=== PATIENT | male | born 1955 | race Caucasian/White ===

== ENCOUNTER 2019-12-27 11:32 | Emergency (ER) | payer OTHER, SELFPAY ==
--- NOTE | ~2019-12-27 | CT_ITS ---
EXAMINATION: CT lumbar spine wo con DATE: 12/27/2019 12:40 INDICATION: Low back pain. TECHNIQUE: Computed tomography (CT) of the lumbar spine was performed without intravenous contrast. A utomated exposure control and iterative reconstruction technique were employed. The dose-length produ ct was 848.95 mGy-cm. COMPARISON: None FINDINGS: There is 5 degrees dextrocurvature of lumbar spine.. There are changes of anterior fusion p rocedures at L4-L5 and L5-S1 with interbody devices. There is bridging bone at L4-L5, but not at L5-S 1. There is mild chronic anterior wedging of T11 vertebral body. There is moderately decreased disc h eight at T11-T12 and mildly decreased disc height at L2-L3 and L3-L4. The osseous central spinal ariella l is developmentally small from L2 to L5. The visualized portions of the right kidney demonstrate 4 s tones measuring up to 2 mm. The following disc levels are specifically discussed: L1-L2: The disc does not extend beyond the endplate margin. There is moderate bilateral facet joint o steoarthritis. There is no neural foraminal stenosis. There is no central canal stenosis. L2-L3: The disc is bulging. There is severe bilateral facet joint osteoarthritis. There is mild bilat eral neural foraminal stenosis. There is mild central canal stenosis. L3-L4: The disc is bulging. There is severe bilateral facet joint osteoarthritis. There is moderate b ilateral neural foraminal stenosis. There is moderate central canal stenosis. L4-L5: There is severe bilateral facet joint osteoarthritis. There is moderate bilateral neural karen inal stenosis. There is mild central canal stenosis. L5-S1: There is severe bilateral facet joint osteoarthritis. There is moderate bilateral neural karen inal stenosis. There is mild central canal stenosis. IMPRESSION: 1. Moderate lumbar spondylosis. 2. Anterior fusion procedures at L4-L5 and L5-S1. Reviewed, dictated and finalized at location A. 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
--- NOTE | ~2019-12-27 | CT_ITS ---
EXAMINATION: CT brain wo con DATE: 12/27/2019 12:39 INDICATION: Head injury. TECHNIQUE: Computed tomography (CT) of the head was performed without intravenous contrast. The mA wa s adjusted according to patient size. Iterative reconstruction technique was employed. The dose-lengt h product was 605.33 mGy-cm. COMPARISON: None FINDINGS: There is no intracranial hemorrhage, acute infarction, or abnormal intracranial mass lesion . The ventricles are normal in size. There is mild mucosal thickening in the paranasal sinuses. The o rbits are normal. The mastoid air cells are normal. IMPRESSION: 1. Normal brain. Reviewed, dictated and finalized at location A. 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 Normal brain.
[2019-12-27 11:52] VITALS: BP 100/61; PULSE 62; RESP 18; TEMP 36.9; O2SAT 99
[2019-12-27 12:18] VITALS: BP 100/61; PULSE 62; RESP 18; TEMP 36.9; O2SAT 99
--- NOTE | 2019-12-27 12:29 | ED.HEATRA ---
HPI - Head Injury General Chief complaint: Head Injury Stated complaint: Fall/Dizzy Time Seen by Provider: 12/27/19 12:18 Source: patient Mode of arrival: ambulatory Limitations: no limitations History of Present Illness HPI Narrative: The pt is a 64 y/o male who presents to the ED c/o head injury secondary to a fall which occurred today. Pt states that he slipped on ice while at work and struck his occipital head and back. Pt notes that he is now experiencing occipital MONTGOMERY and back pain, but denies neck pain and LOC. Pt notes that he does not take any anticoagulants. Complaint: head injury Mechanism of Injury: fall Place: work Loss of Consciousness: no Location of injury: occipital Other Injuries: other (Back) Associated symptoms: other (Back pain, occipital MONTGOMERY) Related Data Home Medications Medication Instructions Recorded Confirmed metformin mg PO 12/27/19 omeprazole 12/27/19 Allergies Allergy/AdvReac Type Severity Reaction Status Date / Time Penicillins Allergy Intermediate MUSCLE Verified 12/27/19 12:21 SPASMS Review of Systems Review of Systems: All systems reviewed & are unremarkable except as noted in HPI and below Musculoskeletal: Musculoskeletal: Reports back pain and Denies neck pain Neurologic: Reports headache(s) (Occipital) and Reports other (Reports: Occipital head injury; Denies: LOC) [facility] Past Medical History Medical History (Updated 12/27/19 @ 14:12 by Blaise Amezcua MD) Cataract COPD (chronic obstructive pulmonary disease) 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 Gonzalez Exam Const: General: cooperative, healthy appearing, comfortable, no acute distress, well developed, alert and awake; No confusion Orientation/consciousness: oriented to person, oriented to place, oriented to time, patient oriented x3 and No confusion Limitations: no limitations HENMT: Head: other (Occipital contusion) Neck: Neck: normal visual inspection, full ROM, no lymphadenopathy and no meningeal signs Resp: Effort & Inspection: normal respiratory effort, able to speak in complete sentences, no respiratory distress and not tachypneic Auscultation: clear to auscultation bilaterally, no crackles, no rales, no rhonchi and no wheezes Cardio: Rate: regular rate Rhythm: regular rhythm Back/Spine/Pelvis: Cervical Spine: No Cervical spine tenderness Thoracic/Lumbar Spine: paraspinal muscle tenderness (Lumbar) Skin: General skin exam: normal color, no rashes or lesions noted, elasticity normal and turgor normal Neuro: General: oriented to person, oriented to place, oriented to time, patient oriented x3, tone normal, moves all extremities, Normal light touch and pain sensation and No confusion Extrem: General: normal to inspection, full ROM and capillary refill normal Psych: Appearance: grossly normal and well kempt Mental Status: mental status grossly normal Speech and movement: Normal speech and movement present Affect: normal affect Attitude: cooperative Course Vital Signs Vital signs: Vital Signs Temperature 36.9 C 12/27/19 11:52 Pulse Rate 62 12/27/19 11:52 Respiratory Rate 18 12/27/19 11:52 Blood Pressure 100/61 12/27/19 11:52 Pulse Oximetry 99 12/27/19 11:52 Temperature 36.9 C 12/27/19 12:18 Pulse Rate 62 12/27/19 12:18 Respiratory Rate 18 12/27/19 12:18 Blood Pressure 100/61 12/27/19 12:18 Pulse Oximetry 99 12/27/19 12:18 [facility] - Head Inju
[2019-12-27 15:01] VITALS: BP 112/65; PULSE 66; RESP 19; O2SAT 100
== END 2019-12-27 15:05 | disposition home or self-care (01) ==
PROVIDERS: Emergency Provider Emergency Medicine; PCP Family Medicine
DX: S00.03XA Contusion of scalp, initial encounter (principal); S39.012A Strain of muscle, fascia and tendon of lower back, initial encounter; J44.9 Chronic obstructive pulmonary disease, unspecified; E11.9 Type 2 diabetes mellitus without complications; H40.9 Unspecified glaucoma; G47.30 Sleep apnea, unspecified; Z98.1 Arthrodesis status; F17.210 Nicotine dependence, cigarettes, uncomplicated; M47.816 Spondylosis without myelopathy or radiculopathy, lumbar region; W00.0XXA Fall on same level due to ice and snow, initial encounter; Z79.84 Long term (current) use of oral hypoglycemic drugs
CPT/HCPCS: 70450; 72131; 99284; A9270

== ENCOUNTER 2020-02-20 10:01 | Emergency (ER) | payer OTHER, SELFPAY ==
--- NOTE | ~2020-02-20 | CT_ITS ---
EXAMINATION: CT brain wo con INDICATION: Confusion and dizziness COMPARISON: 12/27/2019 TECHNIQUE: Standard unenhanced head CT. The dose-length product (DLP) was 605.33 mGy-cm. The mA was a djusted according to patient size. Iterative reconstruction technique was employed. FINDINGS: There is no acute intraparenchymal hemorrhage. No evidence of mass lesion. No evidence of a cute infarction. There is mild periventricular and subcortical hypodensity probably related to small vessel ischemic disease. There is mild prominence of the sulci and ventricles related to cerebral atr ophy. Intracranial calcified cerebral atherosclerosis is noted. There are no extra-axial collections. There is no mass effect or midline shift. The orbits and soft tissues are unremarkable. The visuali zed sinuses and mastoid air cells are well aerated. IMPRESSION: 1. No acute intracranial abnormality. 2. Age related findings. Reviewed, dictated and finalized at location A.
[2020-02-20 10:05] VITALS: BP 108/75; PULSE 69; RESP 20; TEMP 36.9; O2SAT 100
[2020-02-20 10:10] VITALS: PULSE 65
--- NOTE | 2020-02-20 10:10 | ECG_ITS ---
Measurements Intervals [place] Rate: 63 P: 67 AR: 153 QRS: 54 QRSD: 109 T: 14 QT: 395 QTc: 407 Interpretive Statements SINUS RHYTHM INCOMPLETE RIGHT BUNDLE BRANCH BLOCK BASELINE ARTIFACT- I, II, III BORDERLINE ECG Electronically Signed On 02-20-2020 10:17:54 CDT by Brown Trujillo D.O.
[2020-02-20 10:23] LABS: Basophils Absolute Auto 0.1 K/mm3 (0.0-0.1); Basophils Percent Auto 1.2 % (0.2-1.2); Eosinophils Absolute Auto 0.3 K/mm3 (0-0.3); Eosinophils Percent Auto 4.9 % (0-4.4); Lymphocytes Absolute Auto 2.14 K/mm3 (0.9-3.2); Lymphocytes Percent Auto 36.1 % (18.3-44.2); Mean Corpuscular HGB Conc 32.5 g/dl (32-36); Mean Corpuscular Hemoglobin 30.9 pg (26-34); Mean Platelet Volume 10.5 fl (7.4-10.4); Monocytes Absolute Auto 0.5 K/mm3 (0.1-0.6); Monocytes Percent Auto 8.4 % (2.6-8.5); Neutrophils Absolute Auto 2.9 K/mm3 (1.3-6.7); Neutrophils Percent Auto 49.4 % (45.5-73.1); Platelet Count Result 164 k/mm3 (150-375); Red Blood Count 4.21 M/mm3 (4.6-6.20); Red Cell Distribution Width 13.2 % (11.5-14.5); White Blood Count 5.9 K/mm3 (4.5-10.0)
[2020-02-20 10:35] LABS: Alanine Aminotransferase 16 U/L (4-50); Albumin Level 4.3 g/dL (3.5-5.1); Alkaline Phosphatase 47 U/L (38-126); Aspartate Amino Transferase 24 U/L (17-59); Bilirubin,Total 0.4 mg/dL (0.2-1.3); Blood Urea Nitrogen 20 mg/dL (9-20); Carbon Dioxide 27 mmol/L (22-30); Chloride 106 mmol/L (98-107); Estimated CRCL calculation 68 ml/min; Estimated Glomerular Filt Rate > 60; Glucose 94 mg/dL (75-110); Potassium 4.5 mmol/L (3.4-5.0); Sodium 138 mmol/L (137-145)
[2020-02-20 11:20] LABS: Add Urine Microscopic? NO; Appearance Urine Clear (Clear); Bacteria Urine Trace /hpf; Bilirubin Urine Negative (Negative); Blood Urine Negative (Negative); Color Urine Yellow (Yellow); Glucose Urine UA Negative (Negative); Ketones Urine Negative (Negative); Leukocyte Esterase Ur Negative LEU/UL (Negative); Mucus Urine Rare /lpf; Nitrate Urine Negative (Negative); Protein Urine Negative (Negative); RBC Urine 0-2 /hpf (0-2); Specific Grav Ur 1.013 (1.001-1.035); Urobilinogen Urine Negative mg/dL (<2.0)
[2020-02-20 11:21] VITALS: BP 96/70; PULSE 65; RESP 19; O2SAT 100
--- NOTE | 2020-02-20 12:41 | ED.GENADULT ---
HPI - General Adult General Chief complaint: Weakness Stated complaint: Weakness Time Seen by Provider: 02/20/20 10:09 Source: patient History of Present Illness HPI narrative: 64-year-old with a history of hypertension anxiety diabetes GERD here with the complaints of hallucinations for past 4 days. Patient denies any fever or chills. Patient states that he was recently started on pantoprazole for GERD. Denies any urinary symptoms. Onset (ago): day(s) (4) Relieving factors: none Exacerbating factors: none Associated symptoms: confusion Related Data Home Medications Medication Instructions Recorded Confirmed bimatoprost [Lumigan] 1 drp 02/20/20 escitalopram oxalate 20 mg PO 02/20/20 fluticasone propion-salmeterol INHALATION 02/20/20 [Wixela Inhub] ibuprofen 800 mg PO PRN 02/20/20 lorazepam 1 mg PO 02/20/20 metformin 1,000 mg PO 02/20/20 pantoprazole 40 mg PO 02/20/20 Allergies Allergy/AdvReac Type Severity Reaction Status Date / Time Penicillins Allergy Intermediate MUSCLE Verified 02/20/20 10:10 SPASMS Review of Systems Review of Systems: All systems reviewed & are unremarkable except as noted in HPI and below Constitutional: Constitutional: Reports no additional constitutional complaints Eyes: Eyes: Reports no additional eye complaints Cardiovascular: Cardiovascular: Reports no additional cardiovascular complaints Respiratory: Respiratory: Reports no additional respiratory complaints Gastrointestinal: Gastrointestinal: Reports no additional gastrointestinal complaints Genitourinary: Genitourinary: Reports no additional male genitourinary complaints Musculoskeletal: Musculoskeletal: Reports no additional musculoskeletal complaints Integumentary/Breasts: Skin/Breast: Reports system reviewed and no additional complaints, except as docu PMFSH Past Medical History Medical History Cataract COPD (chronic obstructive pulmonary disease) 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 Diabetes Glaucoma Migraine Phimosis Sleep apnea Surgical History Surgical History (Updated 12/27/19 @ 12:57 by Lincoln Hung) H/O hand surgery Left History of lumbar fusion L3-L6 Social History Social History (Updated 12/27/19 @ 12:57 by Lincoln Hung) Smoking packs per day: 0.5 Smoking cigarettes per day: 10.0 Years smoked: 10 Smoking pack-years: 5.00 Smoking status: Current every day smoker Gender identity (if verbalized by the patient): Male Exam Narrative: Exam Narrative: GENERAL: Well-appearing, well-nourished, and in no acute distress. HEAD: Normocephalic, atraumatic. EYES: PERRLA and EOMI. ENT: Nares clear, no rhinorrhea or epistaxis. Mucous membranes moist. NECK: Supple. CHEST: Clear to auscultation. No respiratory distress. HEART: Regular rate and rhythm. No murmur heard. Normal peripheral pulses. ABDOMEN: Soft, non tender, non distended, normal active bowel sounds. EXTREMITIES: Normal range of motion. No edema. SKIN: Warm, dry, no rash. NEURO: No focal deficits. Alert and oriented x3. PSYCH: Normal mood and affect. Course Course Emergency Course: Patient comfortably resting on the stretcher, I discussed labs, CT findings with the patient. I also discussed this case with Dr. Gonzalez. Advised to stop pantoprazole for now. He will follow-up in the office. Vital Signs Vital signs: Vital Signs Temperature 36.9 C 02/20/20 10:05 Pulse Rate 69 02/20/20 10:05 Respiratory Rate 20 02/20/20 10:05 Blood Pressure 108/75 02/20/20 10:05 Pulse Oximetry 100 02/20/20 10:05 Temperature 36.9 C 02/20/20 10:05 Pulse Rate 61 02/20/20 13:14 Respiratory Rate 16 02/20/20 13:14 Blood Pressure 94/72 L 02/20/20 13:14 Pulse Oximetry 99 02/20/20 13:14 Medical Decision Making [facility] Narrative Medical decision making narrative: With a recent history of hallucination will do CBC chemistry and
[2020-02-20 13:14] VITALS: BP 94/72; PULSE 61; RESP 16; O2SAT 99
[2020-02-20 14:09] VITALS: BP 95/76; PULSE 70; RESP 18; O2SAT 100
== END 2020-02-20 14:12 | disposition home or self-care (01) ==
PROVIDERS: Emergency Provider Family Medicine; PCP Family Medicine
DX: R44.3 Hallucinations, unspecified (principal); I10 Essential (primary) hypertension; E11.9 Type 2 diabetes mellitus without complications; K21.9 Gastro-esophageal reflux disease without esophagitis; F41.9 Anxiety disorder, unspecified; J44.9 Chronic obstructive pulmonary disease, unspecified; H40.9 Unspecified glaucoma; G47.30 Sleep apnea, unspecified; Z98.1 Arthrodesis status; F17.210 Nicotine dependence, cigarettes, uncomplicated; I45.10 Unspecified right bundle-branch block; Z79.84 Long term (current) use of oral hypoglycemic drugs
CPT/HCPCS: 36415; 70450; 80053; 81003; 85025; 93005; 99284

== ENCOUNTER 2020-02-29 07:31 | Outpatient (CLI) | payer OTHER, SELFPAY ==
--- NOTE | ~2020-02-29 | MR_ITS ---
EXAMINATION: MR brain/brain stem wo/w con DATE: 02/29/2020 09:17 INDICATION: Visual hallucinations, dizziness, and headache. Head injury. TECHNIQUE: Magnetic resonance imaging (MRI) of the brain and brainstem was performed without and with 17 mL MultiHance intravenous contrast. Sequences included sagittal and axial T1-weighted FSE, axial diffusion-weighted FS EPI, axial T2*-weighted GRE, axial T2-weighted FLAIR Propeller, and axial T2-we ighted Propeller. Postcontrast sequences included axial and coronal T1-weighted FSE. Apparent diffusi on coefficient (ADC) maps were created. COMPARISON: Head CT 02/20/2020 FINDINGS: There are scattered areas of nonspecific increased T2-weighted signal intensity in the cere bral white matter, which is within normal limits for the patient's age. There is no intracranial hemo rrhage, acute infarction, or abnormal intracranial mass lesion. The ventricles are normal in size. Th ere is mild mucosal thickening in the ethmoid sinuses. The mastoid air cells are normal. The orbits a re obscured by artifact. IMPRESSION: 1. Normal aging brain. Reviewed, dictated and finalized at location A. IMPRESSION: 1. Normal aging brain.
[2020-02-29 08:25] LABS: Estimated Glomerular Filt Rate > 60
== END 2020-02-29 07:32 | disposition home or self-care (01) ==
PROVIDERS: PCP Family Medicine; Visit Provider Family Medicine
DX: R44.1 Visual hallucinations (principal)
CPT/HCPCS: 36415; 70553; A9577

== ENCOUNTER 2020-07-02 07:29 | Outpatient (CLI) | payer OTHER, SELFPAY ==
--- NOTE | ~2020-07-02 | MR_ITS ---
EXAMINATION: MR cervical spine wo con DATE: 07/02/2020 08:51 INDICATION: Bilateral upper and lower extremity numbness and tingling. Tremors. TECHNIQUE: Magnetic resonance imaging (MRI) of the cervical spine was performed without intravenous c ontrast. Sequences included sagittal T2-weighted FSE, sagittal STIR FSE, sagittal T2-weighted FS FSE, sagittal T1-weighted FSE, axial MERGE, and axial T2-weighted FSE. COMPARISON: None FINDINGS: Bone alignment is normal. Vertebral body heights are normal. There is moderately decreased disc height at C5-C6. The spinal cord signal intensity is normal. The following disc levels are speci fically discussed: C2-C3: The disc does not extend beyond the endplate margin. There is mild left uncovertebral joint os teoarthritis. There is mild bilateral facet joint osteoarthritis. There is no neural foraminal stenos is. There is no central canal stenosis. C3-C4: The disc is bulging. There is mild right and moderate left uncovertebral joint osteoarthritis. There is mild bilateral facet joint osteoarthritis. There is mild bilateral neural foraminal stenosi s. There is mild central canal stenosis with ventral indentation of the spinal cord. C4-C5: The disc is bulging. There is moderate right and severe left uncovertebral joint osteoarthriti s. There is mild bilateral facet joint osteoarthritis. There is mild right and moderate left neural f oraminal stenosis. There is mild central canal stenosis. C5-C6: The disc is bulging. There is severe bilateral uncovertebral joint osteoarthritis. There is no facet joint osteoarthritis. There is mild right and moderate left neural foraminal stenosis. There i s mild central canal stenosis with ventral indentation of spinal cord. C6-C7: The disc does not extend beyond the endplate margin. There is mild bilateral uncovertebral kyra nt osteoarthritis. There is no facet joint osteoarthritis. There is mild right neural foraminal steno sis. There is no central canal stenosis. C7-T1: The disc does not extend beyond the endplate margin. There is no uncovertebral joint osteoarth ritis. There is mild bilateral facet joint osteoarthritis. There is no neural foraminal stenosis. The re is no central canal stenosis. IMPRESSION: 1. Moderate cervical spondylosis. Reviewed, dictated and finalized at location B.
--- NOTE | 2020-07-02 11:00 | NEURO_ITS ---
Patient Number: [id number] Impression: # Non-insulin dependent diabetic complains of numbness of hands. # Bilateral Carpal Tunnel Syndrome, right more than left. # Right ulnar neuropathy across the elbow. # Needle/EMG exam abnormal in right ADM. # Clinical correlation recommended. Nerve Conduction Studies Anti Sensory Summary Table Stim Site NR Peak (ms) P-T Amp (?V) Site1 Site2 Delta-P (ms) Dist (cm) Clint (m/s) Left Median Anti Sensory (2-3nd Digit) Wrist 4.0 6.4 Wrist 2-3nd Digit 4.0 14.0 35 Wrist 4.1 5.1 Wrist 2-3nd Digit 4.0 14.0 35 Right Median Anti Sensory (2-3nd Digit) Wrist 4.2 20.4 Wrist 2-3nd Digit 4.2 14.0 33 Wrist 4.3 18.5 Wrist 2-3nd Digit 4.2 14.0 33 Left Radial Anti Sensory (Base 1st Digit) Wrist 2.4 23.2 Wrist Base 1st Digit 2.4 0.0 Right Radial Anti Sensory (Base 1st Digit) Wrist 2.3 7.1 Wrist Base 1st Digit 2.3 0.0 Left Ulnar Anti Sensory (5th Digit) Wrist 3.2 14.2 Wrist 5th Digit 3.2 14.0 44 Right Ulnar Anti Sensory (5th Digit) Wrist 3.3 35.0 Wrist 5th Digit 3.3 14.0 42 Motor Summary Table Stim Site NR Onset (ms) O-P Amp (mV) Site1 Site2 Delta-0 (ms) Dist (cm) Clint (m/s) Left Median Motor (Abd Poll Brev) Wrist 4.8 2.0 Elbow Wrist 5.9 32.0 54 Elbow 10.7 2.3 Right Median Motor (Abd Poll Brev) Wrist 5.3 1.1 Elbow Wrist 5.4 30.0 56 Elbow 10.7 0.9 Left Ulnar Motor (Abd Dig Minimi) Wrist 3.3 3.8 A Elbow Wrist 5.7 32.0 56 A Elbow 9.0 2.7 Right Ulnar Motor (Abd Dig Minimi) Wrist 2.8 6.3 A Elbow Wrist 6.3 31.0 49 A Elbow 9.1 4.9 B Elbow Wrist 3.8 21.0 55 B Elbow 6.6 3.8 F Wave Studies NR F-Lat (ms) L-R F-Lat (ms) Left Median (Mrkrs) (Abd Poll Brev) 30.97 0.58 Right Median (Mrkrs) (Abd Poll Brev) 30.38 0.58 Left Ulnar (Mrkrs) (Abd Dig Min) 31.92 0.19 Right Ulnar (Mrkrs) (Abd Dig Min) 31.73 0.19 EMG Side Muscle Nerve Root Ins Act Fibs Amp Dur Recrt Comment Right 1stDorInt Ulnar C8-T1 Nml Nml Nml Nml Nml Right Ext Indicis Radial (Post Int) C7-8 Nml Nml Nml Nml Nml Right Ext Digitorum Radial (Post Int) C7-8 Nml Nml Nml Nml Nml Right BrachioRad Radial C5-6 Nml Nml Nml Nml Nml Right PronatorTeres Median C6-7 Nml Nml Nml Nml Nml Right Abd Poll Brev Median C8-T1 Nml Nml Nml Nml Nml Left 1stDorInt Ulnar C8-T1 Nml Nml Nml Nml Nml Left Ext Indicis Radial (Post Int) C7-8 Nml Nml Nml Nml Nml Left Ext Digitorum Radial (Post Int) C7-8 Nml Nml Nml Nml Nml Left BrachioRad Radial C5-6 Nml Nml Nml Nml Nml Left PronatorTeres Median C6-7 Nml Nml Nml Nml Nml Left Abd Poll Brev Median C8-T1 Nml Nml Nml Nml Nml Right ABD Dig Min Ulnar C8-T1 Nml Nml Decr >12ms Reduced Left ABD Dig Min Ulnar C8-T1 Nml Nml Nml Nml Nml MTDD
== END 2020-07-02 07:30 | disposition home or self-care (01) ==
LOC: ANHIMG 07:40
PROVIDERS: PCP Family Medicine; Visit Provider Psychiatry & Neurology Neurology
DX: R25.1 Tremor, unspecified (principal); G56.03 Carpal tunnel syndrome, bilateral upper limbs; G56.21 Lesion of ulnar nerve, right upper limb; R94.131 Abnormal electromyogram [EMG]; M47.812 Spondylosis without myelopathy or radiculopathy, cervical region
CPT/HCPCS: 72141; 95886; 95911

== ENCOUNTER 2020-10-26 07:25 | Outpatient (CLI) | payer OTHER, SELFPAY ==
--- NOTE | 2020-10-26 09:15 | EST_ITS ---
Patient Info Name: Rishi John Age: 65 years : 1955 Gender: Male Wt: 189 lbs HR: 62 bpm BP: 109 / 73 mmHg Heart Rhythm: Sinus Rhythm Technical Quality: Excellent Exam Date: 10/26/2020 8:45 AM Exam Location: [facility] Patient Status: Outpatient Admit Date: 10/26/2020 Staff Ordering Physician: Adama Faustin MD Attending Provider: Adama Faustin MD Exercise Technologist: Allyn He CRT Exercise Physician: Aleksandra Patel CEP Exam Type: CA stress regina w NM Study Info Indications ChestPain - A nuclear stress test was performed. History/Risk Factors Dyslipidemia: Yes Diabetes Mellitus: Type II COPD: Not Treated History/Risk Factors Diabetes, Hyperlipidemia. Summary 1. 1. Abnormal lexiscan stress test for ischemic ST changes by ECG criteria. However, baseline RBBB decreases specificity of the test. 2. 2. Stable hemodynamics throughout the test. 3. 3. Nuclear scan to follow and will be reported separately. Please correlate with it. Protocol: LEXISCAN Stress ECG Details Stage: REST Duration (min): 2 min : 10 sec HR (bpm): 63 SBP (mmHg): 109 DBP (mmHg): 73 Stage: REST Duration (min): 10 min : 32 sec HR (bpm): 69 SBP (mmHg): 109 DBP (mmHg): 73 Stage: STAGE 1 Duration (min): 0 min : 22 sec HR (bpm): 71 SBP (mmHg): 109 DBP (mmHg): 73 Stage: RECOVERY Duration (min): 0 min : 37 sec HR (bpm): 94 SBP (mmHg): 109 DBP (mmHg): 73 Stage: RECOVERY Duration (min): 1 min : 37 sec HR (bpm): 100 SBP (mmHg): 109 DBP (mmHg): 73 Stage: RECOVERY Duration (min): 2 min : 37 sec HR (bpm): 96 SBP (mmHg): 100 DBP (mmHg): 60 Stage: RECOVERY Duration (min): 3 min : 37 sec HR (bpm): 91 SBP (mmHg): 101 DBP (mmHg): 61 Stage: RECOVERY Duration (min): 4 min : 37 sec HR (bpm): 92 SBP (mmHg): 100 DBP (mmHg): 64 Stage: RECOVERY Duration (min): 5 min : 37 sec HR (bpm): 87 SBP (mmHg): 102 DBP (mmHg): 70 Stage: RECOVERY Duration (min): 6 min : 37 sec HR (bpm): 88 SBP (mmHg): 99 DBP (mmHg): 69 Stage: RECOVERY Duration (min): 6 min : 37 sec HR (bpm): 88 SBP (mmHg): 99 DBP (mmHg): 69 Rest HR: 69 bpm Peak HR: 108 bpm Rest Sys BP: 109 mmHg Peak Sys BP: 106 mmHg Max Pred HR: 157 bpm % Max Pred HR: 69 % Target HR: 133 bpm Max RPP: 11,448 bpm*mmHg Termination Reason: Completion of Protocol Cardiac Symptoms: Dyspnea, Chest pain Total Time: 0 min : 22 sec Rest Ryan BP: 73 mmHg Peak Ryan BP: 59 mmHg Total Dose: 0.4 mg Resting ECG Sinus rhythm with RBBB. Stress ECG 1-[address] depression in leads V2-V3. Report Signatures
== END 2020-10-26 07:26 | disposition home or self-care (01) ==
LOC: CHSIMG 07:26
PROVIDERS: PCP Family Medicine; Visit Provider Family Medicine
DX: R07.9 Chest pain, unspecified (principal)
CPT/HCPCS: 78452; 93017; A9502; J2785

== ENCOUNTER 2020-11-18 11:53 | Outpatient (CLI) | payer OTHER, SELFPAY ==
--- NOTE | 2020-11-18 11:59 | ECHO_ITS ---
Patient Info Name: Rishi John Age: 65 years : 1955 Gender: Male Ht: 72 in Wt: 195 lbs BSA: 2.13 m2 HR: 74 bpm BP: 95 / 61 mmHg Technical Quality: Good Exam Date: 11/18/2020 1:03 PM Exam Location: [facility] Patient Status: Outpatient Admit Date: 11/18/2020 Staff Ordering Physician: Brown Trujillo DO Pump Tester: Mary Jo Dye RDCS Attending Provider: Brown Trujillo DO Referring Physician: Ronnie WELDON; Exam Type: CA echo dop color flow w con Study Info Indications R00.2 - Palpitations Complete two-dimensional, color flow and Doppler transthoracic echocardiogram is performed with contrast to opacify the left ventricle and to improve the deliniation of the left ventricle endocardial borders. Strain analysis performed. Contrast/Agitated Saline Contrast/Ag. Saline: Definity Amount: 3.00 ml New IV Access: Antecubital Space and Left Site Condition: No extravasation, Site dressing applied and IV removed History/Risk Factors Hypertension: No Dyslipidemia: Yes Congenital Heart Disease (CHD): No Diabetic Therapy: Oral Peripheral Arterial Disease (PAD): No Myocardial Infarction (AR): No Obesity: No Renal Disease: No Congestive Heart Failure (CHF): No Date of Last Tobacco Use: 11/18/2020 Diabetes Mellitus: Type II COPD: On Meds Tobacco Use: Current - Every Day If Any Current, Tobacco Type: Cigarettes If Current - Every Day \T\ Cigarettes, Amount: Light Tobacco Use (<10/day) Cerebrovascular Disease: No Family History: Coronary Artery Disease Deep Vein Thrombosis (DVT): None Dialysis: None Frailty Scale (CSHA): 2: Well Cardiac Arrest: No Summary 1. Left ventricular chamber dimension is normal. 2. Definity contrast administered improved wall motion interpretation. 3. Left ventricular systolic function is normal, estimated at 55-60%. 4. The left ventricular diastolic function is grade I diastolic dysfunction. 5. E/e' 5 is not elevated. 6. The prox ascending aorta size is mildly dilated at 4.3 cm. Recommendations * Continue medical therapy for diabetes. * Smoking cessation counseling is recommended for this patient. Left Ventricle Definity contrast administered improved wall motion interpretation. E/e' 5 is not elevated. Left ventricular chamber dimension is normal. Left ventricular systolic function is normal, estimated at 55-60%. The left ventricular diastolic function is grade I diastolic dysfunction. Right Ventricle Right ventricular chamber dimension is normal. Right ventricular systolic function is normal. Left Atria Left atrial chamber dimension is normal. Right Atria Right atrial chamber dimension is normal. Aortic Valve The aortic valve is trileaflet. There is no aortic valve stenosis. There is no aortic valve regurgitation. Pulmonic Valve There is no pulmonic regurgitation. Mitral Valve There is no mitral valve stenosis. There is no mitral valve regurgitation. Tricuspid Valve There is no tricuspid valve regurgitation. Pericardium/Pleural There is no pericardial effusion. Inferior Vena Cava Normal inferior vena cava with >50% collapse upon inspiration consistent with normal right atrial pressure, 5 mmHg. Aorta The prox ascending aorta size is mildly dilated at 4.3 cm. The aortic root size at the sinus of Valsalva is normal. Left Ventricular Outflow Trac
== END 2020-11-18 11:54 | disposition home or self-care (01) ==
LOC: CHSIMG 11:56
PROVIDERS: PCP Family Medicine; Visit Provider Internal Medicine Cardiovascular Disease
DX: R00.2 Palpitations (principal)
CPT/HCPCS: C8929

== ENCOUNTER 2020-11-21 08:24 | Outpatient (CLI) | payer OTHER, SELFPAY ==
[2020-11-21 09:43] LABS: Cholesterol 176 mg/dL (0-200); HDL Direct 70 mg/dL (40-60); LDL Cholesterol Calculated 95 mg/dL (<130); Triglycerides 54 mg/dL (0-150)
== END 2020-11-21 08:25 | disposition home or self-care (01) ==
LOC: CHSLAB 08:26
PROVIDERS: PCP Internal Medicine Cardiovascular Disease; Visit Provider Internal Medicine Cardiovascular Disease
DX: R07.9 Chest pain, unspecified (principal)
CPT/HCPCS: 36415; 80061

== ENCOUNTER 2020-11-24 15:19 | Outpatient (CLI) | payer OTHER, SELFPAY ==
--- NOTE | ~2020-11-24 | CT_ITS ---
EXAMINATION: CTA chest DATE: 11/24/2020 16:11 INDICATION: Aortic aneurysm of unspecified site without rupture TECHNIQUE: Computed tomographic angiography (CTA) of the chest was performed with 100 mL Omnipque-350 intravenous contrast. Maximum intensity projection 3D-reconstructions of the aorta and other arterie s were constructed by the technologist on a separate workstation. The dose-length product (DLP) was 1 567.41 mGy-cm. Automated exposure control and iterative reconstruction technique were employed. COMPARISON: None. FINDINGS: There is fusiform enlargement of the ascending aorta which measures 4.0 x 3.9 cm at the lev el of the main pulmonary artery. There is no dissection. There is mild emphysema. No pleural effusion or pneumothorax is identified. There is mild dependent atelectasis. No focal airspace opacities are identified. No pathologically enlarged thoracic lymph nodes are identified. The heart size is normal. There is moderate thoracic spondylosis. IMPRESSION: 1. Fusiform enlargement of the ascending aorta measuring up to 4 cm at the level of the main pulmonar y artery. No dissection. Reviewed, dictated and finalized at location A. E TOOLSETTER IMPRESSION: 1. Fusiform enlargement of the ascending aorta measuring up to 4 cm at the leve l of the main pulmonary artery. No dissection.
[2020-11-24 15:45] LABS: Estimated Glomerular Filt Rate > 60
== END 2020-11-24 15:20 | disposition home or self-care (01) ==
LOC: ANHIMG 15:20
PROVIDERS: PCP Internal Medicine Cardiovascular Disease; Visit Provider Internal Medicine Cardiovascular Disease
DX: I71.9 Aortic aneurysm of unspecified site, without rupture (principal)
CPT/HCPCS: 71275; Q9967

== ENCOUNTER 2021-03-24 09:23 | Outpatient (CLI) | payer OTHER, SELFPAY ==
--- NOTE | ~2021-03-24 | XR_ITS ---
EXAMINATION: XR abdomen obstructive series DATE: 03/24/2021 18:24 INDICATION: Lower abdominal pain TECHNIQUE: Upright and supine views of the abdomen were obtained. COMPARISON: None. FINDINGS: Lucency is seen under the left hemidiaphragm on the upright views. Air-fluid levels are see n within nondistended loops of bowel in the upper abdomen. There is a large volume of stool in the re ctum. Changes of fusion procedure are noted in the lower lumbar spine. IMPRESSION: 1. Possible free intraperitoneal gas. Further evaluation by CT with contrast is recommended. These fi ndings and recommendations were discussed with Dr. Adama Faustin MD at 1850 hours on 03/24/2021. Reviewed, dictated and finalized at location A. IMPRESSION: 1. Possible free intraperitoneal gas. Further evaluation by CT with contrast is recommended. These findings and recommendations were discussed with Dr. Adama Faustin MD at 1850 hours on 03/24/2021.
[2021-03-24 11:08] LABS: SARS-CoV-2 RNA PCR Negative (Negative)
[2021-03-24 18:47] LABS: Basophils Absolute Auto 0.04 K/mm3 (0.00-0.10); Basophils Percent Auto 0.8 % (0.0-1.0); Eosinophils Percent Auto 5.7 % (1.0-6.0); Hematocrit 40.4 % (40.0-54.0); Hemoglobin 13.5 g/dL (14.0-18.0); Immature Granulocyte Absolute 0.01 K/mm3 (0.00-0.00); Immature Granulocyte Percent A 0.2 % (0.0-0.0); Lymphocytes Percent Auto 41.6 % (18.0-42.0); Mean Corpuscular HGB Conc 33.4 g/dL (32.0-36.0); Mean Corpuscular Hemoglobin 31.7 pg (27.0-31.0); Mean Corpuscular Volume 94.8 fL (78.0-102.0); Mean Platelet Volume 10.4 fl (8.7-11.0); Monocytes Absolute Auto 0.66 K/mm3 (0.10-0.90); Monocytes Percent Auto 12.5 % (2.0-11.0); Neutrophils Absolute Auto 2.1 K/mm3 (1.7-7.2); Neutrophils Percent Auto 39.2 % (50.0-70.0); Platelet Count Result 175 K/mm3 (150-420); Red Blood Count 4.26 M/mm3 (4.70-6.10); White Blood Count 5.3 K/mm3 (4.8-10.8)
[2021-03-24 19:04] LABS: Add Urine Microscopic? YES; Appearance Urine Clear (Clear); Bilirubin Urine Negative (Negative); Blood Urine 1+ (Negative); Color Urine Yellow (Yellow); Glucose Urine UA Negative (Negative); Ketones Urine Negative (Negative); Leukocyte Esterase Ur Negative (Negative); Nitrate Urine Negative (Negative); Protein Urine Negative (Negative); Urobilinogen Urine 0.2 mg/dL (0.2-1.0); pH Urine 6.5 (5.0-8.0)
[2021-03-24 19:10] LABS: Alanine Aminotransferase 23 U/L (16-63); Albumin Level 3.3 g/dL (3.4-5.0); Alkaline Phosphatase 59 U/L (46-116); Amylase 46 U/L (25-115); Anion Gap 6 mmol/L (8-16); Aspartate Amino Transferase 39 U/L (15-37); Bilirubin,Total 0.4 mg/dL (0.00-1.00); Blood Urea Nitrogen 21 mg/dL (7-18); Calcium 8.9 mg/dL (8.5-10.1); Carbon Dioxide 32 mmol/L (21-32); Chloride 103 mmol/L (98-108); Estimated Glomerular Filt Rate > 60; Glucose 126 mg/dL (70-99); Lipase 108 U/L (73-393); Osmolality Calculated 297 mOsm/kg (285-295); Potassium 4.9 mmol/L (3.5-5.1); Sodium 141 mmol/L (136-145); Total Protein 7.2 g/dL (6.4-8.2)
[2021-03-24 20:02] LABS: Bacteria Urine Trace /hpf; RBC Urine 0-2 /hpf (0-2); Squamous Epithelial Cell Urine Rare /hpf (Few); WBC Urine 0-3 /hpf (0-3)
== END 2021-03-24 09:24 | disposition home or self-care (01) ==
PROVIDERS: PCP Family Medicine; Visit Provider Internal Medicine Critical Care Medicine
DX: R10.84 Generalized abdominal pain (principal); Z01.812 Encounter for preprocedural laboratory examination; Z20.822 Contact with and (suspected) exposure to COVID-19
CPT/HCPCS: 36415; 74019; 80053; 81001; 82150; 83690; 85025; 87086; C9803; U0003; U0005

== ENCOUNTER 2021-03-24 19:11 | Emergency (ER) | payer OTHER, SELFPAY ==
--- NOTE | ~2021-03-24 | CT_ITS ---
EXAMINATION: CT abdomen pelvis w con INDICATION: Abdominal pain TECHNIQUE: Computed tomographic images of the abdomen and pelvis were obtained after the administrati on of 100 cc of Omnipaque 350 intravenous contrast. The dose-length product (DLP) was 849.74 mGy-cm. Automated exposure control and iterative reconstruction technique were employed. COMPARISON: 09/27/2013 FINDINGS: Minimal dependent atelectasis is present in the lung bases. The heart size is normal. There is an 8 mm cyst in the right hepatic lobe. Punctate calcifications in an otherwise normal spleen lik rsusel represent healed granulomatous disease. The pancreas, gallbladder, and adrenal glands are normal. There is a 2 mm nonobstructing stone of the right kidney. The left kidney is normal. No pathological ly enlarged abdominal or pelvic lymph nodes are identified. There is a greater than normal number of fluid-filled, nondistended small bowel loops. No free intraperitoneal gas is identified. There are ch anges of anterior fusion at L4-5 and L5-S1. IMPRESSION: 1. Greater than normal number of fluid-filled, nondistended small bowel loops which could reflect ent eritis. No free intraperitoneal gas identified. Reviewed, dictated and finalized at location A. IMPRESSION: 1. Greater than normal number of fluid-filled, nondistended small bowel loops w hich could reflect enteritis. No free intraperitoneal gas identified.
[2021-03-24 19:30] VITALS: BP 99/77; PULSE 75; RESP 20; TEMP 36.8; O2SAT 98
--- NOTE | 2021-03-24 19:54 | ED.GENADULT ---
HPI - General Adult General Chief complaint: Abdominal Pain Stated complaint: sent by doctor david for bad labs. Source: patient Mode of arrival: ambulatory Limitations: no limitations History of Present Illness HPI narrative: Rishi is a 65M with a PMH of COPD, cataract, chronic back pain, DMII, essential tremor, GERD, migraines and sleep apnea that was referred to the ED by his PCP. He was woke up by epigastric and suprapubic pain 2 nights ago. Later the next day he had nausea and some non-bloody vomiting. He has had worsening pain since and nausea but not vomiting. It is described a sharp and burning pain. He is not wanting to eat as well. No CP, SOB, back pain, or diarrhea. Related Data Home Medications Medication Instructions Recorded Confirmed bimatoprost [Lumigan] 1 drp 02/20/20 03/15/21 fluticasone propion-salmeterol INHALATION 02/20/20 03/15/21 [Wixela Inhub] ibuprofen 800 mg PO PRN 02/20/20 03/15/21 bupropion HCl 200 mg tablet,12 hr 200 mg PO BID tablet 11/10/20 03/15/21 sustained-release cyclosporine 0.05 % eye drops in a 1 drp OPHTHALMIC (EYE) Q12H 11/10/20 03/15/21 dropperette ergocalciferol (vitamin D2) 1,250 1,250 mcg PO MONTHLY 11/10/20 03/15/21 mcg (50,000 unit) capsule famotidine 20 mg tablet 20 mg PO DAILY 11/10/20 03/15/21 primidone 50 mg tablet 125 mg PO BID 11/10/20 03/15/21 tadalafil 10 mg tablet 10 mg PO DAILY PRN 11/10/20 03/15/21 sildenafil (pulm.hypertension) 20 20 mg PO TID 03/15/21 03/15/21 mg tablet Allergies Allergy/AdvReac Type Severity Reaction Status Date / Time Penicillins Allergy Intermediate MUSCLE Verified 03/15/21 13:44 SPASMS Review of Systems Constitutional: Constitutional: Reports no additional constitutional complaints Eyes: Eyes: Reports no additional eye complaints ENT: Reports system reviewed and no additional complaints, except as documented Cardiovascular: Cardiovascular: Reports no additional cardiovascular complaints Respiratory: Respiratory: Reports no additional respiratory complaints Gastrointestinal: Gastrointestinal: Reports as per HPI Genitourinary: Genitourinary: Reports no additional male genitourinary complaints Musculoskeletal: Musculoskeletal: Reports no additional musculoskeletal complaints Integumentary/Breasts: Skin/Breast: Reports system reviewed and no additional complaints, except as docu Neurologic: Reports system reviewed and no additional complaints, except as documented Psychiatric: Psychiatric: Reports no additional psychiatric complaints Endocrine: Endocrine: Reports no additional endocrine complaints Hematologic/Lymphatic: Hematologic/Lymphatic: Reports no additional hematologic/lymphatic complaints Allergic/Immunologic: Allergic/Immunologic: Reports no additional allergic/immunologic complaints [facility] Past Medical History Medical History Cataract Chest pain COPD (chronic obstructive pulmonary disease) 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 Diabetes Essential tremor GERD (gastroesophageal reflux disease) Glaucoma Migraine Phimosis Sleep apnea Vitamin D deficiency Surgical History Surgical History H/O hand surgery Left History of back surgery History of lumbar fusion L3-L6 History of thumb surgery Family History Family History Mother Alzheimers disease Essential tremor Father Aneurysm Sibling Atherosclerosis Social History Social History Smoking packs per day: 0.5 Smoking cigarettes per day: 10.0 Years smoked: 10 Smoking pack-years: 5.00 Smoking status: Current every day smoker Gender identity (if verbalized by the patient): Male Exam Const: General: alert; No confusion Orientation/consciousness: patient oriented x3 Limitations: No altere
[2021-03-24] MEDS: MORPHINE SULFATE (*CRX) 4 MG/ML INJ IV PUSH (20:25)
[2021-03-24] MEDS: ONDANSETRON INJ 4 MG/2 ML VIAL IV PUSH (20:27)
[2021-03-24 21:12] VITALS: TEMP 36.8
[2021-03-24 21:53] VITALS: BP 94/63; PULSE 67; RESP 20; TEMP 36.9; O2SAT 96
== END 2021-03-24 21:40 | disposition home or self-care (01) ==
PROVIDERS: Emergency Provider Family Medicine; PCP Family Medicine
DX: K52.9 Noninfective gastroenteritis and colitis, unspecified (principal)
CPT/HCPCS: 74177; 96374; 96375; 99283; 99284; J2270; J2405; Q9967

== ENCOUNTER 2021-03-26 19:41 | Outpatient (CLI) | payer OTHER, SELFPAY ==
--- NOTE | 2021-04-23 10:01 | WPDSLEEPSTUD ---
Sleep Study Date of Study: 03/26/21 Ordering Provider: Brown Trujillo DO Interpreting Physician: Laura Harding MD Sleep Study Type: Polysomnogram Height: 1.83 m Weight: 89.811 kg Body Mass Index: 26.8 Neck Circumference (inches): 16 [place]: 7 Reason for Sleep Study History of obstructive sleep apnea several years ago without treatment, continues to have nonrestorative sleep, daytime hypersomnolence. No results of his prior study are available to review. 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 It is not clear if he had a CPAP for a while, or if he was ever treated. There are no old test results to review. He has depression, gastroesophageal reflux disease, erectile dysfunction. He always has morning headaches. He says that he feels like he has a jolt-like feeling while sleeping, and he is unable to sleep comfortably. He wakes up feeling tired. He has difficulty falling asleep, he wakes up throughout the night and he has excessive daytime sleepiness. He rarely awakens from sleep feeling short of breath and rarely awakens at night with heartburn, belching or coughing. He constantly snores and it is always loud enough the others complain about it. He rarely has trouble sleep with a cold. He does not wake up gasping for breath at night. He occasionally has breathing problems at night observed by others. He occasionally sweats excessively night. He frequently notices his heart pounding or beating irregularly night. He rarely falls asleep during the day, really for involuntarily or while driving. He frequently has loss of muscle tone with strong emotion. He frequently has daytime difficulties due to excessive sleepiness. He frequently feels paralyzed when waking or falling asleep. He frequently has vivid dreamlike scenes on waking or falling asleep. He frequently feels afraid to go to sleep. He occasionally has nightmares. He rarely remembers his dreams. He frequently has racing thoughts. He constantly feels sad, depressed, and anxious. He constantly has muscular tension. He constantly notices heart his body jerking. He constantly kicks at night. He constantly has crawling and aching feelings in his legs and has leg pain throughout the night. He frequently has morning jaw pain. He does not grind his teeth during sleep. He frequently is bothered by pain during the day and is awakened by pain at night. He constantly wakes up feeling stiff in the morning with sore achy muscles and pain in the neck and spine. He has headaches, dizziness, fatigue, sexual problems, memory problems and concentration difficulties. He has poor appetite. Normal bedtime is 7:30 p.m. falling asleep within 15-30 minutes typically waking 3-5 times at night to go to the bathroom. He may be awakened by a dream. On average he stays awake 2-5 minutes. He wakes the morning at 5:30 a.m.. On the weekends his bedtime is between 8:00 p.m. and 9:00 p.m.. He wakes the morning between 7 and 8:00 a.m.. He does not take naps in the afternoon or evening. He does not comment if he feels refreshed after a short nap. He is usually drowsy in the morning for 2 hours or longer. He feels better in the afternoon compared other times of day. Tobacco: He smokes about a pack or a pack and half per day. Caffeine only in the morning. No alcohol or recreational drugs. [facility] Past Medical History Medical History Cataract Chest pain COPD (chronic obstructive pulmonary disease) 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 Diabetes Essential tremor GERD (gastroesophageal reflux disease) Glaucoma Migraine Phimosis Sleep apnea Vitamin D deficiency Surgical History Surgical History H/O hand surgery Left History of back surgery History of lumbar fusion
[2021-04-23 10:04] VITALS: BMI 26.8
== END 2021-03-27 05:51 | disposition home or self-care (01) ==
LOC: CHSCSM 19:42
PROVIDERS: PCP Internal Medicine Cardiovascular Disease; Visit Provider Internal Medicine Cardiovascular Disease
DX: G47.33 Obstructive sleep apnea (adult) (pediatric) (principal)
CPT/HCPCS: 95810

== ENCOUNTER 2021-07-08 11:33 | Outpatient (CLI) | payer OTHER, SELFPAY ==
[2021-07-08 12:50] LABS: SARS-CoV-2 RNA PCR Negative (Negative)
== END 2021-07-08 11:34 | disposition home or self-care (01) ==
LOC: CHSLAB 11:35
PROVIDERS: PCP Family Medicine; Visit Provider Family Medicine
DX: R05 Cough (principal); Z20.822 Contact with and (suspected) exposure to COVID-19
CPT/HCPCS: C9803; U0003; U0005

== ENCOUNTER 2022-07-21 15:38 | Outpatient (RCR) | payer MEDICARE, OTHER, SELFPAY ==
--- NOTE | 2022-07-21 15:09 | PTOPEVAL1 ---
Assessment and note entered by JT File, PT Evaluation Information Diagnosis essential tremors Subjective Information patient reports he had a brain stimulator implanted on 04/15/22 for essential tremors. he reports he most recently had a calibration on 07/28. he reports he does no return to his neurosurgeon until later this year. he reports he has had essential tremors for over a year. he reports medication did not work. he reports he has had no falls. he reports he is hoping to work on and improve his gait and balance prior to having another stimulator put on the opposite side of his brain. Reported Pain Level Pain Score 0: Self Report Assessment PT Clinical Summary mr. mcdaniels presents to skilled PT services for evaluation and treatment of balance and gait disorders from esential tremors. as of this date, he presents with deficits in balance per the ONEIL and tinetti assessment, as well as, weakness in the bilateral LE's. he would do well to attend skilled PT to improve his objective/functional deficits and prepare for a 2nd brain stimulator surgery. Plan of Care Interventions Gait Training,Neuro Re-education,Patient/Caregiver Educati,Therapeutic Activities,Therapeutic Exercise PT Services Indicated Yes Treatment Frequency and 2x weekly for 8 visits Duration These treatments will address the objective and functional deficits as defined above. The patient will be advanced safely and appropriately in order for the patient to progress towards his/her prior level of function. Additional exercises will be introduced and as well as a comprehensive home exercise program upon discharge, if needed, ?to ensure carryover of functional gains achieved in the clinic. This treatment plan has been reviewed and agreement upon by the patient.
--- NOTE | 2022-08-16 14:00 | PTOPDC ---
Assessment and note entered by Krystina Poole, PT Evaluation Information Assessment Status Discharge Diagnosis essential tremors Onset 07/15/22 Subjective Information Rishi reports he is noting improvements in his balance since initiating PT. He feels he can stand on one leg better and feels more stable with walking and other daily activities. He does report having one fall since initiating PT. The fall was while he was out in the yard moving a dog fence. He was bent forward and lost his balance falling a short distance to his right shoulder on grass. He denies pain or injury following the fall. He will see his neurosurgeon in October 2022, at which time he will discuss having a second brain stimulator placed. He feels he has improved 90% overall. Reported Pain Level Pain Score 0: Self Report Assessment PT Clinical Summary Rishi John has completed 8 physical therapy visits for balance, gait, and LE strength training . He is reporting a 90% overall improvement in his balance since initiating PT. He objectively demonstrates improvements in his Miramontes Balance score and Tinetti Balance score; his distance on his 6 minute walk test has improved; and his time on his 5 times sit to stand has decreased. He demonstrates a low fall risk at this time and will be discharged from skilled PT. Plan of Care PT Services Indicated No
== END 2022-08-16 14:37 | disposition home or self-care (01) ==
LOC: CHSPT 15:38
PROVIDERS: PCP Family Medicine
DX: G25.0 Essential tremor (principal)
CPT/HCPCS: 97110; 97161; 97530

== ENCOUNTER 2022-11-21 15:01 | Outpatient (CLI) | payer MEDICARE, OTHER, SELFPAY ==
--- NOTE | 2022-11-21 15:22 | ECG_ITS ---
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
== END 2022-11-21 15:02 | disposition home or self-care (01) ==
PROVIDERS: PCP Family Medicine; Visit Provider Internal Medicine Cardiovascular Disease
DX: Z01.810 Encounter for preprocedural cardiovascular examination (principal); R94.31 Abnormal electrocardiogram [ECG] [EKG]
CPT/HCPCS: 93005

== ENCOUNTER 2023-05-08 10:00 | Outpatient (RCR) | payer MEDICARE, OTHER, SELFPAY ==
--- NOTE | 2023-02-15 14:46 | PTOPEVAL1 ---
Assessment and note entered by JT File, PT Evaluation Information Assessment Status Evaluation Diagnosis R shoulder adhesive capsulitis Onset 02/13/23 Subjective Information patient reports he fell and injured his shoulder around April of last year. he reports he fell directly on the R shoulder. he reports for 6-8 months it did not bother him, but allof a sudden began bothering him in the back and front of the shoulder recently. he reports he has sharp pain shooting down the arm to the hand. he reports he does have NTB once in a while in the R hand. he reports he has difficulty with eating. he reports the hand will give out on him. he reports he also has difficulty with lifting things up with the R hand. he reports he also struggles with buttons on shirts and pants. he reports he is unable to reach overhead. Reported Pain Level Pain Score 6: Self Report Assessment PT Clinical Summary mr. mcdaniels is a 67 yo man who presents to skilled PT services for evaluation and treatment of an acute flare up of pain, weakness, and decreased rom of the R shoulder. he was injured in a fall last year, but did not have any pain or symptoms until a few months ago. he now presents with signs and symptoms of an adhesive capsulitis. however, R RTC pathology and cervical radiculopathy cannot be ruled out at this time. he would benefit from continued skilled PT services to improve his objective deficits and return to his PLOF. Plan of Care Interventions Hot Pack/Cold Pack,Manual Therapy,Neuro Re- education,Patient/Caregiver Educati,Therapeutic Activities,Therapeutic Exercise PT Services Indicated Yes Treatment Frequency and 3x weekly for 12 visits Duration These treatments will address the objective and functional deficits as defined above. The patient will be advanced safely and appropriately in order for the patient to progress towards his/her prior level of function. Additional exercises will be introduced and as well as a comprehensive home exercise program upon discharge, if needed, ?to ensure carryover of functional gains achieved in the clinic. This treatment plan has been reviewed and agreement upon by the patient.
--- NOTE | 2023-03-10 10:11 | PTOPPROG ---
Assessment and note entered by JT File, PT Evaluation Information Assessment Status Progress Diagnosis R shoulder adhesive capsulitis Onset 02/13/23 Subjective Information patient reports he is a bit more sore today. he reports no injury, but increased tightness and pain last night while sleeping. he reports he has not followed up with the MD since initial evaluation, but can if needed. Assessment PT Clinical Summary mr. mcdaniels presents to skilled PT for his 10th skilled therapy visit today. he has made progress in active and passive R shoulder mobility. he is progressing towards all goals for skilled PT, but continues to lack goal achievement in rom, strength, pain, and functional use. he would benefit from continued skilled PT to address his deficits and progress towards achievement of all goals. he would benefit from assist of injection to the R shoulder to aid in pain and inflamation reduction. Plan of Care Interventions Hot Pack/Cold Pack,Manual Therapy,Neuro Re- education,Patient/Caregiver Educati,Therapeutic Activities,Therapeutic Exercise PT Services Indicated Yes Treatment Frequency and continue skilled 2x weekly next week, and then Duration reduce frequency to 1x weekly for 4 visits (6 more visits total. These treatments will address the objective and functional deficits as defined above. The patient will be advanced safely and appropriately in order for the patient to progress towards his/her prior level of function. Additional exercises will be introduced and as well as a comprehensive home exercise program upon discharge, if needed, ?to ensure carryover of functional gains achieved in the clinic. This treatment plan has been reviewed and agreement upon by the patient.
--- NOTE | 2023-04-04 11:04 | PTOPDC ---
Assessment and note entered by JT File, PT Evaluation Information Assessment Status Discharge Diagnosis R shoulder adhesive capsulitis Onset 02/13/23 Subjective Information patient reports he feels about the same today. he reports the injection did help a bit. however, he reports still feeling tight and pain in the R shoulder. Reported Pain Level Pain Score 6: Self Report Assessment PT Clinical Summary mr. mcdaniels presents to skilled PT for his 16th skilled PT visit. he presents today with improved strength and rom of the R shoulder. however, he has still not met goals for skilled PT for rom and strength. he also continues to have pain in the R shoulder. he has met only goal for HEP performance. he appears to be entering the thawing phase of his adhesive capsulitis. he will DC skilled PT at this time and continue with HEP exercises at home independent. Plan of Care PT Services Indicated Yes
--- NOTE | 2023-04-25 16:45 | STOPEVAL1 ---
Assessment and note entered by Judi Galvan, BUFFING MACHINE OPERATOR [employer]IAUTOMATIC Evaluation Information Assessment Status Evaluation Diagnosis Tremor R25.1, Cognitive-communication deficit R41. 841, Dysphagia R13.10 Onset January of 2023 Subjective Information Patient was referred for an ST evaluation due to recent difficulties with speech and swallowing post deep brain stimulator placement. Patient and report that the patient's swallowing has progressively gotten more difficult with frequent coughing with po intake at every meal. Patient reported to have more difficulty with speech and also memory difficulties. Reported Pain Level Pain Score 0: Self Report Assessment ST Clinical Summary Patient was referred for an ST evaluation by a doctor at [facility] movement disorders due to concerns with speech and swallowing. Patient had a deep brain stimulator placed one year ago and when it was adjusted in January of 2023 the patient began to have more difficulty with his speech and swallowing function. Patient reported that he experiences coughing at every meal with food and fluids and has a very dry mouth . He also reported that he is experiencing more difficulty with his memory and speech intelligibility skills. Patient's swallowing was evaluated through trials of solids and thin fluids . Patient presented with cough intermittently during and post deglutition with trials and when mixing food/fluid. Patient often cleared his throat and presented with vocal hoarseness when speaking. Lips were asymmetrical and decreased coordination was noted with lingual lateralization . Discussion with patient and regarding recommendation for modified barium swallow study due to increased concerns and feeling of fullness in patient's throat. Patient's cognitive- communication skills were evaluated through use of SLUMS (score of 22/30 mild neurocognitive disorder) and informal testing of patient's speech skills at the word, phrase, sentence and conversation level. Patient demonstrated with difficulty recalling words with delay in presentation, completing functional mathematical task, and clock drawing. Patient also presented with slurred speech and low volume at the sentence and conversation level. Recommendation for Speech therapy to target
--- NOTE | 2023-05-18 12:18 | PCSTNOTE ---
This treatment is being continued on visit number [id number]. Please see documentation on both accounts to view progress. Completed interventions, outcomes, and problems have been marked as Inactive to facilitate the copying of the Care plan routine for recurring accounts.
== END 2023-06-15 23:59 | disposition home or self-care (01) ==
LOC: CHSST 10:00
PROVIDERS: PCP Family Medicine; Visit Provider Family Medicine
DX: M75.01 Adhesive capsulitis of right shoulder (principal); R13.10 Dysphagia, unspecified; R41.841 Cognitive communication deficit; R25.1 Tremor, unspecified
CPT/HCPCS: 92507; 92526; 92610; 96125; 97110; 97140; 97161

== ENCOUNTER 2023-05-23 08:13 | Outpatient (CLI) | payer MEDICARE, OTHER, SELFPAY | END 2023-05-23 08:14 | disposition home or self-care (01) | LOC: CHSIMG 08:15 | PROVIDERS: PCP Family Medicine; Visit Provider Family Medicine | DX: R13.10 Dysphagia, unspecified (principal) | CPT/HCPCS: 99199 ==

== ENCOUNTER 2023-05-24 12:09 | Outpatient (CLI) | payer MEDICARE, OTHER, SELFPAY ==
--- NOTE | ~2023-05-24 | XR_ITS ---
MODIFIED ESOPHAGRAM HISTORY: Dysphagia. TECHNIQUE: Modified barium esophagram was performed by speech pathologist under radiologist fluorosco pic guidance. This was recorded on tape. The exam was reviewed on 05/24/2023 13:37 CDT. The DAP for this procedure was 1.7 Gycm2. Fluoroscopy time is 1.4 minutes. FINDINGS: Lateral projection of the cervical spine demonstrates normal alignment. Laryngeal penetra tion is visualized during multiple successive swallows of thin fluid. No evidence for aspiration.. IMPRESSION: 1: Trace laryngeal penetration without aspiration. 2: Please refer to speech pathologist report for additional detail. Reviewed, dictated and finalized at location A.
--- NOTE | 2023-05-24 13:56 | REHSTMBS ---
Assessment and note entered by Judi Galvan, RAW STOCK MACHINE LOADER Modified Barium Swallow Evaluation Diagnosis Tremor R25.1, Cognitive-communication deficit R41. 841, Dysphagia R13.10 Subjective Information Patient was referred for a modified barium swallow study due to difficulties with swallowing post deep brain stimulator placement. Patient and report that the patient's swallowing has progressively gotten more difficult with frequent coughing with po intake at every meal. Patient has been participating in outpatient speech therapy and has seen some improvements through use of compensatory strategies. Feeding Type Recommended Oral Food Consistency Regular, Level 7 Liquid Consistency Thin (0) Treatment Recommendations Laryngeal Elevation Exerc,Tongue Base Exercise ST Clinical Summary Patient was referred for an MBS due to recent difficulties multiple times per day with swallowing post deep brain stimulator placement. Difficulties have increased over the past few months. Patient currently is seen in outpatient therapy for swallowing and speech skills. Improvements have been noted with swallowing recently through use of trained compensatory techniques. Patient was given thin barium, pudding and yadi cracker with barium during the study. Patient presented with laryngeal penetration one time with thin fluids through sequential gulps. Modification to single sips with improvement in bolus control and no penetration or aspiration observed. Patient presented with throat clearing intermittently with solids but no evidence of penetration or aspiration was noted. Trace residual stasis noted intermittently with po trials indicating a low risk/reason for the throat clearing. Recommendation for patient to continue swallowing therapy in outpatient to continue to target compensatory techniques to improve airway protection. Regular level 7 solids and thin level 0 fluids recommended at this time.
== END 2023-05-24 12:10 | disposition home or self-care (01) ==
LOC: CHSIMG 12:10
PROVIDERS: PCP Family Medicine; Visit Provider Family Medicine
DX: R13.10 Dysphagia, unspecified (principal)
CPT/HCPCS: 92611

== ENCOUNTER 2023-06-15 11:00 | Outpatient (RCR) | payer MEDICARE, OTHER, SELFPAY ==
--- NOTE | 2023-05-18 12:19 | PCSTNOTE ---
The treatment documented on this account is a continuation of the treatment documented on visit number [id number]. Please see documentation on both accounts to view progress. The Plan of Care has been transitioned and updated within the new A#. I have addressed and agree with the discipline specific Problems, Interventions, and Goals for the current certification period. Completed interventions, outcomes, and problems have been marked as Inactive to facilitate the copying of the Care plan routine for recurring accounts.
--- NOTE | 2023-05-23 12:23 | PCSTNOTE ---
Patient was scheduled for an MBS this date but it was cancelled after the patient arrived due to Radiologist not knowing procedure was scheduled and was unavailable. Tech called other radiologists but no one was available for later today. Rescheduled for tomorrow at 12:30.
--- NOTE | 2023-06-12 17:43 | PCSTNOTE ---
Patient was not seen the week of June 05-June 09 due to CELLULAR EQUIPMENT INSTALLER being out of office. Offered appointment with another CELLULAR EQUIPMENT INSTALLER but family declined due to date/time offered and unfamiliar therapist.
--- NOTE | 2023-06-22 13:02 | PCSTNOTE ---
Patient did not show up for scheduled appointment this date. He was called and he reported that he forgot about the appointment.
--- NOTE | 2023-06-29 14:43 | PCSTNOTE ---
Patient did not show up for scheduled appointment this date. Patient was called and would like to be discharged at this time.
--- NOTE | 2023-06-29 14:52 | BUSTOPDC ---
Assessment and note entered by Judi Galvan, DIAPER FOLDER Evaluation Information Assessment Status Discharge - Pt Not Presen Diagnosis Tremor R25.1, Cognitive-communication deficit R41. 841, Dysphagia R13.10 Subjective Information Patient was referred for an ST evaluation due to recent difficulties with speech and swallowing post deep brain stimulator placement. Patient reported that since the adjustment of the deep brain stimulator he has been doing better with his speech and swallowing skills. Patient reported that he would like to be discharged from at this time. Reported Pain Level Pain Score 6: Self Report Pain Score 0: Self Report Pain Score 0,5: Self Report Additional Pain Score Comments Patient reported that he is always in pain with his back and right shoulder. Assessment ST Clinical Summary Patient was referred for an ST evaluation by a doctor at [facility] movement disorders due to concerns with speech and swallowing. Patient had a deep brain stimulator placed one year ago and when it was adjusted in January of 2023 the patient began to have more difficulty with his speech and swallowing function. Patient completed a total of 5 ST sessions for the treatment of cognitive-communication deficits (R41 .841) and Dysphagia (R13.10) to improve patient's ability to communicate and swallow with safety and independence. Patient reported that he has noticed a significant improvement in his swallowing and speech skills and would like to be discharged at this time. Plan of Care Interventions Treatment of Speech,Treatment of Swallowing D, Treatment for Cognitive F Treatment Frequency and Discharged from at this time. Duration
== END 2023-08-16 23:59 | disposition home or self-care (01) ==
LOC: CHSST 11:00
PROVIDERS: PCP Family Medicine; Visit Provider Family Medicine
DX: M75.01 Adhesive capsulitis of right shoulder (principal); R25.1 Tremor, unspecified; R13.10 Dysphagia, unspecified
CPT/HCPCS: 92507; 92526

== ENCOUNTER 2023-08-05 16:44 | Emergency (ER) | payer MEDICARE, OTHER, SELFPAY ==
--- NOTE | ~2023-08-05 | CT_ITS ---
EXAMINATION: CT abdomen pelvis w con DATE: 08/05/2023 18:41 INDICATION: Abdominal pain, N/V, headache @ vertex and posterior TECHNIQUE: Computed tomography (CT) of the abdomen and pelvis was performed with 100 mL Omnipaque-350 intravenous contrast. Automated exposure control and iterative reconstruction technique were employe d. The dose-length product was 1195.59 mGy-cm. COMPARISON: 03/24/2021. FINDINGS: Lower thorax: Unremarkable Liver: Diffuse fatty infiltration. Subcentimeter hypodensity near the dome, likely cyst or hemangioma . Biliary/Gallbladder: Gallbladder is normal. No bile duct dilation. Pancreas: No mass or duct dilation. Spleen: Normal. Adrenals:No mass. Kidneys: No suspicious mass, obstructing stone, or hydronephrosis. GI tract: No small or large bowel dilation. Normal appendix. Mesentery/Peritoneum: No ascites, mass, or free air. Retroperitoneum: No mass. Atherosclerotic abdominal aortic and/or arterial calcifications. Pelvis: Pelvic organs are within normal limits. Soft Tissues: Soft tissues and body wall unremarkable. Bones: No acute osseous finding. Interbody fusion devices at L4-5 and L5-S1. IMPRESSION: Hepatic steatosis. Otherwise, no acute abdominopelvic process detected Reviewed, dictated and finalized at location K.
--- NOTE | ~2023-08-05 | CT_ITS ---
EXAMINATION: CT brain wo con DATE: 08/05/2023 17:58 INDICATION: headache/history of brain bleed . TECHNIQUE: Computed tomography (CT) of the head was performed without intravenous contrast. The mA wa s adjusted according to patient size. Iterative reconstruction technique was employed. The dose-lengt h product was 605.33 mGy-cm. COMPARISON: None. FINDINGS: No acute intracranial hemorrhage or extra-axial fluid collection. No hydrocephalus, mass, or herniation. No acute ischemic infarct. Unremarkable dural venous sinus attenuation. No acute osseous abnormality. Mild ethmoid mucosal thickening, the remaining aerated spaces are clear. Mild atrophy and chronic white matter change. Atherosclerotic intracranial calcification. Bilateral l ens replacements. Bilateral deep brain stimulators which enter through the frontal bone. IMPRESSION: No acute intracranial process. Reviewed, dictated and finalized at location K.
[2023-08-05 16:47] VITALS: BP 118/79; PULSE 90; RESP 14; TEMP 36.9; O2SAT 96
--- NOTE | 2023-08-05 16:48 | ECG_ITS ---
Measurements Intervals [place] Rate: 85 P: 51 NC: 158 QRS: 9 QRSD: 147 T: -15 QT: 370 QTc: 440 Interpretive Statements SINUS RHYTHM RIGHT BUNDLE BRANCH BLOCK BASELINE ARTIFACT- I, II, III, AVR, AVL, V1-V2, V4 ABNORMAL ECG COMPARED TO ECG 11/21/2022 15:22:12 NO SIGNIFICANT CHANGES Electronically Signed On 08-05-2023 20:46:30 CDT by Brown Trujillo D.O.
[2023-08-05 16:55] LABS: Glucose Point of Care 167 mg/dl (65-105)
[2023-08-05] MEDS: ONDANSETRON INJ 4 MG/2 ML VIAL IV PUSH (17:15)
[2023-08-05 17:33] LABS: Basophils Absolute Auto 0.06 K/mm3 (0.00-0.10); Basophils Percent Auto 0.8 % (0.0-1.0); Eosinophils Absolute Auto 0.13 K/mm3 (0.02-0.50); Eosinophils Percent Auto 1.7 % (1.0-6.0); Hematocrit 38.4 % (37.0-46.0); Hemoglobin 12.8 g/dL (12.4-15.3); Immature Granulocyte Absolute 0.03 K/mm3 (0.00-0.00); Immature Granulocyte Percent A 0.4 % (0.0-0.0); Lymphocytes Absolute Auto 1.48 K/mm3 (1.10-4.50); Lymphocytes Percent Auto 19.5 % (18.0-42.0); Mean Corpuscular HGB Conc 33.3 g/dL (32.0-36.0); Mean Corpuscular Hemoglobin 31.7 pg (27.0-31.0); Monocytes Absolute Auto 0.49 K/mm3 (0.10-0.90); Monocytes Percent Auto 6.5 % (2.0-11.0); Neutrophils Absolute Auto 5.4 K/mm3 (1.7-7.2); Neutrophils Percent Auto 71.1 % (50.0-70.0); Platelet Count Result 199 K/mm3 (150-420); Red Blood Count 4.04 M/mm3 (4.70-6.10); Red Cell Distribution Width 13.1 % (11.6-14.4); White Blood Count 7.6 K/mm3 (4.8-10.8)
--- NOTE | 2023-08-05 17:56 | PC.NURSE ---
On 08/05/23, the student, [HANSEL LALA ], provided care and completed [facility] documentation on this patient. I have reviewed the student's documentation and agree with the findings.
[2023-08-05 18:00] LABS: Lactic Acid Reflex 2.2 mmol/L (0.4-2.0)
[2023-08-05 18:01] LABS: Prothrombin Time 10.9 Seconds (9.50-12.10)
[2023-08-05 18:09] LABS: Alanine Aminotransferase 37 U/L (16-63); Albumin Level 3.5 g/dL (3.4-5.0); Alkaline Phosphatase 62 U/L (46-116); Anion Gap 9 mmol/L (8-16); Aspartate Amino Transferase 13 U/L (15-37); Bilirubin,Total 0.2 mg/dL (0.00-1.00); Blood Urea Nitrogen 17 mg/dL (7-18); Calcium 9.4 mg/dL (8.5-10.1); Carbon Dioxide 28 mmol/L (21-32); Chloride 102 mmol/L (98-108); Estimated CRCL calculation 58 ml/min; Estimated Glomerular Filt Rate 53; Glucose 133 mg/dL (70-99); Lipase 39 U/L (16-77); Osmolality Calculated 291 mOsm/kg (285-295); Potassium 4.4 mmol/L (3.5-5.1); Sodium 139 mmol/L (136-145); Total Protein 6.9 g/dL (6.4-8.2); Troponin I 8.6 ng/L (0.00-60.4)
[2023-08-05 18:10] LABS: Influenza A QL RT-PCR Negative (Negative); Influenza B QL RT-PCR Negative (Negative); SARS-CoV-2 RNA PCR Negative (Negative)
[2023-08-05 18:11] LABS: RSV RNA, RT-PCR Negative (Negative)
[2023-08-05] MEDS: KETOROLAC 15 MG/ML VIAL (*BKC) IV PUSH (18:40)
[2023-08-05] MEDS: SODIUM CHLORIDE 0.9% IV 1,000 ML 999 ML IV CONT (18:40)
[2023-08-05 19:00] VITALS: BP 120/76; PULSE 85; RESP 20; O2SAT 97
--- NOTE | 2023-08-05 19:02 | ED.ABDPAIN ---
HPI - Abdominal Pain General Chief Complaint: Abdominal Pain Stated Complaint: nausea; vomiting Time Seen by Provider: 08/05/23 16:48 Source: patient, family and EMS Mode of arrival: EMS Limitations: no limitations History of Present Illness HPI narrative: this is a 67-year-old male presents with via EMS with abdominal pain and headache patient has a brain stimulator for tremors, has been having nausea vomiting and currently we left upper quadrant abdominal rate about 4/10, and also a headache with no blurry vision no chest pain no shortness of breath. MD elicited complaint: abdominal pain Onset (ago): day(s) Pain Consistency: constant Location: [facility] Severity: mild Quality: cramping Related Data Home Medications Medication Instructions Recorded Confirmed bimatoprost 0.01 % eye drops 1 drp EACH EYE DAILY 02/20/20 08/05/23 ([facility]) bupropion HCl 200 mg tablet,12 hr 200 mg PO BID 11/10/20 08/05/23 sustained-release famotidine 20 mg tablet 20 mg PO DAILY 11/10/20 08/05/23 xjozyqk-ribpxlcyzbexd-wsqcetul 250 1 tablet PO Q4-6H PRN Headache 11/21/22 08/05/23 mg-250 mg-65 mg tablet (Excedrin Extra Strength) primidone 50 mg tablet 50 mg PO DAILY 11/21/22 08/05/23 buspirone 15 mg tablet 15 mg PO BID 08/05/23 08/05/23 escitalopram oxalate 10 mg tablet 10 mg PO DAILY 08/05/23 08/05/23 fluticasone 232 mcg-salmeterol 14 1 inh inhalation DAILY 08/05/23 08/05/23 mcg/actuation breath activated powdr (AirDuo RespiClick) latanoprost 0.005 % eye drops 1 drp EACH EYE DAILY 08/05/23 08/05/23 metformin 500 mg tablet 1,000 mg PO BID 08/05/23 08/05/23 montelukast 10 mg tablet 10 mg PO DAILY 08/05/23 08/05/23 primidone 250 mg tablet 250 mg PO HS 08/05/23 08/05/23 Allergies Allergy/AdvReac Type Severity Reaction Status Date / Time Penicillins Allergy Intermediate MUSCLE Verified 08/05/23 16:57 SPASMS 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 Diabetes Essential tremor GERD (gastroesophageal reflux disease) Glaucoma Migraine Phimosis Sleep apnea Vitamin D deficiency Surgical History Surgical History H/O hand surgery Left History of back surgery History of lumbar fusion L3-L6 History of thumb surgery Family History Family History Mother Alzheimers disease Essential tremor Father Aneurysm Sibling Atherosclerosis Social History Social History Smoking packs per day: 0.5 Smoking cigarettes per day: 10.0 Years smoked: 10 Smoking pack-years: 5.00 Smoking status: Former smoker Lack of Transportation: No Lack of Food: Never True Current Housing: I Have Housing Concerned About Future Housing: No Difficulty Paying Gas/Electric Bills: YES Difficulty Paying for Meds: YES Currently Unemployed: No Education: High School Diploma/GED Difficulty w/ Childcare or Family Care: No Gender identity (if verbalized by the patient): Male Exam Const: General: healthy appearing and no acute distress Nutritional Appearance: well nourished Orientation/consciousness: patient oriented x3 Limitations: no limitations HENMT: Head: normal to inspection Eyes: Conjunctivae: conjunctivae normal Pupils: Equal, round and reactive pupils present EOM: EOMs intact bilaterally Neck: Neck: normal visual inspection Chest: Chest palpation & inspection: normal inspection of the chest Resp: Effort & Inspection: normal respiratory effort Auscultation: clear to auscultation bilaterally Cardio: Rate: regular rate Rhythm: regular rhythm GI: GI Palp: Yes Soft t
[2023-08-05 19:18] LABS: Appearance Urine Clear (Clear); Bilirubin Urine Negative (Negative); Blood Urine Negative (Negative); Color Urine Light Yellow (Yellow); Glucose Urine UA Negative (Negative); Ketones Urine Negative (Negative); Leukocyte Esterase Ur Negative LEU/UL (Negative); Nitrate Urine Negative (Negative); Protein Urine Negative (Negative); Urobilinogen Urine 0.2 mg/dL (0.2-1.0)
[2023-08-05 19:20] LABS: Add Urine Microscopic? NO
== END 2023-08-05 19:37 | disposition home or self-care (01) ==
PROVIDERS: Emergency Provider Emergency Medicine; PCP Family Medicine
DX: K52.9 Noninfective gastroenteritis and colitis, unspecified (principal); R11.2 Nausea with vomiting, unspecified; R51.9 Headache, unspecified; E11.9 Type 2 diabetes mellitus without complications; J44.9 Chronic obstructive pulmonary disease, unspecified; Z87.891 Personal history of nicotine dependence; Z79.84 Long term (current) use of oral hypoglycemic drugs; Z79.899 Other long term (current) drug therapy; Z20.822 Contact with and (suspected) exposure to COVID-19
CPT/HCPCS: 36415; 70450; 74177; 80053; 81003; 82948; 83605; 83690; 84484; 85025; 85610; 85730; 87637; 93005; 96361; 96374; 96375; 99284; J1885; J2405; J7030; Q9967

== ENCOUNTER 2023-12-27 19:42 | Outpatient (CLI) | payer MEDICARE, OTHER, SELFPAY ==
--- NOTE | 2024-01-22 21:11 | WPDSLEEPSTUD ---
Sleep Study Date of Study: 12/27/23 Ordering Provider: Adama Fasutin MD Interpreting Physician: Laura Hrading MD Sleep Study Type: Polysomnogram Height: 1.83 m Weight: 99.79 kg Body Mass Index: 29.8 Neck Circumference (inches): 17.5 [place]: 6 Reason for Sleep Study Tired all the time Sleep History Rishi John is a 68-year-old man with a diagnosis of obstructive sleep apnea several years ago, did not respond to treatment. He had a repeat basic sleep study 03/26/2021 for hypersomnolence with a low apnea hypopnea index, not consistent with obstructive sleep apnea. It is not clear if he had a CPAP for a while, or if he was ever treated. There are no old test results prior to his March 26, 2021 study. He has depression, gastroesophageal reflux disease, diabetes mellitus type 2, COPD, generalized anxiety disorder, testicular hypofunction, seasonal allergic rhinitis, tremor, history of obstructive and reflux uropathy, and erectile dysfunction. He always has morning headaches. He says that he feels like he has a jolt-like feeling while sleeping, and he is unable to sleep comfortably. He never wakes up feeling short of breath. He occasionally awakens at night with heartburn, belching or coughing. He rarely snores and rarely is it loud enough that others complain about it. He occasionally has difficulty sleeping when he has a cold. He never gasps for breath at night. He rarely has breathing problems at night reported to him by others. He occasionally sweats excessively at night however he never notices his heart pounding or beating irregularly night. He occasionally falls asleep during the day, occasionally this happens involuntarily but this never happens while he is driving. He does not have loss of muscle tone with strong emotion. He does not have daytime difficulties due to excessive sleepiness. He does not feel paralyzed on falling asleep or upon awakening. He occasionally has vivid dreamlike scenes upon falling asleep or awakening. He rarely feels afraid to go to sleep. He occasionally has nightmares. He never has dream recall. He rarely has racing thoughts. He occasionally has sadness or depression, frequently has anxiety. He rarely has muscular tension. He occasionally notices parts of his body jerking. He occasionally kicks at night. He occasionally has crawling and aching feelings in his legs. He has occasionally has leg pain during the night. He does not have morning jaw pain. Normal bedtime is between 8:00 p.m. and 9:00 p.m., taking a 1/2 hour to fall asleep, typically waking 2-3 times during the night to go to the bathroom. He may be able to return to sleep and a 1/2 hour but sometimes it may take an hour for him to do so. His dog sleeps in the bed with the patient and his . He takes naps in the afternoon or evening. A short nap may be refreshing. only Occasionally does he awaken feeling refreshed. He feels better in the afternoon or evening compared to the morning. Tobacco: Has a long history of tobacco. Caffeine only in the morning. No alcohol or recreational substances. FOR[facility]LY [facility] Past Medical History Medical History Cataract Chest pain COPD (chronic obstructive pulmonary disease) 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 Diabetes Essential tremor GERD (gastroesophageal reflux disease) Glaucoma Migraine Phimosis Sleep apnea Vitamin D deficiency Surgical History Surgical History H/O hand surgery Left History of back surgery History of lumbar fusion L3-L6 History of thumb surgery Family History Family History Mother Alzheimers disease Essential tremor Father Aneurysm Sibling Atherosclerosis Social History Social History Smoking packs per day: 0.5 Smoking
[2024-01-22 21:13] VITALS: BMI 29.8
== END 2023-12-28 06:44 | disposition home or self-care (01) ==
LOC: CHSCSM 19:43
PROVIDERS: PCP Family Medicine; Visit Provider Family Medicine
DX: G25.81 Restless legs syndrome (principal); G47.10 Hypersomnia, unspecified; G47.33 Obstructive sleep apnea (adult) (pediatric); R53.83 Other fatigue
CPT/HCPCS: 95810

== ENCOUNTER 2024-01-02 08:59 | Outpatient (RCR) | payer MEDICARE, OTHER, SELFPAY ==
--- NOTE | 2024-01-02 10:11 | OPREHPOC ---
Outpatient Therapy Plan of Care This is a Multidisciplinary Plan of Care that may contain components documented by all disciplines (PT, OT, and ST.) PT Problem 1 PT Problem #1 Knowledge Deficit PT Goal 1 Goal 1. independent and compliant with HEP. Target Visit 6 PT Problem 2 PT Problem #2 Impaired Gait PT Goal 1 Goal 1. patient to ambulates 6 minute walk test at average of 3.0 ft per second independent with straight path and no LOB. Target Visit 12 PT Problem 3 PT Problem #3 Impaired Balance PT Goal 1 Goal 1. tinetti to display low fall risk 2. TUG to be completed in under 12 seconds 3. 5x sit to stand to be completed in 12 seconds or less with no LOB back into the chair with any bouts 4. ONEIL to display 48 or better score to improve balance and safety with functional activities Target Visit 12 PT Problem 4 PT Problem #4 Impaired Functional Mobil PT Goal 1 Goal 1. no falls 2. return to walking around the block at home 3x weekly Target Visit 12
--- NOTE | 2024-01-02 10:11 | PTOPEVAL1 ---
Assessment and note entered by JT File, PT Evaluation Information Assessment Status Evaluation Diagnosis imbalance, unsteady gait Onset 07/07/23 Subjective Information patient reports he had a brain stimulator on one side of the brain put in back in April of 2023, and then the other side back in July of 2023. he reports since then, he has trouble getting out of chairs, difficulty coordinating his feet to walk, and has trouble with his overall balance. he reports immediately after getting up from sitting is when his balance is the worst. he reports he does not get dizzy, and he does not feel like he is about to black out or pass out. his reports he routinely needs 3-4 attempts to stand from a chair at home, and his legs will cramp up with walking even just a block. patient reports he has no pain, but does have a headache right now. he reports he gets a headache 1x daily. Reported Pain Level Pain Score 0: Self Report Assessment PT Clinical Summary mr. mcdaniels is a 68 yo man who presents to skilled PT services for evaluation and treatment of imbalance and unsteady gait. he presents today with moderate fall risk per the tinetti, increased fall risk per the 5x sit to stand test, and increased fall risk per the ONEIL. he also displays bilateral hip weakness, and signs of decreased CV endurance as he reports fatigue and feeling worse in balance at the end of the 6 minute walk test. he would benefit from continued skilled PT to address his objective/functional deficits and return to his prior level functional activity performance/quality of life. Plan of Care Interventions Gait Training,Neuro Re-education,Patient/Caregiver Educati,Therapeutic Activities,Therapeutic Exercise PT Services Indicated Yes Treatment Frequency and 3x weekly for 12 visits Duration These treatments will address the objective and functional deficits as defined above. The patient will be advanced safely and appropriately in order for the patient to progress towards his/her prior level of function. Additional exercises will be introduced and as well as a comprehensive home exercise program upon discharge, if needed, ?to ensure carryover of functional gains achieved in the clinic. This treatment plan has been reviewed and agreement upon by the patient.
--- NOTE | 2024-01-17 15:15 | PCPTNOTE ---
patient had to cancel therapy today due to having senior life and unable to do both services on the same day.
--- NOTE | 2024-01-29 10:43 | PTOPPROGNS ---
Assessment and note entered by [facility] Evaluation Information Assessment Status Progress Diagnosis imbalance, unsteady gait Onset 07/07/23 Subjective Information Pt. reports that he is doing better. He states that he can get out of a chair easier than at initial evaluation. He states that he still notices some weakness. He still requires multiple attempts on occasion but again less frequent. He reports that he would like to continue to improve his strength. Assessment PT Clinical Summary Pt. has attended a total of 10 treatment sessions. In this time he has demonstrated improvements in tinetti score and gait efficiency. Generalized l .e. weakness continues to be noted, and pt. has not achieved his goal of improving whitley. At this time he has 2 additional treatment sessions on his current POC and we will continue to initial POC continuing to address strength and functional mobility. Plan of Care Interventions Neuro Re-education,Patient/Caregiver Educati, Therapeutic Activities,Therapeutic Exercise PT Services Indicated Yes Treatment Frequency and continue with 2 additional treatment sessions on Duration pt. current POC. These treatments will address the objective and functional deficits as defined above. The patient will be advanced safely and appropriately in order for the patient to progress towards his/her prior level of function. Additional exercises will be introduced and as well as a comprehensive home exercise program upon discharge, if needed, ?to ensure carryover of functional gains achieved in the clinic. This treatment plan has been reviewed and agreement upon by the patient.
--- NOTE | 2024-02-09 09:55 | OPREHPOC ---
Outpatient Therapy Plan of Care This is a Multidisciplinary Plan of Care that may contain components documented by all disciplines (PT, OT, and ST.) PT Problem 1 PT Problem #1 Knowledge Deficit PT Goal 1 Goal 1. independent and compliant with HEP. Target Visit 6 Progress Met PT Problem 2 PT Problem #2 Impaired Gait PT Goal 1 Goal 1. patient to ambulates 6 minute walk test at average of 3.0 ft per second independent with straight path and no LOB. Target Visit 12 Progress Met PT Problem 3 PT Problem #3 Impaired Gait PT Goal 1 Goal 1. tinetti to display low fall risk 2. TUG to be completed in under 12 seconds, met 3. 5x sit to stand to be completed in 12 seconds or less with no LOB back into the chair with any bouts, met 4. ONEIL to display 48 or better score to improve balance and safety with functional activities Target Visit 20 Progress Partially Met PT Problem 4 PT Problem #4 Impaired Functional Mobil PT Goal 1 Goal 1. no falls 2. return to walking around the block at home 3x weekly Target Visit 20 Progress Not Met Comment 1 fall
--- NOTE | 2024-02-09 09:55 | PTOPREEVAL ---
Assessment and note entered by Ana Steevn DPT Evaluation Information Assessment Status Re-evaluation Diagnosis imbalance, unsteady gait Onset 07/07/23 Subjective Information patient reports he fell a week ago and that is his only fall since start of PT. He reports he feels his balance is improved but has difficulty getting up out of a chair. Reported Pain Level Pain Score 0: Self Report Pain Score 0: Self Report Assessment PT Clinical Summary Pt. has attended a total of 12 treatment sessions. He demonstrates improved balance and has met goal for gait speed for community ambulation. He continues to demonstrate moderate fall risk with objective testing but is demonstrating good improvement. He reports he continues to have posterior loss of balance with STS transfer but reports improvement. He would benefit from continued skilled PT to address remaining balance deficits and decrease fall risk within the home. Plan of Care Interventions Gait Training,Neuro Re-education,Patient/Caregiver Educati,Therapeutic Activities,Therapeutic Exercise PT Services Indicated Yes Treatment Frequency and continue 2x weekly for 8 visits Duration These treatments will address the objective and functional deficits as defined above. The patient will be advanced safely and appropriately in order for the patient to progress towards his/her prior level of function. Additional exercises will be introduced and as well as a comprehensive home exercise program upon discharge, if needed, ?to ensure carryover of functional gains achieved in the clinic. This treatment plan has been reviewed and agreement upon by the patient.
== END 2024-02-19 20:00 | disposition still patient (30) ==
LOC: CHSPT 08:59
DX: R26.89 Other abnormalities of gait and mobility (principal)
CPT/HCPCS: 97110; 97112; 97161; 97530; 97750

== ENCOUNTER 2024-02-23 09:43 | Outpatient (RCR) | payer MEDICARE, OTHER, SELFPAY ==
--- NOTE | 2024-02-27 08:40 | BUOTOPEVAL ---
Assessment and note entered by Renee Schneider, OT Evaluation Information Assessment Status Evaluation Diagnosis Essential tremor Onset 2021 Subjective Information The patient reports that prior to surgeries, he had severe tremors that affected his ability to perform daily tasks such as engaging in woodworking, fastening clothing clasps and would lead to him spilling food. The patient reports that now, the patient has difficulty with picking up small things off floor like paper and coins, pouring liquid for meals, and memory for performing daily tasks. He reports that he gets tired quickly and has been experiencing anxiety and depression from current condition. The patient is on medication for anxiety and is unable to engage in meaningful tasks due to cognition and coordination deficits. Reported Pain Level Pain Score 0: Self Report Pain Score 0: Self Report Pain Score 0: Self Report Assessment OT Clinical Summary The patient is a 68 year old male who was referred to outpatient OT due to essential tremors leading to placement of brain stimulator. The patient demonstrates minimally impaired fine motor coordination and tankage grinder strength of R UE and moderately impaired cognition specifically in word finding and executive functioning. The patient demonstrates the need for skilled OT to address cognition and fine motor coordination in order to perform ADLs and IADLs needed to maintain quality of life. The patient demonstrates good potential for improvement with motivation to participate in skilled OT. Plan of Care Interventions Therapeutic Exercise,Neuro Re-education, Therapeutic Activities,Cognitive Function,Self- Care/Home Management OT Services Indicated Yes Treatment Frequency and 2-3x/week for 10 visits Duration These treatments will address the objective and functional deficits as defined above. The patient will be advanced safely and appropriately in order for the patient to progress towards his/her prior level of function. Additional exercises will be introduced and as well as a comprehensive home exercise program upon discharge, if needed, ?to ensure carryover of functional gains achieved in the clinic. This treatment plan has been reviewed and agreement upon by the patient.
--- NOTE | 2024-03-11 10:06 | OPREHPOC ---
Outpatient Therapy Plan of Care This is a Multidisciplinary Plan of Care that may contain components documented by all disciplines (PT, OT, and ST.) PT Problem 1 PT Problem #1 Knowledge Deficit PT Goal 1 Goal 1. independent and compliant with HEP. Target Visit 6 Progress Met PT Problem 2 PT Problem #2 Impaired Gait PT Goal 1 Goal 1. patient to ambulates 6 minute walk test at average of 3.0 ft per second independent with straight path and no LOB. Target Visit 12 Progress Met PT Problem 3 PT Problem #3 Impaired Gait PT Goal 1 Goal 1. tinetti to display low fall risk. met 2. TUG to be completed in under 12 seconds, met 3. 5x sit to stand to be completed in 12 seconds or less with no LOB back into the chair with any bouts, met 4. ONEIL to display 48 or better score to improve balance and safety with functional activities, met Target Visit 20 Progress Met PT Problem 4 PT Problem #4 Impaired Functional Mobil PT Goal 1 Goal 1. no falls 2. return to walking around the block at home 3x weekly Target Visit 20 Progress Met OT Problem 1 OT Problem #1 Knowledge Deficit OT Goal 1 Goal The patient will demonstrate 100% knowledge and return demonstration for UE HEP in order maintain progress. Target Visit 10 OT Problem 2 OT Problem #2 Impaired Strength OT Goal 1 Goal The patient will demonstrate increased workers compensation claims adjuster strength of R UE with >60 lbs of workers compensation claims adjuster strength in order to perform leisure tasks. Target Visit 10 OT Problem 3 OT Problem #3 Impaired Coordination OT Goal 1 Goal The patient will demonstrate increased fine motor coordination in R UE performing 9-hole peg test in < 25 seconds in order to perform grooming tasks with good accuracy. Target Visit 10 OT Problem 4 OT Problem #4 Impaired Functi
--- NOTE | 2024-03-11 10:09 | OPREHPOC ---
Outpatient Therapy Plan of Care This is a Multidisciplinary Plan of Care that may contain components documented by all disciplines (PT, OT, and ST.) PT Problem 1 PT Problem #1 Knowledge Deficit PT Goal 1 Goal 1. independent and compliant with HEP. Target Visit 6 Progress Met PT Problem 2 PT Problem #2 Impaired Gait PT Goal 1 Goal 1. patient to ambulates 6 minute walk test at average of 3.0 ft per second independent with straight path and no LOB. Target Visit 12 Progress Met PT Problem 3 PT Problem #3 Impaired Gait PT Goal 1 Goal 1. tinetti to display low fall risk. met 2. TUG to be completed in under 12 seconds, met 3. 5x sit to stand to be completed in 12 seconds or less with no LOB back into the chair with any bouts, met 4. ONEIL to display 48 or better score to improve balance and safety with functional activities, met Target Visit 20 Progress Met PT Problem 4 PT Problem #4 Impaired Functional Mobil PT Goal 1 Goal 1. no falls 2. return to walking around the block at home 3x weekly Target Visit 20 Progress Met OT Problem 1 OT Problem #1 Knowledge Deficit OT Goal 1 Goal The patient will demonstrate 100% knowledge and return demonstration for UE HEP in order maintain progress. Target Visit 10 OT Problem 2 OT Problem #2 Impaired Strength OT Goal 1 Goal The patient will demonstrate increased conference and event organiser strength of R UE with >60 lbs of conference and event organiser strength in order to perform leisure tasks. Target Visit 10 OT Problem 3 OT Problem #3 Impaired Coordination OT Goal 1 Goal The patient will demonstrate increased fine motor coordination in R UE performing 9-hole peg test in < 25 seconds in order to perform grooming tasks with good accuracy. Target Visit 10 OT Problem 4 OT Problem #4 Impaired Functi
--- NOTE | 2024-03-11 10:10 | PTOPDC ---
Assessment and note entered by Ana Steven DPT Evaluation Information Assessment Status Re-evaluation Diagnosis imbalance, unsteady gait Onset 07/07/23 Subjective Information patient reports no falls since last re-eval. he reports he has been able to get up from the floor at home when fixing the toilet. he reports his balance improved with PT. He has new orders from a different doctor to begin treatment for low back pain. he reports compliance with HEP. Reported Pain Level Pain Score 5: Self Report Assessment PT Clinical Summary Mr. John was seen for 20 visits of skilled PT and met all goals. He has had no falls since last re-evaluation and has been able to independently get up from the floor. He has new orders for treatment of low back pain from a different doctor . He is independent with HEP and is appropriate for DC at this time. Plan of Care PT Services Indicated No
--- NOTE | 2024-03-29 09:45 | OTOPDC ---
Assessment and note entered by Renee Schneider, OT Evaluation Information Assessment Status Discharge Subjective Information The patient reports that picking stuff up off the floor is easier. He reports he can use his tools better in workshop. He reports that when he cleans out his shed that his arm will get tired, therapist educated patient to continue to do that and work the arm so that it can get stronger and maintain strength achieved. 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 The patient did not meet all goals at this time but is comfortable with performing UE HEP in order to improve and maintain coordination and strength to maintain function. The patient was educated on HEP and cognitive activities to perform at home to maintain executive functioning skills and coordination. The patient is discharged at this time. Plan of Care OT Services Indicated No
== END 2024-05-23 23:59 | disposition home or self-care (01) ==
LOC: CHSPT 09:43
DX: R26.89 Other abnormalities of gait and mobility (principal); G25.0 Essential tremor
CPT/HCPCS: 97110; 97112; 97150; 97166; 97530

== ENCOUNTER 2024-03-07 14:35 | Outpatient (CLI) | payer MEDICARE, OTHER, SELFPAY ==
--- NOTE | ~2024-03-07 | XR_ITS ---
EXAMINATION: XR thoracic spine 3V DATE: 03/07/2024 15:05 INDICATION: Back pain. TECHNIQUE: 3 views of thoracic spine on 4 radiographs were obtained. COMPARISON: None. FINDINGS: There is 9 degrees levocurvature of thoracolumbar spine. There is mild chronic anterior wed ging of T11 and T12 vertebral bodies. There is mildly decreased disc height at multiple levels. There are endplate osteophytes at most levels. There is multilevel facet joint osteoarthritis. IMPRESSION: 1. Mild thoracic spondylosis. Reviewed, dictated and finalized at location E.
--- NOTE | ~2024-03-07 | XR_ITS ---
EXAMINATION: XR lumbar spine 2-3V DATE: 03/07/2024 15:05 INDICATION: Back pain. TECHNIQUE: 3 views of thoracic spine on 4 radiographs were obtained. COMPARISON: None. FINDINGS: There is 9 degrees levocurvature of thoracolumbar spine. There are changes of anterior fusi on procedures at L4-L5 and L5-S1 with interbody devices. There is mild chronic anterior wedging of T1 2 vertebral body. There is mildly decreased disc height at L2-L3. There are endplate osteophytes at a ll levels. There is multilevel severe facet joint osteoarthritis. IMPRESSION: 1. Mild lumbar spondylosis. 2. Anterior fusion procedures at L4-L5 and L5-S1. Reviewed, dictated and finalized at location E.
== END 2024-03-07 14:36 | disposition home or self-care (01) ==
LOC: CHSIMG 14:37
PROVIDERS: PCP Family Medicine; Visit Provider Family Medicine
DX: M43.04 Spondylolysis, thoracic region (principal); M43.06 Spondylolysis, lumbar region; Z98.1 Arthrodesis status
CPT/HCPCS: 72072; 72100

== ENCOUNTER 2024-03-13 12:44 | Outpatient (CLI) | payer MEDICARE, OTHER, SELFPAY | END 2024-03-13 12:45 | disposition home or self-care (01) | LOC: CHSCARD 12:48 | PROVIDERS: PCP Family Medicine; Visit Provider Family Medicine | DX: J44.9 Chronic obstructive pulmonary disease, unspecified (principal); R94.2 Abnormal results of pulmonary function studies | CPT/HCPCS: 90847; 94060; 94726; 94729 ==

== ENCOUNTER 2024-03-15 12:59 | Outpatient (RCR) | payer MEDICARE, OTHER, SELFPAY ==
--- NOTE | 2024-03-15 14:07 | OPREHPOC ---
Outpatient Therapy Plan of Care This is a Multidisciplinary Plan of Care that may contain components documented by all disciplines (PT, OT, and ST.) PT Problem 1 PT Problem #1 Knowledge Deficit PT Goal 1 Goal Patient to demonstrate independence with HEP Target Visit 5 PT Problem 2 PT Problem #2 Pain PT Goal 1 Goal 1. Patient to report highest pain at 4/10 2. Patient to report no sleep disturbance due to low back pain Target Visit 10 PT Problem 3 PT Problem #3 Impaired Strength PT Goal 1 Goal patient to demonstrate 5/5 B LE strength to return to ambulating >30 minutes to complete yard work and grocery shop Target Visit 10 PT Problem 4 PT Problem #4 Impaired Functional Mobil PT Goal 1 Goal 1. Patient to improve Back Index scoring to less than 20% 2. Patient to demonstrate ability to pick and shovel worker object from floor to return to house hold tasks at PLOF 3. Patient to demonstrate B HS flexibility to 20deg to improve ability to stand for >30 minutes to cook and put dishes away Target Visit 10
--- NOTE | 2024-03-15 14:07 | PTOPEVAL1 ---
Assessment and note entered by Ana Steven DPT Evaluation Information Assessment Status Evaluation Diagnosis low back pain Subjective Information Patient reports he has had increased low back pain for the last 2 months. he reports history of 3 prior back surgeries. he reports pain is worse with standing, walking, sitting and picking up things from the floor. he denies radiating pain. he reports he sometimes has pain that wakes him. he reports nothing is helping pain at this time. he reports he does have a DBS for treatment of Parkinson's Reported Pain Level Pain Score 8: Self Report Assessment PT Clinical Summary Mr. John is a 68 year old male who presents to PT with low back pain. Patient demonstrate decreased B LE strength, decreased B LE flexibility and decreased lumbar mobility limiting his ability to complete house hold tasks, complete yard work and sit for long periods of time. He would benefit from skilled PT to address impairments and return to PLOF. Plan of Care Interventions Electrical Stimulation,Gait Training,Hot Pack/Cold Pack,Manual Therapy,Neuro Re-education,Patient/ Caregiver Educati,Therapeutic Activities, Therapeutic Exercise PT Services Indicated Yes Treatment Frequency and 2x weekly for 10 visits Duration These treatments will address the objective and functional deficits as defined above. The patient will be advanced safely and appropriately in order for the patient to progress towards his/her prior level of function. Additional exercises will be introduced and as well as a comprehensive home exercise program upon discharge, if needed, ?to ensure carryover of functional gains achieved in the clinic. This treatment plan has been reviewed and agreement upon by the patient.
--- NOTE | 2024-03-22 17:59 | PCPTNOTE ---
cancelled visit today due to a scheduling conflict
--- NOTE | 2024-04-19 10:13 | OPREHPOC ---
Outpatient Therapy Plan of Care This is a Multidisciplinary Plan of Care that may contain components documented by all disciplines (PT, OT, and ST.) PT Problem 1 PT Problem #1 Knowledge Deficit PT Goal 1 Goal Patient to demonstrate independence with HEP Target Visit 5 Progress Met PT Problem 2 PT Problem #2 Pain PT Goal 1 Goal 1. Patient to report highest pain at 4/10 2. Patient to report no sleep disturbance due to low back pain Target Visit 10 Progress Not Met PT Problem 3 PT Problem #3 Impaired Strength PT Goal 1 Goal patient to demonstrate 5/5 B LE strength to return to ambulating >30 minutes to complete yard work and grocery shop Target Visit 10 Progress Not Met PT Problem 4 PT Problem #4 Impaired Functional Mobil PT Goal 1 Goal 1. Patient to improve Back Index scoring to less than 20%. not met 2. Patient to demonstrate ability to turkey picker object from floor to return to house hold tasks at PLOF. met 3. Patient to demonstrate B HS flexibility to 20deg to improve ability to stand for >30 minutes to cook and put dishes away. not met Target Visit 10 Progress Partially Met
--- NOTE | 2024-04-19 10:14 | PTOPDC ---
Assessment and note entered by JT File, PT Evaluation Information Assessment Status Discharge Diagnosis low back pain Subjective Information patient reports he has a little pain in his lower back this morning. he reports his pain is increased still with standing and walking. he reports he has been compliant with some standing and seated exercises, but has only been walking a little bit due to the increased back pain he gets from walking. Reported Pain Level Pain Score 4: Self Report Assessment PT Clinical Summary mr. mcdaniels presents to skilled PT services today for his 10th skilled PT visit for low back pain. as of this date, his pain is essentially unchanged at the highest levels. his resting pain is lower, but he continues to have pain with standing/ walking. his pain during walking of 6 minutes is increased to an 8/10. patient displays improved bilateral knee strength and improved ability to bend forward and fiber picker and item from the floor. patient displays a 10% improvement per the oswestry today. due to his lack of significant progress, patient is being DC'd from skilled PT today, and referred back to MD to consult injections or other pain management. in the mean time, he was educated to continue to try and work on progressing walking at home. Plan of Care PT Services Indicated Yes
== END 2024-06-13 23:59 | disposition home or self-care (01) ==
LOC: CHSPT 12:59
PROVIDERS: Visit Provider Family Medicine
DX: M54.50 Low back pain, unspecified (principal)
CPT/HCPCS: 97110; 97161; 97530

== ENCOUNTER 2024-04-09 10:00 | Outpatient (RCR) | payer MEDICARE, OTHER, SELFPAY ==
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
[2024-01-16 10:44] VITALS: BP 116/69; PULSE 85; RESP 20; TEMP 36.9; O2SAT 96
--- NOTE | 2024-01-18 09:27 | PC.NURSE ---
No nursing group due to MD visit.
[2024-01-23 10:27] VITALS: BP 108/84; PULSE 80; RESP 20; TEMP 36.1; O2SAT 96
--- NOTE | 2024-01-25 10:25 | PC.NURSE ---
No nursing group due to MD visit.
[2024-01-25 10:30] VITALS: BP 103/80; PULSE 77; RESP 20; TEMP 36.7; O2SAT 97
--- NOTE | 2024-01-25 12:42 | WPDSLSPROGRE ---
Progress HPI Progress HPI Visit Attended By patient and staff History Obtained From patient Chief Complaint 2 week admission follow-up HPI this is a follow-up from admission. Patient is being seen for depression anxiety. Continues on BuSpar 15 mg b.i.d., escitalopram 10 mg q.h.s., bupropion SR 200 mg b.i.d. but since he has been taking the 2nd bupropion dose at 2:00 p.m. he is sleeping better. He actually enjoys the program and participates well. as it turns out, he does not have sleep apnea, but does have restless leg syndrome. He said that his neurologist recommended a glass of wine before he goes to bed and I said this was fine. On admission he reported multiple depressive and anxiety symptoms including depressed and anxious mood, low energy, decreased appetite, low self-esteem, hopelessness, decreased concentration, tearfulness, passive suicide ideations but he says all these have improved, although he still has a low appetite. Average Number of Hours of Sleep 7 Sleep Quality frequent awakening Change in PMFSH Releveant to Presenting Illness Yes Describe Changes in PMFSH As above Review of Systems Review of Systems Constitutional Reports other ( type 2 diabetes, obstructive uropathy, testicular hypofunction, dyslipidem) Eyes Reports WNL and other ( glaucoma) ENT Reports WNL Respiratory Reports other ( COPD) Cardiovascular Reports WNL and other ( cerebral hemorrhage) Gastrointestinal Reports other ( GERD) Musculoskeletal Reports abnormal gait, Reports muscle stiffness and Reports other ( degenerative disc/joint disease with chronic pain) Neurologic Reports other ( cerebral hemorrhage, essential tremor, bilateral DBS, RLS) Skin Reports WNL ADL's Reports WNL Exam Physical Exam Review of Lab Studies n/a Hygiene good General Behavior/Attitude Toward Examiner pleasant and cooperative Pain Yes Pain Location generalized Pain Characteristics chronic Psychiatric Exam Level of Consciousness alert Orientation person, place, time and situation Speech normal rate/tone/volume/prosody and coherent Language able to comprehend questions Mood less depressed Affect blunted, appropriate and congruent Thought Processes/Form logical, linear and goal directed Thought Content diminished depr Delusions none Homicidal/Assaultive Ideation none Suicidal Ideation none Hallucinations none Attention/Concentration focused Attention/Concentration Testing Methods observation/interview Short Term Memory Impairment none STM Testing Methods clinical interview (assessment/observation) Dynamics Ax Solution Architect Memory Impairment none LTM Testing Methods recall of biographical information Intellectual Functioning roughly average Intellectual Functioning Assessed By fund of knowledge Insight fair and improving Insight Assessed By ability to recognize & acknowledge mental illness, ability to understand the implications of mental illness, understanding of treatment options and ability to comply with treatment Judgement fair and improving Judgement Assessed By exploring recent decision-making MMSE n/a Patient Assets patient is willing to accept treatment, able to perform ADLs Patient Liabilities tremor, job loss Assessment and Plan Clinical Impression/Diag Clinical Impression/Diagnosis F 33.2, improving. Continue IOP, monitor meds Progress Overview Reason for Continued Services in an Intensive Outpatient Program continued impaired mood and.or depression, patient would decompenste at a lower level of care, not at baseline level of functioning and high risk for relapse Treatment To Be Provided medication management Discharge Disposition/Level of Care PCP Anticipated Discharge 8-12 weeks Certification Statement Certification Statement I believe this patient requir
[2024-01-30 10:47] VITALS: BP 112/72; PULSE 79; RESP 20; TEMP 36.2; O2SAT 97
--- NOTE | 2024-02-01 08:02 | PC.NURSE ---
No nursing group due to MD visit.
[2024-02-01 09:38] VITALS: BP 104/69; PULSE 91; RESP 18; TEMP 36.7; O2SAT 96
[2024-02-06 10:42] VITALS: BP 105/68; PULSE 77; RESP 20; TEMP 36.8; O2SAT 97
--- NOTE | 2024-02-08 10:18 | PC.NURSE ---
No nursing group due to MD visit.
[2024-02-08 10:40] VITALS: BP 107/66; PULSE 76; RESP 20; TEMP 37.1; O2SAT 97
--- NOTE | 2024-02-13 08:23 | PC.NURSE ---
The patient will not be attending his scheduled session today due to an MD appointment.
--- NOTE | 2024-02-15 10:44 | PC.NURSE ---
The patient tested positive for COVID so will not be back in session until next week.
[2024-02-20 10:22] VITALS: BP 103/72; PULSE 88; RESP 20; TEMP 36.9; O2SAT 96
[2024-02-22 10:11] VITALS: BP 104/70; PULSE 85; RESP 20; TEMP 36.5; O2SAT 98
--- NOTE | 2024-02-22 10:24 | PC.NURSE ---
No nursing group due to MD visit.
--- NOTE | 2024-02-22 10:41 | PC.NURSE ---
The patient reported that he fell out of bed last night, but has no injuries.
--- NOTE | 2024-02-22 12:07 | WPDSLSPROGRE ---
Progress HPI Progress HPI Visit Attended By patient and staff History Obtained From patient Chief Complaint four-week follow-up for depression and anxiety HPI this is a routine follow-up. Patient enjoys the program considerably and participates well. Both he and staff feel he has made substantial progress in therapy. Will be seeing his neurologist for an upcoming appointment in the management of his essential tremor, which is being treated by DBS. He is on BuSpar 15 mg b.i.d., escitalopram 10 mg q.h.s., bupropion SR 200 mg b.i.d.. All of his depressive symptoms are gradually improving. he is also doing PT, and plans to start OT. Patient is also doing family therapy. Average Number of Hours of Sleep 7 Sleep Quality frequent awakening Change in PMFSH Releveant to Presenting Illness Yes Describe Changes in PMFSH As above Review of Systems Review of Systems Constitutional Reports other ( type 2 diabetes, obstructive uropathy,testicular hypofunction,dyslipidemia) Eyes Reports other ( glaucoma) ENT Reports WNL Respiratory Reports other ( COPD) Cardiovascular Reports other ( cerebral hemorrhage) Gastrointestinal Reports WNL ( GERD) Musculoskeletal Reports abnormal gait, Reports muscle stiffness and Reports other ( DJD, chronic pain) Neurologic Reports WNL ( cerebral hemorrhage, essential tremor, bilateral DBS, RLS) and tremor Skin Reports WNL ADL's Reports WNL Exam Physical Exam Review of Lab Studies n/a Hygiene good General Behavior/Attitude Toward Examiner pleasant and cooperative Pain Yes Pain Location generalized Pain Characteristics chronic Psychiatric Exam Level of Consciousness alert Orientation person, place, time and situation Speech normal rate/tone/volume/prosody and coherent Language able to comprehend questions Mood less depressed/anxious Affect full range, appropriate and congruent Thought Processes/Form logical, linear and goal directed Thought Content diminished depressive symptoms Delusions none Homicidal/Assaultive Ideation none Suicidal Ideation none Hallucinations none Attention/Concentration focused Attention/Concentration Testing Methods observation/interview Short Term Memory Impairment none STM Testing Methods clinical interview (assessment/observation) Custodial Memory Impairment none LTM Testing Methods recall of biographical information Intellectual Functioning roughly average Intellectual Functioning Assessed By fund of knowledge Insight fair and improving Insight Assessed By ability to recognize & acknowledge mental illness, ability to understand the implications of mental illness, understanding of treatment options and ability to comply with treatment Judgement fair and improving Judgement Assessed By exploring recent decision-making MMSE n/a Patient Assets patient is willing to accept treatment, able to perform ADLs Patient Liabilities essential tremor, job loss Assessment and Plan Clinical Impression/Diag Clinical Impression/Diagnosis F 33.2, improving Progress Overview Reason for Continued Services in an Intensive Outpatient Program continued impaired mood and.or depression, patient would decompenste at a lower level of care, not at baseline level of functioning and high risk for relapse Treatment To Be Provided medication management and group/individual/rec therapy Discharge Disposition/Level of Care PCP Anticipated Discharge 8-12 weeks Certification Statement Certification Statement I believe this patient requires the services of the Intensive Outpatient Program and that there is reasonable expectation that the patient will make timely and significant practical improvement in the presenting acute symptoms as a result of this Intensive Outpatient Program. I do not believe this
[2024-02-27 10:09] VITALS: BP 101/70; PULSE 80; RESP 20; TEMP 36.7; O2SAT 96
--- NOTE | 2024-02-29 09:51 | PC.NURSE ---
No nursing group due to MD visit.
[2024-02-29 10:33] VITALS: BP 104/71; PULSE 80; RESP 20; TEMP 36.9; O2SAT 95
[2024-03-05 10:16] VITALS: BP 101/70; PULSE 84; RESP 20; TEMP 36.7; O2SAT 97
[2024-03-07 10:26] VITALS: BP 108/64; PULSE 83; RESP 20; TEMP 36.6; O2SAT 94
[2024-03-12 10:11] VITALS: BP 105/72; PULSE 80; RESP 20; TEMP 37.1; O2SAT 95
--- NOTE | 2024-03-14 09:12 | PC.NURSE ---
No nursing group due to MD visit.
[2024-03-14 10:23] VITALS: BP 113/77; PULSE 86; RESP 20; TEMP 36.9; O2SAT 95
[2024-03-19 10:27] VITALS: BP 117/74; PULSE 88; RESP 20; TEMP 36.8; O2SAT 96
[2024-03-21 10:07] VITALS: BP 110/83; PULSE 84; RESP 18; TEMP 37.1; O2SAT 96
--- NOTE | 2024-03-21 10:26 | PC.NURSE ---
No nursing group due to MD visit.
--- NOTE | 2024-03-21 13:06 | WPDSLSPROGRE ---
Progress HPI Progress HPI Visit Attended By patient and staff History Obtained From patient Chief Complaint four-week follow-up for depression, anxiety HPI this is routine follow-up for depression and anxiety. Patient enjoys the program and participates well, he is working on coping skills, among other topics. Both he and his staff feel that he has made substantial progress and he continues to slowly improve. He saw his neurologist for a telehealth visit who is in the process of weaning him off of his primidone. Patient continues on BuSpar 15 mg b.i.d., escitalopram 10 mg q.h.s., bupropion SR 200 mg b.i.d.. He is also doing PT and OT. Chronic pain continues to be an issue, and he has been going to a chiropractor. Average Number of Hours of Sleep 7 Sleep Quality frequent awakening Change in PMFSH Releveant to Presenting Illness Yes Describe Changes in PMFSH As above Review of Systems Review of Systems Constitutional Reports other ( type 2 diabetes, obstructive uropathy, testicular hypofunction, dyslipidem) Eyes Reports other ( glaucoma) ENT Reports WNL Respiratory Reports other ( COPD) Cardiovascular Reports other ( cerebral hemorrhage) Gastrointestinal Reports other ( GERD) Musculoskeletal Reports abnormal gait, Reports muscle stiffness and Reports other ( chronic pain) Neurologic Reports tremor and other ( cerebral hemorrhage, bilateral DBS, RLS) Skin Reports WNL ADL's Reports WNL Exam Physical Exam Review of Lab Studies n/a Hygiene good General Behavior/Attitude Toward Examiner pleasant and cooperative Pain Yes Pain Location headache, back Pain Characteristics chronic and aching Psychiatric Exam Level of Consciousness alert Orientation person, place, time and situation Speech normal rate/tone/volume/prosody and coherent Language able to comprehend questions Mood less depressed/anxious Affect full range, appropriate and congruent Thought Processes/Form logical, linear and goal directed Thought Content diminished depressive/anxiety symptoms Delusions none Homicidal/Assaultive Ideation none Suicidal Ideation none Hallucinations none Attention/Concentration focused Attention/Concentration Testing Methods observation/interview Short Term Memory Impairment none STM Testing Methods clinical interview (assessment/observation) Detention Memory Impairment none LTM Testing Methods recall of biographical information Intellectual Functioning roughly average Intellectual Functioning Assessed By fund of knowledge Insight fair and improving Insight Assessed By ability to recognize & acknowledge mental illness, ability to understand the implications of mental illness, understanding of treatment options and ability to comply with treatment Judgement fair and improving Judgement Assessed By exploring recent decision-making MMSE n/a Patient Assets patient is willing to accept treatment, able to perform ADLs Patient Liabilities essential tremor, chronic pain, job loss Assessment and Plan Clinical Impression/Diag Clinical Impression/Diagnosis F 33.2, progressing well. We discussed a trial of Cymbalta to help address depressive symptoms including low motivation, as well as chronic pain. Will discontinue escitalopram and start Cymbalta 30 mg q.a.m.. RTC in 1 week Progress Overview Reason for Continued Services in an Intensive Outpatient Program continued impaired mood and.or depression, patient would decompenste at a lower level of care, not at baseline level of functioning and high risk for relapse Treatment To Be Provided medication management and group/individual/rec therapy Discharge Disposition/Level of Care PCP Anticipated Discharge 8-12 weeks Certification Statement Certification Statement I believe this patient re
[2024-03-26 10:21] VITALS: BP 112/71; PULSE 86; RESP 20; TEMP 36.6; O2SAT 95
--- NOTE | 2024-03-28 13:01 | WPDSLSPROGRE ---
Progress HPI Progress HPI Visit Attended By patient and staff History Obtained From patient Chief Complaint Depression HPI this is a 2 week follow-up for depression and anxiety. At our last visit we discontinued escitalopram and started him on Cymbalta 30 mg q.a.m. overall, his depression has improved significantly since being in the program but he does not notice much of a difference with the most recent medication change. He is also on BuSpar 15 mg b.i.d. and bupropion SR 200 mg b.i.d.. He just finished PT. Chronic pain continues to be an issue, and he has been going to a chiropractor. Neurologist is still weaning him off his primidone. Average Number of Hours of Sleep 7 Sleep Quality frequent awakening Change in PMFSH Releveant to Presenting Illness Yes Describe Changes in [facility] Medication change as above Review of Systems Review of Systems Constitutional Reports other ( type 2 diabetes, obstructive uropathy, testicular hypofunction, dyslipidem) Eyes Reports other ( glaucoma) ENT Reports WNL Respiratory Reports other ( COPD) Cardiovascular Reports other ( cerebral hemorrhage) Gastrointestinal Reports other ( GERD) Musculoskeletal Reports abnormal gait, Reports muscle stiffness and Reports other ( chronic pain) Neurologic Reports other ( cerebral hemorrhage, bilateral DBS, RLS) Skin Reports WNL ADL's Reports WNL Exam Physical Exam Review of Lab Studies n/a Hygiene good General Behavior/Attitude Toward Examiner pleasant and cooperative Pain Yes Pain Location back Pain Characteristics chronic and aching Psychiatric Exam Level of Consciousness alert Orientation person, place, time and situation Speech normal rate/tone/volume/prosody and coherent Language able to comprehend questions Mood less depressed Affect blunted, appropriate and congruent Thought Processes/Form logical, linear and goal directed Thought Content diminished depressive symptoms Delusions none Homicidal/Assaultive Ideation none Suicidal Ideation none Hallucinations none Attention/Concentration focused Attention/Concentration Testing Methods observation/interview Short Term Memory Impairment none STM Testing Methods clinical interview (assessment/observation) 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 Memory Impairment none LTM Testing Methods recall of biographical information Intellectual Functioning roughly average Intellectual Functioning Assessed By current events Insight fair and improving Insight Assessed By ability to recognize & acknowledge mental illness, ability to understand the implications of mental illness, understanding of treatment options and ability to comply with treatment Judgement fair and improving Judgement Assessed By exploring recent decision-making MMSE n/a Patient Assets patient is willing to accept treatment, able to perform ADLs Patient Liabilities chronic pain, job loss, essential tremor Assessment and Plan Clinical Impression/Diag Clinical Impression/Diagnosis F 33.2, continuing depressive symptoms. Will increase Cymbalta to 60 mg q.a.m. Progress Overview Reason for Continued Services in an Intensive Outpatient Program continued impaired mood and.or depression, patient would decompenste at a lower level of care, not at baseline level of functioning and high risk for relapse Treatment To Be Provided medication management and group/individual/rec therapy Discharge Disposition/Level of Care other Anticipated Discharge 8-12 weeks Certification Statement Certification Statement I believe this patient requires the services of the Intensive Outpatient Program and that there is reasonable expectation that the patient will make timely and significant practical improvement in the presenting acute symptoms as a result of this Intensive Outpatient Progr
[2024-04-02 10:38] VITALS: BP 115/75; PULSE 88; RESP 20; TEMP 36.9; O2SAT 96
--- NOTE | 2024-04-04 10:13 | PC.NURSE ---
No nursing group due to MD visit.
[2024-04-04 11:02] VITALS: BP 102/70; PULSE 88; RESP 20; TEMP 37.2; O2SAT 94
--- NOTE | 2024-04-05 08:21 | SLSTHERAPY ---
04/05/2024 7:20-7:48 Returned phone call to Sravan's , Michelle; she discussed her concerns about Sravan's understanding of group presentation material addressed in group 04/04/2024; Michelle expressed frustration regarding Sravan's interpretation of content of material describing feeling as though he is accusatory to her of controlling behaviors; informed Michelle of the the topic of codependency & encouraged her to review the materials & discuss the information with Sravan in order for them both to better understand how it may or may not apply to them; Michelle asserted that [facility] staff have enabled Sravan & have contributed to a step back in his progress; again encouraged Michelle to read & discuss printed materials with Sravan; assured her that if needed staff with discuss this matter privately with Sravan when he arrives for 04/09/2024 group. 8:28
--- NOTE | 2024-04-09 09:27 | PC.NURSE ---
No nursing group due to nurse meeting.
[2024-04-09 10:08] VITALS: BP 115/68; PULSE 88; RESP 20; TEMP 37.1; O2SAT 96
== END 2024-04-10 23:59 | disposition home or self-care (01) ==
LOC: CHSSENLIFE 10:00
PROVIDERS: PCP Family Medicine; Visit Provider Psychiatry & Neurology Psychiatry
DX: F33.2 Major depressive disorder, recurrent severe without psychotic features (principal)
CPT/HCPCS: 72072; 72100; 90792; 90847; 90853; 99213; 99214; G0463

== ENCOUNTER 2024-06-21 09:09 | Outpatient (CLI) | payer MEDICARE, SELFPAY ==
[2024-06-21 09:28] LABS: Basophils Absolute Auto 0.07 K/mm3 (0.00-0.10); Basophils Percent Auto 1.2 % (0.0-1.0); Eosinophils Absolute Auto 0.17 K/mm3 (0.02-0.50); Eosinophils Percent Auto 2.9 % (1.0-6.0); Hemoglobin 13.1 g/dL (12.4-15.3); Immature Granulocyte Absolute 0.02 K/mm3 (0.00-0.00); Immature Granulocyte Percent A 0.3 % (0.0-0.0); Lymphocytes Absolute Auto 1.51 K/mm3 (1.10-4.50); Lymphocytes Percent Auto 25.9 % (18.0-42.0); Mean Corpuscular HGB Conc 32.8 g/dL (32-36); Mean Corpuscular Hemoglobin 30.8 pg (27.0-31.0); Mean Corpuscular Volume 94.1 fL (78.0-102.0); Mean Platelet Volume 9.8 fl (8.7-11.0); Monocytes Absolute Auto 0.48 K/mm3 (0.10-0.90); Monocytes Percent Auto 8.2 % (2.0-11.0); Neutrophils Absolute Auto 3.59 K/mm3 (1.70-7.20); Neutrophils Percent Auto 61.5 % (50.0-70.0); Platelet Count Result 206 K/mm3 (150-420); Red Blood Count 4.25 M/mm3 (4.70-6.10); Red Cell Distribution Width 13.2 % (11.6-14.4); White Blood Count 5.8 K/mm3 (4.8-10.8)
[2024-06-21 09:59] LABS: Hemoglobin A1C 7.2 % (<5.7)
[2024-06-21 10:23] LABS: Alanine Aminotransferase 37 U/L (16-63); Albumin Level 3.7 g/dL (3.4-5.0); Alkaline Phosphatase 63 U/L (46-116); Anion Gap 7 mmol/L (4-12); Aspartate Amino Transferase 28 U/L (15-37); Bilirubin,Total 0.2 mg/dL (0.00-1.00); Blood Urea Nitrogen 16 mg/dL (7-18); Calcium 9.1 mg/dL (8.5-10.1); Carbon Dioxide 30 mmol/L (21-32); Chloride 100 mmol/L (98-108); Estimated Glomerular Filt Rate 43; Ferritin 119 ng/mL (26-388); Glucose 264 mg/dL (70-99); Iron 102 ug/dL (65-175); Osmolality Calculated 294 mOsm/kg (285-295); Percent Iron Saturation 38 % (12-57); Potassium 4.5 mmol/L (3.5-5.1); Sodium 137 mmol/L (136-145); Total Protein 6.9 g/dL (6.4-8.2)
== END 2024-06-21 09:10 | disposition home or self-care (01) ==
LOC: CHSLAB 09:11
PROVIDERS: PCP Family Medicine; Visit Provider Family Medicine
DX: E11.9 Type 2 diabetes mellitus without complications (principal); E61.1 Iron deficiency
CPT/HCPCS: 36415; 80053; 82728; 83036; 83540; 83550; 85025

== ENCOUNTER 2024-07-09 10:00 | Outpatient (RCR) | payer MEDICARE, OTHER, SELFPAY ==
[2024-04-11 00:02] VITALS: BP 115/68; PULSE 88; RESP 20; TEMP 37.1; O2SAT 96
--- NOTE | 2024-04-11 09:32 | PC.NURSE ---
No nursing group today due to MD visit.
[2024-04-11 11:04] VITALS: BP 102/70; PULSE 88; RESP 20; TEMP 37; O2SAT 96
--- NOTE | 2024-04-11 13:03 | WPDSLSPROGRE ---
Progress HPI Progress HPI Visit Attended By patient and staff History Obtained From patient Chief Complaint medication follow-up for depression HPI Patient is being seen for a medication follow-up. At our last visit we increased his Cymbalta to 60 mg q.a.m.. Also continues on BuSpar 15 mg b.i.d. and bupropion SR 200 mg b.i.d.. he does not notice much of a difference as of yet. Patient finished OT a few weeks ago but continues PT. Chronic pain continues to be an issue, and he has been going to a chiropractor. Neurologist is still weaning him off his primidone. Enjoys program and participates well. Working on motivation, among other topics. Average Number of Hours of Sleep 7 Sleep Quality frequent awakening Change in PMFSH Releveant to Presenting Illness No Review of Systems Review of Systems Constitutional Reports other ( Type 2 diabetes, obstructive uropathy, testicular hypofunction, dyslipide) Eyes Reports other ( glaucoma) ENT Reports WNL Respiratory Reports other ( COPD) Cardiovascular Reports other ( cerebral hemorrhage) Gastrointestinal Reports other ( GERD) Musculoskeletal Reports abnormal gait, Reports diminished strength, Reports muscle stiffness and Reports other ( chronic pain) Neurologic Reports other ( cerebral hemorrhage, bilateral DBS, RLS) Skin Reports WNL ADL's Reports WNL Exam Physical Exam Review of Lab Studies n/a Hygiene good General Behavior/Attitude Toward Examiner pleasant and cooperative Pain Yes Pain Location back Pain Characteristics chronic and aching Psychiatric Exam Level of Consciousness alert Orientation person, place, time and situation Speech normal rate/tone/volume/prosody and coherent Language able to comprehend questions Mood less depressed Affect full range, appropriate and congruent Thought Processes/Form logical, linear and goal directed Thought Content diminished depressive symptoms Delusions none Homicidal/Assaultive Ideation none Suicidal Ideation none Hallucinations none Attention/Concentration focused Attention/Concentration Testing Methods observation/interview Short Term Memory Impairment none STM Testing Methods clinical interview (assessment/observation) Retirement Memory Impairment none LTM Testing Methods recall of biographical information Intellectual Functioning roughly average Intellectual Functioning Assessed By current events Insight fair and improving Insight Assessed By ability to recognize & acknowledge mental illness, ability to understand the implications of mental illness, understanding of treatment options and ability to comply with treatment Judgement fair and improving Judgement Assessed By exploring recent decision-making and exploring solutions to hyothetical situations/practical dilemmas MMSE n/a Patient Assets patient is willing to accept treatment, able to perform ADLs Patient Liabilities chronic pain, essential tremor Assessment and Plan Clinical Impression/Diag Clinical Impression/Diagnosis F 33.2, progressing well. Await response to Hua Progress Overview Reason for Continued Services in an Intensive Outpatient Program continued impaired mood and.or depression, patient would decompenste at a lower level of care, not at baseline level of functioning and high risk for relapse Treatment To Be Provided medication management and group/individual/rec therapy Discharge Disposition/Level of Care PCP Anticipated Discharge 8-12 weeks Certification Statement Certification Statement I believe this patient requires the services of the Intensive Outpatient Program and that there is reasonable expectation that the patient will make timely and significant practical improvement in the presenting acute symptoms as a result of this Intensive Outpatien
[2024-04-16 10:02] VITALS: BP 109/71; PULSE 82; RESP 20; TEMP 37.1; O2SAT 95
[2024-04-18 10:09] VITALS: BP 100/72; PULSE 88; RESP 20; TEMP 36.8; O2SAT 96
--- NOTE | 2024-04-18 10:16 | PC.NURSE ---
No nursing group due to MD visit.
[2024-04-23 10:09] VITALS: BP 117/84; PULSE 88; RESP 20; TEMP 37.2; O2SAT 96
--- NOTE | 2024-04-25 10:00 | PC.NURSE ---
No nursing group due to MD visit.
[2024-04-25 10:47] VITALS: BP 104/76; PULSE 88; RESP 20; TEMP 36.9; O2SAT 97
[2024-04-30 10:09] VITALS: BP 120/79; PULSE 88; RESP 20; TEMP 37; O2SAT 94
[2024-05-02 10:19] VITALS: BP 119/75; PULSE 88; RESP 20; TEMP 36.4; O2SAT 99
--- NOTE | 2024-05-02 12:44 | PC.NURSE ---
No nursing group due to MD visit.
--- NOTE | 2024-05-02 12:44 | WPDSLSPROGRE ---
Progress HPI Progress HPI Visit Attended By patient and staff History Obtained From patient Chief Complaint 3 week follow-up for depression HPI patient is being seen for follow-up. he is on Cymbalta 60 mg q.a.m., BuSpar 15 mg b.i.d. and bupropion SR 200 mg b.i.d.. He still reports that he is somewhat depressed, and chronic pain continues to be an issue, but he does see a chiropractor weekly. He just finished physical therapy and has an appointment to see pain management. He is also off primidone. Enjoys program participates well. Working on anger, among other topics. He is asking about an increase in the Cymbalta. Reports fatigue. Average Number of Hours of Sleep 7 Sleep Quality frequent awakening Change in PMFSH Releveant to Presenting Illness No Review of Systems Review of Systems Constitutional Reports fatigue and other ( Type 2 diabetes, obstructive uropathy, testicular hypofunction, dyslipide) Eyes Reports other ( glaucoma) ENT Reports WNL Respiratory Reports other ( COPD) Cardiovascular Reports other ( cerebral hemorrhage) Gastrointestinal Reports other ( GERD) Musculoskeletal Reports abnormal gait, Reports diminished strength, Reports muscle stiffness and Reports other ( chronic pain) Neurologic Reports other ( cerebral hemorrhage, bilateral DBS, our last) Skin Reports WNL ADL's Reports WNL Exam Physical Exam Review of Lab Studies n/a Hygiene good General Behavior/Attitude Toward Examiner pleasant and cooperative Pain Yes Pain Location back Pain Characteristics chronic and aching Psychiatric Exam Level of Consciousness alert Orientation person, place, time and situation Speech normal rate/tone/volume/prosody and coherent Language able to comprehend questions Mood depressed Affect full range, appropriate and inappropriate Thought Processes/Form logical, linear and goal directed Thought Content depressive symptoms Delusions none Homicidal/Assaultive Ideation none Suicidal Ideation none Hallucinations none Attention/Concentration focused Attention/Concentration Testing Methods observation/interview Short Term Memory Impairment none STM Testing Methods clinical interview (assessment/observation) Half-Way Memory Impairment none LTM Testing Methods recall of biographical information Intellectual Functioning roughly average Intellectual Functioning Assessed By abstract reasoning, fund of knowledge, current events and historical knowledge Insight fair and improving Insight Assessed By ability to recognize & acknowledge mental illness, ability to understand the implications of mental illness, understanding of treatment options and ability to comply with treatment Judgement fair and improving Judgement Assessed By exploring recent decision-making MMSE n/a Patient Assets patient is willing to accept treatment, able to perform ADLs Patient Liabilities chronic pain, essential tremo Assessment and Plan Clinical Impression/Diag Clinical Impression/Diagnosis F 33.2, persistent depressive symptoms. Increase Cymbalta to 90 mg q.a.m. Progress Overview Reason for Continued Services in an Intensive Outpatient Program continued impaired mood and.or depression, patient would decompenste at a lower level of care, not at baseline level of functioning and high risk for relapse Treatment To Be Provided medication management and group/individual/rec therapy Discharge Disposition/Level of Care PCP Anticipated Discharge 8-12 weeks Certification Statement Certification Statement I believe this patient requires the services of the Intensive Outpatient Program and that there is reasonable expectation that the patient will make timely and significant practical improvement in the presenting acute symptoms as a result of this Intensi
--- NOTE | 2024-05-02 13:21 | PC.NURSE ---
Spoke with Jonah at [facility] in [place] and ordered Cymbalta 90mg daily X 30 days.
--- NOTE | 2024-05-08 07:53 | SLSTHERAPY ---
05/08/2024 Sravan cancelled 05/07/2024 group attendance due to out of state trip; Sravan is scheduled to return to group 05/08/2024. 7:54
[2024-05-08 10:15] VITALS: BP 114/68; PULSE 88; RESP 20; TEMP 37.1; O2SAT 94
--- NOTE | 2024-05-08 10:37 | PC.NURSE ---
No nursing group due to MD visit.
[2024-05-14 11:11] VITALS: BP 108/78; PULSE 90; RESP 20; TEMP 36.9; O2SAT 94
[2024-05-16 10:13] VITALS: BP 114/74; PULSE 88; RESP 20; TEMP 36.9; O2SAT 94
--- NOTE | 2024-05-16 10:14 | PC.NURSE ---
No nursing group due to MD visit.
[2024-05-21 10:11] VITALS: BP 106/72; PULSE 88; RESP 20; TEMP 36.8; O2SAT 98
--- NOTE | 2024-05-23 09:56 | PC.NURSE ---
No nursing group due to MD visit.
[2024-05-23 10:14] VITALS: BP 104/72; PULSE 88; RESP 20; TEMP 36.9; O2SAT 96
--- NOTE | 2024-05-23 12:23 | WPDSLSPROGRE ---
Progress HPI Progress HPI Visit Attended By patient and staff History Obtained From patient Chief Complaint 3 Week follow-up for depression HPI this is a routine follow-up. Patient is on Cymbalta 90 mg q.a.m., BuSpar 15 mg b.i.d., bupropion SR 200 mg b.i.d.. His Cymbalta was increased at his last visit, but he reports little difference. He is in considerable pain, and plans to see pain management. In addition, he has not had the motivation for the last few weeks to do his exercises. still having difficulty with sleep. 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, bilateral DBS) Skin Reports WNL ADL's Reports WNL Exam Physical Exam Review of Lab Studies n/a Hygiene good General Behavior/Attitude Toward Examiner pleasant and cooperative Pain Yes Pain Location back Pain Characteristics chronic and aching Psychiatric Exam Level of Consciousness alert Orientation person, place, time and situation Speech normal rate/tone/volume/prosody and coherent Language able to comprehend questions Mood depressed Affect blunted Thought Processes/Form logical, linear and goal directed Thought Content depressive symptoms Delusions none Homicidal/Assaultive Ideation none Suicidal Ideation none Hallucinations none Attention/Concentration focused Attention/Concentration Testing Methods observation/interview Short Term Memory Impairment none STM Testing Methods clinical interview (assessment/observation) Creative 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 Memory Impairment none LTM Testing Methods recall of biographical information Intellectual Functioning roughly average Intellectual Functioning Assessed By current events Insight fair Insight Assessed By ability to recognize & acknowledge mental illness, ability to understand the implications of mental illness, understanding of treatment options and ability to comply with treatment Judgement fair Judgement Assessed By exploring recent decision-making MMSE n/a Patient Assets patient is willing to accept treatment, able to perform ADLs Patient Liabilities chronic pain, essential tremor Assessment and Plan Clinical Impression/Diag Clinical Impression/Diagnosis F 33.2, persistent depressive symptoms. Will start Abilify 2 mg q.a.m. for augmentation Progress Overview Reason for Continued Services in an Intensive Outpatient Program continued impaired mood and.or depression, patient would decompenste at a lower level of care, not at baseline level of functioning and high risk for relapse Treatment To Be Provided medication management and group/individual/rec therapy Discharge Disposition/Level of Care PCP Anticipated Discharge 8-12 weeks Certification Statement Certification Statement I believe this patient requires the services of the Intensive Outpatient Program and that there is reasonable expectation that the patient will make timely and significant practical improvement in the presenting acute symptoms as a result of this Intensive Outpatient Program. I do not believe this patient will benefit from a lesser level of care or could be adequately and appropriately treated in a less restrictive environment. My decision is based on the preceding clinical information.
[2024-05-28 10:35] VITALS: BP 118/72; PULSE 86; RESP 20; TEMP 37; O2SAT 93
[2024-05-29 10:12] VITALS: BP 118/82; PULSE 88; RESP 20; TEMP 37.2; O2SAT 95
[2024-06-04 09:37] VITALS: BP 124/83; PULSE 106; RESP 18; TEMP 36.3; O2SAT 95
[2024-06-06 09:41] VITALS: BP 107/79; PULSE 104; RESP 20; TEMP 36.6; O2SAT 94
--- NOTE | 2024-06-06 10:31 | PC.NURSE ---
No nursing group due to MD visit.
[2024-06-11 10:32] VITALS: BP 122/74; PULSE 88; RESP 20; TEMP 37; O2SAT 95
--- NOTE | 2024-06-13 09:50 | PC.NURSE ---
No nursing group due to MD visit.
[2024-06-13 10:17] VITALS: BP 130/83; PULSE 88; RESP 20; TEMP 37; O2SAT 95
--- NOTE | 2024-06-13 12:01 | WPDSLSPROGRE ---
Progress HPI Progress HPI Visit Attended By patient and staff History Obtained From patient Chief Complaint Follow-up for depression and anxiety/medication check HPI this is a follow-up visit. At our last visit patient was still experiencing depressive symptoms including significantly low motivation. We started Abilify 2 mg q.a.m. for augmentation at that time. He thinks he is doing somewhat better and his sent a note that stated that he seems to be slightly improved, not as irritable, with a little more motivation. However, says that they still get into arguments and the periods of motivation seem to be intermittent. We are doing couples therapy with patient and his . He is also on Cymbalta 90 mg q.a.m., BuSpar 15 mg b.i.d., BuSpar SR 200 mg b.i.d.. He is also going to be seeing the neurologist about his primidone, as well as the fact that the DBS seems to be causing him to have a higher pitched voice, which his interprets as being irritable. Patient says that this is not the case, and he actually become somewhat tearful when discussing this. Sleep is somewhat improved. complains of fatigue but this was present before we started the Abilify. Average Number of Hours of Sleep 6 Sleep Quality frequent awakening Change in PMFSH Releveant to Presenting Illness Yes Describe Changes in PMFSH some improvement as above Review of Systems Review of Systems Constitutional Reports fatigue and other ( Type 2 diabetes, obstructive uropathy, testicular hypofunction) Eyes Reports other ( glaucoma) ENT Reports WNL Respiratory Reports other ( COPD) Cardiovascular Reports other ( cerebral hemorrhage) Gastrointestinal Reports other ( GERD) Musculoskeletal Reports abnormal gait, Reports diminished strength, Reports muscle stiffness and Reports other ( chronic pain) Neurologic Reports tremor and other ( bilateral DBS, cerebral hemorrhage) Skin Reports WNL ADL's Reports WNL Exam Physical Exam Review of Lab Studies n/a Hygiene good General Behavior/Attitude Toward Examiner pleasant and cooperative Pain Yes Pain Location back Pain Characteristics chronic and aching Psychiatric Exam Level of Consciousness alert Orientation person, place, time and situation Speech normal rate/tone/volume/prosody and coherent Language able to comprehend questions Mood depressed, tearful Affect blunted Thought Processes/Form logical, linear and goal directed Thought Content depressive and anxiety symptoms Delusions none Homicidal/Assaultive Ideation none Suicidal Ideation none Hallucinations none Attention/Concentration focused Attention/Concentration Testing Methods observation/interview Short Term Memory Impairment none STM Testing Methods clinical interview (assessment/observation) Watershed Tender Memory Impairment none LTM Testing Methods recall of biographical information Intellectual Functioning roughly average Intellectual Functioning Assessed By current events Insight fair and improving Insight Assessed By ability to recognize & acknowledge mental illness, ability to understand the implications of mental illness, understanding of treatment options and ability to comply with treatment Judgement fair and improving Judgement Assessed By exploring recent decision-making MMSE n/a Patient Assets patient is willing to accept treatment, able to perform ADLs Patient Liabilities chronic pain, essential tremor, marital stressors Assessment and Plan Clinical Impression/Diag Clinical Impression/Diagnosis F 33.2, possible improvement. Will increase Abilify to 3 mg q.day. Progress Overview Reason for Continued Services in an Intensive Outpatient Program continued impaired mood and.or depression, patient would decompenste at a lower level of care, [facility]
--- NOTE | 2024-06-18 09:41 | PC.NURSE ---
No nursing group due to nurse meeting.
[2024-06-18 10:09] VITALS: BP 114/77; PULSE 90; RESP 20; TEMP 36.9; O2SAT 94
--- NOTE | 2024-06-20 09:29 | PC.NURSE ---
No nursing group due to MD visit.
[2024-06-20 10:20] VITALS: BP 120/88; PULSE 88; RESP 18; TEMP 37.1; O2SAT 94
[2024-06-25 10:26] VITALS: BP 125/78; PULSE 88; RESP 20; TEMP 37.1; O2SAT 94
--- NOTE | 2024-06-27 09:40 | PC.NURSE ---
No nursing group due to MD visit.
[2024-06-27 10:21] VITALS: BP 110/82; PULSE 88; RESP 20; TEMP 36.9; O2SAT 95
[2024-07-02 10:19] VITALS: BP 100/74; PULSE 88; RESP 20; TEMP 37.1; O2SAT 95
--- NOTE | 2024-07-04 10:00 | PC.NURSE ---
No nursing group due to MD visit.
[2024-07-04 10:49] VITALS: BP 108/60; PULSE 88; RESP 20; TEMP 36.7; O2SAT 96
--- NOTE | 2024-07-04 12:38 | WPDSLSPROGRE ---
Progress HPI Progress HPI Visit Attended By patient and staff History Obtained From patient Chief Complaint 3 week follow-up for depression and anxiety/medication check HPI this is a follow-up visit. At our last meeting we increased patient's Abilify to 3 mg Q a.m. and this seems to be helping his depression somewhat. However today he said he was down after a difficult couples session. Continues on BuSpar 15 mg b.i.d., buspirone SR 200 mg b.i.d., Cymbalta 90 mg q.a.m. as well. He has fallen more recently and attributes this to feeling dizzy . He is also been working out the yd in the hot weather more than he should be and I reminded him that he needed to stay hydrated in this kind of he. Also he noted that at night when he turned off the DBS, the dizziness got better, and when he turned it back on it made it worse. I told that he needs to get on to [facility] [employer] and let his doctor know about this. Enjoys program participates well. Average Number of Hours of Sleep 6 Sleep Quality frequent awakening Change in PMFSH Releveant to Presenting Illness Yes Describe Changes in PMFSH increased dizziness and falls as above Review of Systems Review of Systems Constitutional Reports other ( type 2 diabetes) Eyes Reports other ( glaucoma) ENT Reports WNL Respiratory Reports other ( COPD) Cardiovascular Reports other ( cerebral hemorrhage) Gastrointestinal Reports other Musculoskeletal Reports abnormal gait, Reports diminished strength, Reports muscle stiffness and Reports other ( chronic pain) Neurologic Reports tremor and other ( dizziness, bilateral DBS, cerebral hemorrhage) Skin Reports WNL ADL's Reports WNL Exam Physical Exam Review of Lab Studies n/a Hygiene good General Behavior/Attitude Toward Examiner pleasant and cooperative Pain Yes Pain Location back Pain Characteristics chronic and aching Psychiatric Exam Level of Consciousness alert Orientation person, place, time and situation Speech normal rate/tone/volume/prosody and coherent Language able to comprehend questions Mood down Affect blunted Thought Processes/Form logical, linear and goal directed Thought Content depressive and anxiety symptoms Delusions none Homicidal/Assaultive Ideation none Suicidal Ideation none Hallucinations none Attention/Concentration focused Attention/Concentration Testing Methods observation/interview Short Term Memory Impairment none STM Testing Methods clinical interview (assessment/observation) Rehabilitation Case Coordinator Memory Impairment none LTM Testing Methods recall of biographical information Intellectual Functioning roughly average Intellectual Functioning Assessed By fund of knowledge and current events Insight fair and improving Insight Assessed By ability to recognize & acknowledge mental illness, ability to understand the implications of mental illness, understanding of treatment options and ability to comply with treatment Judgement fair and improving Judgement Assessed By exploring recent decision-making MMSE n/a Patient Assets patient is willing to accept treatment, able to perform ADLs Patient Liabilities relationship stressors, chronic pain, essential tremor Assessment and Plan Clinical Impression/Diag Clinical Impression/Diagnosis F 33.2, progressing well. Continue IOP, monitor meds, patient follow-up with PCP/neuro Progress Overview Reason for Continued Services in an Intensive Outpatient Program continued impaired mood and.or depression, patient would decompenste at a lower level of care, not at baseline level of functioning and high risk for relapse Treatment To Be Provided medication management and group/individual/rec therapy Discharge Disposition/Level of Care PCP Anticipated Discharge 8-12 weeks Certification Statement C
[2024-07-09 10:11] VITALS: BP 108/76; PULSE 86; RESP 20; TEMP 36.8; O2SAT 96
== END 2024-07-10 23:59 | disposition home or self-care (01) ==
LOC: CHSSENLIFE 10:00
PROVIDERS: PCP Family Medicine; Visit Provider Psychiatry & Neurology Psychiatry
DX: F33.2 Major depressive disorder, recurrent severe without psychotic features (principal)
CPT/HCPCS: 90846; 90847; 90853; 99213; 99214; G0463

== ENCOUNTER 2024-07-18 13:36 | Emergency (ER) | payer MEDICARE, OTHER, SELFPAY ==
--- NOTE | ~2024-07-18 | XR_ITS ---
EXAMINATION: XR ribs RT 2V DATE: 07/18/2024 13:53 INDICATION: Right rib injury TECHNIQUE: 3 views of the right ribs were obtained. COMPARISON: None FINDINGS: No rib fractures identified. Right pectoral power supply with lead extending cephalad along the anter ior right lower neck and beyond the cephalad margin of the [id number]. Right lung and visualized p ortion of the left lung are clear. No pulmonary edema, pleural effusion or pneumothorax. IMPRESSION: 1. No rib fracture or visible acute cardiopulmonary disease. Reviewed, dictated and finalized at location B.
[2024-07-18 13:37] VITALS: BP 127/79; PULSE 101; RESP 16; TEMP 36.4; O2SAT 98
--- NOTE | 2024-07-18 13:37 | ED.FALL ---
HPI - Fall General Chief Complaint: Fall Stated Complaint: fall, right rib pain Source: patient Mode of arrival: ambulatory Limitations: no limitations History of Present Illness HPI Narrative: this is a 68-year-old male who presents with a right rib pain after he fell in the tub yesterday injuring his right rib area, no other injuries noted has tenderness with palpation and with deep inspiration with no shortness of breath no chest pain no abdominal pain. complaint: fall Onset (ago): day(s) Fall from: standing Fall witnessed: no Place fall occurred: home Loss of consciousness: none Prolonged down time: no Symptoms prior to fall: none Context: tripped/slipped Severity: moderate Severity scale (1-10): 7 Quality: aching Related Data Home Medications Medication Instructions Recorded Confirmed bimatoprost 0.01 % eye drops 1 drp EACH EYE DAILY 02/20/20 05/13/24 ([place]) bupropion HCl 200 mg tablet,12 hr 200 mg PO BID 11/10/20 05/13/24 sustained-release famotidine 20 mg tablet 20 mg PO DAILY 11/10/20 05/13/24 buspirone 15 mg tablet 15 mg PO BID 08/05/23 05/13/24 fluticasone 232 mcg-salmeterol 14 1 inh inhalation DAILY 08/05/23 05/13/24 mcg/actuation breath activated powdr (AirDuo RespiClick) latanoprost 0.005 % eye drops 1 drp EACH EYE DAILY 08/05/23 05/13/24 metformin 500 mg tablet 1,000 mg PO BID 08/05/23 05/13/24 montelukast 10 mg tablet 10 mg PO DAILY 08/05/23 05/13/24 albuterol sulfate 90 mcg/actuation inhalation 05/13/24 05/13/24 aerosol inhaler (Ventolin HFA) Allergies Allergy/AdvReac Type Severity Reaction Status Date / Time Penicillins Allergy Intermediate MUSCLE Verified 08/05/23 16:57 SPASMS 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 Diabetes Essential tremor GERD (gastroesophageal reflux disease) Glaucoma Migraine Phimosis Sleep apnea Vitamin D deficiency Surgical History Surgical History H/O hand surgery Left History of back surgery History of lumbar fusion L3-L6 History of thumb surgery Family History Family History Mother Alzheimers disease Essential tremor Father Aneurysm Sibling Atherosclerosis Social History Social History Smoking packs per day: 0.5 Smoking cigarettes per day: 10.0 Years smoked: 10 Smoking pack-years: 5.00 Smoking status: Former smoker Lack of Transportation: No Lack of Food: Never True Current Housing: I Have Housing Concerned About Future Housing: No Difficulty Paying Gas/Electric Bills: YES Difficulty Paying for Meds: YES Currently Unemployed: No Education: High School Diploma/GED Difficulty w/ Childcare or Family Care: No Gender identity (if verbalized by the patient): Male Exam Const: General: healthy appearing, no acute distress and alert Nutritional Appearance: well nourished Orientation/consciousness: patient oriented x3 Limitations: no limitations Neck: Neck: normal visual inspection, no lymphadenopathy and no meningeal signs Chest: Chest palpation & inspection: normal inspection of the chest Resp: Effort & Inspection: normal respiratory effort Auscultation: clear to auscultation bilaterally Cardio: Rhythm: regular rhythm GI: GI Palp: Yes Soft to palpation Auscultation: normal bowel sounds Back/Spine/Pelvis: Back: no CVA tenderness Skin: General skin exam: normal color Rashes: no rashes Wounds: no wounds Neuro: General: patient oriented x3, moves all extremities, no meningeal signs and no focal motor deficits Course Course Emergen
[2024-07-18] MEDS: KETOROLAC (*BKC) 60 MG/2 ML VIAL IM (13:58)
== END 2024-07-18 14:17 | disposition home or self-care (01) ==
PROVIDERS: Emergency Provider Emergency Medicine; PCP Family Medicine
DX: S23.41XA Sprain of ribs, initial encounter (principal); E11.9 Type 2 diabetes mellitus without complications; J44.9 Chronic obstructive pulmonary disease, unspecified; Z87.891 Personal history of nicotine dependence; W18.2XXA Fall in (into) shower or empty bathtub, initial encounter; Y92.002 Bathroom of unspecified non-institutional (private) residence as the place of occurrence of the external cause
CPT/HCPCS: 71100; 90853; 96372; 99283; J1885

== ENCOUNTER 2024-08-16 16:52 | Emergency (ER) | payer MEDICARE, OTHER, SELFPAY ==
[2024-08-16] VITALS (38 sets, daily range): BP systolic 92–133; BP diastolic 55–94; PULSE 88–112; RESP 13–25; TEMP 36.4–36.9; O2SAT 93–97
--- NOTE | ~2024-08-16 | CT_ITS ---
CLINICAL INDICATION: Lower abdominal pain and rectal bleeding. COMPARISON: 08/05/2023. TECHNIQUE: Computed tomography (CT) of the abdomen and pelvis was performed without intravenous contr ast. The dose-length product was 1167.51 mGy-cm. FINDINGS/OBSERVATIONS: Visualized lower thorax:The bilateral lung bases are clear. The heart is of normal size, there is no pericardial effusion. A small hiatal hernia is present. Liver: The liver is not enlarged measuring 17 cm in longitudinal dimension. Gallbladder and biliary system: The gallbladder is only minimally distended, but otherwise unremarkab le. No calcified stones are present. No pericholecystic fluid is noted. Pancreas: Limited evaluation of the pancreas secondary to the lack of intravenous contrast. Spleen: Punctate calcifications within the spleen, findings suggesting of prior granulomatous disease . Kidneys: Punctate nonobstructing stones detected bilaterally. Within the right kidney in the interpolar region measuring 2 mm. In the left kidney, also within the interpolar region measuring 3 mm. Multiple 1 and 2 mm nonobstructing stones within the left lower pole. No hydronephrosis is present. Adrenal glands: unremarkable Gastrointestinal tract: Diverticulosis is identified within multiple loops of redundant sigmoid colon in the upper pelvis. Deep within the pelvis, a large inflammatory response is present. This likely emanates from the distal rectosigmoid colon, which demonstrates a punctate focus of air, possibly a perforated diverticulum (a contained perforation) with surrounding free fluid. This is bes t identified on series 3, image 162. Within the left hemipelvis is an irregular focus of increased attenuation, possibly originating from the wall of the deep pelvis. This abnormality measures 5 x 3.6 x 5 cm (anterior to posterior x medial to lateral x cranial to caudal dimension). Adjacent inflammatory response is also noted, within the left hemipelvis, and extending anteriorly around the bladder. This focus also extends posteriorly to the presacral space with significant inflammatory change. Appendix:The appendix is not definitively visualized. However, no pericecal inflammatory change is id entified suggest the presence of acute appendicitis. Vasculature: Calcified atherosclerotic disease Lymph nodes: No morphologically suspicious or pathologically enlarged lymph nodes are identified with in the retroperitoneum or at the root of the mesentery Pelvic structures:Within the rectosigmoid colon a contained perforation is suspected extending to the left pelvic wall with an irregular focus of increased attenuation, possibly representing a prior blo od products, versus proteinaceous (purulent) material. Contrast enhanced imaging of the abdomen and pelvis is recommended, if the patient is clinically able . Body wall and musculoskeletal: Degenerative disease within the lumbosacral spine, with orthopedic dianna dware at the level of L4/L5 and L5/S1. No lytic or blastic lesions are identified. IMPRESSION: Findings within the deep pelvis which may represent a contained perforation from rectosigmoid diverti culitis. No gross free air is present. Contrast-enhanced imaging of the abdomen and pelvis is recommended (IV only), if the patient is clini [place] able, to evaluate the collection in the left hemipelvis to determine if there is rim enhancemen t as one might expect with an abscess. Follow-up to resolution is recommended as a malignancy can have a similar appearance. Multiple nonobstructing bilateral renal calculi. Remainder of examination is unremarkable. Reviewed, dictated and finalized at location A. IMPRESSION: Findings within the deep pelvis which may represent a contained perforation fro m rectosigmo
--- NOTE | ~2024-08-16 | CT_ITS ---
EXAMINATION: CT brain wo con DATE: 08/17/2024 00:12 INDICATION: Fall. TECHNIQUE: Computed tomography (CT) of the head was performed without intravenous contrast. The mA wa s adjusted according to patient size. Iterative reconstruction technique was employed. The dose-lengt h product was 681.00 mGy-cm. COMPARISON: Head CT 08/05/2023 FINDINGS: There are bilateral deep brain stimulators. There is chronic encephalomalacia in right fron yuki lobe along the wire. There is no intracranial hemorrhage, acute infarction, or abnormal intracran ial mass lesion. The ventricles are normal in size. There is mild mucosal thickening in the ethmoid s inuses. There are likely changes of ocular lens replacement surgeries. The mastoid air cells are norm al. IMPRESSION: 1. Chronic encephalomalacia in right frontal lobe. Reviewed, dictated and finalized at location A.
--- NOTE | ~2024-08-16 | CT_ITS ---
EXAMINATION: CT cervical spine wo con DATE: 08/17/2024 00:14 INDICATION: Ground-level fall. TECHNIQUE: Computed tomography (CT) of the cervical spine was performed without intravenous contrast. Automated exposure control and iterative reconstruction technique were employed. The dose-length pro duct was 512.42 mGy-cm. COMPARISON: None FINDINGS: There is 3 degrees dextrocurvature of cervical spine. Vertebral body heights are normal. Th ere is mildly decreased disc height at C4-C5 and severely decreased disc height at C5-C6. The followi ng disc levels are specifically discussed: C2-C3: There is mild left uncovertebral joint osteoarthritis. There is mild bilateral facet joint ost eoarthritis. There is mild left neural foraminal stenosis. There is no central canal stenosis. C3-C4: There is moderate right and severe left uncovertebral joint osteoarthritis. There is mild bila teral facet joint osteoarthritis. There is mild bilateral neural foraminal stenosis. There is mild ce ntral canal stenosis. C4-C5: There is mild right and severe left uncovertebral joint osteoarthritis. There is no facet join t osteoarthritis. There is mild bilateral neural foraminal stenosis. There is mild central canal sten osis. C5-C6: There is severe bilateral uncovertebral joint osteoarthritis. There is moderate bilateral face t joint osteoarthritis. There is mild right and moderate left neural foraminal stenosis. There is mod erate central canal stenosis. C6-C7: There is mild bilateral uncovertebral joint osteoarthritis. There is mild bilateral facet join t osteoarthritis. There is mild bilateral neural foraminal stenosis. There is mild central canal sten osis. C7-T1: There is no uncovertebral joint osteoarthritis. There is mild bilateral facet joint osteoarthr itis. There is no neural foraminal stenosis. There is no central canal stenosis. IMPRESSION: 1. No fracture. 2. Severe cervical spondylosis. Reviewed, dictated and finalized at location A.
--- NOTE | ~2024-08-16 | CT_ITS ---
CLINICAL INDICATION: Abnormal noncontrast enhanced imaging. COMPARISON: Examination is compared with multiple prior studies, performed most recently (approximate ly 1 hour earlier) and dating back to 09/27/2013. TECHNIQUE: An enhanced CT of the abdomen and pelvis was performed utilizing multislice spiral Pelikon ue reconstructed at 2.5 mm slice thickness. Coronal and sagittal reconstructions were performed. Th is CT examination was performed utilizing dose reduction techniques. DLP: 1586 mGy-cm FINDINGS/OBSERVATIONS: Visualized lower thorax:The bilateral lung bases are clear. The heart is of normal size, without pericardial effusion. A small hiatal hernia is redemonstrated. Liver: The liver is not enlarged. Gallbladder and biliary system: The gallbladder is only minimally distended. Pancreas: 11 mm focus of decreased attenuation within the head of the pancreas. The remainder of the pancreas enhances otherwise homogeneously. No pancreatic ductal dilatation is appreciated. Spleen: The spleen enhances homogeneously. The spleen is not enlarged. Redemonstration of multiple punctate calcifications, suggesting prior granulomatous disease. Kidneys: The bilateral kidneys enhance symmetrically. Limited visualization of the nonobstructing sto xochitl. Adrenal glands: Unremarkable Gastrointestinal tract: Redemonstration of significant inflammatory response within the deep pelvis. Along the lateral side wall of the left hemipelvis is an irregular focus of soft tissue attenuation, without rim enhancement. This may represent an enlarged, necrotic lymph node without a discrete fat plane between this abnorma lity and the rectosigmoid colon. Alternatively, this could represent a collection of gross purulence surrounded by phlegmonous soft tissue without maturation to a thick walled abscess. Although not a CTA, significant hyperreninemia of the vasculature is identified within the rectosigmo id colon, more so than the remainder of the large bowel. Redemonstration of significant inflammatory response within the presacral fat, an interval change fro m imaging performed 08/05/2023. The inflammatory change extends anteriorly, adjacent to the bladder, without a discrete connection. IMPRESSION: Findings within the pelvis adjacent to the rectosigmoid colon which may represent either a necrotic l ymph node with superimposed infection versus phlegmonous change from diverticulitis without maturatio n to rim-enhancing abscess at the time of this imaging. This abnormality is amenable to percutaneous drainage versus biopsy. These findings were discussed with Dr. Corrales at [facility] emergency Department , caring for the patient at 9:30 PM on 08/16/2024. Reviewed, dictated and finalized at location A. IMPRESSION: Findings within the pelvis adjacent to the rectosigmoid colon which may represe nt either a necrotic lymph node with superimposed infection versus phlegmonous change from diverticulitis without maturation to rim-enhancing abscess at the t dennise of this imaging. This abnormality is amenable to percutaneous drainage versus biopsy. These findings were discussed with Dr. Corrales at [facility] emergency Department, caring for the patient at 9:30 PM on 08/16/2024.
--- NOTE | 2024-08-16 17:36 | ED.GENADULT ---
HPI - General Adult General Chief complaint: Unspecified Stated complaint: Rectal Bleeding Time Seen by Provider: 08/16/24 17:36 Source: patient Mode of arrival: ambulatory Limitations: no limitations History of Present Illness HPI narrative: 68-year-old white male complaining of rectal bleeding feels dizzy like he is going to pass out . Patient started having rectal bleeding around 12 30 when he had a bloody stool. He also started having rectal pain at that time. Previous to that he was well. Denies any problems voiding. Denies any fever cough fever sore throat runny nose rash or itching other bleeding besides his rectum. Denies any swelling lumps or bumps or any other complaints. Related Data Home Medications Medication Instructions Recorded Confirmed bimatoprost 0.01 % eye drops 1 drp EACH EYE DAILY 02/20/20 05/13/24 (Harika) bupropion HCl 200 mg tablet,12 hr 200 mg PO BID 11/10/20 05/13/24 sustained-release famotidine 20 mg tablet 20 mg PO DAILY 11/10/20 05/13/24 buspirone 15 mg tablet 15 mg PO BID 08/05/23 05/13/24 fluticasone 232 mcg-salmeterol 14 1 inh inhalation DAILY 08/05/23 05/13/24 mcg/actuation breath activated powdr (AirDuo RespiClick) latanoprost 0.005 % eye drops 1 drp EACH EYE DAILY 08/05/23 05/13/24 metformin 500 mg tablet 1,000 mg PO BID 08/05/23 05/13/24 montelukast 10 mg tablet 10 mg PO DAILY 08/05/23 05/13/24 albuterol sulfate 90 mcg/actuation inhalation 05/13/24 05/13/24 aerosol inhaler (Ventolin HFA) Allergies Allergy/AdvReac Type Severity Reaction Status Date / Time Penicillins Allergy Intermediate MUSCLE Verified 08/16/24 18:22 SPASMS 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 Diabetes Essential tremor GERD (gastroesophageal reflux disease) Glaucoma Migraine Phimosis Sleep apnea Vitamin D deficiency Surgical History Surgical History H/O hand surgery Left History of back surgery History of lumbar fusion L3-L6 History of thumb surgery Family History Family History Mother Alzheimers disease Essential tremor Father Aneurysm Sibling Atherosclerosis Social History Social History Smoking packs per day: 0.5 Smoking cigarettes per day: 10.0 Years smoked: 10 Smoking pack-years: 5.00 Smoking status: Former smoker Lack of Transportation: No Lack of Food: Never True Current Housing: I Have Housing Concerned About Future Housing: No Difficulty Paying Gas/Electric Bills: YES Difficulty Paying for Meds: YES Currently Unemployed: No Education: High School Diploma/GED Difficulty w/ Childcare or Family Care: No Gender identity (if verbalized by the patient): Male Course Vital Signs Vital signs: Vital Signs Temperature 36.4 C 08/16/24 17:22 Pulse Rate 88 08/16/24 17:22 Respiratory Rate 18 08/16/24 17:22 Blood Pressure 102/57 L 08/16/24 17:22 Pulse Oximetry 94 08/16/24 17:22 Oxygen Delivery Room Air 08/16/24 17:22 Temperature 36.4 C L 08/16/24 23:54 Pulse Rate 103 H 08/17/24 01:01 Respiratory Rate 23 H 08/17/24 01:01 Blood Pressure 93/53 L 08/17/24 01:01 Pulse Oximetry 93 08/17/24 01:01 Oxygen Delivery Room Air 08/16/24 23:54 Medical Decision Making MDM Narrative Medical decision making narrative: Patient was placed in Room # History and physical was performed. CT abdomen pelvis without contrast per radiologist: Findings within the deep pelvis which may represent a contained perforation from rectosigmoid diverticulitis. No gross
[2024-08-16 17:44] LABS: Glucose Point of Care 154 mg/dl (65-105)
--- NOTE | 2024-08-16 17:55 | PC.NURSE ---
Attempted IV x 2 without success. Another RN will attempt.
[2024-08-16 18:00] LABS: Hematocrit 38.9 % (37.0-46.0); Hemoglobin 12.9 g/dL (12.4-15.3); Mean Corpuscular HGB Conc 33.2 g/dL (32-36); Mean Corpuscular Hemoglobin 30.9 pg (27.0-31.0); Mean Corpuscular Volume 93.3 fL (78.0-102.0); Mean Platelet Volume 9.7 fl (8.7-11.0); Platelet Count Result 248 K/mm3 (150-420); Red Blood Count 4.17 M/mm3 (4.70-6.10); Red Cell Distribution Width 13.3 % (11.6-14.4); White Blood Count 15.5 K/mm3 (4.8-10.8)
[2024-08-16 18:23] LABS: Alanine Aminotransferase 40 U/L (16-63); Albumin Level 3.7 g/dL (3.4-5.0); Alkaline Phosphatase 69 U/L (46-116); Anion Gap 7 mmol/L (4-12); Aspartate Amino Transferase 23 U/L (15-37); Bilirubin,Total 0.3 mg/dL (0.00-1.00); Blood Urea Nitrogen 14 mg/dL (7-18); Carbon Dioxide 29 mmol/L (21-32); Chloride 101 mmol/L (98-108); Estimated CRCL calculation 51 ml/min; Estimated Glomerular Filt Rate 50; Glucose 158 mg/dL (70-99); Magnesium 1.9 mg/dL (1.8-2.4); Osmolality Calculated 287 mOsm/kg (285-295); Potassium 4.1 mmol/L (3.5-5.1); Sodium 137 mmol/L (136-145); Total Protein 7.3 g/dL (6.4-8.2)
[2024-08-16] MEDS: SODIUM CHLORIDE 0.9% IV 1,000 ML 999 ML IV CONT (18:25)
[2024-08-16] MEDS: HYDROcodone/acetaminophen (*CRX) 7.5-325 MG TABLET 1 TAB PO (18:26)
[2024-08-16] MEDS: PANTOPRAZOLE SODIUM IV 40 MG VIAL 80 MG IV PUSH (18:26)
[2024-08-16 18:28] LABS: Add Urine Microscopic? YES; Appearance Urine Clear (Clear); Bilirubin Urine Negative (Negative); Blood Urine Negative (Negative); Color Urine Light Yellow (Yellow); Glucose Urine UA Negative (Negative); Ketones Urine Negative (Negative); Leukocyte Esterase Ur Negative LEU/UL (Negative); Nitrate Urine Positive (Negative); Protein Urine Negative (Negative); Urobilinogen Urine 0.2 mg/dL (0.2-1.0)
[2024-08-16 18:29] LABS: INR 0.9; Partial Thromboplastin Time 23.1 Sec (23.9-30.70); Prothrombin Time 10.4 Seconds (9.50-12.1)
[2024-08-16 18:33] LABS: Bacteria Urine Trace /hpf; RBC Urine 0-2 /hpf (0-2); Squamous Epithelial Cell Urine Rare /hpf (Few); WBC Urine 0-3 /hpf (0-3)
[2024-08-16] MEDS: MEROPENEM 1 GM/NS 100 ML 1 GM/100 ML BAG IVPB (20:53)
[2024-08-16] MEDS: SODIUM CHLORIDE 0.9% IV 1,000 ML 125 ML IV CONT (23:01)
--- NOTE | 2024-08-16 23:33 | PC.NURSE ---
resting quietly with lights off and urinal at bedside
--- NOTE | 2024-08-16 23:55 | PC.NURSE ---
Addendum entered by Magaly Curtis RN 08/17/24 00:04: new fall risk assesment completed Original Note: pt was on commode for BM and when trying to reach bed fell to floor. ERP was called to room for evaluation. pt complaining of back of head hurting. no LOC, no bleeding noted. no other pain noted. c-collar applied. pt helped to stretcher with assist x 5. no fall risk clasp was on pt. clasp applied. vitals taken and reported to ERP. orders for CT of head and neck recieved. to CT per stretcher.
--- NOTE | 2024-08-17 00:05 | PC.NURSE ---
This tech notified from previous shift pt was able to use commode with assistance but wanted privacy with call light in reach. Pt did not use call light and tried to get in bed by himself from commode. Pt fell while doing so. Applied C-collar. Pt sent for CT scans. back in room, resting comfortably, body care manager socks in place, call light within reach, commode removed from room.
[2024-08-17 00:07] VITALS: BP 93/60; PULSE 108; RESP 26; O2SAT 95
[2024-08-17 00:16] VITALS: BP 89/55; PULSE 109; RESP 19; O2SAT 94
[2024-08-17] MEDS: SODIUM CHLORIDE 0.9% IV 1,000 ML 999 ML IV CONT (00:30)
[2024-08-17 00:31] VITALS: BP 82/55; PULSE 113; RESP 20; O2SAT 94
[2024-08-17 00:34] VITALS: BP 95/60; PULSE 108; RESP 14; O2SAT 95
[2024-08-17 00:46] VITALS: BP 101/59; PULSE 105; RESP 23; O2SAT 95
[2024-08-17 01:01] VITALS: BP 93/53; PULSE 103; RESP 23; O2SAT 93
[2024-08-17] MEDS: ACETAMINOPHEN 325 MG TABLET 650 MG PO (01:20)
--- NOTE | 2024-08-17 02:34 | PC.NURSE ---
EMS called for transport
--- NOTE | 2024-08-19 13:29 | PC.NURSE ---
Final urine culture: No growth
== END 2024-08-17 02:26 | disposition short-term general hospital (02) ==
PROVIDERS: Emergency Provider Emergency Medicine; PCP Family Medicine
DX: K57.92 Diverticulitis of intestine, part unspecified, without perforation or abscess without bleeding (principal); S09.90XA Unspecified injury of head, initial encounter; K62.5 Hemorrhage of anus and rectum; J44.9 Chronic obstructive pulmonary disease, unspecified; E11.9 Type 2 diabetes mellitus without complications; Z87.891 Personal history of nicotine dependence; Z79.899 Other long term (current) drug therapy; W18.30XA Fall on same level, unspecified, initial encounter
CPT/HCPCS: 36415; 70450; 72125; 74176; 74177; 74178; 80053; 81001; 82948; 83605; 83735; 85027; 85610; 85730; 86850; 86900; 86901; 86920; 87086; 96361; 96365; 96375; 99285; A9270; J2185; J2470; J7030; L0150; Q9967

== ENCOUNTER 2024-08-17 04:42 | Observation (INO) | payer MEDICARE, OTHER, SELFPAY ==
--- NOTE | 2024-08-17 03:50 | ADMGEN ---
This patient, Rishi John, was admitted to Medical Room 256-01. Patient/family oriented to hospital policies and general routines including ID bracelet, bed and alarms, visiting hours, pain management, procedures, bathroom and other care routines, personal items, smoking policy, room service/diet, and visiting hours. Information on how to activate the Rapid Response Team has been discussed. Patient/Family are encouraged to report perceived risks to care and to ask questions if they do not understand what they are told or what they should do.
--- NOTE | 2024-08-17 05:51 | PM.IMHP ---
H&P: HPI History of Present Illness Date/Time: 08/17/24 05:51 Chief Complaint: Rectal bleeding Narrative: 68-year-old male with a PMH COPD, type 2 diabetes without current long-term use of insulin, essential tremor status post brain stimulator, GERD, who presents with complaint of rectal bleeding and feeling dizzy. This started on the afternoon of 08/16/2024. He also complained of some rectal pain and lower abdominal pain. He presented to [facility]. There is blood pressure is 133/92. Heart rate 88. Laboratory workup revealed a WBC count 15.5, hemoglobin 12.9, INR 0.9, serum creatinine 1.42. Last serum creatinine 1.6 on 06/21/2024. Last HbA1c on 06/21/2024 7.2. Urinalysis positive for nitrates only. CT abdomen pelvis IV contrast: Findings within the deep pelvis which may represent a contained perforation from rectosigmoid diverticulitis. No gross free air is present. Contrast-enhanced imaging of the abdomen and pelvis is recommended (IV only), if the patient is clinically able, to evaluate the collection in the left hemipelvis to determine if there is rim enhancement as one might expect with an abscess. Follow-up to resolution is recommended as a malignancy can have a similar appearance. Multiple nonobstructing bilateral renal calculi. Remainder of examination is unremarkable. A repeat CT abdomen with IV contrast demonstrated Findings within the pelvis adjacent to the rectosigmoid colon which may represent either a necrotic lymph node with superimposed infection versus phlegmonous change from diverticulitis without maturation to rim-enhancing abscess at the time of this imaging. This abnormality is amenable to percutaneous drainage versus biopsy. The patient was given meropenem 1 g, 1 L normal saline, [place] 7.5, Protonix 80 mg IV x1. General surgery was consulted. Patient was then transferred to [facility] for further evaluation and management. Interviewing the patient in room 256, he rest comfortably. He reports mild discomfort in the hypogastric region. Denies any further bowel movements. Denies rectal pain. Denies fever. Denies shortness of breath or chest pain. Denies nausea or vomiting. He reports he is reluctant to have surgery. Review of Systems Review of Systems: All systems reviewed & are unremarkable except as noted in HPI and below (Subjective) FOR[facility] Past Medical History Medical History Cataract Chest pain COPD (chronic obstructive pulmonary disease) 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 Diabetes Essential tremor GERD (gastroesophageal reflux disease) Glaucoma Migraine Phimosis Sleep apnea Vitamin D deficiency Surgical History Surgical History H/O hand surgery Left History of back surgery History of lumbar fusion L3-L6 History of thumb surgery Family History Family History Mother Alzheimers disease Essential tremor Father Aneurysm Sibling Atherosclerosis Social History Social History Smoking packs per day: 0.5 Smoking cigarettes per day: 10.0 Years smoked: 10 Smoking pack-years: 5.00 Smoking status: Current every day smoker Tobacco type: cigarettes Alcohol intake: never Substance use: never Substance use type: does not use Do You Feel Safe in your Home?: Yes Lack of Transportation: No Lack of Food: Never True Current Housing: I Have Housing Concerned About Future Housing: No Difficulty Paying Gas/Electric Bills: No Difficulty Paying for Meds: No Currently Unemployed: No Education: High School Diploma/GED Difficulty w/ Childcare or Family Care: No Gender identity (if verbalized by the patient): Male Spiritual care concerns: No Meds Home Medications and Allergies Home Medications
[2024-08-17 06:07] LABS: Glucose Point of Care 198 mg/dl (65-105)
[2024-08-17 06:19] VITALS: BMI 33.0
[2024-08-17] MEDS: ACETAMINOPHEN 325 MG TABLET 650 MG PO ×3 (06:47→17:35)
[2024-08-17] MEDS: metroNIDAZOLE 500 MG/ISO 100ML 500 MG/100 ML BAG 100 MG IVPB ×3 (06:49→21:21)
[2024-08-17] MEDS: LACTATED RINGERS 1,000 ML 100 ML IV CONT ×2 (06:49→21:21)
[2024-08-17 07:04] LABS: Basophils Absolute Auto 0.1 K/mm3 (0.0-0.1); Basophils Percent Auto 0.4 % (0.2-1.2); Eosinophils Percent Auto 0.3 % (0-4.4); Hematocrit 35.9 % (42.0-52.0); Immature Granulocyte Absolute 0.05 K/mm3 (0.00-0.031); Immature Granulocyte Percent A 0.4 % (0-0.5); Lymphocytes Absolute Auto 1.73 K/mm3 (0.9-3.2); Lymphocytes Percent Auto 14.2 % (18.3-44.2); Mean Corpuscular HGB Conc 33.4 g/dl (32-36); Mean Corpuscular Hemoglobin 31.7 pg (26-34); Mean Platelet Volume 10.2 fl (7.4-10.4); Monocytes Absolute Auto 0.9 K/mm3 (0.1-0.6); Monocytes Percent Auto 7.5 % (2.6-8.5); Neutrophils Absolute Auto 9.4 K/mm3 (1.3-6.7); Neutrophils Percent Auto 77.2 % (45.5-73.1); Platelet Count Result 205 k/mm3 (150-375); Red Blood Count 3.78 M/mm3 (4.6-6.20); Red Cell Distribution Width 13.7 % (11.5-14.5); White Blood Count 12.2 K/mm3 (4.5-10.0)
[2024-08-17 07:06] LABS: Alanine Aminotransferase 28 U/L (6-50); Alkaline Phosphatase 54 U/L (38-126); Anion Gap 7 mmol/L (4-12); Aspartate Amino Transferase 26 U/L (17-59); Bilirubin,Total 0.6 mg/dL (0.2-1.3); Blood Urea Nitrogen 14 mg/dL (9-20); Calcium 8.6 mg/dL (8.4-10.2); Carbon Dioxide 27 mmol/L (22-30); Chloride 103 mmol/L (98-107); Estimated CRCL calculation 65 ml/min; Estimated Glomerular Filt Rate > 60; Glucose 161 mg/dL (65-110); Potassium 3.9 mmol/L (3.4-5.0); Sodium 137 mmol/L (137-145)
[2024-08-17] MEDS: buPROPion HCL SR (12HR) 100 MG TABCR 200 MG PO ×2 (08:01→21:20)
[2024-08-17] MEDS: PANTOPRAZOLE SODIUM IV 40 MG VIAL IV PUSH (08:01)
[2024-08-17] MEDS: busPIRone HCL 5 MG TABLET 15 MG PO ×2 (08:01→21:21)
[2024-08-17] MEDS: CEFEPIME 2 GM/NS 50 ML 2 GM/50 ML BAG IVPB ×2 (08:04→17:33)
[2024-08-17] MEDS: LACTATED RINGERS 1,000 ML 999 ML IV CONT (08:05)
[2024-08-17 08:30] LABS: Procalcitonin 0.3 ng/mL
--- NOTE | 2024-08-17 10:18 | PM.IMPN ---
Progress Note: A&P Assessment and Plan (1) Diverticulitis: Code(s): K57.92 - Diverticulitis of intestine, part unspecified, without perforation or abscess without bleeding Status: Acute Assessment and Plan: WBC improved from 15.5-12.2 overnight from 08/16 to 08/17 Procalcitonin 0.3 Continue cefepime and metronidazole Continue to monitor clinical progress Await surgical consultation (2) Rectal bleeding: Code(s): K62.5 - Hemorrhage of anus and rectum Status: Acute Assessment and Plan: Due to the above Consider colonoscopy after resolution of acute diverticulitis (3) Fall from ground level: Code(s): W18.30XA - Fall on same level, unspecified, initial encounter Status: Acute Assessment and Plan: Patient was getting up to the commode at outside hospital before transfer and fell getting back to the bed hitting the back of his head. A C-collar was applied at that time however he arrived to [facility] without [address] and cervical spine were performed at outside hospital and read as negative. He does not currently complain of any pain. He is currently neurologically intact. Analgesics p.r.n. for headache. PT OT ordered. Fall precautions. (4) Elevated serum creatinine: Code(s): R79.89 - Other specified abnormal findings of blood chemistry Status: Acute Assessment and Plan: Serum creatinine 1.42 on admission. Has been elevated in past as well, likely CKD. 08/17 creatinine 1.2. (5) Type 2 diabetes with kidney complications: Code(s): E11.29 - Type 2 diabetes mellitus with other diabetic kidney complication Status: Acute Assessment and Plan: 08/17 FBS 161 Continue to hold metformin while in p.o. Continue low-dose sliding scale (6) COPD (chronic obstructive pulmonary disease): Code(s): J44.9 - Chronic obstructive pulmonary disease, unspecified Status: Acute Assessment and Plan: Clinically stable (7) Sepsis: Code(s): A41.9 - Sepsis, unspecified organism Status: Acute Assessment and Plan: Evidenced by leukocytosis, sinus tachycardia and borderline low blood pressure which is slightly worse after arrival to [facility]. He received 1 L isotonic fluid bolus at [place]. Continue IV fluids. Blood cultures pending. Subjective Date/time seen: 08/17/24 10:18 Interval history: Admitted via [place] emergency department 08/16. Complaints of abdominal pain, hypogastric, moderate to severe. Continuous. Worse with any pressure there. Also had some rectal bleeding, bright red blood. None today. Pain continues without much difference. Denied chest pain or shortness of breath. Denied weakness. Does have an aching [id number] headache that is bifrontal. No associated nausea or other symptoms. Review of Systems Review of Systems: All systems reviewed & are unremarkable except as noted in HPI and below Exam Narrative: HEENT: PERRL, sclerae nonicteric, pharyngeal mucosa pink and intact NECK: No JVD CHEST: Clear to auscultation. Normal effort. HEART: NL S1/S2, regular, no murmur ABDOMEN: BS hypoactive, soft, tender with guarding but no rebound from the hypogastrium to bilateral lower quadrants. No palpable mass. No audible bruit. EXTREMITIES: No cyanosis, edema, or clubbing NEUROLOGIC: CN intact and symmetric to inspection. MUSCULOSKELETAL: Tone and strength symmetric. PSYCH: Alert. Oriented to person, place, and time. Objective Data Vital Signs Vital Signs: Vital Signs - 24 hr 08/17/24 03:57 Oxygen Delivery Room Air Intake/Output Intake/Output: Intake & Output 08/14/24 08/15/24 08/16/24 08/17/24 23:59 23:59 23:59 23:59 Intake Total 150 Output Total 1050 Balance -900 Meds/Results Medications: Active Medications Generic Name Dose Route Start Last Admin Trade Name Freq PRN Reason Stop Dose Admin Acetaminophen 650 mg 08/17
--- NOTE | 2024-08-17 11:11 | PM.CNGS ---
Assessment and Plan Assessment and plan (1) Diverticulitis of intestine with abscess and bleeding: Code(s): K57.81 - Diverticulitis of intestine, part unspecified, with perforation and abscess with bleeding Status: Acute Assessment and Plan: Exam largely benign, leukocytosis improved today, continue serial exams, will review CT scan with Radiology regarding possible abscess drainage, start clears and advance diet as tolerated to low fiber (2) Type 2 diabetes with kidney complications: Code(s): E11.29 - Type 2 diabetes mellitus with other diabetic kidney complication Status: Acute Assessment and Plan: management per primary team History of Present Illness Consult details Consult date: 08/17/24 Reason for consult: abdominal pain Requesting physician: Tiffanie Webber MD Narrative: The patient is a 68-year-old male with multiple medical issues presenting from an outside facility with complicated diverticulitis, rectal bleeding. The patient apparently presented to the outside hospital complaining of dizziness and rectal bleeding. Workup including imaging was significant for diverticulitis with possible abscess. The patient has been transferred here for further workup and evaluation. Of note, the patient has had no further bleeding. He does still endorse some lower abdominal pain. 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 Diabetes Essential tremor GERD (gastroesophageal reflux disease) Glaucoma Migraine Phimosis Sleep apnea Type 2 diabetes with kidney complications Vitamin D deficiency Surgical History Surgical History H/O hand surgery Left History of back surgery History of lumbar fusion L3-L6 History of thumb surgery Family History Family History Mother Alzheimers disease Essential tremor Father Aneurysm Sibling Atherosclerosis Social History Social History Smoking packs per day: 0.5 Smoking cigarettes per day: 10.0 Years smoked: 10 Smoking pack-years: 5.00 Smoking status: Current every day smoker Tobacco type: cigarettes Alcohol intake: never Substance use: never Substance use type: does not use Do You Feel Safe in your Home?: Yes Lack of Transportation: No Lack of Food: Never True Current Housing: I Have Housing Concerned About Future Housing: No Difficulty Paying Gas/Electric Bills: No Difficulty Paying for Meds: No Currently Unemployed: No Education: High School Diploma/GED Difficulty w/ Childcare or Family Care: No Gender identity (if verbalized by the patient): Male Spiritual care concerns: No Meds Home Medications and Allergies Home Medications Medication Instructions Recorded Confirmed Type bimatoprost 0.01 % eye drops 1 drp EACH EYE HS 02/20/20 08/17/24 History (Harika) bupropion HCl 200 mg tablet,12 hr 200 mg PO BID 11/10/20 08/17/24 History sustained-release famotidine 20 mg tablet 20 mg PO DAILY 11/10/20 08/17/24 History buspirone 15 mg tablet 15 mg PO BID 08/05/23 08/17/24 History metformin 500 mg tablet 1,000 mg PO BID 08/05/23 08/17/24 History montelukast 10 mg tablet 10 mg PO HS 08/05/23 08/17/24 History albuterol sulfate 90 mcg/actuation 90 mcg inhalation PRN PRN 05/13/24 08/17/24 History aerosol inhaler (Ventolin HFA) Shortness Of Breath naproxen 500 mg tablet 500 mg PO BID PRN pain #14 tabs 07/18/24 08/17/24 Rx Allergies Allergy/AdvReac Type Severity Reaction Status Date / Time Penicillins Allergy Intermediate MUSCLE Verified 08/16/24 18:22 SPA
[2024-08-17 11:47] LABS: Glucose Point of Care 132 mg/dl (65-105)
[2024-08-17 14:00] VITALS: BP 109/55; PULSE 96; RESP 14; TEMP 36.7; O2SAT 98
[2024-08-17 17:14] LABS: Glucose Point of Care 125 mg/dl (65-105)
[2024-08-17 20:00] VITALS: PULSE 95; RESP 16; O2SAT 97
[2024-08-17] MEDS: LATANOPROST 0.005% OP SOLN 2.5 ML BTL 1 DROP EACH EYE (21:21)
[2024-08-17] MEDS: MONTELUKAST SODIUM 10 MG TABLET PO (21:21)
[2024-08-17 21:27] LABS: Glucose Point of Care 153 mg/dl (65-105)
[2024-08-17 22:00] VITALS: BP 119/71; PULSE 95; RESP 16; TEMP 36.8; O2SAT 97
[2024-08-18] MEDS: ACETAMINOPHEN 325 MG TABLET 650 MG PO (04:41)
[2024-08-18] MEDS: CEFEPIME 2 GM/NS 50 ML 2 GM/50 ML BAG IVPB (05:44)
[2024-08-18] MEDS: metroNIDAZOLE 500 MG/ISO 100ML 500 MG/100 ML BAG 100 MG IVPB (05:44)
[2024-08-18 05:52] VITALS: BP 128/67; PULSE 98; RESP 18; TEMP 37.2; O2SAT 97
[2024-08-18 06:08] LABS: Hematocrit 31.9 % (42.0-52.0); Hemoglobin 10.6 g/dL (14.0-18.0); Mean Corpuscular HGB Conc 33.2 g/dl (32-36); Mean Corpuscular Hemoglobin 31.9 pg (26-34); Mean Corpuscular Volume 96.1 fl (80-100); Mean Platelet Volume 10.2 fl (7.4-10.4); Platelet Count Result 185 k/mm3 (150-375); Red Blood Count 3.32 M/mm3 (4.6-6.20); Red Cell Distribution Width 13.8 % (11.5-14.5); White Blood Count 9.1 K/mm3 (4.5-10.0)
[2024-08-18 06:16] LABS: Anion Gap 7 mmol/L (4-12); Blood Urea Nitrogen 10 mg/dL (9-20); Calcium 8.6 mg/dL (8.4-10.2); Carbon Dioxide 24 mmol/L (22-30); Chloride 108 mmol/L (98-107); Estimated CRCL calculation 78 ml/min; Estimated Glomerular Filt Rate > 60; Glucose 146 mg/dL (65-110); Potassium 3.7 mmol/L (3.4-5.0); Sodium 139 mmol/L (137-145)
[2024-08-18 07:42] LABS: Glucose Point of Care 168 mg/dl (65-105)
[2024-08-18] MEDS: PANTOPRAZOLE SODIUM IV 40 MG VIAL IV PUSH (08:33)
[2024-08-18] MEDS: buPROPion HCL SR (12HR) 100 MG TABCR 200 MG PO (08:33)
[2024-08-18] MEDS: busPIRone HCL 5 MG TABLET 15 MG PO (08:33)
[2024-08-18] MEDS: LACTATED RINGERS 1,000 ML 100 ML IV CONT (08:33)
[2024-08-18] MEDS: HYDROcodone/acetaminophen (*CRX) 10-325 MG TABLET 1 TAB PO ×2 (08:34→16:28)
--- NOTE | 2024-08-18 09:06 | PM.PNGS ---
Progress Note: A&P Assessment and Plan (1) Diverticulitis of intestine with abscess and bleeding: Code(s): K57.81 - Diverticulitis of intestine, part unspecified, with perforation and abscess with bleeding Status: Acute Assessment and Plan: improved, exam largely benign, leukocytosis resolved, CT reviewed c radiology and will need repeat CT in 2 mos, cont low fiber diet for now, ok to dc home from surgical standpoint c po abx, f/u 2 wks Subjective Subjective Date/Time Seen: 08/18/24 09:06 Interval history: feels good, no acute issues, marilyn low fiber diet, pain improved Review of Systems Review of Systems: All systems reviewed & are unremarkable except as noted in HPI and below Exam Const: General: cooperative, comfortable and no acute distress Resp: Auscultation: diminished lung sounds Cardio: Rate: regular rate Rhythm: regular rhythm GI: Inspection: normal to inspection and non-distended GI Palp: Yes abdominal tenderness, Yes Soft to palpation, Yes Tenderness to palpation present (GI), No Guarding due to palpation present (GI) and No Rigid due to palpation Objective Data Vital Signs Vital Signs: Vital Signs - 24 hr 08/17/24 14:00 08/17/24 15:15 08/17/24 22:00 Temperature 36.7 C 36.8 C Pulse Rate 96 95 Respiratory Rate 14 16 Blood Pressure 109/55 L 119/71 Pulse Oximetry 98 97 Oxygen Delivery Room Air 08/17/24 20:00 08/18/24 05:52 Temperature 37.2 C Pulse Rate 95 98 Respiratory Rate 16 18 Blood Pressure 128/67 Pulse Oximetry 97 97 Oxygen Delivery Room Air Intake/Output Intake/Output: Intake & Output 08/15/24 08/16/24 08/17/24 08/18/24 23:59 23:59 23:59 23:59 Intake Total 1880 1880 Output Total 3000 1800 Balance -1120 80 Meds/Results Medications: Active Medications Generic Name Dose Route Start Last Admin Trade Name Freq PRN Reason Stop Dose Admin Acetaminophen 650 mg 08/17/24 05:41 08/18/24 04:41 Acetaminophen 325 Mg Tablet PO 650 mg Q4H PRN Administration Headache Hydrocodone Bitart/Acetaminophen 1 tab 08/17/24 05:41 08/18/24 08:34 Hydrocodone/Acetaminophen (*Crx) 10-325 Mg Tablet PO 1 tab Q6H PRN Administration Pain Rated 4-6 Albuterol 1 puff 08/17/24 05:42 Albuterol Sulfate (*Sp) Aerosol 1 Puff INHALATION PRN PRN Shortness Of Breath Bupropion HCl 200 mg 08/17/24 09:00 08/18/24 08:33 Bupropion Hcl Sr (12hr) 100 Mg Tabcr PO 200 mg Q12HR MARIO Administration Buspirone HCl 15 mg 08/17/24 09:00 08/18/24 08:33 Buspirone Hcl 5 Mg Tablet PO 15 mg Q12HR MARIO Administration Dextrose 12.5 gm 08/17/24 05:38 Dextrose 50% 25 Gm/50 Ml Syringe IV PUSH PRN PRN Hypoglycemia Protocol Glucagon 1 mg 08/17/24 05:38 Glucagon For Inj 1 Mg Vial IM PRN PRN Hypoglycemia Protocol Glucose 15 gm 08/17/24 05:38 Glucose Oral Gel 15 Gm Of Glucse In 37.5 Gm Tube PO PRN PRN Hypoglycemia Protocol Cefepime HCl 2 gm in 50 mls @ 100 mls/hr 08/17/24 06:00 08/18/24 05:44 Maxipime 2 Gm/Ns 50 Ml IVPB 100 mls/hr Q12H MARIO Administration Metronidazole 500 mg in 100 mls @ 100 mls/hr 08/17/24 06:00 08/18/24 05:44 Flagyl 500 Mg/Iso Soln 100 Ml IVPB 100 mls/hr Q8HR MARIO Administration Lactated Ringer's 1,000 mls @ 100 mls/hr 08/17/24 05:40 08/18/24 08:33 Lr - Lactated Ringers Iv IV CONT 100 mls/hr .Q10H MARIO Administration Dextrose 1,000 mls @ 100 mls/hr 08/17/24 05:38 Dextrose 5% 1,000 Ml IVPB PRN PRN Hypoglycemia Protocol Insulin Aspart 2 - 5 units 08/17/24 08:00 08/18/24 08:32 Insulin Aspart (*Bkc) 100 Units/Ml SUB-Q Not Given TIDWM MARIO Protocol Insulin Aspart 1 - 2 units 08/17/24 21:00 08/17/24 21:21 Insulin Aspart (*Bkc) 100 Units/Ml SUB-Q Not Given HS MARIO Protocol Latanoprost 1 drop 08/17/24 21:00 08/17/24 21:21 Latanoprost 0.005% Op Soln 2.5 Ml Btl EACH
--- NOTE | 2024-08-18 10:29 | PM.DS ---
DS: Admitting Diagnosis Discharge Date 08/18/2024 Admitting Diagnosis diverticulitis DS: Discharge Diagnosis Discharge Diagnosis (1) Diverticulitis: Code(s): K57.92 - Diverticulitis of intestine, part unspecified, without perforation or abscess without bleeding Status: Inactive Assessment and Plan: WBC improved from 15.5-12.2 overnight from 08/16 to 08/17 Procalcitonin 0.3 Responded well to cefepime and metronidazole Home with TMP-[id number] and metronidazole (2) Rectal bleeding: Code(s): K62.5 - Hemorrhage of anus and rectum Status: Inactive Assessment and Plan: Due to the above Resolved Consider colonoscopy after resolution of acute diverticulitis (3) Fall from ground level: Code(s): W18.30XA - Fall on same level, unspecified, initial encounter Status: Inactive Assessment and Plan: Patient was getting up to the commode at outside hospital before transfer and fell getting back to the bed hitting the back of his head. A C-collar was applied at that time however he arrived to [facility] without [address] and cervical spine were performed at outside hospital and read as negative. He does not currently complain of any pain. He is currently neurologically intact. Analgesics p.r.n. for headache. PT OT while hospitalized w/ fall precautions. 08/18 up and about in room independently (4) Elevated serum creatinine: Code(s): R79.89 - Other specified abnormal findings of blood chemistry Status: Acute Assessment and Plan: Serum creatinine 1.42 on admission. Has been elevated in past as well, likely CKD. 08/17 creatinine 1.2., 08/18 1.0 (5) Type 2 diabetes with kidney complications: Code(s): E11.29 - Type 2 diabetes mellitus with other diabetic kidney complication Status: Acute Assessment and Plan: 08/17 FBS 161, 46 Resume metformin upon discharge (6) COPD (chronic obstructive pulmonary disease): Code(s): J44.9 - Chronic obstructive pulmonary disease, unspecified Status: Acute Assessment and Plan: Clinically stable (7) Sepsis: Code(s): A41.9 - Sepsis, unspecified organism Status: Acute Assessment and Plan: Evidenced by leukocytosis, sinus tachycardia and borderline low blood pressure which is slightly worse after arrival to [facility]. He received 1 L isotonic fluid bolus at [place]. IVF while hospitalized Blood cultures negative thus far DS: Summary Hospital Course Hospital Course: Admitted August 17 with lower abdominal pain and intermittent bright red blood per rectum. Imaging was consistent with diverticulitis without definite abscess or rupture. He was treated with cefepime and metronidazole IV bowel rest and IV fluids. White count on admission was 15.5 K. By discharge was 9.1 K. by day of discharge she was tolerating low-fiber diet and bowels were moving with some loose stools but no bleeding. He had 4 bowel movements on the evening prior to discharge through the morning of discharge. Creatinine was 1.42 at admission and improved to 1.0 at discharge after hydration and antibiotics. His pain was severe at admission but minimal at discharge. Blood sugars during hospitalization were controlled with low-dose sliding scale insulin and range from 140s to 160s with no hypoglycemia. He was to complete 7 additional days of Bactrim DS and Flagyl and was to follow up with his primary physician within approximately 1 week. Time Spent with Patient Time attestation: Total time spent providing and/or coordinating discharge services: Exam Narrative: HEENT: PERRL, sclerae nonicteric, pharyngeal mucosa pink and intact NECK: No JVD CHEST: Clear to auscultation. Normal effort. HEART: NL S1/S2, regular, no murmur ABDOMEN: BS+, soft, mildly tender in hypogastrium. No palpable mass. No audible bruit. EXTREMITIES: No cyanosis, edema, or clubbing NEUROLOGIC: CN intact and symmetric
[2024-08-18 11:53] LABS: Glucose Point of Care 172 mg/dl (65-105)
[2024-08-18 14:00] VITALS: BP 104/63; PULSE 84; RESP 18; TEMP 36.6; O2SAT 100
[2024-08-18] MEDS: INFLUENZA TRIVALENT VACCINE 45 MCG/0.5 ML SYRINGE IM (16:09)
[2024-08-18 17:12] LABS: Glucose Point of Care 159 mg/dl (65-105)
== END 2024-08-18 18:10 | disposition home or self-care (01) ==
PROVIDERS: Admitting Provider General Practice; PCP Family Medicine; Visit Provider Internal Medicine
DX: A41.9 Sepsis, unspecified organism (principal); K57.21 Diverticulitis of large intestine with perforation and abscess with bleeding; W18.30XA Fall on same level, unspecified, initial encounter; E11.29 Type 2 diabetes mellitus with other diabetic kidney complication; R79.89 Other specified abnormal findings of blood chemistry; J44.9 Chronic obstructive pulmonary disease, unspecified; G25.0 Essential tremor; K21.9 Gastro-esophageal reflux disease without esophagitis; H40.9 Unspecified glaucoma; F17.210 Nicotine dependence, cigarettes, uncomplicated; Z79.84 Long term (current) use of oral hypoglycemic drugs; Z79.51 Long term (current) use of inhaled steroids; Z98.1 Arthrodesis status; Z23 Encounter for immunization
CPT/HCPCS: 36415; 80048; 80053; 82948; 83735; 84145; 85025; 85027; 87040; 90471; 90656; 96361; 96365; 96366; 96367; 96375; 96376; 97165; A9270; G0008; G0378; G0379; J0692; J1836; J2470; J7120

== ENCOUNTER 2024-08-23 16:04 | Outpatient (RCR) | payer MEDICARE, OTHER, SELFPAY ==
--- NOTE | 2024-08-23 16:46 | OPREHPOC ---
Outpatient Therapy Plan of Care This is a Multidisciplinary Plan of Care that may contain components documented by all disciplines (PT, OT, and ST.) PT Problem 1 PT Problem #1 Knowledge Deficit PT Goal 1 Goal / Goal Update 1. independent and compliant with HEP Target Visit 4 PT Problem 2 PT Problem #2 Impaired Strength PT Goal 1 Goal / Goal Update 1. improve bilateral knee strength to 5/5 2. improve bilateral hip strength to 5/5 in sitting Target Visit 8 PT Problem 3 PT Problem #3 Impaired Balance PT Goal 1 Goal / Goal Update 1. tinetti to display moderate fall risk or less 2. 5x sit to stand to be completed safely in 15 seconds or less with or without UE assist 3. TUG to be completed safely in 10 seconds or less Target Visit 8 PT Problem 4 PT Problem #4 Impaired Functional Mobil PT Goal 1 Goal / Goal Update 1. patient to report ability to get up and down from recliner at home without issues 2. patient to safely ambulate 1100ft or more in 6 minutes without rest Target Visit 8
--- NOTE | 2024-08-23 16:46 | PTOPEVAL1 ---
Assessment and note entered by JT File, PT Evaluation Information Assessment Status Evaluation ICD-10 Condition Codes (PT) Repeated falls R29.6,Weakness R53.1 Onset 08/19/24 Subjective Information patient reports he is coming back to therapy for balance. he reports he feels off balance when getting out of a chair. he reports he struggles to get out of his recliner at home. he reports getting out of it is difficult to push up to standing. he reports he has to sit on the edge of the chair for a few minutes prior to attempting to standing. he reports he has really been declining over the past year. he reports he was in the hospital last weekend due to diverticulitis. he reports at home he does some things around the kitchen, but spends a little over an hour at a time in his recliner chair. he reports his walking has been limited recently due to his hospitalization and the change in weather. Reported Pain Level Pain Score 6: Self Report Assessment PT Clinical Summary mr. mcdaniels is a 68 yo man who presents to skilled PT services for evaluation and treatment of weakness and imbalance. he presents today with a high fall risk per the tinetti and 5x sit to stand . he is especially unsafe with sit to stand transfers today from a chair. continued skilled PT will benefit the patient to improve his strength, safety, and functional abilities to return to his prior level functional activity performance/ quality of life. Plan of Care Interventions Gait Training,Neuro Re-education,Patient/Caregiver Educati,Therapeutic Activities,Therapeutic Exercise PT Services Indicated Yes Treatment Frequency and 2x weekly for 8 visits Duration These treatments will address the objective and functional deficits as defined above. The patient will be advanced safely and appropriately in order for the patient to progress towards his/her prior level of function. Additional exercises will be introduced and as well as a comprehensive home exercise program upon discharge, if needed, ?to ensure carryover of functional gains achieved in the clinic. This treatment plan has been reviewed and agreement upon by the patient.
--- NOTE | 2024-09-20 11:06 | OPREHPOC ---
Outpatient Therapy Plan of Care This is a Multidisciplinary Plan of Care that may contain components documented by all disciplines (PT, OT, and ST.) PT Problem 1 PT Problem #1 Knowledge Deficit PT Goal 1 Goal / Goal Update 1. independent and compliant with HEP Target Visit 4 Progress Met PT Problem 2 PT Problem #2 Impaired Strength PT Goal 1 Goal / Goal Update 1. improve bilateral knee strength to 5/5. met 2. improve bilateral hip strength to 5/5 in sitting Target Visit 12 Progress Partially Met PT Problem 3 PT Problem #3 Impaired Balance PT Goal 1 Goal / Goal Update 1. tinetti to display moderate fall risk or less. met 2. 5x sit to stand to be completed safely in 15 seconds or less with or without UE assist. not met 3. TUG to be completed safely in 10 seconds or less. partially met Target Visit 12 Progress Partially Met PT Problem 4 PT Problem #4 Impaired Functional Mobil PT Goal 1 Goal / Goal Update 1. patient to report ability to get up and down from recliner at home without issues. not met 2. patient to safely ambulate 1100ft or more in 6 minutes without rest. met Target Visit 12 Progress Partially Met
--- NOTE | 2024-09-20 11:06 | PTOPREEVAL ---
Assessment and note entered by JT File, PT Evaluation Information Assessment Status Re-evaluation ICD-10 Condition Codes (PT) Repeated falls R29.6,Weakness R53.1 Onset 08/19/24 Subjective Information patient reports his neck and back are sore from an injection to the neck yesterday. he reports he was told not to expect any relief of symptoms for several days. he reports he still feels his balance is not the best. he reports he is able to get up and down fine, but takes his time with walking, and at times feels his L LE is going to give out. Reported Pain Level Pain Score 2,5,5: Self Report Assessment PT Clinical Summary mr. mcdaniels presents to skilled PT services for his 8th skilled PT visit this round. he has a long history of poor balance and strength, and has been to skilled PT several times this year. his case is complex as he has made progress and partially achieved some goals, but still lacks good safely to confidently DC him from skilled PT at this time . he is most unsafe and inconsistent with sit to stand transfers. he often times falls back into the chair when he forgets to scoot forward, get his knees off the front of the chair, and lean forward throughout the whole transfer. given his continued deficits, and inability to attend our fall prevention class due to other commitments, he would benefit from continued skilled PT to develop and achieve greater confidence and consistency with his transfers. Plan of Care Interventions Gait Training,Neuro Re-education,Patient/Caregiver Educati,Therapeutic Activities,Therapeutic Exercise PT Services Indicated Yes Treatment Frequency and continue skilled PT 1x weekly for 4 more visits Duration These treatments will address the objective and functional deficits as defined above. The patient will be advanced safely and appropriately in order for the patient to progress towards his/her prior level of function. Additional exercises will be introduced and as well as a comprehensive home exercise program upon discharge, if needed, ?to ensure carryover of functional gains achieved in the clinic. This treatment plan has been reviewed and agreement upon by the patient.
--- NOTE | 2024-10-21 10:20 | PTOPDC ---
Assessment and note entered by [facility] Evaluation Information Assessment Status Discharge ICD-10 Condition Codes (PT) Repeated falls R29.6,Weakness R53.1 Onset 08/19/24 Subjective Information Pt. reports that he is doing better. He denies pain today. He states that he has had no recent fall or lose of balance. He reports that he continues to exercise at home and is ready for discharge at this time. Reported Pain Level Pain Score 0: Self Report Assessment PT Clinical Summary Pt. has met all goals established at the initial evaluation. He demonstrate significant improvements in functional testing scores and balance. Recommended he continue with HEP and will be discharged from our care at this time. Plan of Care PT Services Indicated No
== END 2024-10-21 10:15 | disposition home or self-care (01) ==
LOC: CHSPT 16:04
PROVIDERS: Visit Provider Family Medicine
DX: R42 Dizziness and giddiness (principal)
CPT/HCPCS: 97110; 97112; 97161; 97530

== ENCOUNTER 2024-09-17 02:43 | Day surgery (SDC) | payer MEDICARE, OTHER, SELFPAY ==
[2024-09-06 13:56] VITALS: BMI 32.8
--- NOTE | 2024-09-06 14:38 | PC.NURSE ---
the patient's history was provided by spouse Michelle due to patient having tinnitus
[2024-09-17 09:03] VITALS: BP 102/69; PULSE 86; RESP 18; TEMP 36.2; O2SAT 97
[2024-09-17] MEDS: LACTATED RINGERS 1,000 ML 150 ML IV CONT (09:16)
--- NOTE | 2024-09-17 09:19 | SUR.PREOP ---
PT TURNED OFF BRAIN STIMULATOR AT 0919.
[2024-09-17 09:20] LABS: Glucose Point of Care 143 mg/dl (65-105)
--- NOTE | 2024-09-17 09:33 | P.PNAN_ITS ---
Anes - Initial Pre Proc Eval Procedure: Operation Date: 09/17/24 10:00 Proposed Procedures p Colonoscopy - Martin Galeana DO Date/Time: 09/17/24 09:33 Surgeon: Martin Galeana DO Pre Op Diagnosis: diverticulitis Patient Data Age: 69 Gender: M Height: 1.8 m Weight: 102.2 kg Last Vital Signs Temp 36.2 C L 09/17/24 09:03 Pulse 86 09/17/24 09:03 Resp 18 09/17/24 09:03 BP 102/69 09/17/24 09:03 Pulse Ox 97 09/17/24 09:03 O2 Del Method Room Air 09/17/24 09:03 Allergies Allergy/AdvReac Type Severity Reaction Status Date / Time Penicillins Allergy Intermediate MUSCLE Verified 09/17/24 08:59 SPASMS Home Medications Medication Instructions Recorded Confirmed Type bimatoprost 0.01 % eye drops 1 drp EACH EYE HS 02/20/20 09/17/24 History ([place]) bupropion HCl 200 mg tablet,12 hr 200 mg PO BID 11/10/20 09/17/24 History sustained-release famotidine 20 mg tablet 20 mg PO BID 11/10/20 09/17/24 History buspirone 15 mg tablet 15 mg PO BID 08/05/23 09/17/24 History metformin 500 mg tablet 1,000 mg PO DIRECTED 08/05/23 09/17/24 History montelukast 10 mg tablet 10 mg PO HS 08/05/23 09/17/24 History albuterol sulfate 90 mcg/actuation 90 mcg inhalation PRN PRN 05/13/24 09/17/24 History aerosol inhaler (Ventolin HFA) Shortness Of Breath acetaminophen 325 mg tablet 650 mg PO Q4H PRN mild to moderate 08/18/24 09/17/24 Rx pain #60 tabs aripiprazole 2 mg tablet 3 mg PO DAILY 09/06/24 09/17/24 History duloxetine 30 mg capsule,delayed 30 mg PO DAILY 09/06/24 09/17/24 History release duloxetine 60 mg capsule,delayed 60 mg PO DAILY 09/06/24 09/17/24 History release ferrous sulfate 325 mg (65 mg 325 mg PO DAILY 09/06/24 09/17/24 History iron) capsule,extended release finasteride 5 mg tablet 5 mg PO DAILY 09/06/24 09/17/24 History fluticasone 232 mcg-salmeterol 14 1 inh inhalation DAILY 09/06/24 09/17/24 History mcg/actuation breath activated powdr men multi vit gummy 1 gummy PO DAILY 09/06/24 09/17/24 History primidone 50 mg tablet 250 mg PO DIRECTED 09/06/24 09/17/24 History Laboratory Tests 09/17/24 09:11 POC Capillary Glucose 143 H mg/dl (65-105) Patient hx anesthesia problems: none Family hx anesthesia problems: none Results Review: All pre-operative results and documents have been reviewed as part of the pre- operative evaluation. 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 Diabetes Essential tremor GERD (gastroesophageal reflux disease) Glaucoma Migraine Phimosis Sleep apnea Type 2 diabetes with kidney complications Vitamin D deficiency Surgical History Surgical History H/O hand surgery Left History of back surgery History of lumbar fusion L3-L6 History of thumb surgery Family History Family History Mother Alzheimers disease Essential tremor Father Aneurysm Sibling Atherosclerosis Social History Social History Smoking packs per day: 0.5 Smoking cigarettes per day: 10.0 Years smoked: 10 Smoking pack-years: 5.00 Smoking status: Current every day smoker Tobacco type: cigarettes Alcohol intake: never Substance use: never Substance use type: does not use Do You Feel Safe in your Home?: Yes Lack of Transportation: No Lack of Food: Never True Current Housing: I Have Housing Concerned About Future Housing: No Difficulty Paying Gas/Electric Bills: No Difficulty Paying for Meds: No Currently Unemployed: No Education: High School Diploma/GED Difficulty w/ Childcare or Family Care: No Living arrangements: with family Gender identity (if verbalized by the patient): Male Spiritual care concerns: No Anes - Eval Final PreProcedure Day of Procedure 09/17/24 09:33 Patient weight: obese Heart: regular rate and rhythm Lungs: clear to auscultation Airway: Mallampati scale class II and other (dentures) Neurological: alert and oriented Last oral intake: >/= 8 hours ASA classification: III Emergent: no Anesthetic plan: proceed Anesthesia type and monitoring: general GIVS and standard monitoring Results Review: All pre-operative results and documents have been reviewed as part of the pre- operative evaluation. Informed Consent: The patient's anesthetic plan and its attendant risks and benefits were discussed with the patient/family/POA. Questions were solicited and answers provided to the satisfaction of the patient/family/POA.
--- NOTE | 2024-09-17 09:58 | PM.IMHP ---
H&P: HPI History of Present Illness Date/Time: 09/17/24 09:58 Chief Complaint: diverticulitis Narrative: this is a 69-year-old man who presents for colonoscopy. He was recently hospitalized for diverticulitis about 2 months ago. He has recovered from this episode. He last had a colonoscopy about 5-6 years ago. He thinks that polyps were removed at that time. He denies any hematochezia or melena. He denies any family history of colon cancer. Review of Systems Review of Systems: All systems reviewed & are unremarkable except as noted in HPI and below Constitutional: Constitutional: Denies chills, Denies fever(s), Denies headache(s) and Denies weight loss Eyes: Eyes: Denies change in vision ENT: Denies dizziness, Denies headache(s), Denies neck mass and Denies throat swelling Cardiovascular: Cardiovascular: Denies chest pain, Denies lightheadedness and Denies dyspnea Respiratory: Respiratory: Denies cough, Denies dyspnea and Denies wheezing Gastrointestinal: Gastrointestinal: Denies abdominal pain, Denies change in bowel habits, Denies nausea and Denies vomiting Genitourinary: Genitourinary: Denies hematuria and Denies dysuria Musculoskeletal: Musculoskeletal: Reports as per HPI Integumentary/Breasts: Skin/Breast: Reports as per HPI Neurologic: Denies dizziness and Denies headache(s) Allergic/Immunologic: Allergic/Immunologic: Denies throat swelling and Denies wheezing [facility] Past Medical History Medical History Cataract Chest pain COPD (chronic obstructive pulmonary disease) 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 Diabetes Essential tremor GERD (gastroesophageal reflux disease) Glaucoma Migraine Phimosis Sleep apnea Type 2 diabetes with kidney complications Vitamin D deficiency Surgical History Surgical History H/O hand surgery Left History of back surgery History of lumbar fusion L3-L6 History of thumb surgery Family History Family History Mother Alzheimers disease Essential tremor Father Aneurysm Sibling Atherosclerosis Social History Social History Smoking packs per day: 0.5 Smoking cigarettes per day: 10.0 Years smoked: 10 Smoking pack-years: 5.00 Smoking status: Current every day smoker Tobacco type: cigarettes Alcohol intake: never Substance use: never Substance use type: does not use Do You Feel Safe in your Home?: Yes Lack of Transportation: No Lack of Food: Never True Current Housing: I Have Housing Concerned About Future Housing: No Difficulty Paying Gas/Electric Bills: No Difficulty Paying for Meds: No Currently Unemployed: No Education: High School Diploma/GED Difficulty w/ Childcare or Family Care: No Living arrangements: with family Gender identity (if verbalized by the patient): Male Spiritual care concerns: No Meds Home Medications and Allergies Home Medications Medication Instructions Recorded Confirmed Type bimatoprost 0.01 % eye drops 1 drp EACH EYE HS 02/20/20 09/17/24 History ([place]) bupropion HCl 200 mg tablet,12 hr 200 mg PO BID 11/10/20 09/17/24 History sustained-release famotidine 20 mg tablet 20 mg PO BID 11/10/20 09/17/24 History buspirone 15 mg tablet 15 mg PO BID 08/05/23 09/17/24 History metformin 500 mg tablet 1,000 mg PO DIRECTED 08/05/23 09/17/24 History montelukast 10 mg tablet 10 mg PO HS 08/05/23 09/17/24 History albuterol sulfate 90 mcg/actuation 90 mcg inhalation PRN PRN 05/13/24 09/17/24 History aerosol inhaler (Ventolin HFA) Shortness Of Breath acetaminophen 325 mg tablet 650 mg PO Q4H PRN mild to moderate 08/18/24 09/17/24 Rx pain #60 tabs aripiprazole 2 mg tablet 3 mg PO DAILY 09/06/24 09/17/24 History duloxetine 30 mg capsule,delayed 30 mg PO DAILY 09/06/24 09/17/24 History release duloxetine 60 mg capsule,delayed 60 mg PO DAILY 09/06/24 09/17/24 History release ferrous sulfate 325 mg (65 mg 325 mg PO DAILY 09/06/24 09/17/24 History iron) capsule,extended release finasteride 5 mg tablet 5 mg PO DAILY 09/06/24 09/17/24 History fluticasone 232 mcg-salmeterol 14 1 inh inhalation DAILY 09/06/24 09/17/24 History mcg/actuation breath activated powdr men multi vit gummy 1 gummy PO DAILY 09/06/24 09/17/24 History primidone 50 mg tablet 250 mg PO DIRECTED 09/06/24 09/17/24 History Allergies Allergy/AdvReac Type Severity Reaction Status Date / Time Penicillins Allergy Intermediate MUSCLE Verified 09/17/24 08:59 SPASMS Vital Signs Vital Signs - 24 hr 09/17/24 09:03 Temperature 97.2 F L Pulse Rate 86 Respiratory Rate 18 Blood Pressure 102/69 Pulse Oximetry 97 Oxygen Delivery Room Air Exam Const: General: no acute distress and alert Orientation/consciousness: patient oriented x3 HENMT: Head: normocephalic and atraumatic Ears: hearing grossly normal bilaterally Face/Nose/Sinus: Normal nares present Mouth: Yes Normal oral and palatal mucosa present Eyes: Periorbital: periorbital findings normal Sclera: sclerae normal EOM: EOMs intact bilaterally Neck: Neck: normal visual inspection, no lymphadenopathy and trachea midline Chest: Chest palpation & inspection: normal inspection of the chest Resp: Effort & Inspection: normal respiratory effort Auscultation: clear to auscultation bilaterally Cardio: Jugular venous distension: no JVD Rate: regular rate Rhythm: regular rhythm Heart sounds: S1 normal heart sound present and S2 normal heart sound present Peripheral pulses: Peripheral pulses 2+ throughout GI: Inspection: normal to inspection GI Palp: Yes Soft to palpation, No Tenderness to palpation present (GI), No Guarding due to palpation present (GI) and No Rebound tenderness present Percussion: Yes normal to percussion Auscultation: normal bowel sounds : General: Yes no CVA tenderness Back/Spine/Pelvis: Back: no CVA tenderness Neuro: General: patient oriented x3, no focal motor deficits and CN's II-XI intact bilaterally Cognition (Neuro): normal cognition Speech: normal speech Motor exam (neuro): 5/5 motor strength present throughout Extrem: General: capillary refill normal and no clubbing, cyanosis or edema Assessment and Plan Assessment and plan (1) Diverticulitis of intestine with abscess and bleeding: Qualifiers: Diverticulitis site: unspecified part of intestinal tract Qualified Code(s): K57.81 - Diverticulitis of intestine, part unspecified, with perforation and abscess with bleeding Code(s): K57.81 - Diverticulitis of intestine, part unspecified, with perforation and abscess with bleeding Status: Acute Assessment and Plan: I have recommended colonoscopy. I have discussed the procedure, risks, benefits, and alternatives. Questions were answered. Patient is agreeable to proceed.
[2024-09-17 10:30] VITALS: BP 100/66; PULSE 93; RESP 16; O2SAT 93
[2024-09-17 10:40] VITALS: BP 112/76; PULSE 90; RESP 11; O2SAT 93
[2024-09-17 10:50] VITALS: BP 107/73; PULSE 73; RESP 14; O2SAT 100
== END 2024-09-17 11:05 | disposition home or self-care (01) ==
PROVIDERS: PCP Family Medicine; Referring Provider Surgery; Visit Provider Surgery
PROC: 0DJD8ZZ Inspection of Lower Intestinal Tract, Via Natural or Artificial Opening Endoscopic (ICD-10-PCS; CPT 45378; principal; 2024-09-17 10:00)
DX: Z09 Encounter for follow-up examination after completed treatment for conditions other than malignant neoplasm (principal); D12.3 Benign neoplasm of transverse colon; K57.30 Diverticulosis of large intestine without perforation or abscess without bleeding; K21.9 Gastro-esophageal reflux disease without esophagitis; J44.9 Chronic obstructive pulmonary disease, unspecified; E55.9 Vitamin D deficiency, unspecified; G47.30 Sleep apnea, unspecified; E11.29 Type 2 diabetes mellitus with other diabetic kidney complication; N28.9 Disorder of kidney and ureter, unspecified; G25.0 Essential tremor; M51.361 Other intervertebral disc degeneration, lumbar region with lower extremity pain only; F17.210 Nicotine dependence, cigarettes, uncomplicated; E66.9 Obesity, unspecified; Z68.31 Body mass index [BMI] 31.0-31.9, adult; Z79.84 Long term (current) use of oral hypoglycemic drugs; Z79.51 Long term (current) use of inhaled steroids; Z98.890 Other specified postprocedural states; Z98.1 Arthrodesis status; Z87.19 Personal history of other diseases of the digestive system
CPT/HCPCS: 45385; 82948; 88305; J2704; J7120

== ENCOUNTER 2024-10-09 15:30 | Outpatient (RCR) | payer MEDICARE, OTHER, SELFPAY ==
[2024-07-11 00:02] VITALS: BP 108/76; PULSE 86; RESP 20; TEMP 36.8; O2SAT 96
--- NOTE | 2024-07-11 09:35 | PC.NURSE ---
No nursing group due to MD visit.
[2024-07-11 10:13] VITALS: BP 112/70; PULSE 88; RESP 18; TEMP 37; O2SAT 98
[2024-07-16 11:36] VITALS: BP 107/72; PULSE 88; RESP 20; TEMP 36.8; O2SAT 96
--- NOTE | 2024-07-18 09:44 | PC.NURSE ---
No nursing group due to MD visit.
[2024-07-18 10:24] VITALS: BP 115/78; PULSE 88; RESP 20; TEMP 36.8; O2SAT 98
[2024-07-23 10:09] VITALS: BP 109/72; PULSE 87; RESP 20; TEMP 37; O2SAT 94
[2024-07-25 10:13] VITALS: BP 112/77; PULSE 92; RESP 20; TEMP 36.8; O2SAT 96
--- NOTE | 2024-07-25 10:23 | PC.NURSE ---
No nursing group due to MD visit.
--- NOTE | 2024-07-25 12:30 | P.PN_ITS ---
Progress HPI Progress HPI Visit Attended By patient and staff History Obtained From patient Chief Complaint 3 week follow-up for depression and anxi ety HPI this is a routine follow-up. Patient is now on Abilify 3 mg q.a.m. and not only does he seem more animated today and even smiling at times, he told me that his can see a significant difference. However, patient is justifiably concerned about his renal function and the effect that antidepressants can have on his kidneys. He is somewhat concerned about the Wellbutrin, as he is on the maximum dose, but I told him that Cymbalta can also affect the kidneys too. I suggested that he see his PCP and specifically ask about the antidepressants, at which time we would go from there. Patient is talking about going off of the antidepressants because he is concerned about his kidneys, but I also cautioned him that it is somewhat of a balance, as we do not want him to go back into a severe depression. Of note is that in the past he has being not compliant with his other medications, and he also continued to smoke, both of which are detrimental to his kidney function. He is still on bupropion SR 200 mg b.i.d. and Cymbalta 90 mg q.a.m., as well as BuSpar 15 mg b.i.d.. Still complains of dizziness, and I told him to also mention this when he sees his PCP. lab work from June reveals creatinine of 1.61, GFR 43. Average Number of Hours of Sleep 6 Sleep Quality frequent awakening Change in PMFSH Releveant to Presenting Illness Yes Describe Changes in PMFSH Improvement as described above Review of Systems Review of Systems Constitutional Reports other ( CKD, type 2 diabetes) Eyes Reports other ( glaucoma) ENT Reports WNL Respiratory Reports other ( COPD) Cardiovascular Reports other ( cerebral hemorrhage) Gastrointestinal Reports WNL Musculoskeletal Reports abnormal gait, Reports diminished strength, Reports muscle stiffness and Reports other ( chronic pain) Neurologic Reports tremor and other ( dizziness, bilateral DBS, cerebral hemorrhage) Skin Reports WNL ADL's Reports WNL Exam Physical Exam Review of Lab Studies n/a Hygiene good General Behavior/Attitude Toward Examiner pleasant and cooperative Pain Yes Pain Location back Pain Characteristics chronic and aching Psychiatric Exam Level of Consciousness alert Orientation person, place, time and situation Speech normal rate/tone/volume/prosody and coherent Language able to comprehend questions Mood less depressed Affect blunted, appropriate and congruent Thought Processes/Form logical, linear and goal directed Thought Content diminished depressive symptoms Delusions none Homicidal/Assaultive Ideation none Suicidal Ideation none Hallucinations none Attention/Concentration focused Attention/Concentration Testing Methods observation/interview Short Term Memory Impairment none STM Testing Methods clinical interview (assessment/observation) Penitentiary Memory Impairment none LTM Testing Methods recall of biographical information Intellectual Functioning roughly average Intellectual Functioning Assessed By fund of knowledge Insight fair Insight Assessed By ability to recognize & acknowledge mental illness, ability to understand the implications of mental illness, understanding of treatment options and ability to comply with treatment Judgement fair Judgement Assessed By exploring recent decision-making MMSE n/a Patient Assets patient is willing to accept treatment, able to perform ADLs Patient Liabilities relationship stressors, chronic pain, essential tremor, noncompliance Assessment and Plan Clinical Impression/Diag Clinical Impression/Diagnosis F 33.2, some improvement. Continue IOP, monitor meds, patient follow-up with PCP/neuro Progress Overview Reason for Continued Services in an Intensive Outpatient Program continued impaired mood and.or depression, patient would decompenste at a lower level of care, not at baseline level of functioning and high risk for relapse Treatment To Be Provided medication management and group/individual/rec therapy Discharge Disposition/Level of Care PCP Anticipated Discharge 8-12 weeks Certification Statement Certification Statement I believe this patient requires the services of the Intensive Outpatient Program and that there is reasonable expectation that the patient will make timely and significant practical improvement in the presenting acute symptoms as a result of this Intensive Outpatient Program. I do not believe this patient will benefit from a lesser level of care or could be adequately and appropriately treated in a less restrictive environment. My decision is based on the preceding clinical information.
[2024-07-30 10:19] VITALS: BP 114/78; PULSE 96; RESP 22; TEMP 36.3; O2SAT 96
[2024-08-01 10:05] VITALS: BP 105/82; PULSE 88; RESP 20; TEMP 37.2; O2SAT 96
--- NOTE | 2024-08-01 10:17 | PC.NURSE ---
No nursing group due to MD visit.
[2024-08-06 10:19] VITALS: BP 104/75; PULSE 88; RESP 20; TEMP 37.1; O2SAT 95
--- NOTE | 2024-08-08 09:42 | PC.NURSE ---
No nursing group due to MD visit.
[2024-08-08 10:40] VITALS: BP 113/78; PULSE 85; RESP 20; TEMP 36.9; O2SAT 95
[2024-08-13 10:35] VITALS: BP 106/73; PULSE 90; RESP 20; TEMP 36.3; O2SAT 97
[2024-08-15 10:25] VITALS: BP 110/78; PULSE 88; RESP 20; TEMP 36.8; O2SAT 96
--- NOTE | 2024-08-15 10:44 | PC.NURSE ---
No nursing group due to MD visit.
--- NOTE | 2024-08-15 12:40 | P.PN_ITS ---
Progress HPI Progress HPI Visit Attended By patient and staff History Obtained From patient Chief Complaint 3 week follow-up for depression and anxi ety HPI this is a 3 week follow-up for depression and anxiety. Patient says that he is not good . He attributes this to the fact that he is trying to quit smoking and has difficulty doing so. It also sounds like that he feels anxiety whenever his tells him that he needs to quit smoking, but it gets a lot more complicated. He says that he feels that she does not give him enough freedom to do things that he wants to do, like use power tools when she is not around, but it also sounds like from staff he becomes quite passive aggressive when asked to do something that he does not want to do, and is doing some things that he shouldn't, such as spending a lot of time online, etc.. In addition, staff also state that she is leaving for a few days and he is very anxious about this as well. He is on Abilify 3 mg q.a.m., BuSpar 15 mg b.i.d., bupropion SR 200 mg b.i.d., Cymbalta 90 mg q.a.m.. Also says that he has been more fidgety , possibly since being on the Abilify, but does not report any abnormal movements. The bupropion has not completely helped him quit smoking, he does not like the taste of the gum, and the patches do not work. I suggested Chantix to him, but when I told him there is a risk of suicidal ideations he said that his would vote against that. Average Number of Hours of Sleep 6 Sleep Quality frequent awakening Change in PMFSH Releveant to Presenting Illness Yes Describe Changes in PMFSH As above Review of Systems Review of Systems Constitutional Reports other ( CKD, type 2 diabetes) Eyes Reports other ( glaucoma) ENT Reports WNL Respiratory Reports other ( COPD) Cardiovascular Reports other ( cerebral hemorrhage) Gastrointestinal Reports WNL Musculoskeletal Reports abnormal gait, Reports diminished strength, Reports muscle stiffness and Reports other ( chronic pain) Neurologic Reports other ( dizziness, bilateral DBS, cerebral hemorrhage) Skin Reports WNL ADL's Reports WNL Exam Physical Exam Review of Lab Studies n/a Hygiene good General Behavior/Attitude Toward Examiner pleasant and cooperative Pain Yes Pain Location back Pain Characteristics chronic and aching Psychiatric Exam Level of Consciousness alert Orientation person, place, time and situation Speech normal rate/tone/volume/prosody and coherent Language able to comprehend questions Mood not good Affect blunted, appropriate and congruent Thought Processes/Form logical, linear and goal directed Thought Content depressive symptoms, anxiety symptoms Delusions none Homicidal/Assaultive Ideation none Suicidal Ideation none Hallucinations none Attention/Concentration focused Attention/Concentration Testing Methods observation/interview Short Term Memory Impairment none Facility Maintenance Mechanic Memory Impairment none LTM Testing Methods recall of biographical information Intellectual Functioning roughly average Intellectual Functioning Assessed By current events Insight fair Insight Assessed By ability to recognize & acknowledge mental illness, ability to understand the implications of mental illness, understanding of treatment options and ability to comply with treatment Judgement fair Judgement Assessed By exploring recent decision-making MMSE n/a Patient Assets patient is willing to accept treatment, able to perform ADLs Patient Liabilities relationship stressors, chronic pain, essential tremor, noncompliance Assessment and Plan Clinical Impression/Diag Clinical Impression/Diagnosis F 33.2, relationship issues. Continue IOP, monitor meds Progress Overview Reason for Continued Services in an Intensive Outpatient Program continued impaired mood and.or depression, patient would decompenste at a lower level of care, not at baseline level of functioning and high risk for relapse Treatment To Be Provided medication management and group/individual/rec therapy Discharge Disposition/Level of Care outpatient therapy Anticipated Discharge 8-12 weeks Certification Statement Certification Statement I believe this patient requires the services of the Intensive Outpatient Program and that there is reasonable expectation that the patient will make timely and significant practical improvement in the presenting acute symptoms as a result of this Intensive Outpatient Program. I do not believe this patient will benefit from a lesser level of care or could be adequately and appropriately treated in a less restrictive environment. My decision is based on the preceding clinical information.
[2024-08-20 10:04] VITALS: BP 142/88; PULSE 85; RESP 20; TEMP 36.8; O2SAT 98
--- NOTE | 2024-08-22 09:48 | PC.NURSE ---
No nursing group due to MD visit.
[2024-08-22 10:22] VITALS: BP 123/74; PULSE 88; RESP 20; TEMP 36.9; O2SAT 98
[2024-08-27 10:06] VITALS: BP 103/62; PULSE 98; RESP 22; TEMP 36.8; O2SAT 96
[2024-08-29 09:55] VITALS: BP 105/73; PULSE 90; RESP 20; TEMP 36.6; O2SAT 97
--- NOTE | 2024-08-29 10:22 | PC.NURSE ---
No nursing group due to MD visit.
--- NOTE | 2024-09-03 13:23 | PC.NURSE ---
No nursing group due to the patient leaving early for an appointment.
[2024-09-03 13:24] VITALS: BP 118/77; PULSE 92; RESP 20; TEMP 36.6; O2SAT 98
[2024-09-05 10:31] VITALS: BP 110/73; PULSE 90; RESP 20; TEMP 36.9; O2SAT 97
--- NOTE | 2024-09-05 11:17 | PC.NURSE ---
No nursing group due to MD visit.
--- NOTE | 2024-09-05 12:10 | WPDSLSPROGRE ---
Progress HPI Progress HPI Visit Attended By patient and staff History Obtained From patient Chief Complaint Follow-up for depression and anxiety HPI this is a routine follow-up. Patient has several issues to discuss today. First of all, he was recently in the hospital with acute diverticulitis with abscess. He got to leave after couple of days, but he says that he is likely going to have to have surgery. It sounds like that he had a fall at the hospital, and continues to have difficulty with his balance. Patient is on Abilify 3 mg q.a.m., which has helped with his mood, and we agree with the staff at the [facility] that this will need to be monitored as it could affect neurologic function. No EPS or TD noted on my exam today. Also continues on Cymbalta 90 mg q.day, BuSpar 15 mg b.i.d., bupropion SR 200 mg b.i.d.. He is asking if any of his medications could be causing erectile dysfunction, and I mentioned that this could be due to serotonergic medications such as Cymbalta and Abilify, but he has a history of erectile dysfunction even before I began seeing him. Of note is that he has type 2 diabetes. He also asked about some itching on his skin and I told him this is likely due to dry skin. Enjoys program and participates well. When I mentioned that patient has a diagnosis of chronic kidney disease, he disputed this, and in fact is not listed in his most recent report from his PCP but he does have a history of this. also complains of low energy, and ongoing memory problems. Working on fear, coping skills, among other topics. Still has some difficulty with insomnia. Average Number of Hours of Sleep 6 Sleep Quality frequent awakening and early awakening Change in PMFSH Releveant to Presenting Illness Yes Describe Changes in PMFSH Recent episode of diverticulitis as above Review of Systems Review of Systems Constitutional Reports fatigue and other ( CKD, type 2 diabetes) Eyes Reports other ( glaucoma) ENT Reports WNL Respiratory Reports other ( COPD) Cardiovascular Reports other ( cerebral hemorrhage) Gastrointestinal Reports other ( diverticulitis) Musculoskeletal Reports abnormal gait, Reports diminished strength, Reports muscle stiffness and Reports other ( chronic pain) Neurologic Reports tremor and other ( cerebral hemorrhage, dizziness, bilateral DBS, balance issues) Skin Reports WNL ADL's Reports WNL Exam Physical Exam Review of Lab Studies n/a Hygiene good General Behavior/Attitude Toward Examiner pleasant and cooperative Pain Yes Pain Location back Pain Characteristics chronic Psychiatric Exam Level of Consciousness alert Orientation person, place, time and situation Speech normal rate/tone/volume/prosody and coherent Language able to comprehend questions Mood less depressed Affect blunted, appropriate and congruent Thought Processes/Form logical, linear and goal directed Thought Content diminished depressive symptoms Delusions none Homicidal/Assaultive Ideation none Suicidal Ideation none Hallucinations none Attention/Concentration focused Attention/Concentration Testing Methods observation/interview Short Term Memory Impairment mild STM Testing Methods clinical interview (assessment/observation) [employer] Memory Impairment none LTM Testing Methods recall of biographical information Intellectual Functioning roughly average Intellectual Functioning Assessed By fund of knowledge Insight fair Insight Assessed By ability to recognize & acknowledge mental illness, ability to understand the implications of mental illness, understanding of treatment options and ability to comply with treatment Judgement fair Judgement Assessed By exploring recent decision-making MMSE n/a Patient Assets Patient is willing to accept treatment, able to perform ADLs Patient Liabilities balance problems, diverticulitis, memory issues, chronic pain Assessment and Plan Clinical Impression/Diag Clinical Impression/Diagnosis F 33.2, multiple medical issues. Continue IOP, monitor meds Progress Overview Reason for Continued Services in an Intensive Outpatient Program continued impaired mood and.or depression, patient would decompenste at a lower level of care, not at baseline level of functioning and high risk for relapse Treatment To Be Provided medication management, group/individual/rec therapy and family session as indicated Discharge Disposition/Level of Care PCP Anticipated Discharge 8-12 weeks Certification Statement Certification Statement I believe this patient requires the services of the Intensive Outpatient Program and that there is reasonable expectation that the patient will make timely and significant practical improvement in the presenting acute symptoms as a result of this Intensive Outpatient Program. I do not believe this patient will benefit from a lesser level of care or could be adequately and appropriately treated in a less restrictive environment. My decision is based on the preceding clinical information.
[2024-09-10 10:09] VITALS: BP 106/68; PULSE 100; RESP 20; TEMP 36.6; O2SAT 95
[2024-09-12 10:23] VITALS: BP 108/73; PULSE 94; RESP 22; TEMP 36.3; O2SAT 97
--- NOTE | 2024-09-12 11:15 | PC.NURSE ---
No nursing group due to MD visit.
[2024-09-18 10:23] VITALS: BP 108/69; PULSE 92; RESP 20; TEMP 36.6; O2SAT 98
--- NOTE | 2024-09-19 09:52 | PC.NURSE ---
No nursing group due to MD visit.
[2024-09-19 10:47] VITALS: BP 130/78; PULSE 86; RESP 20; TEMP 36.8; O2SAT 98
--- NOTE | 2024-09-19 11:48 | P.PN_ITS ---
Progress HPI Progress HPI Visit Attended By patient and staff History Obtained From patient Chief Complaint Follow-up for depression and anxiety HPI this is a routine follow-up. Today patient says that he is having trouble with his memory and asks for something for this. He does have diabetes, is a smoker, and has a history of cerebral hemorrhage, So his memory issues are likely as result of a vascular etiology. He did have a colonoscopy this week and had a couple polyps removed. Still complains of dizziness. Continues Abilify 3 mg q.a.m., Cymbalta 90 mg q.day, BuSpar 15 mg b.i.d., bupropion SR 200 mg b.i.d.. Attends 2 days a week. Enjoys the program and participates well. He is sleeping somewhat better. Average Number of Hours of Sleep 8 Sleep Quality difficulty falling asleep and frequent awakening Change in PMFSH Releveant to Presenting Illness Yes Describe Changes in PMFSH As per HPI Review of Systems Review of Systems Constitutional Reports other ( type 2 diabetes) Eyes Reports other ( glaucoma) ENT Reports WNL Respiratory Reports other ( COPD) Cardiovascular Reports other ( cerebral hemorrhage) Gastrointestinal Reports other ( recent episode of diverticulitis) Musculoskeletal Reports abnormal gait, Reports diminished strength, Reports muscle stiffness and Reports other ( chronic pain) Neurologic Reports tremor and other ( dizziness, cerebral hemorrhage, bilateral DBS, balance issues) Skin Reports WNL ADL's Reports WNL Exam Physical Exam Review of Lab Studies n/a Hygiene good General Behavior/Attitude Toward Examiner pleasant and cooperative Pain Yes Pain Location back Pain Characteristics chronic Psychiatric Exam Level of Consciousness alert Orientation person, place, time and situation Speech normal rate/tone/volume/prosody and coherent Language able to comprehend questions Mood less depressed Affect blunted Thought Processes/Form logical, linear and goal directed Thought Content diminished depressive symptoms Delusions none Homicidal/Assaultive Ideation none Suicidal Ideation none Hallucinations none Attention/Concentration focused Attention/Concentration Testing Methods observation/interview Short Term Memory Impairment mild STM Testing Methods clinical interview (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 Will start Namenda XR 7 mg q.a.m. x1 week, then increase to 14 mg q.a.m.. Will let Dr. Faustin know and make sure he is okay with this given possible history of chronic kidney disease. Progress Overview Reason for Continued Services in an Intensive Outpatient Program continued impaired mood and.or depression, patient would decompenste at a lower level of care, not at baseline level of functioning and high risk for relapse Treatment To Be Provided medication management Discharge Disposition/Level of Care PCP Anticipated Discharge 8-12 weeks Certification Statement Certification Statement I believe this patient requires the services of the Intensive Outpatient Program and that there is reasonable expectation that the patient will make timely and significant practical improvement in the presenting acute symptoms as a result of this Intensive Outpatient Program. I do not believe this patient will benefit from a lesser level of care or could be adequately and appropriately treated in a less restrictive environment. My decision is based on the preceding clinical information.
--- NOTE | 2024-09-19 13:21 | PC.NURSE ---
This nurse called [facility] in [place] and ordered the patient Namenda XR 7mg Daily X 7 days and then increase to 14mg daily.
[2024-09-24 10:15] VITALS: BP 102/68; PULSE 95; RESP 20; TEMP 37; O2SAT 96
--- NOTE | 2024-09-24 13:58 | PC.NURSE ---
This nurse called [facility] pharmacy in [place] to order the patient's Namenda XR 14mg daily.
--- NOTE | 2024-09-26 09:29 | PC.NURSE ---
No nursing group due to nurse meeting.
[2024-09-26 10:23] VITALS: BP 114/77; PULSE 88; RESP 20; TEMP 36.6; O2SAT 98
--- NOTE | 2024-09-26 12:31 | WPDSLSPROGRE ---
Progress HPI Progress HPI Visit Attended By patient and staff History Obtained From patient Chief Complaint one-week follow-up per patient request HPI patient is being seen for depression anxiety, and was just seen last week, but wants to be seen again this week after a recent argument with his . It is apparent that their relationship is a significant stressor for him, but he says overall he feels that the antidepressant is not working as well, and yesterday he even had some passive wishes. His motivation is extremely low, and did not want to be in class today, but force himself to come, and also has to force himself to do his chores at home. Continues Abilify 3 mg q.a.m., Cymbalta 90 mg q.day, BuSpar 15 mg b.i.d., bupropion SR 200 mg b.i.d.. He his are going to visit his brother in [place] over the holiday and he is wanting to be make an adjustment his medication before they get there because he and his brother have a tendency to get in an argument. Average Number of Hours of Sleep 8 Sleep Quality frequent awakening Change in PMFSH Releveant to Presenting Illness Yes Describe Changes in PMFSH As above Review of Systems Review of Systems Constitutional Reports other ( type 2 diabetes) Eyes Reports other ( glaucoma) ENT Reports WNL Respiratory Reports other ( COPD) Cardiovascular Reports other ( cerebral hemorrhage) Gastrointestinal Reports other ( recent episode of diverticulitis) Musculoskeletal Reports abnormal gait, Reports diminished strength, Reports muscle stiffness and Reports other ( chronic pain) Neurologic Reports tremor and other ( dizziness, bilateral DBS, cerebral hemorrhage, balance issues) Skin Reports WNL ADL's Reports WNL Exam Physical Exam Review of Lab Studies n/a Hygiene good General Behavior/Attitude Toward Examiner pleasant and cooperative Pain Yes Pain Location back Pain Characteristics chronic Psychiatric Exam Level of Consciousness alert Orientation person, place, time and situation Speech normal rate/tone/volume/prosody and coherent Language able to comprehend questions Mood depressed Affect blunted Thought Processes/Form logical, linear and goal directed Thought Content depressive symptoms Delusions none Homicidal/Assaultive Ideation none Suicidal Ideation none Hallucinations none Attention/Concentration focused Attention/Concentration Testing Methods observation/interview Short Term Memory Impairment mild STM Testing Methods clinical interview (assessment/observation) 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 Memory Impairment none LTM Testing Methods recall of biographical information Intellectual Functioning roughly average Intellectual Functioning Assessed By [facility] Interactive [employer] Insight fair Insight Assessed By ability to recognize & acknowledge mental illness, ability to understand the implications of mental illness, understanding of treatment options and ability to comply with treatment Judgement fair Judgement Assessed By exploring recent decision-making MMSE n/a Patient Assets patient is willing to accept treatment, able to perform ADLs Patient Liabilities balance problems, memory issues, chronic pain, marital discord Assessment and Plan Clinical Impression/Diag Clinical Impression/Diagnosis F 33.2, persistent depressive symptoms. Increase Abilify to 5 mg q.a.m. Progress Overview Reason for Continued Services in an Intensive Outpatient Program continued impaired mood and.or depression, patient would decompenste at a lower level of care, not at baseline level of functioning and high risk for relapse Treatment To Be Provided medication management and group/individual/rec therapy Discharge Disposition/Level of Care other Anticipated Discharge 8-12 weeks Certification Statement Certification Statement I believe this patient requires the services of the Intensive Outpatient Program and that there is reasonable expectation that the patient will make timely and significant practical improvement in the presenting acute symptoms as a result of this Intensive Outpatient Program. I do not believe this patient will benefit from a lesser level of care or could be adequately and appropriately treated in a less restrictive environment. My decision is based on the preceding clinical information.
--- NOTE | 2024-10-02 08:23 | SLSTHERAPY ---
Sravan canceled group attendance for the week of 09/30/2024 due to out of state vacation for the holiday; Sravan is scheduled to return to group 10/07/2024.
[2024-10-08 10:40] VITALS: BP 106/78; PULSE 90; RESP 20; TEMP 36.2; O2SAT 98
== END 2024-10-09 23:59 | disposition home or self-care (01) ==
LOC: CHSSENLIFE 15:30
PROVIDERS: PCP Family Medicine; Visit Provider Psychiatry & Neurology Psychiatry
DX: F33.2 Major depressive disorder, recurrent severe without psychotic features (principal)
CPT/HCPCS: 90846; 90847; 90853; 99213; 99214; G0463

== ENCOUNTER 2024-11-13 09:07 | Outpatient (CLI) | payer MEDICARE, OTHER, SELFPAY | END 2024-11-13 09:08 | disposition home or self-care (01) | LOC: CHSLAB 09:08 | PROVIDERS: PCP Family Medicine; Visit Provider Family Medicine | DX: R82.81 Pyuria (principal) | CPT/HCPCS: 87086; 87181 ==

== ENCOUNTER 2024-12-06 12:55 | Outpatient (RCR) | payer MEDICARE, OTHER, SELFPAY ==
--- NOTE | 2024-12-11 13:05 | OPREHPOC ---
Outpatient Therapy Plan of Care This is a Multidisciplinary Plan of Care that may contain components documented by all disciplines (PT, OT, and ST.) PT Problem 1 PT Problem #1 Knowledge Deficit PT Goal 1 Goal / Goal Update Independent with HEP Target Visit 2 PT Problem 2 PT Problem #2 Pain PT Goal 1 Goal / Goal Update Pt to report no worse than 5/10 neck pain with activity. Pt to improve NDI score to 20% disability to reflect reduction in neck pain. Target Visit 12 PT Problem 3 PT Problem #3 Impaired Strength PT Goal 1 Goal / Goal Update Pt to improve gross cervical muscle strength to 4+ /5. Pt to improve gross cervical muscle strength to 4+ /5 for improved stability with neck movements. Target Visit 12 PT Problem 4 PT Problem #4 Impaired Range of Motion PT Goal 1 Goal / Goal Update Pt to improve cervical rotation ROM to 60 degrees. Pt to improve cervical rotation ROM to 60 degrees to be able to look over his shoulder when driving. Target Visit 12
--- NOTE | 2024-12-11 13:05 | PTOPEVAL1 ---
Assessment and note entered by [facility], PT Evaluation Information Assessment Status Evaluation ICD-10 Condition Codes (PT) Radiculopathy, cervical M54.13 Onset 07/06/24 Subjective Information Pt reports onset of neck pain 6 months ago that radiates to his head and causes headaches. He denies pain radiating down the arms but does note occasional numbness of the left arm when sleeping on his right side. Reports he's gotten shots in his neck once before which helped relieve his pain for about 3 weeks but the pain returned, and he' ll be getting another shot in the next few weeks. Reports he goes to the chiropractor occasionally for hot pack and manipulation which helps sometimes. Notes constant dizziness and occasional diplopia and nausea that increases with headache severity. Also sometimes feels like the room is spinning. Denies feeling like he'll pass out. Assessment PT Clinical Summary Mr. John presents to physical therapy with neck pain radiating to the head causing headaches. He demonstrates pain with all active and resisted motions of the neck and signs/symptoms of cervical radiculopathy with positive Spurlings test, positive cervical distraction test, and rotation less than 60 degrees. He will benefit from skilled PT intervention to address these deficits. Plan of Care Interventions Electrical Stimulation,Hot Pack/Cold Pack,Manual Therapy,Neuro Re-education,Patient/Caregiver Education,Therapeutic Activities,Therapeutic Exercise,Self-Care/Home Management PT Services Indicated Yes Treatment Frequency and 2x/week for 12 visits Duration These treatments will address the objective and functional deficits as defined above. The patient will be advanced safely and appropriately in order for the patient to progress towards his/her prior level of function. Additional exercises will be introduced and as well as a comprehensive home exercise program upon discharge, if needed, ?to ensure carryover of functional gains achieved in the clinic. This treatment plan has been reviewed and agreement upon by the patient.
--- NOTE | 2025-01-08 12:42 | PTOPPROG ---
Assessment and note entered by Charles [facility] Evaluation Information Assessment Status Progress ICD-10 Condition Codes (PT) Radiculopathy, cervical M54.13 Onset 07/06/24 Subjective Information Pt. reports that his neck pain has been less intense. He states that current pain is 2/10. Assessment PT Clinical Summary Pt. has attended a total of 10 treatment sessions. In this time he has demonstrated decreased pain reports and improvements in cervical ROM. Pt. continues to present with deficits in postural awareness. Continued skilled PT is indicated per POC focusing on remaining mobility restrictions and continued improvements in postural awareness. Plan of Care Interventions Electrical Stimulation,Hot Pack/Cold Pack,Manual Therapy,Neuro Re-education,Patient/Caregiver Education,Therapeutic Activities,Therapeutic Exercise,Self-Care/Home Management PT Services Indicated Yes Treatment Frequency and Continue with 2 remaining sessions on pt. POC Duration focusing on mobility and postural awareness. These treatments will address the objective and functional deficits as defined above. The patient will be advanced safely and appropriately in order for the patient to progress towards his/her prior level of function. Additional exercises will be introduced and as well as a comprehensive home exercise program upon discharge, if needed, ?to ensure carryover of functional gains achieved in the clinic. This treatment plan has been reviewed and agreement upon by the patient.
--- NOTE | 2025-01-13 14:46 | OPREHPOC ---
Outpatient Therapy Plan of Care This is a Multidisciplinary Plan of Care that may contain components documented by all disciplines (PT, OT, and ST.) PT Problem 1 PT Problem #1 Knowledge Deficit PT Goal 1 Goal / Goal Update Independent with HEP Target Visit 2 Progress Met PT Problem 2 PT Problem #2 Pain PT Goal 1 Goal / Goal Update Pt to report no worse than 5/10 neck pain with activity. -met Pt to improve NDI score to 20% disability to reflect reduction in neck pain. -not met Target Visit 12 Progress Partially Met PT Problem 3 PT Problem #3 Impaired Strength PT Goal 1 Goal / Goal Update Pt to improve gross cervical muscle strength to 4+ /5. Pt to improve gross cervical muscle strength to 4+ /5 for improved stability with neck movements. Target Visit 12 Progress Met PT Problem 4 PT Problem #4 Impaired Range of Motion PT Goal 1 Goal / Goal Update Pt to improve cervical rotation ROM to 60 degrees. Pt to improve cervical rotation ROM to 60 degrees to be able to look over his shoulder when driving. Target Visit 12 Progress Met
--- NOTE | 2025-01-13 14:46 | PTOPDC ---
Assessment and note entered by Silke Florentino, PT Evaluation Information Assessment Status Discharge ICD-10 Condition Codes (PT) Radiculopathy, cervical M54.13 Onset 07/06/24 Subjective Information Since beginning therapy, Nahum reports reduced frequency and intensity of his neck pain and headaches. When a headache starts to come on he manages it with medication and use of a neck pillow. He still notes occasional numbness of the L arm. Reported Pain Level Pain Score 2: Self Report Assessment PT Clinical Summary Mr. John has attended 12 total skilled therapy visits addressing cervical radiculopathy. He notes overall improvement in the intensity and frequency of his neck pain and headaches. He demonstrates adequate cervical ROM and excellent improvement in his cervical muscle strength. He is independent with his HEP and has met or partially met all therapeutic goals set for him, and therefore skilled PT intervention is no longer indicated. Plan of Care PT Services Indicated No
== END 2025-01-13 17:48 | disposition home or self-care (01) ==
LOC: CHSPT 12:55
PROVIDERS: Visit Provider Nurse Practitioner Family
DX: M54.12 Radiculopathy, cervical region (principal)
CPT/HCPCS: 97110; 97140; 97150; 97161

== ENCOUNTER 2025-01-07 10:00 | Outpatient (RCR) | payer MEDICARE, OTHER, SELFPAY ==
[2024-10-10 00:02] VITALS: BP 106/78; PULSE 90; RESP 20; TEMP 36.2; O2SAT 98
--- NOTE | 2024-10-10 10:13 | PC.NURSE ---
No nursing group due to MD visit.
[2024-10-10 10:34] VITALS: BP 115/74; PULSE 100; RESP 20; TEMP 37.1; O2SAT 97
--- NOTE | 2024-10-10 12:08 | P.PN_ITS ---
Progress HPI Progress HPI Visit Attended By patient and staff History Obtained From patient Chief Complaint 2 week medication follow-up HPI patient is being seen for depression and anxiety. At our last visit we increased his Abilify to 5 mg q.a.m. and his mood seems to be stable. He says the trip to [place] to visit his brother went fairly well. He did say that he has been having to urinate more but this was going on before we increase his medicine. He plans to talk to his PCP about this. Also on Cymbalta 90 mg q.day, BuSpar 15 mg b.i.d., bupropion SR 200 mg b.i.d.. He and his are going to his [id number] for [place] and he has some anxiety about this. Enjoys program participates well. Continues to complain of dizziness. Struggling somewhat in family therapy. Average Number of Hours of Sleep 8 Sleep Quality frequent awakening Change in PMFSH Releveant to Presenting Illness Yes Describe Changes in PMFSH Some improvement as above Review of Systems Review of Systems Constitutional Reports other ( type 2 diabetes) Eyes Reports other ( glaucoma) ENT Reports WNL Respiratory Reports other ( COPD) Cardiovascular Reports other ( cerebral hemorrhage) Gastrointestinal Reports other ( diverticulitis) Musculoskeletal Reports abnormal gait, Reports diminished strength, Reports muscle stiffness and Reports other ( chronic pain) Neurologic Reports other ( dizziness, bilateral DBS, cerebral hemorrhage, balance issues) Skin Reports other ADL's Reports other Exam Physical Exam Review of Lab Studies n/a Hygiene good General Behavior/Attitude Toward Examiner pleasant and cooperative Pain Yes Pain Location back Pain Characteristics chronic Psychiatric Exam Level of Consciousness alert Orientation person, place, time and situation Speech normal rate/tone/volume/prosody and coherent Language able to name objects Mood okay Affect blunted Thought Processes/Form logical, linear and goal directed Thought Content diminished depressive symptoms Delusions none Homicidal/Assaultive Ideation none Suicidal Ideation none Hallucinations none Attention/Concentration focused Attention/Concentration Testing Methods observation/interview Short Term Memory Impairment mild STM Testing Methods clinical interview (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/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[employer] Electrical Memory Impairment none LTM Testing Methods recall of biographical information Intellectual Functioning roughly average Intellectual Functioning Assessed By fund of knowledge Insight fair Insight Assessed By ability to recognize & acknowledge mental illness, ability to understand the implications of mental illness, understanding of treatment options and ability to comply with treatment Judgement fair Judgement Assessed By exploring recent decision-making MMSE n/a Patient Assets patient is willing to accept treatment, able to perform ADLs Patient Liabilities balance problems, memory issues, chronic pain, marital discord Assessment and Plan Clinical Impression/Diag Clinical Impression/Diagnosis F 33.2, some improvement. Continue IOP. Monitor meds Progress Overview Reason for Continued Services in an Intensive Outpatient Program continued impaired mood and.or depression, patient would decompenste at a lower level of care, not at baseline level of functioning and high risk for relapse Treatment To Be Provided medication management and group/individual/rec therapy Discharge Disposition/Level of Care PCP Anticipated Discharge 8-12 weeks Certification Statement Certification Statement I believe this patient requires the services of the Intensive Outpatient Program and that there is reasonable expectation that the patient will make timely and significant practical improvement in the presenting acute symptoms as a result of this Intensive Outpatient Program. I do not believe this patient will benefit from a lesser level of care or could be adequately and appropriately treated in a less restrictive environment. My decision is based on the preceding clinical information.
[2024-10-15 11:16] VITALS: BP 108/72; PULSE 90; RESP 20; TEMP 36.9; O2SAT 97
--- NOTE | 2024-10-17 09:32 | PC.NURSE ---
No nursing group due to MD visit.
[2024-10-17 10:14] VITALS: BP 102/68; PULSE 100; RESP 18; TEMP 36.2; O2SAT 96
[2024-10-22 10:18] VITALS: BP 123/77; PULSE 90; RESP 20; TEMP 36.8; O2SAT 96
[2024-10-24 10:24] VITALS: BP 102/72; PULSE 92; RESP 20; TEMP 37; O2SAT 97
--- NOTE | 2024-10-24 12:28 | WPDSLSPROGRE ---
Progress HPI Progress HPI Visit Attended By patient and staff History Obtained From patient Chief Complaint 2 week follow-up for depression and anxiety HPI this is a 2 week follow-up. Patient requested to see me as he and his are having sexual difficulties. This is a long-standing problem, and he feels that stems from the fact that his size is small, which he was able to overcome in the past, but now with multiple medical and physical issues, including arteriosclerosis of the small arteries, he is unable to have intercourse. I suggested to him that there are other things that he he and his can do regarding intimacy, but it sounds like the main problem is the fact that they are still arguing a lot, which got to the point recently where she told him to get out of the car. He also says that she wants to talk to me Regarding medication. It seems that both of them tend to have very high expectations of medication to fix all these issues, and we have told him repeatedly that therapy is going to be the most important part of this. Continues Cymbalta 90 mg q.day, BuSpar 15 mg b.i.d., bupropion SR 200 mg b.i.d., Abilify 5 mg q.a.m.. I told patient that the serotonergic effect of his medications can cause erectile dysfunction but I frequently use bupropion to reverse this but he is on the maximum dose. he is also on Namenda XR 14 mg q.a.m. and thinks this has helped a little . He is still complaining about his memory and says that his always has to come in with him during doctor visits so she can remember what the doctor tells them. 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 Patient says he and his got into an argument over the fact that he is trying to order things off the Internet which are not proven to be effective for Erectile dysfunction and are very expensive. Average Number of Hours of Sleep 7 Sleep Quality frequent awakening Change in PMFSH Releveant to Presenting Illness Yes Describe Changes in PMFSH As above Review of Systems Review of Systems Constitutional Reports other ( type 2 diabetes) Eyes Reports other ( glaucoma) ENT Reports WNL Respiratory Reports other ( COPD) Cardiovascular Reports other ( cerebral hemorrhage, arteriosclerosis) Gastrointestinal Reports other ( diverticulitis) Musculoskeletal Reports diminished strength, Reports muscle stiffness and Reports other ( chronic pain) Neurologic Reports other ( dizziness, bilateral DBS, cerebral hemorrhage, balance issues) Skin Reports WNL ADL's Reports WNL Exam Physical Exam Review of Lab Studies n/a Hygiene good General Behavior/Attitude Toward Examiner pleasant and cooperative Pain Yes Pain Location back Pain Characteristics chronic Psychiatric Exam Level of Consciousness alert Orientation person, place, time and situation Speech normal rate/tone/volume/prosody and coherent Language able to follow instructions or commands Mood depressed Affect blunted Thought Processes/Form logical, linear and goal directed Thought Content depressive symptoms Delusions none Homicidal/Assaultive Ideation none Suicidal Ideation none Hallucinations none Attention/Concentration focused Attention/Concentration Testing Methods observation/interview Short Term Memory Impairment none STM Testing Methods clinical interview (assessment/observation) [employer] Memory Impairment none LTM Testing Methods recall of biographical information Intellectual Functioning roughly average Intellectual Functioning Assessed By current events Insight fair Insight Assessed By ability to recognize & acknowledge mental illness, ability to understand the implications of mental illness, understanding of treatment options and ability to comply with treatment Judgement fair and improving Judgement Assessed By exploring recent decision-making MMSE n/a Patient Assets patient is willing to accept treatment, able to perform ADLs Patient Liabilities balance problems, memory issues, chronic pain, marital discord Assessment and Plan Clinical Impression/Diag Clinical Impression/Diagnosis F 33.2, persistent depressive symptoms, marital discord, erectile dysfunction, memory issues. Will increase Namenda to 21 mg q.a.m. x2 weeks, then increase to 28 mg q.a.m. Progress Overview Reason for Continued Services in an Intensive Outpatient Program continued impaired mood and.or depression, patient would decompenste at a lower level of care, not at baseline level of functioning and high risk for relapse Treatment To Be Provided medication management and group/individual/rec therapy Discharge Disposition/Level of Care PCP Anticipated Discharge 8-12 weeks Certification Statement Certification Statement I believe this patient requires the services of the Intensive Outpatient Program and that there is reasonable expectation that the patient will make timely and significant practical improvement in the presenting acute symptoms as a result of this Intensive Outpatient Program. I do not believe this patient will benefit from a lesser level of care or could be adequately and appropriately treated in a less restrictive environment. My decision is based on the preceding clinical information.
--- NOTE | 2024-10-24 13:23 | PC.NURSE ---
No nursing group due to MD visit.
--- NOTE | 2024-10-24 14:20 | PC.NURSE ---
This nurse called [facility] in [place] and ordered the patient Namend XR 21mg PO daily X 2 weeks and then Namenda XR 28mg PO daily after.
[2024-10-29 10:48] VITALS: BP 125/74; PULSE 90; RESP 20; TEMP 36.9; O2SAT 97
--- NOTE | 2024-10-29 14:35 | WPDSLSPROGRE ---
Progress HPI Progress HPI Visit Attended By patient, family member and staff History Obtained From patient, family member and other Chief Complaint Follow-up for depression and anxiety HPI this is a follow-up for depression and anxiety. Patient was just seen last week but his accompanies him today with some questions about his medication and overall treatment. We recently started him on Namenda XR, and he is on 14 mg q.a.m. with the instructions to go up to 21 mg a day for 2 weeks and then increase to 28 mg after that. He is still only on the 14 mg q.day as his is concerned about the medication in patients with renal failure. His GFR back in June was 43 which is not extremely low, but I told them that some caution should be exercised in patients with renal issues. I suggested that we talk to Dr. Faustin before ordering labs to see what he would recommend. We discussed the fact that his memory issues are probably multifactorial, and that Namenda would not likely completely solve these. He also remains on Cymbalta 90 mg q.day, BuSpar 15 mg b.i.d., bupropion SR 200 mg b.i.d., Abilify 5 mg q.a.m.. His is also concerned about tremor on the Abilify, but I reassured her that we were keeping a close eye on this and today on exam he displayed no significant tremors far as I could tell. I told them that there is somewhat of a balance between therapeutic effects and side effects of medication, but he is generally tolerated the medication fairly well. Finally, his was somewhat concerned about sedation fatigue I told him that literally any medication that he is on or any of his medical issues could be contributing to this. He essentially gets no exercise I strongly recommended this to him and that it would help his mood and his energy level. they are still doing marital therapy, which has been somewhat challenging. He did admit to walking out of therapy yesterday and I continued to encourage him, validating his feelings that it is difficult and he simply has to keep trying. Sleep Quality frequent awakening Change in PMFSH Releveant to Presenting Illness No Review of Systems Review of Systems Constitutional Reports fatigue and other Eyes Reports other ( glaucoma) ENT Reports WNL Respiratory Reports other Cardiovascular Reports other ( cerebral hemorrhage, arterial sclerosis) Gastrointestinal Reports other ( diverticulitis) Musculoskeletal Reports diminished strength, Reports muscle stiffness and Reports other ( chronic pain) Neurologic Reports other ( dizziness, bilateral DBS, cerebral hemorrhage, balance issues) Skin Reports WNL ADL's Reports WNL Exam Physical Exam Review of Lab Studies n/a Hygiene good General Behavior/Attitude Toward Examiner pleasant and cooperative Pain Yes Pain Location back Pain Characteristics chronic Psychiatric Exam Level of Consciousness alert Orientation person, place, time and situation Speech normal rate/tone/volume/prosody and coherent Language able to follow instructions or commands Mood less depressed Affect blunted, appropriate and congruent Thought Processes/Form logical, linear and goal directed Thought Content diminished depressive symptoms Delusions none Homicidal/Assaultive Ideation none Suicidal Ideation none Hallucinations none Attention/Concentration focused Attention/Concentration Testing Methods observation/interview Short Term Memory Impairment mild STM Testing Methods clinical interview (assessment/observation) Assisted Memory Impairment none LTM Testing Methods recall of biographical information Intellectual Functioning roughly average Intellectual Functioning Assessed By current events Insight fair and improving Insight Assessed By ability to recognize & acknowledge mental illness, ability to understand the implications of mental illness, understanding of treatment options and ability to comply with treatment Judgement fair and improving Judgement Assessed By exploring recent decision-making MMSE n/a Patient Assets Patient is willing to accept treatment, able to perform ADLs Patient Liabilities balance problems, memory issues, chronic pain, marital discord Assessment and Plan Clinical Impression/Diag Clinical Impression/Diagnosis F 33.2, progressing well. Will hold Namenda at 14 mg q.a.m. and contact Dr. Faustin about appropriate lab work. Progress Overview Reason for Continued Services in an Intensive Outpatient Program continued impaired mood and.or depression, patient would decompenste at a lower level of care, not at baseline level of functioning and high risk for relapse Treatment To Be Provided medication management and group/individual/rec therapy Discharge Disposition/Level of Care PCP Anticipated Discharge 8-12 weeks Certification Statement Certification Statement I believe this patient requires the services of the Intensive Outpatient Program and that there is reasonable expectation that the patient will make timely and significant practical improvement in the presenting acute symptoms as a result of this Intensive Outpatient Program. I do not believe this patient will benefit from a lesser level of care or could be adequately and appropriately treated in a less restrictive environment. My decision is based on the preceding clinical information.
[2024-10-31 10:48] VITALS: BP 112/72; PULSE 96; RESP 20; TEMP 37.1; O2SAT 97
[2024-11-05 10:43] VITALS: BP 113/86; PULSE 90; RESP 20; TEMP 36.8; O2SAT 98
--- NOTE | 2024-11-05 15:18 | SLSTHERAPY ---
Sravan cancelled 11/07/2024 group attendance due to overnight out of town trip with ; Sravan is scheduled to return to group 11/12/2024.
--- NOTE | 2024-11-12 13:30 | SLSTHERAPY ---
11/11/2024 14:00 family session canceled due to snow.
--- NOTE | 2024-11-13 08:20 | SLSTHERAPY ---
Sravan's 11/12 & 11/13/2024 group attendance canceled due to snow; Sravan is scheduled to return to group 11/14/2024.
[2024-11-14 10:12] VITALS: BP 113/73; PULSE 90; RESP 20; TEMP 36.9; O2SAT 99
--- NOTE | 2024-11-14 11:00 | PC.NURSE ---
No nursing group due to MD visit.
[2024-11-19 10:24] VITALS: BP 113/67; PULSE 90; RESP 20; TEMP 36.9
--- NOTE | 2024-11-21 10:25 | PC.NURSE ---
No nursing group due to MD visit.
[2024-11-21 10:30] VITALS: BP 123/65; PULSE 94; RESP 20; TEMP 37.1; O2SAT 98
--- NOTE | 2024-11-21 11:41 | WPDSLSPROGRE ---
Progress HPI Progress HPI Visit Attended By patient and staff History Obtained From patient Chief Complaint 3 week f/u for depression and anxiety HPI This is a routine follow-up. Patient enjoys the program participates well. He is still struggling with his relationship with his and while on 1 hand he is very concerned with his inability to perform sexually and is seeing a urologist, asking about medication, possible surgery, etc., his is likely resentful towards him for not being compliant with his treatment, with cannabis saying that the fact that she has had hysterectomy may have a role in this as well. At 1 point he became somewhat irritable and told the nurse not to tell his about what we have been talking about. At that point I told him that we will not tell her anything he does not want us to, but that the 2 then need to continue therapy to try to work through this. He is starting Namenda XR 28 mg q.a.m. after his primary care doctor obtain some lab work which indicated that his kidney function is in fairly good shape. He also remains on Cymbalta 90 mg q.day, BuSpar 15 mg b.i.d., bupropion 200 mg b.i.d., Abilify 5 mg q.a.m.. Tremors relatively unchanged. He did ask if the meds cause hallucinations as he reported possible auditory hallucinations but he is also on antibiotics for UTI and I told him that this could be from the infection and that we would need to wait until he finishes treatment before attributing it to the medicine. Average Number of Hours of Sleep 7 Sleep Quality frequent awakening Change in PMFSH Releveant to Presenting Illness Yes Describe [facility] as above Review of Systems Review of Systems Constitutional Reports fatigue and other ( urinary tract infection) Eyes Reports other ( glaucoma) ENT Reports WNL Respiratory Reports WNL Cardiovascular Reports other ( cerebral hemorrhage, arteriosclerosis) Gastrointestinal Reports other ( history of diverticulitis) Musculoskeletal Reports diminished strength, Reports muscle stiffness and Reports other ( chronic pain) Neurologic Reports other ( dizziness, bilateral DBS, cerebral hemorrhage, balance issues) Skin Reports WNL ADL's Reports WNL Exam Physical Exam Review of Lab Studies n/a Hygiene good General Behavior/Attitude Toward Examiner cooperative and irritable Pain Yes Pain Location back Pain Characteristics chronic Psychiatric Exam Level of Consciousness alert Orientation person, place, time and situation Speech normal rate/tone/volume/prosody and coherent Language able to follow instructions or commands Mood irritable Affect blunted, appropriate and congruent Thought Processes/Form logical, linear and goal directed Thought Content depressive symptoms Delusions none Homicidal/Assaultive Ideation none Suicidal Ideation none Hallucinations auditory Hallucination Description voices calling his name Attention/Concentration focused Attention/Concentration Testing Methods observation/interview Short Term Memory Impairment none STM Testing Methods 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 Memory Impairment none LTM Testing Methods recall of biographical information Intellectual Functioning roughly average Intellectual Functioning Assessed By current events Insight fair Insight Assessed By ability to recognize & acknowledge mental illness, ability to understand the implications of mental illness, understanding of treatment options and ability to comply with treatment Judgement fair Judgement Assessed By exploring recent decision-making MMSE n/a Patient Assets willing to accept treatment, able to perform ADLs Patient Liabilities multiple medical issues, impaired relationship with , memory issues Assessment and Plan Clinical Impression/Diag Clinical Impression/Diagnosis F 33.2, persistent relationship problems. continue IOP, monitor meds. Will increase Namenda XR 28 mg q.a.m. Progress Overview Reason for Continued Services in an Intensive Outpatient Program continued impaired mood and.or depression, patient would decompenste at a lower level of care, not at baseline level of functioning and high risk for relapse Treatment To Be Provided medication management and family session as indicated Discharge Disposition/Level of Care PCP Anticipated Discharge 8-12 weeks Certification Statement Certification Statement I believe this patient requires the services of the Intensive Outpatient Program and that there is reasonable expectation that the patient will make timely and significant practical improvement in the presenting acute symptoms as a result of this Intensive Outpatient Program. I do not believe this patient will benefit from a lesser level of care or could be adequately and appropriately treated in a less restrictive environment. My decision is based on the preceding clinical information.
[2024-11-26 10:41] VITALS: BP 110/77; PULSE 90; RESP 20; TEMP 37; O2SAT 96
[2024-11-28 10:37] VITALS: BP 106/65; PULSE 94; RESP 20; TEMP 36.8; O2SAT 98
--- NOTE | 2024-11-28 11:05 | PC.NURSE ---
No nursing group due to MD visit.
[2024-12-03 10:36] VITALS: BP 110/76; PULSE 86; RESP 20; TEMP 36.6; O2SAT 98
[2024-12-05 10:23] VITALS: BP 113/72; PULSE 86; RESP 20; TEMP 36.6; O2SAT 99
--- NOTE | 2024-12-05 11:04 | PC.NURSE ---
No nursing group due to MD visit.
[2024-12-10 10:20] VITALS: BP 120/76; PULSE 82; RESP 20; TEMP 36.9; O2SAT 97
--- NOTE | 2024-12-10 15:06 | PC.NURSE ---
No nursing group due to MD visit.
--- NOTE | 2024-12-12 09:56 | PC.NURSE ---
No nursing group due to MD visit.
[2024-12-12 10:18] VITALS: BP 103/71; PULSE 90; RESP 20; TEMP 36.6; O2SAT 97
--- NOTE | 2024-12-12 12:45 | P.PN_ITS ---
Progress HPI Progress HPI Visit Attended By patient and staff History Obtained From patient Chief Complaint 3 week follow-up for depression and anxi ety HPI this is a routine follow-up. Patient enjoys the program and participates well. He continues to struggle with relationship with his , but they are doing couples therapy and have a session upcoming. He continues Namenda XR 28 mg q.a.m., Cymbalta 90 mg q.day, BuSpar 15 mg b.i.d., bupropion 200 mg b.i.d., Abilify 5 mg q.a.m.. Tremors are unchanged. He is going to see the neurologist for an upcoming appointment. He also complains of headaches, and was told that there is a pinched nerve in his neck which is causing this, and he is going to be getting an injection for this. Still reports hallucinations, which actually sound more like visual illusions, and that he is watching TV and will see something above it that he cannot make out. He has significant cerebrovascular disease and this certainly could be contributing factor. Average Number of Hours of Sleep 7 Sleep Quality frequent awakening Change in PMFSH Releveant to Presenting Illness No Review of Systems Review of Systems Constitutional Reports fatigue and other ( UTI, resolved) Eyes Reports other ( glaucoma) ENT Reports WNL Respiratory Reports WNL Cardiovascular Reports other ( cerebral hemorrhage, arterial sclerosis) Gastrointestinal Reports other ( history of diverticulitis) Musculoskeletal Reports muscle stiffness and Reports other ( chronic pain) Neurologic Reports other ( dizziness, bilateral DBS, cerebral hemorrhage, balance issues) Skin Reports WNL ADL's Reports WNL Exam Physical Exam Review of Lab Studies n/a Hygiene good General Behavior/Attitude Toward Examiner pleasant and cooperative Pain Yes Pain Location head, neck Pain Characteristics chronic and sharp Psychiatric Exam Level of Consciousness alert Orientation person, place, time and situation Speech normal rate/tone/volume/prosody and coherent Language able to repeat phrases Mood mildly depressed Affect blunted, appropriate and congruent Thought Processes/Form logical, linear and goal directed Thought Content depressive symptoms Delusions none Homicidal/Assaultive Ideation none Suicidal Ideation none Hallucinations visual Attention/Concentration focused Attention/Concentration Testing Methods observation/interview Short Term Memory Impairment mild STM Testing Methods clinical interview (assessment/observation) [facility] Memory Impairment none LTM Testing Methods recall of biographical information Intellectual Functioning roughly average Intellectual Functioning Assessed By fund of knowledge Insight fair Insight Assessed By ability to recognize & acknowledge mental illness, ability to understand the implications of mental illness, understanding of treatment options and ability to comply with treatment Judgement fair Judgement Assessed By exploring recent decision-making MMSE n/a Patient Assets able to perform ADLs, willing to accept treatment Patient Liabilities marital difficulties, multiple medical issues Assessment and Plan Clinical Impression/Diag Clinical Impression/Diagnosis F 33.2. Continue IOP, monitor meds Certification Statement Certification Statement I believe this patient requires the services of the Intensive Outpatient Program and that there is reasonable expectation that the patient will make timely and significant practical improvement in the presenting acute symptoms as a result of this Intensive Outpatient Program. I do not believe this patient will benefit from a lesser level of care or could be adequately and appropriately treated in a less restrictive environment. My decision is based on the preceding clinical information.
[2024-12-17 10:57] VITALS: BP 102/72; PULSE 90; RESP 20; TEMP 36.6; O2SAT 98
--- NOTE | 2024-12-17 13:57 | PC.NURSE ---
This nurse called and spoke with Jonah at [facility] in [place] to order the patient's Namenda XR 30mg PO daily X 30 days.
[2024-12-19 10:23] VITALS: BP 112/77; PULSE 90; RESP 20; TEMP 36.6; O2SAT 97
--- NOTE | 2024-12-19 10:39 | PC.NURSE ---
No nursing group due to MD visit.
[2024-12-25 11:13] VITALS: BP 103/70; PULSE 97; RESP 20; TEMP 36.9; O2SAT 97
[2024-12-26 10:01] VITALS: BP 124/80; PULSE 87; RESP 20; TEMP 36.9; O2SAT 97
--- NOTE | 2024-12-26 10:58 | PC.NURSE ---
No nursing group due to MD visit.
[2024-12-31 10:22] VITALS: BP 102/68; PULSE 92; RESP 20; TEMP 36.9; O2SAT 98
[2025-01-02 10:36] VITALS: BP 114/70; PULSE 88; RESP 20; TEMP 36.8; O2SAT 97
--- NOTE | 2025-01-02 12:42 | WPDSLSPROGRE ---
Progress HPI Progress HPI Visit Attended By patient and staff History Obtained From patient Chief Complaint 3 week follow-up for depression and anxiety HPI this is a routine follow-up. Patient says that things have been going fair . At least he and his continue to try to discuss things, and he actually acknowledged that what she said about him being noncompliant with his medication and not doing his exercise properly is right. Pain is still an issue, although he did get an injection in his neck which he says only helped minimally. He also goes to physical therapy and the chiropractor. Also will be seeing the neurologist in [place] next month. Today he reports fatigue, over the past month, and was asking if any of the medications I am prescribing could do this. The only new change we have made is that we started Namenda a little more than a month ago. He is on 28 mg q.day and does not notice much difference in his memory. Also remains on Cymbalta 90 mg q.day, BuSpar 15 mg b.i.d., bupropion 200 mg b.i.d., Abilify 5 mg q.a.m.. Tremors relatively unchanged. Continues to experience Visual illusions. Average Number of Hours of Sleep 7 Sleep Quality frequent awakening Change in PMFSH Releveant to Presenting Illness Yes Describe Changes in PMFSH increased fatigue Review of Systems Review of Systems Constitutional Reports fatigue Eyes Reports other ( glaucoma) ENT Reports WNL Respiratory Reports WNL Cardiovascular Reports other ( cerebral hemorrhage, arterial sclerosis) Gastrointestinal Reports other ( history of diverticulitis) Musculoskeletal Reports diminished strength, Reports muscle stiffness and Reports other ( chronic pain) Neurologic Reports other ( bilateral DBS, cerebral hemorrhage, balance issues) Skin Reports WNL ADL's Reports WNL Exam Physical Exam Review of Lab Studies n/a Hygiene good General Behavior/Attitude Toward Examiner pleasant and cooperative Pain Yes Pain Location neck Pain Characteristics chronic and aching Psychiatric Exam Level of Consciousness alert Orientation person, place, time and situation Speech normal rate/tone/volume/prosody and coherent Language able to follow instructions or commands Mood less irritable Affect blunted Thought Processes/Form logical, linear and goal directed Thought Content depressive symptoms Delusions none Homicidal/Assaultive Ideation none Suicidal Ideation none Hallucinations none Attention/Concentration focused Attention/Concentration Testing Methods observation/interview Short Term Memory Impairment mild STM Testing Methods clinical interview (assessment/observation) [facility] Memory Impairment none LTM Testing Methods recall of biographical information Intellectual Functioning roughly average Intellectual Functioning Assessed By fund of knowledge Insight fair Insight Assessed By ability to recognize & acknowledge mental illness, ability to understand the implications of mental illness, understanding of treatment options and ability to comply with treatment Judgement fair Judgement Assessed By exploring recent decision-making MMSE n/a Patient Assets willing to accept treatment, able to perform ADLs Patient Liabilities marital stressors, memory issues Assessment and Plan Clinical Impression/Diag Clinical Impression/Diagnosis F 33.2, continue IOP, monitor meds, will DC Namenda Progress Overview Reason for Continued Services in an Intensive Outpatient Program continued impaired mood and.or depression, patient would decompenste at a lower level of care, not at baseline level of functioning and high risk for relapse Treatment To Be Provided medication management and group/individual/rec therapy Discharge Disposition/Level of Care PCP Anticipated Discharge 8-12 weeks Certification Statement Certification Statement I believe this patient requires the services of the Intensive Outpatient Program and that there is reasonable expectation that the patient will make timely and significant practical improvement in the presenting acute symptoms as a result of this Intensive Outpatient Program. I do not believe this patient will benefit from a lesser level of care or could be adequately and appropriately treated in a less restrictive environment. My decision is based on the preceding clinical information.
--- NOTE | 2025-01-02 14:04 | PC.NURSE ---
No nursing group due to MD visit.
[2025-01-07 10:21] VITALS: BP 130/73; PULSE 93; RESP 20; TEMP 37.1; O2SAT 96
== END 2025-01-08 23:59 | disposition home or self-care (01) ==
LOC: CHSSENLIFE 10:00
PROVIDERS: PCP Family Medicine; Visit Provider Psychiatry & Neurology Psychiatry
DX: F33.2 Major depressive disorder, recurrent severe without psychotic features (principal)
CPT/HCPCS: 90847; 90853; 99213; 99214; G0463

== ENCOUNTER 2025-02-18 08:52 | Emergency (ER) | payer MEDICARE, OTHER, SELFPAY ==
[2025-02-18 08:59] VITALS: BP 127/86; PULSE 90; RESP 18; TEMP 36.6; O2SAT 100
[2025-02-18] MEDS: SILVER NITRATE (*SP) STICK 4 EACH TOPICAL (09:05)
--- NOTE | 2025-02-18 09:09 | ED_ITS ---
HPI - Wound/Laceration General Chief Complaint: Wound/Laceration Stated Complaint: cut left ring finger Time Seen by Provider: 02/18/25 08:57 Source: patient Mode of arrival: ambulatory Limitations: no limitations History of Present Illness HPI narrative: patient is a 69-year-old male with a significant past medical history that presents today with a laceration. Patient has a laceration to the left ring finger at the tip. He was using a saw and sliced off the tip of the left ring finger. It is still bleeding after he put a Lot of gauze on that finger. It is still bleeding with the gauze was removed. Onset (ago): hour(s) Location: other ( Left ring finger) Place: home Patient tetanus UTD: No Context: accidental Associated symptoms: pain Related Data Home Medications ?Medication ?Instructions ?Recorded ?Confirmed ?Last Taken ?Type bimatoprost 0.01 % eye drops 1 drp EACH EYE HS 02/20/20 09/25/24 09/16/24 History (Harika) bupropion HCl 200 mg tablet,12 hr 200 mg PO BID 11/10/20 09/25/24 09/16/24 History sustained-release famotidine 20 mg tablet 20 mg PO BID 11/10/20 09/25/24 09/17/24 History buspirone 15 mg tablet 15 mg PO BID 08/05/23 09/25/24 09/16/24 History metformin 500 mg tablet 1,000 mg PO DIRECTED 08/05/23 09/25/24 09/17/24 History montelukast 10 mg tablet 10 mg PO HS 08/05/23 09/25/24 09/16/24 History albuterol sulfate 90 mcg/actuation 90 mcg inhalation PRN PRN 05/13/24 09/25/24 08/16/24 History aerosol inhaler (Ventolin HFA) Shortness Of Breath aripiprazole 2 mg tablet 3 mg PO DAILY 09/06/24 09/25/24 09/16/24 History duloxetine 30 mg capsule,delayed 30 mg PO DAILY 09/06/24 09/25/24 09/16/24 History release duloxetine 60 mg capsule,delayed 60 mg PO DAILY 09/06/24 09/25/24 09/16/24 History release ferrous sulfate 325 mg (65 mg 325 mg PO DAILY 09/06/24 09/25/24 09/16/24 History iron) capsule,extended release finasteride 5 mg tablet 5 mg PO DAILY 09/06/24 09/25/24 09/16/24 History fluticasone 232 mcg-salmeterol 14 1 inh inhalation DAILY 09/06/24 09/25/24 09/16/24 History mcg/actuation breath activated powdr men multi vit gummy 1 gummy PO DAILY 09/06/24 09/25/24 09/16/24 History primidone 50 mg tablet 250 mg PO DIRECTED 09/06/24 09/25/24 09/16/24 History Allergies Allergy/AdvReac Type Severity Reaction Status Date / Time Penicillins Allergy Intermediate MUSCLE Verified 02/18/25 09:18 SPASMS Review of Systems Review of Systems: All systems reviewed & are unremarkable except as noted in HPI and below Constitutional: Constitutional: Reports as per HPI Eyes: Eyes: Reports no additional eye complaints ENT: Reports system reviewed and no additional complaints, except as documented Cardiovascular: Cardiovascular: Reports no additional cardiovascular complaints Respiratory: Respiratory: Reports no additional respiratory complaints Gastrointestinal: Gastrointestinal: Reports no additional gastrointestinal complaints Genitourinary: Genitourinary: Reports no additional male genitourinary complaints Musculoskeletal: Musculoskeletal: Reports as per HPI Integumentary/Breasts: Skin/Breast: Reports as per HPI Comments: tip of left ring finger cut off Neurologic: Reports system reviewed and no additional complaints, except as documented Psychiatric: Psychiatric: Reports no additional psychiatric complaints Endocrine: Endocrine: Reports no additional endocrine complaints Hematologic/Lymphatic: Hematologic/Lymphatic: Reports no additional hematologic/lymphatic complaints Allergic/Immunologic: Allergic/Immunologic: Reports no additional allergic/immunologic complaints [facility] Past Medical History Medical History Type 2 diabetes with kidney complications Chest pain GERD (gastroesophageal reflux disease) Essential tremor Vitamin D deficiency Diabetes 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 Phimosis Sleep apnea COPD (chronic obstructive pulmonary disease) Migraine Glaucoma Cataract Surgical History Surgical History History of thumb surgery History of back surgery History of lumbar fusion L3-L6 H/O hand surgery Left Family History Family History Mother Alzheimers disease Essential tremor Father Aneurysm Sibling Atherosclerosis Social History Social History Smoking packs per day: 0.5 Smoking cigarettes per day: 10.0 Years smoked: 10 Smoking pack-years: 5.00 Smoking status: Current every day smoker Tobacco type: cigarettes Alcohol intake: never Substance use: never Substance use type: does not use Do You Feel Safe in your Home?: Yes Lack of Transportation: No Lack of Food: Never True Current Housing: I Have Housing Concerned About Future Housing: No Difficulty Paying Gas/Electric Bills: No Difficulty Paying for Meds: No Currently Unemployed: No Education: High School Diploma/GED Difficulty w/ Childcare or Family Care: No Living arrangements: with family Gender identity (if verbalized by the patient): Male Spiritual care concerns: No Exam Const: General: healthy appearing Nutritional Appearance: well nourished Orientation/consciousness: patient oriented x3 Limitations: no limitations HENMT: Head: normal to inspection Ears: external ears normal F yovani/Nose/Sinus: Normal external nose present Face and sinus: normal facial exam Mouth: Yes Normal oral and palatal mucosa present Teeth and gingiva: dentition normal Eyes: Conjunctivae: conjunctivae normal Pupils: Equal, round and reactive pupils present EOM: EOMs intact bilaterally Direct Ophthalmoscopy: no photophobia Neck: Neck: normal visual inspection Chest: Chest palpation & inspection: normal inspection of the chest Resp: Effort & Inspection: normal respiratory effort Auscultation: clear to auscultation bilaterally Cardio: Rate: regular rate Rhythm: regular rhythm GI: GI Palp: Yes Soft to palpation Back/Spine/Pelvis: Back: no CVA tenderness Skin: General skin exam: normal color Rashes: no rashes Wounds: wounds noted ( laceration to the tip left ring finger) Neuro: General: patient oriented x3 Cranial nerves: Yes Nystagmus not present Speech: normal speech Extrem: General: normal to inspection Psych: Mental Status: mental status grossly normal Affect: normal affect Attitude: cooperative Course Vital Signs Vital signs: Vital Signs Temperature 97.9 F 02/18/25 08:59 Pulse Rate 90 02/18/25 08:59 Respiratory Rate 18 02/18/25 08:59 Blood Pressure 127/86 02/18/25 08:59 Pulse Oximetry 100 02/18/25 08:59 Oxygen Delivery Room Air 02/18/25 08:59 Temperature 97.9 F 02/18/25 08:59 Pulse Rate 90 02/18/25 08:59 Respiratory Rate 18 02/18/25 08:59 Blood Pressure 127/86 02/18/25 08:59 Pulse Oximetry 100 02/18/25 08:59 Oxygen Delivery Room Air 02/18/25 08:59 MDM - Wound/Laceration MDM Narrative Medical decision making narrative: patient has a laceration to the left ring finger at the very tip. He says he was using a saw and cut off the tip the left ring finger. He said he cannot get the bleeding to stop med applied as much pressure as he could and put on a lot of gauze at home and is still do not stop bleeding. We used silver nitrate sticks after thoroughly cleaning the area and disinfecting it and then will cover the wound. Differential Diagnosis Differential diagnosis: Likely laceration Medical Records Attestation: I reviewed the patient's medical records. Discharge Plan Discharge Clinical Impression: Laceration Patient Disposition: Home Condition: Stable Instructions: Antibiotic Form, Laceration (ED) Patient Language: Yi Prescriptions: New doxycycline hyclate 100 mg tablet 100 mg PO BID Qty: 20 0RF No Action metformin 500 mg tablet 1,000 mg PO DIRECTED Rx Instructions: 500mg am 1000 mg pm montelukast 10 mg tablet 10 mg PO HS buspirone 15 mg tablet 15 mg PO BID albuterol sulfate [Ventolin HFA] 90 mcg/actuation HFA aerosol inhaler 90 mcg inhalation PRN PRN (Reason: Shortness Of Breath) famotidine 20 mg tablet 20 mg PO BID bupropion HCl 200 mg tablet sustained-release 12 hr 200 mg PO BID acetaminophen 325 mg Tablet 650 mg PO Q4H PRN (Reason: mild to moderate pain) Qty: 60 0RF Lumigan 0.01 % drops 1 drp EACH EYE HS primidone 50 mg tablet 250 mg PO DIRECTED Rx Instructions: 50 mg x2tab in am 50 mg x 3tab hs finasteride 5 mg tablet 5 mg PO DAILY duloxetine 30 mg capsule,delayed release(DR/EC) 30 mg PO DAILY duloxetine 60 mg capsule,delayed release(DR/EC) 60 mg PO DAILY aripiprazole 2 mg tablet 3 mg PO DAILY fluticasone propion-salmeterol 232-14 mcg/actuation aerosol powdr breath activated 1 inh INHALATION DAILY ferrous sulfate 325 mg (65 mg iron) Capsule, Extended Release 325 mg PO DAILY men multi vit gummy 1 gummy PO DAILY Follow-up/Referrals: Adama Faustin MD [Primary Care Provider] - Time of Disposition: 09:26
--- OUTSIDE RECORDS SUMMARY | 2025-02-18 09:17 | XMS_ITS ---
Author Organization [facility] Address [address] [place], [place] [id number] Care Team Providers Care Plant Custodian Name Role Phone Adama Faustin Unavailable Unavailable ANGIE DUVAL Unavailable [phone] Allergies Allergen (clinical drug ingredient) Drug/Non Drug Allergy documented on EMR Reaction Allergy Type Onset Date Status Penicillin Unknown Drug Allergy Active REASON FOR VISIT Patient presents for at-risk foot care . The patient has painful toenails that are causing difficulty with ambulation and shoegear. The onset is gradual. The patient has diabetes mellitus Medications Medication SIG (Take, Route, Fr equency, Duration) Notes Start Date End Date Status Famotidine Active metFORMIN HCl Active Montelukast Sodium A ctive Clindamycin HCl Acti ve Fluticasone Propionate Active busPIRone HCl Active MiraLax Active buPROPion HCl Active Escitalopram Oxalate Active Encounters Encounter Location Date Provider Diagnosis [address] [id number] 12/12/2024 ANGIE DUVAL Tinea unguium B35.1 ; Pain in right toe(s) M79.674 ; Pain in left toe(s) M79.675 ; Atherosclerosis of alutiiq arteries of extremities with intermittent claudication, bilateral legs I70.213 and Type 2 diabetes mellitus with other circulatory complications E11.59 Assessments Encounter Date Diagnosis (ICD Code) Assessment Notes Treatment Notes Treatment Clinical Notes Section Notes 12/12/2024 Tinea unguium (ICD-10 - B35.1) NAIL DEBRIDEMENT: Nails 1-5 Bilateral were debrided extensively with nail nippers and emery board, reducing length and girth to pink healthy tissue with any subungual debris and necrotic tissue removed 12/12/2024 Pain in right toe(s) (ICD-10 - M79.674) 12/12/2024 Pain in left toe(s) (ICD-10 - M79.675) 12/12/2024 Atherosclerosis of alutiiq arteries of extremities with intermittent claudication, bilateral legs (ICD-10 - I70.213) 12/12/2024 Type 2 diabetes mellitus with other circulatory complications (ICD-10 - E11.59) Diabetic Foot Care: The patient was educated on diabetes and the lower extremity. The patient was instructed to check his feet daily to report any problems or signs of infection immediately. The patient was provided written information on Diabetic Foot Care as well as the Amputation Prevention Guide. Plan Of Treatment Treatment Notes Assessment Notes Tinea unguium NAIL DEBRIDEMENT: Na ils 1-5 Bilateral were debrided extensively with nail nippers and emery board, reducing length and girth to pink healthy tissue with any subungual debris and necrotic tissue removed Type 2 diabetes mellitus wit h other circulatory complications Diabetic Foot Care: The patient was educated on diabetes and the lower extremity. The patient was instructed to check his feet daily to report any problems or signs of infection immediately. The patient was provided written information on Diabetic Foot Care as well as the Amputation Prevention Guide. Next Appt Details Follow Up: 10 - 12 weeks, Re ason: At-Risk Foot care, sooner if problems develop. Provider Name:CHARLES RAMOS, 03/06/2025 08:30:00 AM, [address] [place] [address], [phone], Progress Notes * America WADEhDOB: 7 (69 yo M)Acc No.[id number]:12/12/2024 Patient: Rishi RICH Provider: Emma Duval DPM :1955 A ge:69 Y S ex:Male Date:12/12/2024 Address:[address] [place], [place] [id number] Subjective: * Chief Complaints: * Cindy luna presents for at-risk foot care . The patient has painful toenails that are causing difficulty with ambulation and shoegear. The onset is gradual. The patient has diabetes mellitus * HPI: H PI: General care Cindy luna presents to the office for diabetic foot care. Patient states that their nails are thickened, elongated and painful. Patient states that it is aggravated by shoe gear. Onset is gradual., Patient denies taking blood thinners., Date last seen by Dr. Faustin was 11/2024., Initials [facility] , Patient presents to the office for diabetic foot care. Patient states that their nails are thickened, elongated and painful. Patient states that it is aggravated by shoe gear. Onset is gradual., Patient denies taking blood thinners., Date last seen by Dr. Jessica was March 2024., Initials . * Medical History: * Surgical History: * Hospitalization/Major Diagno stic Procedure: * Medications: T akingMiraLax Escitalopram Oxalate buPROPion HCl busPIRone HCl Famotidine Montelukast Sodium metFORMIN HCl Fluticasone Propionate Clindamycin HCl Medication List reviewed and reconciled with the patientTaking MiraLax Taking Escitalopram Oxalate Taking buPROPion HCl Taking busPIRone HCl Taking Famotidine Taking Montelukast Sodium Taking metFORMIN HCl Taking Fluticasone Propionate Taking Clindamycin HCl Medication List reviewed and reconciled with the patient * Allergies: P enicillinno[Allergies Verified] Objective: * Vitals: * Examination: P hysical Examination: General appearance: A lert, pleasant, well-nourished and in no acute distress. D ermatologic: Skin findings: S kin is thin, atrophic and lacking pedal hair. Nail pathology: N ails 1, 2, 3, 4, and 5 bilateral are elongated, thick, discolored, and dystrophic with subungual debris. They are painful to palpation. ? V ascular: Dorsalis pedis pulse: 1 /4 b ilateral. Posterior tibial pulse: 0 /4 bilateral. Capillary refill: g reater than 3 seconds. Edema: N o edema bilateral. N eurologic: Gross sensation G rossly intact to light touch. There is negative Tinel's sign. M usculoskeletal: Muscle Strength M uscle strength is 5/5 in regards to dorsiflexion, plantarflexion, inversion, and eversion in bilateral lower extremities. ? Assessment: * Assessment: 1. T inea unguium - B35.1 (Primary) 2 . P ain in right toe(s) - M79.674? 3. P ain in left toe(s) - M79.675 4 . A therosclerosis of alutiiq arteries of extremities with intermittent claudication, bilateral legs - I70.213 5 . T ype 2 diabetes mellitus with other circulatory complications - E11.59 Plan: * Treatment: 2. T ype 2 diabetes mellitus with other circulatory complications Notes: Diabetic Foot Care: The patient was educated on diabetes and the lower extremity. The patient was instructed to check his feet daily to report any problems or signs of infection immediately. The patient was provided written information on Diabetic Foot Care as well as the Amputation Prevention Guide. * Procedure Codes: 1 1721 DEBRIDE NAIL, 6 OR MORE, Modifiers: Q8 * Follow Up: 1 0 - 12 weeks (Reason: At-Risk Foot care, sooner if problems develop.) * Billing Information: * Visit Code: * Procedure Codes: 04854 DEBRIDE NAIL, 6 OR MORE. Modifiers: Q8 * ON PICTURE DIRECTOR Sign off status: Completed true * Provider: Emma Duval DPM Date: 0 12/12/2024 Generated for Haily graf/Franco/Remberto on: 0 02/18/2025 09:16 AM CDT History and Physical Notes * HPI (History of Present Illness) Category Sub-Category Detail Notes Category Not es HPI General care Patient presents to the office for diabetic foot care. Patient states that their nails are thickened, elongated and painful. Patient states that it is aggravated by shoe gear. Onset is gradual., Patient denies taking blood thinners., Date last seen by Dr. Faustin was 11/2024., Initials [facility] , Patient presents to the office for diabetic foot care. Patient states that their nails are thickened, elongated and painful. Patient states that it is aggravated by shoe gear. Onset is gradual., Patient denies taking blood thinners., Date last seen by Dr. Jessica was March 2024., Initials JR Examination Category Sub-Category Detail Notes Category Not es Dermatologic Skin findings: Skin is thin, at rophic and lacking pedal hair Nail pathology: Nails 1, 2, 3, 4, an d 5 bilateral are elongated, thick, discolored, and dystrophic with subungual debris. They are painful to palpation Neurologic Gross sensation Grossly intact t o light touch. There is negative Tinel's sign Vascular Dorsalis pedis pulse: 1/4 bilateral Edema: No edema bilateral Capillary refill: greater than 3 secon ds Posterior tibial pulse: 0/4 bilateral Physical Examination General appearance: Alert, pleasant, well-nourished and in no acute distress Musculoskeletal Muscle Strength Muscle strength is 5/5 in regards to dorsiflexion, plantarflexion, inversion, and eversion in bilateral lower extremities
--- OUTSIDE RECORDS SUMMARY | 2025-02-18 09:17 | XMS_ITS | CONTINUITY OF CARE DOCUMENT ---
Author Name isabel, franciscoser Address Unknown Organization [facility] Address [address] [place] [address] Phone [phone] Care Team Providers Care Top Lift Compressor Name Role Phone Wai Diamond MD Unavailable JENNIFER DIAZ MD RETIRED Unavailable JENNIFER DIAZ MD RETIREMarshall Unavailable PROBLEMS Condition Status Date Provider Notes Dizziness active Wai Diamond MD Lightheadedness active Wai Diamond MD Chest pain-type to be determined active Mayi Diamond MD Tobacco abuse active Wai Diamond MD Depression active Wai Diamond MD DJD active Wai Diamond MD Migraine active Wai Diamond MD ?Obstructive sleep apnea active Wai murrieta MD ENCOUNTERS Date Type Provider Location Encounter Diag nosis - In-person encounter Office Visit [facility] [place] [facility] ?Obstructive sleep apnea - In-person encounter Office Visit [facility] [place] [facility] - In-person encounter Office Visit [facility] [place] [facility] DizzinessLightheadednessChest pain-type to be determinedTobacco abuseDepressionDJDMigraine VITAL SIGNS Date Observation Value Provider blood pressure, diastolic 64 mm[Hg] Jordy Diamond MD blood pressure, systolic 108 mm[Hg] Mayi Diamond MD Body Mass Index (Ratio) 29.14 kg/m2 Otf Diamond MD pulse rate 82 /min Wai Diamond MD oxygen saturation, oximetry 96 % Wai Diamond MD respiratory rate E&M 16 /min Christ Diamond MD weight E&M 227 [lb_av] Wai Diamond MD blood pressure, diastolic 70 mm[Hg] Jordy Diamond MD blood pressure, systolic 110 mm[Hg] Mayi Diamond MD oxygen saturation, oximetry 97 % Wai Diamond MD pulse rate 65 /min Wai Diamond MD Body Mass Index (Ratio) 28.89 kg/m2 Otf Diamond MD height E&M 74 [in_i] Wai Diamond MD blood pressure, diastolic 80 mm[Hg] Jordy Diamond MD blood pressure, systolic 118 mm[Hg] Mayi Diamond MD respiratory rate E&M 20 /min Christ Diamond MD oxygen saturation, oximetry 97 % Wai Diamond MD pulse rate 67 /min Wai Diamond MD weight E&M 225 [lb_av] Wai Diamond MD ALLERGIES Allergy Name Onset Date Reaction Criticality Status PENICILLIN High Criticality active HISTORY OF MEDICATION USE Medication Status Instructions Dates Provider Indications Com ments NITROSTAT 0.4 MG SUBLINGUAL TABLET SUBLINGUAL active sublingual prn Wai Diamond MD MECLIZINE HCL 12.5 MG ORAL TABLET active One tablet daily. Wai Diamond MD VENTOLIN HFA 108 (90 Base) MCG/ACT INHALATION AEROSOL SOLUTION active 2 puffs as needed Wai Diamond MD SERTRALINE HCL TABS (SERTRALINE HCL TABS) active 1.5 tabs daily Wai Diamond MD Strength unknown RANITIDINE HCL 150 MG ORAL TABLET active ONE TAB DAILY Wai Diamond MD ALPRAZOLAM 0.5 MG ORAL TABLET active One tablet daily Wai Diamond MD NAPROXEN SODIUM 220 MG ORAL CAPSULE active Once daily Wai Diamond MD ASPIRIN 81 MG ORAL TABLET active ONE TAB. DAILY Wai Diamond MD SOCIAL HISTORY Date Observation Value Provider cigarette use yes Wai Diamond MD social history E&M Marital Statu s: . Smoking History: P atient currently smokes every day. P atient has been counseled to quit. Wai Diamond MD smoking/tobacco cess ation, patient education and counseling yes Wai Diamond MD smoking status Current every day smoker M daisy Diamond MD social history reviewed E&M revi ewed - no changes required Wai Diamond MD social history E&M Marital Statu s: . Smoking History: P atient currently smokes every day. P atient has been counseled to quit. Wai Diamond MD smoking/tobacco cess ation, patient education and counseling yes Wai Diamond MD smoking status Current every day smoker M daisy Diamond MD social history reviewed E&M revi ewed - no changes required Wai Diamond MD social history E&M Marital Statu s: . Smoking History: P atient currently smokes every day. P atient has been counseled to quit. Wai Diamond MD smoking/tobacco cess ation, patient education and counseling yes Wai Diamond MD smoking status Current every day smoker M daisy Diamond MD social history reviewed E&M revi ewed - no changes required Wai Diamond MD FAMILY HISTORY Family Member Condition Mother Family History of Co ngestive Heart Failure: Father Family History of Di abetes: Father Family History of Al coholism: INSURANCE PROVIDERS Payer name Policy type / Coverage type [employer] [facility] [employer] Other [id number] TREATMENT PLAN Date Name Performer Cardiology Wai Olivares Cardiology:On sertraline and alp razolam. Wai Diamond MD Cardiology:On Naproxen. Wai Diamond MD Cardiology:Strongly advised to q uit smoking. Wai Diamond MD Cardiology:Much impr amanda. His stress test was normal. However he continues to have chest pain. If he continues to have chest pain, cardiac catheterization is advised. Nitroglycerin sublingual PRN has been given. Wai Diamond MD Cardiology:Much impr amanda. His recent event monitor shows normal sinus rhythm and occasional PACs. His carotid doppler showed no significant stenosis. Wai Diamond MD printed to [place] 05/13/15: O rders: S TR - Nuclear ([id number]) C arotid Duplex Bilateral (CPT-89029) Wai Diamond MD printed to [place] 05/13/15: O rders: S TR - Nuclear ([id number]) C arotid Duplex Bilateral (CPT-78692) Wai Diamond MD printed to [place] 05/13/15: O rders: S TR - Nuclear ([id number]) C arotid Duplex Bilateral (CPT-59839) Wai Diamond MD printed to [place] 05/13/15: H is updated medication list for this problem includes: Alprazolam 0.5 Mg Tabs (Alprazolam) ..... One tablet daily Aspirin 81 Mg Tabs (Aspirin) ..... One tab. daily Orders: S TR - Nuclear ([id number]) C arotid Duplex Bilateral (CPT-41696) Wai Diamond MD printed to [place] 05/13/15: H is updated medication list for this problem includes: Alprazolam 0.5 Mg Tabs (Alprazolam) ..... One tablet daily Aspirin 81 Mg Tabs (Aspirin) ..... One tab. daily Wai Diamond MD printed to [place] 05/13/15: H is updated medication list for this problem includes: Aspirin 81 Mg Tabs (Aspirin) ..... One tab. daily Orders: S TR - Nuclear ([id number]) C arotid Duplex Bilateral (CPT-26032) Wai Diamond MD printed to [place] 05/13/15: O rders: S TR - Adenosine ([id number]) Wai Diamond MD printed to [place] 05/13/15: O rders: S TR - Adenosine (90745) S TR - Adenosine (51389) Wai Diamond MD printed to [place] 05/13/15: O rders: S TR - Adenosine (25224) S TR - Adenosine (04448) Wai Diamond MD printed to [place] 05/13/15: H is updated medication list for this problem includes: Alprazolam 0.5 Mg Tabs (Alprazolam) ..... One tablet daily Aspirin 81 Mg Tabs (Aspirin) ..... One tab. daily Orders: S TR - Adenosine (53239) S TR - Adenosine (33915) Wai Diamond MD printed to [place] 05/13/15: H is updated medication list for this problem includes: Alprazolam 0.5 Mg Tabs (Alprazolam) ..... One tablet daily Aspirin 81 Mg Tabs (Aspirin) ..... One tab. daily Orders: S TR - Adenosine (03860) Wai Diamond MD printed to [place] 05/13/15: H is updated medication list for this problem includes: Aspirin 81 Mg Tabs (Aspirin) ..... One tab. daily Orders: S TR - Adenosine ([id number]) S TR - Adenosine (04041) Wai Diamond MD faxed 04/06/15 1101: O rders: M obile Cardiac Tele (CPT-84363) Wai Diamond MD faxed 04/06/15 1101: H is updated medication list for this problem includes: Naproxen Sodium 220 Mg Oral Caps (Naproxen sodium) ..... Once daily Aspirin 81 Mg Tabs (Aspirin) ..... One tab. daily Orders: obile Cardiac Tele (CPT-88913) Wai Diamond MD faxed 04/06/15 1101: O rders: obile Cardiac Tele (CPT-[id number]) Wai Diamond MD faxed 04/06/15 1101: H is updated medication list for this problem includes: Alprazolam 0.5 Mg Tabs (Alprazolam) ..... One tablet daily Aspirin 81 Mg Tabs (Aspirin) ..... One tab. daily O rders: [facility]97188[facility] Wai Diamond MD faxed 04/06/15 1101: H is updated medication list for this problem includes: Aspirin 81 Mg Tabs (Aspirin) ..... One tab. daily Orders: S TR - Adenosine (14192) obile Cardiac Tele (CPT-72020) Wai Diamond MD faxed 04/06/15 1101: H is updated medication list for this problem includes: Alprazolam 0.5 Mg Tabs (Alprazolam) ..... One tablet daily Aspirin 81 Mg Tabs (Aspirin) ..... One tab. daily O rders: S TR - Adenosine (79382) [facility] Cardiac Tele (CPT-93998) Wai Diamond MD Date Name Sleep Study Home Carotid Duplex Bilat eral STR - Nuclear Mobile Cardiac Tele STR - Adenosine
--- OUTSIDE RECORDS SUMMARY | 2025-02-18 09:17 | XMS_ITS | Patient Health Record ---
Author Organization [facility] Address [address] [place], [place] [address] Care Team Providers Care [employer] Center Supervisor Name Role Phone Adama Faustin Unavailable Unavailable SIMIN ANGIE Unavailable [phone] BONITA LEWIS Unavailable [phone] Allergies Allergen (clinical drug ingredient) Drug/Non Drug Allergy documented on EMR Reaction Allergy Type Onset Date Status Penicillin Unknown Drug Allergy Active Reason For Referral No Information Medications Medication SIG (Take, Route, Fr equency, Duration) Notes Start Date End Date Status Famotidine Active busPIRone HCl Active metFORMIN HCl Active Montelukast Sodium A ctive MiraLax Active buPROPion HCl Active Escitalopram Oxalate Active Clindamycin HCl Acti ve Fluticasone Propionate Active Vital Signs Height-cm 177.8 cm 05/30/2024 Weight-kg 102.06 kg 05/30/2024 Height 70 in 05/30/2024 Weight 225 lbs 05/30/2024 BMI 32.28 kg/m2 05/30/2024 Encounters Encounter Location Date Provider Diagnosis [facility] [address] [place], [place] [id number] 03/21/2024 BONITA LEWIS Other hammer toe(s) (acquired), right foot M20.41 ; Tinea unguium B35.1 ; Other hammer toe(s) (acquired), left foot M20.42 ; Pain in right toe(s) M79.674 ; Pain in left toe(s) M79.675 ; Unspecified atherosclerosis of kashia arteries of extremities, bilateral legs I70.203 and Type 2 diabetes mellitus with diabetic peripheral angiopathy without gangrene E11.51 [facility] [address] [place], [place] [id number] 05/30/2024 BONITA PALENCIAJAY Other hammer toe(s) (acquired), right foot M20.41 ; Tinea unguium B35.1 ; Other hammer toe(s) (acquired), left foot M20.42 ; Pain in right toe(s) M79.674 ; Pain in left toe(s) M79.675 ; Unspecified atherosclerosis of kashia arteries of extremities, bilateral legs I70.203 and Type 2 diabetes mellitus with diabetic peripheral angiopathy without gangrene E11.[address] [id number] 08/01/2024 BONITA PALENCIAJAY Other hammer toe(s) (acquired), right foot M20.41 ; Tinea unguium B35.1 ; Other hammer toe(s) (acquired), left foot M20.42 ; Pain in right toe(s) M79.674 ; Pain in left toe(s) M79.675 ; Unspecified atherosclerosis of kashia arteries of extremities, bilateral legs I70.203 and Type 2 diabetes mellitus with diabetic peripheral angiopathy without gangrene E11.[address] [id number] 10/10/2024 BONITA PALENCIAJAY Other hammer toe(s) (acquired), right foot M20.41 ; Tinea unguium B35.1 ; Other hammer toe(s) (acquired), left foot M20.42 ; Pain in right toe(s) M79.674 ; Pain in left toe(s) M79.675 ; Unspecified atherosclerosis of kashia arteries of extremities, bilateral legs I70.203 and Type 2 diabetes mellitus with diabetic peripheral angiopathy without gangrene E11.[address] [id number] 12/12/2024 ANGIE DUVAL Tinea unguium B35.1 ; Pain in right toe(s) M79.674 ; Pain in left toe(s) M79.675 ; Atherosclerosis of kashia arteries of extremities with intermittent claudication, bilateral legs I70.213 and Type 2 diabetes mellitus with other circulatory complications E11.59 Assessments Encounter Date Diagnosis (ICD Code) Assessment Notes Treatment Notes Treatment Clinical Notes Section Notes 03/21/2024 Tinea unguium (ICD-10 - B35.1) Aseptic debridement of elongated thickened nails x 10 using sterile nippers, nails were debrided in length and thickness by 30% utilizing a nail nipper without incident. The patient was educated regarding all treatment options that include topical and oral antifungal treatments. I discussed the options of taking a sample of the nail to confirm diagnosis. Nail clippings were not sent for pathology analysis. The patient was educated why and how the fungal infection evolved in their feet and the patient was given information regarding how to prevent further infection. The patient was told to keep feet dry and change socks. The patient was told to be careful with old shoes and excessive sweating. The patient was educated regarding both OTC and prescription treatments. 03/21/2024 Other hammer toe(s) (acquired), right foot (ICD-10 - M20.41) The patient was educated regarding how to mechanically stabilize their deformity. The patient was given education about shoe recommendations specific for the condition. The patient was educated about custom orthotics and how appropriate shoes and orthotics can prevent further worsening of the deformity. The patient was educated about how bad shoe habits can worsen the condition. NSAIDS, P.T., injections and other conservative treatments were discussed. Both surgical and non surgical treatments were discussed, but conservative options were emphasized. 05/30/2024 Tinea unguium (ICD-10 - B35.1) Aseptic debridement of elongated thickened nails x 10 using sterile nippers, nails were debrided in length and thickness by 30% utilizing a nail nipper without incident. The patient was educated regarding all treatment options that include topical and oral antifungal treatments. I discussed the options of taking a sample of the nail to confirm diagnosis. Nail clippings were not sent for pathology analysis. The patient was educated why and how the fungal infection evolved in their feet and the patient was given information regarding how to prevent further infection. The patient was told to keep feet dry and change socks. The patient was told to be careful with old shoes and excessive sweating. The patient was educated regarding both OTC and prescription treatments. 05/30/2024 Other hammer toe(s) (acquired), right foot (ICD-10 - M20.41) The patient was educated regarding how to mechanically stabilize their deformity. The patient was given education about shoe recommendations specific for the condition. The patient was educated about custom orthotics and how appropriate shoes and orthotics can prevent further worsening of the deformity. The patient was educated about how bad shoe habits can worsen the condition. NSAIDS, P.T., injections and other conservative treatments were discussed. Both surgical and non surgical treatments were discussed, but conservative options were emphasized. 08/01/2024 Tinea unguium (ICD-10 - B35.1) Aseptic debridement of elongated thickened nails x 10 using sterile nippers, nails were debrided in length and thickness by 30% utilizing a nail nipper without incident. The patient was educated regarding all treatment options that include topical and oral antifungal treatments. I discussed the options of taking a sample of the nail to confirm diagnosis. Nail clippings were not sent for pathology analysis. The patient was educated why and how the fungal infection evolved in their feet and the patient was given information regarding how to prevent further infection. The patient was told to keep feet dry and change socks. The patient was told to be careful with old shoes and excessive sweating. The patient was educated regarding both OTC and prescription treatments. 08/01/2024 Other hammer toe(s) (acquired), right foot (ICD-10 - M20.41) The patient was educated regarding how to mechanically stabilize their deformity. The patient was given education about shoe recommendations specific for the condition. The patient was educated about custom orthotics and how appropriate shoes and orthotics can prevent further worsening of the deformity. The patient was educated about how bad shoe habits can worsen the condition. NSAIDS, P.T., injections and other conservative treatments were discussed. Both surgical and non surgical treatments were discussed, but conservative options were emphasized. 10/10/2024 Other hammer toe(s) (acquired), right foot (ICD-10 - M20.41) The patient was educated regarding how to mechanically stabilize their deformity. The patient was given education about shoe recommendations specific for the condition. The patient was educated about custom orthotics and how appropriate shoes and orthotics can prevent further worsening of the deformity. The patient was educated about how bad shoe habits can worsen the condition. NSAIDS, P.T., injections and other conservative treatments were discussed. Both surgical and non surgical treatments were discussed, but conservative options were emphasized. 10/10/2024 Tinea unguium (ICD-10 - B35.1) Aseptic debridement of elongated thickened nails x 10 using sterile nippers, nails were debrided in length and thickness by 30% utilizing a nail nipper without incident. The patient was educated regarding all treatment options that include topical and oral antifungal treatments. I discussed the options of taking a sample of the nail to confirm diagnosis. Nail clippings were not sent for pathology analysis. The patient was educated why and how the fungal infection evolved in their feet and the patient was given information regarding how to prevent further infection. The patient was told to keep feet dry and change socks. The patient was told to be careful with old shoes and excessive sweating. The patient was educated regarding both OTC and prescription treatments. 12/12/2024 Tinea unguium (ICD-10 - B35.1) NAIL DEBRIDEMENT: Nails 1-5 Bilateral were debrided extensively with nail nippers and emery board, reducing length and girth to pink healthy tissue with any subungual debris and necrotic tissue removed 12/12/2024 Pain in right toe(s) (ICD-10 - M79.674) 10/10/2024 Other hammer toe(s) (acquired), left foot (ICD-10 - M20.42) 08/01/2024 Other hammer toe(s) (acquired), left foot (ICD-10 - M20.42) 05/30/2024 Other hammer toe(s) (acquired), left foot (ICD-10 - M20.42) 03/21/2024 Other hammer toe(s) (acquired), left foot (ICD-10 - M20.42) 03/21/2024 Pain in right toe(s) (ICD-10 - M79.674) 05/30/2024 Pain in right toe(s) (ICD-10 - M79.674) 08/01/2024 Pain in right toe(s) (ICD-10 - M79.674) 10/10/2024 Pain in right toe(s) (ICD-10 - M79.674) 12/12/2024 Pain in left toe(s) (ICD-10 - M79.675) 12/12/2024 Atherosclerosis of kashia arteries of extremities with intermittent claudication, bilateral legs (ICD-10 - I70.213) 10/10/2024 Pain in left toe(s) (ICD-10 - M79.675) 08/01/2024 Pain in left toe(s) (ICD-10 - M79.675) 05/30/2024 Pain in left toe(s) (ICD-10 - M79.675) 03/21/2024 Pain in left toe(s) (ICD-10 - M79.675) 03/21/2024 Unspecified atherosclerosis of kashia arteries of extremities, bilateral legs (ICD-10 - I70.203) Patient educated on risks and aggravating factors of PVD, including conservative treatment options such as a diet and exercise regimen to aid in slowing progression of vascular disease 05/30/2024 Unspecified atherosclerosis of kashia arteries of extremities, bilateral legs (ICD-10 - I70.203) Patient educated on risks and aggravating factors of PVD, including conservative treatment options such as a diet and exercise regimen to aid in slowing progression of vascular disease 08/01/2024 Unspecified atherosclerosis of kashia arteries of extremities, bilateral legs (ICD-10 - I70.203) Patient educated on risks and aggravating factors of PVD, including conservative treatment options such as a diet and exercise regimen to aid in slowing progression of vascular disease 10/10/2024 Unspecified atherosclerosis of kashia arteries of extremities, bilateral legs (ICD-10 - I70.203) Patient educated on risks and aggravating factors of PVD, including conservative treatment options such as a diet and exercise regimen to aid in slowing progression of vascular disease 12/12/2024 Type 2 diabetes mellitus with other circulatory complications (ICD-10 - E11.59) Diabetic Foot Care: The patient was educated on diabetes and the lower extremity. The patient was instructed to check his feet daily to report any problems or signs of infection immediately. The patient was provided written information on Diabetic Foot Care as well as the Amputation Prevention Guide. 10/10/2024 Type 2 diabetes mellitus with diabetic peripheral angiopathy without gangrene (ICD-10 - E11.51) Patient educated on proper diabetic foot care and the importance of tight glycemic control in regards to the prevention of diabetic manifestations and symptomatology in lower extremity. Explained to patient the importance of keeping interdigital spaces dry, not walking bare foot, having supportive shoe gear, using moisturizer to skin on feet daily especially in winter months, and checking feet daily for any new lesions or areas suspicious of trauma infection or ulceration. Explained to patient to return to ED if any change in foot health associated with signs of systemic infection including but not limited to nausea, vomiting, fever. 08/01/2024 Type 2 diabetes mellitus with diabetic peripheral angiopathy without gangrene (ICD-10 - E11.51) Patient educated on proper diabetic foot care and the importance of tight glycemic control in regards to the prevention of diabetic manifestations and symptomatology in lower extremity. Explained to patient the importance of keeping interdigital spaces dry, not walking bare foot, having supportive shoe gear, using moisturizer to skin on feet daily especially in winter months, and checking feet daily for any new lesions or areas suspicious of trauma infection or ulceration. Explained to patient to return to ED if any change in foot health associated with signs of systemic infection including but not limited to nausea, vomiting, fever. 05/30/2024 Type 2 diabetes mellitus with diabetic peripheral angiopathy without gangrene (ICD-10 - E11.51) Patient educated on proper diabetic foot care and the importance of tight glycemic control in regards to the prevention of diabetic manifestations and symptomatology in lower extremity. Explained to patient the importance of keeping interdigital spaces dry, not walking bare foot, having supportive shoe gear, using moisturizer to skin on feet daily especially in winter months, and checking feet daily for any new lesions or areas suspicious of trauma infection or ulceration. Explained to patient to return to ED if any change in foot health associated with signs of systemic infection including but not limited to nausea, vomiting, fever. 03/21/2024 Type 2 diabetes mellitus with diabetic peripheral angiopathy without gangrene (ICD-10 - E11.51) Patient educated on proper diabetic foot care and the importance of tight glycemic control in regards to the prevention of diabetic manifestations and symptomatology in lower extremity. Explained to patient the importance of keeping interdigital spaces dry, not walking bare foot, having supportive shoe gear, using moisturizer to skin on feet daily especially in winter months, and checking feet daily for any new lesions or areas suspicious of trauma infection or ulceration. Explained to patient to return to ED if any change in foot health associated with signs of systemic infection including but not limited to nausea, vomiting, fever. Plan Of Treatment Next Appt Details Provider Name:CHARLES RAMOS, 03/06/2025 08:30:00 AM, [address] [facility], [place], [place], [id number], Insurance Providers Payer Name Payer Address Payer Phone Subscriber Number Group Number Insured Name Patient Relationship to Insured Coverage Start Date Coverage End Date Medicare Part B [facility] [address] [place] [phone] [id number] Rishi John Self - patient is the insured [place] [employer] [id number] [place] [id number] Rishi John Self - patient is the insured
--- OUTSIDE RECORDS SUMMARY | 2025-02-18 09:17 | XMS_ITS ---
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 Name Role Phone Adama Faustin Unavailable Unavailable SLIMEJAY BONITA Unavailable [phone] Allergies Allergen (clinical drug ingredient) Drug/Non Drug Allergy documented on EMR Reaction Allergy Type Onset Date Status Penicillin Unknown Drug Allergy Active REASON FOR VISIT *General care Medications Medication SIG (Take, Route, Fr equency, Duration) Notes Start Date End Date Status Clindamycin HCl Acti ve buPROPion HCl Active busPIRone HCl Active MiraLax Active Escitalopram Oxalate Active metFORMIN HCl Active Fluticasone Propionate Active Famotidine Active Montelukast Sodium A ctive Encounters Encounter Location Date Provider Diagnosis [address] [id number] 10/10/2024 BONITA LEWIS Other hammer toe(s) (acquired), right foot M20.41 ; Tinea unguium B35.1 ; Other hammer toe(s) (acquired), left foot M20.42 ; Pain in right toe(s) M79.674 ; Pain in left toe(s) M79.675 ; Unspecified atherosclerosis of [place] arteries of extremities, bilateral legs I70.203 and Type 2 diabetes mellitus with diabetic peripheral angiopathy without gangrene E11.51 Assessments Encounter Date Diagnosis (ICD Code) Assessment Notes Treatment Notes Treatment Clinical Notes Section Notes 10/10/2024 Other hammer toe(s) (acquired), right foot [...] educated regarding both OTC and prescription treatments. 10/10/2024 Other hammer toe(s) (acquired), left foot (ICD-10 - M20.42) 10/10/2024 Pain in right toe(s) (ICD-10 - M79.674) 10/10/2024 Pain in left toe(s) (ICD-10 - M79.675) 10/10/2024 Unspecified atherosclerosis of [place] arteries of extremities, bilateral legs (ICD-10 - I70.203) Patient educated on risks and aggravating factors of PVD, including conservative treatment options such as a diet and exercise regimen to aid in slowing progression of vascular disease 10/10/2024 Type 2 diabetes mellitus with diabetic [...] to nausea, vomiting, fever. Plan Of Treatment Treatment Notes Assessment Notes Other hammer toe(s) (acquired), right fo ot The patient was educated regarding how to [...] were discussed, but conservative options were emphasized. Tinea unguium Aseptic debridement of elongated thickened nails x [...] educated regarding both OTC and prescription treatments. Unspecified atherosclerosis of [place] arteries of extremities, bilateral legs Patient educated on risks and aggravating factors of PVD, including conservative treatment options such as a diet and exercise regimen to aid in slowing progression of vascular disease Type 2 diabetes mellitus wit h diabetic peripheral angiopathy without gangrene Patient educated on proper diabetic foot care [...] but not limited to nausea, vomiting, fever. Next Appt Details Follow Up: 3 Months, Reason: Provider Name:CHARLES RAMOS, 03/06/2025 08:30:00 AM, [address] [place] [address], [phone], Progress Notes * Abbie WADEOB: 7 (69 yo M)Acc No.[id number]:10/10/2024 Patient: Rishi RICH Provider: Mynor LEWIS :1955 A ge:69 Y S ex:Male Date:10/10/2024 Address:[address] [place], [place] [id number] Subjective: * Chief Complaints: * 1 . *General care. * HPI: H PI: General care P atient presents to the office for diabetic foot care. Patient states that their nails are thickened, elongated and painful. Patient states that it is aggravated by shoe gear. Onset is gradual., Patient denies taking blood thinners., Date last seen by Dr. Faustin was 09/2024., Initials mca. * ROS: G eneral / Constitutional: Patient denies w eakness. R espiratory: Patient denies c hronic cough, shortness of breath, sputum production. C ardiovascular: Patient denies c hest pain, history of SD, irregular heartbeat. M usculoskeletal: Patient complains of j oint pain, hammertoes. ? P eripheral Vascular: Patient denies b lanching of skin, cold extremities, decreased sensation in extremities. S kin: Patient complains of n ail changes, fungal nails. ? N eurologic: Patient denies d izziness, gait abnormality, headache. * Medical History: * Medications: T aking MiraLax , Taking Escitalopram Oxalate , Taking buPROPion HCl , Taking busPIRone HCl , Taking Famotidine , Taking Montelukast Sodium , Taking metFORMIN HCl , Taking Fluticasone Propionate , Taking Clindamycin HCl * Allergies: P enicillin. Objective: * Vitals: * Examination: P hysical Examination: V ascular: Dorsalis Pedis pulse noted at 1/4 right foot and 1/4 left foot and Posterior Tibial pulse noted at 1/4 right foot and 1/4 left foot, Capillary refill times noted to be less than three seconds x ten, Temperature gradient noted to be warm to cool to bilateral foot, pedal hair present to bilateral foot and no varicosities are noted Dermatologic: there are no open lesions, no signs of active clinical infection, no erythema noted, no ecchymoses, nails are elongated thickened and dystrophic with subungual debris x ten Musculoskeletal: there is pain to palpation onto nail plate x ten, no calf pain noted bilaterally, arch height noted at 2/5 non-weight bearing bilaterally, first metatarsophalangeal joint range of motion 30 deg non-weight bearing bilaterally, flexible fifth digit hammer toe deformity noted to bilateral foot reducible with kelikian push up test Neurology: protective sensation intact to light touch bilateral digits one through five, vibratory sensation intact to first metatarsophalangeal joint bilaterally. Assessment: * Assessment: 1. T inea unguium - B35.1 (Primary) 2 . O ther hammer toe(s) (acquired), right foot - M20.41 3 . O ther hammer toe(s) (acquired), left foot - M20.42 ? 4 . P ain in right toe(s) - M79.674 5 . P ain in left toe(s) - M79.675 6 . U nspecified atherosclerosis of [place] arteries of extremities, bilateral legs - I70.203 7 . T ype 2 diabetes mellitus with diabetic peripheral angiopathy without gangrene - E11.51 Plan: * Treatment: 2. O ther hammer toe(s) (acquired), right foot Notes: The patient was educated regarding how to [...] were discussed, but conservative options were emphasized. 3. U nspecified atherosclerosis of [place] arteries of extremities, bilateral legs Notes: Patient educated on risks and aggravating factors of PVD, including conservative treatment options such as a diet and exercise regimen to aid in slowing progression of vascular disease ? 4. T ype 2 diabetes mellitus with diabetic peripheral angiopathy without gangrene Notes: Patient educated on proper diabetic foot care [...] but not limited to nausea, vomiting, fever. * Procedure Codes: 1 1721 DEBRIDE NAIL, 6 OR MORE, Modifiers: Q8 * Follow Up: 3 Months * Billing Information: * Visit Code: * Procedure Codes: 54253 DEBRIDE NAIL, 6 OR MORE. Modifiers: Q8 * CTOR TRADE Sign off status: Completed true * Provider: Mynor LEWIS Date: 12/11/2023 Generated for Haily graf/Franco/Remberto on: 0 02/18/2025 [...] Date last seen by Dr. Faustin was 09/2024., Initials mca Examination Category Sub-Category Detail Notes Category Not es Physical Examination Vascular: Dorsalis Pedis pulse noted at 1/4 right foot and 1/4 left foot and Posterior Tibial pulse noted at 1/4 right foot and 1/4 left foot, Capillary refill times noted to be less than three seconds x ten, Temperature gradient noted to be warm to cool to bilateral foot, pedal hair present to bilateral foot and no varicosities are noted Dermatologic: there are no open lesions, no signs of active clinical infection, no erythema noted, no ecchymoses, nails are elongated thickened and dystrophic with subungual debris x ten Musculoskeletal: there is pain to palpation onto nail plate x ten, no calf pain noted bilaterally, arch height noted at 2/5 non-weight bearing bilaterally, first metatarsophalangeal joint range of motion 30 deg non-weight bearing bilaterally, flexible fifth digit hammer toe deformity noted to bilateral foot reducible with kelikian push up test Neurology: protective sensation intact to light touch bilateral digits one through five, vibratory sensation intact to first metatarsophalangeal joint bilaterally
--- OUTSIDE RECORDS SUMMARY | 2025-02-18 09:17 | XMS_ITS | Referral Summary ---
Author Organization [facility] Address [address] [place] [address] Care Team Providers Care Production Welding Supervisor Name Role Phone Adama Faustin MD Primary Care Provide r Arminda Quispe OT Unavailable [phone] Encounters Date Type Department Care Team Description 12/18/2024 Telephone [facility] Movement Disorders [address] [place] [id number] Bhavani Mccormick RN from Last 3 Months Allergies Active Allergy Reactions Criticality Noted Date Comments Penicillins Muscle pain Medium Medications albuterol HFA (PROVENTIL HFA,VENTOLIN HFA,PROAIR HFA) 90 mcg/actuation inhalerIndicatio ns:Acute Asthma Attack,Chronic Obstructive Pulmonary Disease Inhale 1 puff as needed for shortness of breath 5 Active Lumigan 0.01 % ophthalmic dropsIndications :open angle glaucoma Administer 1 drop into both eyes nightly 1 Active buPROPion SR (WELLBUTRIN SR) 200 mg 12 hr tabletIndication s:Anxiety with Depression Take 1 tablet (200 mg total) by mouth 2 (two) times a day 1 Active famotidine (PEPCID) 20 mg tabletIndication s:Heartburn,lisa roesophageal reflux disease Take 1 tablet (20 mg total) by mouth 2 (two) times a day Active sildenafiL, pulm.hypertensio n, (REVATIO) 20 mg tabletIndication s:Pulmonary Arterial Hypertension,ED Take 1 tablet (20 mg total) by mouth as needed Active cycloSPORINE (RESTASIS) 0.05 % ophthalmic emulsionIndicati ons:dry eye Administer 1 drop into both eyes as needed Active busPIRone (BUSPAR) 15 mg tabletIndication s:Generalized Anxiety Disorder Take 1 tablet (15 mg total) by mouth 2 (two) times a day 2 Active acetaminophen 500 mg capsule Take 2 capsules (1,000 mg total) by mouth every 6 (six) hours 30 tablet 2 Active Additional Information Patient taking differently: 500 mgoralAs needed, Indications: Pain, Informant: Self, Reported on 02/02/2023 senna-docusate (PERICOLACE) 8.6-50 mg Take 1 tablet by mouth daily 60 tablet 2 Active Additional Information Patient taking differently:1 tablet oralNightly, Indications: constipation, Informant: Self, Reported on 12/29/2022 fluticasone propion-salmeter oL (AIRDUO RESPICLICK) 232-14 mcg/actuation inhalerIndicatio ns:Maintenance Therapy for Asthma Inhale 1 puff as needed (asthma) 3 Active MULTIVITAMIN ORALIndications: supplement Take 1 tablet by mouth every morning Active acetaminophen-as pirin-caffeine (EXCEDRIN MIGRAINE) 250-250-65 mg per tabletIndication s:Migraine Take 1 tablet by mouth every 6 (six) hours as needed for pain PLEASE HOLD UNTIL FOLLOW UP WITH DR GALLO 30 tablet 3 Active metFORMIN (GLUCOPHAGE) 500 mg tablet 3 Active latanoprost (XALATAN) 0.005 % ophthalmic solution 3 Active ferrous sulfate 325 mg (65 mg of elemental iron) tabletIndication s:Iron Deficiency Anemia Take 1 tablet (65 mg of elemental iron total) by mouth daily Active ascorbic acid, vitamin C, 125 mg tablet,chewable Take by mouth Active ARIPiprazole (ABILIFY) 1 mg/mL mL Take 1 mL (1 mg total) by mouth daily 4 Active ARIPiprazole (ABILIFY) 2 mg tablet 4 Active finasteride (PROPECIA) 1 mg tablet Take 5 tablets (5 mg total) by mouth daily 4 Active montelukast (SINGULAIR) 10 mg tablet [address] (CYMBALTA) 30 mg capsule Take 1 capsule (30 mg total) by mouth daily [address] (CYMBALTA) 60 mg capsule 4 Active primidone (MYSOLINE) 50 mg tabletIndication s:Essential Tremor 50 mg in the morning and 150 mg at night 360 tablet 3 4 Active metroNIDAZOLE (FLAGYL) 500 mg tablet Take 1 tablet (500 mg total) by mouth 4 Active sulfamethoxazole -trimethoprim (BACTRIM DS) 800-160 mg per tablet 4 Active Active Problems Problem Noted Date Diagnosed Date Tremor 03/28/2023 S/P deep brain stimulator placement 05/26/2022 Assessment & Plan (08/21/2024 9:50 AM CDT): S/P right VIM dbs with Dr Gallo for right dbs 04/15/22 and left dbs on 01/06/23 for further programming and for mri check before his scheduled cervical mri today) Mr John had very good benefit from DBS programming for his tremor. He had mild action tremor in his right hand. He was going through therapy and meeting with psychiatrist for depression and some mental concerns. He tried to taper down and stop Primidone but had worsening tremor in the evening. He is doing well with the current dose of primidone . He had recent hospitalization for acute diverticulitis and has been on abx and may need surgery. Today we interrogated his dbs and he had normal program and system impedence. We opted to reduce his right dbs settings and gave a slight increase to his left dbs for the right hand tremor. He had definite improvement in his tremor after the change. He tolerated the changes well without any side effects. His new settings were in program 2 and previous setting in program 1 to return in case of delayed side effects. He has his MRI scheduled only later in the afternoon. They had the patient statistical programmer with them and we reviewed how to turn dbs to mri mode . They are comfortable doing that and will turn off the dbs after the mri. They did not want him to be turned of right now. He was recently started on abilify and had some bradykinesia, we will continue to monitor this. He is working with psychiatrist and counselor. He plans to start PT again. Reviewed fall precautions and to exercise as tolearted. REQS 1. Okay to leave dbs on at all times 2. Same primidone 3. Fall and swallow precautions 4. Exercise as tolerated 5. Follow up with psychiatrist and therapists as planned 6. Turn off your dbs today before scheduled mri by turning on the mri mode and turn off mri mode after the mri and ensure your dbs is back on Potential side effects were discussed during this encounter Assessment & Plan (05/27/2024 12:11 PM CDT): Mr. Hinson presented to have his DBS turned off and placed into MRI mode. He is s/p bilateral DBS right 04/15/22 and left 01/06/23. His DBS was interrogated, impedances wnl and he was placed into MRI mode. His used the patient statistical programmer to exit MRI mode and he was placed back successfully. Recommendations Turn DBS back on after MRI Cancel rov with Dr. Saldana in 2024 and he was scheduled with Dr. Chandra on the same day Assessment & Plan (04/24/2024 9:23 AM CDT): S/P right VIM dbs with Dr Gallo for right dbs 04/15/22 and left dbs on 01/06/23 for further programming) Mr John had very good benefit from DBS programming for his tremor. He had mild action tremor in his left hand. He was going through therapy and meeting with psychiatrist for depression and some mental concerns. He tried to taper down and stop Primidone but had worsening tremor in the evening. He is currently taking 150 mg in the evenings. As such he has clear benefit from Primidone and his was wondering if he can add the 50 mg of Primidone he was taking in the morning since it may help him at supper time when he had some tremor while holding a cup of water. We will send the updated rx for Primidone. We interrogated his dbs and opted not to make any changes, he had normal program and system impedence. Reviewed fall precautions and to exercise as tolearted. REQS 1. Okay to leave dbs on at all times 2. Primidone 50 mg in the morning and continue 150 mg in the evening 3. Fall and swallow precautions 4. Exercise as tolerated 5. Follow up with psychiatrist and therapists as planned 6. Follow up for virtual visit in 4 months as planned or sooner if needed Potential side effects were discussed during this encounter Assessment & Plan (02/21/2024 2:59 PM CDT): S/P right VIM dbs with Dr Gallo for right dbs 04/15/22 and left dbs on 01/06/23 for further programming) Mr John had very good benefit from DBS programming for his tremor. He had mild action tremor in his left hand. He was going through therapy and meeting with psychiatrist for depression and some mental concerns. His states he was really doing very poor with respect to that and it was impacting his memory and he was not walking or doing anything. He is currently still in Pt and continuing to see psychiatrist and getting group therapy. He will be starting PT for hand dexterity as well. He would like to keep his dbs on at all times, we dicussed if that he can do it for convenience. He is at very low settings. He had the concern dbs was causing him to feel poking pain in his brain. It was reassured by his local providers and us that was not the case. He was slowly trying to get better all around. He was slowly tapering and stopping Primidone as suggested by Dr Saldana. We interrogated his dbs and opted not to make any changes. Reviewed fall precautions. REQS 1. Okay to leave dbs on at all times 2. Continue to taper and stop primidone as recommended by Dr Saldana 3. Fall and swallow precautions 4. Exercise as tolerated 5. Follow up with psychiatrist and therapists as planned 6. Continue pt and start ot ( already has rx) 7. Follow up for virtual visit in 2 months as planned Assessment & Plan (12/19/2023 1:01 PM MONITOR CAR OPERATOR): S/P right VIM dbs with Dr Gallo for right dbs 04/15/22 and left dbs on 01/06/23 for further programming) Mr John had very good benefit from DBS programming for his tremor. He did not have tremor in either of his hands. He had some tingling in his tongue when he turned his DBS ON in the morning, but in the last week he noticed it more often, he felt it was more on the left side of his tongue. Other than that he was very happy with the benefit for dbs for his tremor. Today on exam he had no tremor in either of his hands. We tried a steered setting and he felt the tingling in his tongue resolved. We opted to leave this as the final setting in program 1. His previous setting was in program 2 to return incase of delayed side effects. He tolerated the changes well without any side effects. He had no tremor or tingling after the change. He could benefit from Pt for his gait and balance, will send rx. He also has not been exercising, encouraged him to start exercising. He will be getting another sleep study next week and follow up with pmd for his mood. . Reviewed fall and swallow precautions. REQS 1. Okay to turn DBS off at night. May return to previous setting in program 2 in case of delayed side effects 2. Primidone 50 mg in the morning and afternoon, 250 mg at bedtime 3. Fall and swallow precautions 4. Exercise as tolerated 5. Follow up as scheduled for following appts 6. Start PT, rx sent Assessment & Plan (07/19/2023 3:02 PM CDT): Mr John had very good benefit from DBS programming for his tremor. We had lowered his settings last visit and he felt it really helped his speech. He also did speech therapy which was somewhat helpful. He reported having tingling in the left side of his tongue whenever his dbs was turned on the mornings. It would last for 1 hour and then he did not feel it the rest of the day. We opted to try increasing his ramp time from 8 sec to 30 sec and we tried turning his dbs off for minutes and turned it back on. He did not have the persistent tongue sensation after the change. We reviewed his settings and opted not to make any changes to his settings. Reviewed fall and swallow precautions. Encouraged him to exercise as tolerated. REQS 1. Okay to turn DBS off at night 2. Primidone 50 mg in the morning and afternoon, 250 mg at bedtime 3. Fall and swallow precautions 4. Exercise as tolerated 5. Follow up in 6 weeks as scheduled or sooner if needed Assessment & Plan (06/06/2023 10:34 AM CDT): Mr John had very good benefit from DBS programming for his tremor. However he and his felt that he was having more slurred speech since trying the higher dbs settings for his left dbs during the last visit. He was doing ST exercises but continued to have speech problems. He also felt tightness from the higher setting in his right hand. We interrogated his bilateral dbs settings and opted to leave his current settings in program 1. We then opted to give him a lower setting in program 2 at 1.6 mA for the left dbs. He tolerated the changes well and felt the tightness in his right hand improve and did not have the sensation in his tongue like he was feeling before. There was no change in tremor . He tolerated the changes without any side effects. There was no change in walking or balance. He would like to try another 50 mg of primidone in the afternoon since he was having some breakthrough tremor in the evenings. We will send a new rx for Primidone, we discussed monitorning for any worsening balance or drowsiness from the increase. He turned his dbs off at night time. Reviewed fall and swallow precautions. REQS 1. Okay to turn DBS off at night 2. Primidone 50 mg in the morning and afternoon, 250 mg at bedtime 3. Fall and swallow precautions 4. Exercise as tolerated 5. Follow up in 6 weeks as scheduled or sooner if needed Assessment & Plan (03/28/2023 9:47 AM CDT): Mr John had very good benefit from DBS programming for his left dbs.He already had right dbs with excellent left hand tremor control for which we did not make any changes today. Before turning on his right DBS today he had moderate postural and action tremor in his right hand. He did not have any tremor in her left hand. We interrogated his dbs and opted not to make any change to his right dbs. For his left dbs we opted to increase his settings from 1.3ma to 1.6 ma. He had much improved tremor control in his right hand. He tolerated today's programming denying paresthesia, tightening dystonia, change in speech , or balance. Full system check was WNL. His gait and balance was okay. He will be seeing Dr Chandra today as well. He turned his dbs off at night time His states he may need ST with some worsening speech and swallow , will send referral REQS 1. Okay to turn DBS off at night 2. Medications and other recommendations per Dr Chandra today 3. Fall precautions 4. Start St , rx sent 5. Future appts as scheduled Assessment & Plan (02/27/2023 10:00 AM CDT): Mr John had very good benefit from DBS initial programming for his left dbs.He already had right dbs with excellent left hand tremor control for which we did not make any changes today. Before turning on his right DBS today he had moderate postural and action tremor in his right hand. He did not have any tremor in her left hand. We interrogated his dbs and opted not to make any change to his right dbs. For his left dbs we opted to increase his settings from 1.1ma to 1.3 ma and also increased his pw to 80 pw to give him better tremor control. He had much improved tremor control in his right hand. He tolerated today's programming denying paresthesia, tightening dystonia, change in speech , or balance. Full system check was WNL. His gait and balance was good . Encouraged to continue PT and stay active. He turned his dbs off at night time REQS 1. Okay to turn DBS off at night 2. Exercise as tolerated 3. Fall precautions 4. Continue pt 5. Return as scheduled for rov with Dr Chandra and for dbs next month Assessment & Plan (02/02/2023 12:57 PM CDT): Mr John had very good benefit from DBS initial programming for his left dbs.He already had right dbs with excellent left hand tremor control for which we did not make any changes today. Before turning on his right DBS today he had moderate postural and action tremor in his right hand. He did not have any tremor in her left hand. At today s visit, each contact was tested for benefit for the right dbs. He had good tremor control at all contacts but hand tingling in contact 0 and 1. He did not have any side effects in contact 3 and 4. He had best tremor control without any side effects in contact 3 . We opted to chose that as the final contact. He tolerated today's programming denying paresthesia, tightening dystonia, change in speech , or balance. Full system check was WNL. We opted to choose that as the final contact at Case+ 2 Final setting for left dbs case+ 3 ALL- 1 mA 60 186. At this contact he had improved tremor in his right hand, very good penmanship and very mild tremor with writing and drawing.His gait and balance was good and he was able to take 10 tandem steps . He had his patient controller with him and we reviewed his bilateral dbs settings. He turned his dbs off at night time REQS 1. Okay to turn DBS off at night or okay to leave it on at all times 2. Exercise as tolerated 3. Fall precautions 4. Physical therapy when DBS settings further optimized. Assessment & Plan (12/05/2022 10:13 AM MONITOR CAR OPERATOR): Mr Hinson had been doing well since his last programming. Today on exam he did not have any tremor in his left hand. His gait was smooth . He continued to have tremor in his right hand which was bothersome for him. His day time Primidone was reduced due to fatigue and he was doing better with fatigue but had some worsening right hand tremor. He will be getting left dbs for his right hand in January. He was practicing exercises learnt with PT which he had done in the past. On exam today he did not have any left hand tremor and his right hand tremor was mild. We interrogated his dbs settings and opted not to make any changes. Reviewed fall precautions. Overall he remained pleased with benefit from dbs therapy. Last visit we had increased his ramp time to 60 sec. This visit he requested for it to be lowered to 30 sec. Recommendations: 1. Okay to turn off dbs at night. 2. Same Primidone 3. Strict fall precautions 4. Continue exercises as tolerated 5. Follow up as scheduled in January or sooner if needed Assessment & Plan (10/12/2022 12:34 PM MONITOR CAR OPERATOR): Mr Hinson had been doing well since his last programming. Today on exam he did not have any tremor in his left hand. His gait was smooth . He continued to have tremor in his right hand Which was bothersome for him. His day time Primidone was reduced due to fatigue and he was doing better with fatigue but had some worsening right hand tremor. He was very interested in getting left dbs for his right hand. It has been 6 months since his initial surgery and he was doing well without side effects. Today his gait was steady and he was able to take 10 tandem steps. We interrogated his right dbs and gave him a small increase to his settings in program 1 . His previous settings were in program 1 to return incase of delayed side effects. He tolerated the changes well without side effects. He had done PT and was practicing the exercises at home. Discussed with Dr Chandra today about Mr John really interested in the contralateral dbs. We discussed the risks with balance and both Mr John and his understood and would like to proceed with the left vim surgery. We will send referral to Dr Gallo's team . There has been no change in his speech as well. Reviewed fall precautions. Overall he remained pleased with benefit from dbs therapy. Recommendations: 1. Okay to turn off dbs at night. May switch to program 2 ( previous setting) incase of delayed side effects 2. Same Primidone 3. Strict fall precautions 4. Continue exercises as tolerated 5. Will send referral to Dr Gallo's team for left VIM dbs surgery 6. Return as scheduled next month Assessment & Plan (09/13/2022 1:34 PM MONITOR CAR OPERATOR): Mr Hinson had been doing well since his last programming. Today on exam he did not have any tremor in his left hand. His gait was smooth . He continued to have tremor in his right hand. He had tried the higher setting we had set last time at 1.6mA however he had tingling in his hand and he returned to his previous setting. We interrogated his dbs and tried steering and using the whole 3 contact but he had tingling in his mouth and hand. We opted to try contact 4 and increased to 1.6 mA and he did not have any tingling. He did not want an increase today to his setting since he had no tremor . So we left this in program 2 to switch to incase he has any tremor in the future. For today we left him at program 1 ( his current settings at 1.4 mA). He tolerated today's programming without any persistent side effects. He had no tremor in his left hand and overall felt better. There was no change in speech or balance. Reviewed fall precautions. Overall he remained pleased with benefit from dbs therapy. Encouraged him to start daily exercises as tolerated. He is very interested in left vim dbs for his right hand tremor. We will continue to evaluate balance and other side effects for few more visits and reach out to Dr Chandra for an evaluation in 6 months from the initial surgery around October of this year. Recommendations: 1. Okay to turn off dbs at night. May switch to program 2 ( an increase ) if needed in future 2. Same Primidone 3. Strict fall precautions 4. Continue exercises learnt with PT 5. Return as scheduled next month Assessment & Plan (08/17/2022 1:40 PM CDT): Mr Hinson had been doing well since his last programming. Today on exam he did not have any tremor in his left hand. His gait was smooth . He continued to have tremor in his right hand. We interrogated his dbs and opted to give him an increase to his current settings in program 2 and left his previous setting in program 1. He tolerated today's programming without any persistent side effects. He had no tremor in his left hand and overall felt better. There was no change in speech or balance. Reviewed fall precautions. Overall he remained pleased with benefit from dbs therapy. Encouraged him to start daily exercises as tolerated and doing some Pt, will send rx. He is very interested in left vim dbs for his right hand tremor. We will continue to evaluate balance and other side effects for few more visits and reach out to Dr Chandra for an evaluation in 6 months from the initial surgery around October of this year. Recommendations: 1. Okay to turn off dbs at night. Return to program 1 in previous setting incase of delayed side effects 2. Same Primidone 3. Strict fall precautions 4. Continue PT 5. Exercise as tolerated 6. Virtual programming as scheduled next month Assessment & Plan (07/15/2022 12:22 PM CDT): Mr Hinson had been doing well since his last initial programming. Today on exam he had mild e had mild postural and action tremor in his left hand. His gait was smooth and he could complete 10 tandem gait with mild difficulty. He had We interrogated his dbs and opted to give him an increase to his current setting and left his previous setting in program 2. He reported having some tingling in his tongue every time the dbs was turned on and it persisted for few minutes before it going away. We opted to increase the ramp time to 30 sec but he still felt it , then we increased it to 60 sec and it was much better , we will leave it at this. He tolerated today's programming without any persistent side effects. He had no tremor in his left hand and he had better [place] ship and some improvement in drawings . There was no change in speech or balance. Reviewed fall precautions. Overall he remained pleased with benefit from dbs therapy. Encouraged him to start daily exercises as tolerated and doing some Pt, will send rx. He is very interested in left vim dbs for his right hand tremor. We will continue to evaluate balance and other side effects for few more visits and reach out to Dr Chandra for an evaluation in 6 months from the initial surgery around October of this year. He turned his dbs off at night. We reviewed how to use statistical programmer to also switch programs and how to do remote connection for the next visit since they come from a distance Recommendations: 1. Okay to turn off dbs at night. Return to program 2 in previous setting incase of delayed side effects 2. Same Primidone 3. Strict fall precautions 4. Start PT, rx sent 5. Exercise as tolerated 6. Virtual programming as scheduled next month Assessment & Plan (06/13/2022 2:28 PM CDT): Mr Hinson had been doing well since his last initial programming. Today on exam he had mild postural and action tremor in his left hand. His gait was smooth and he could complete 10 tandem gait with mild difficulty. We interrogated his dbs and opted to give him an increase to his current setting , however he had some tingling in his tongue. We then opted to steer and use 3A contact and gave him an increase and he tolerated this without any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
--- OUTSIDE RECORDS SUMMARY | 2025-02-18 09:17 | XMS_ITS | Encounter Summary ---
Author Organization [facility] Healthcare Address [address] [place] [address] Care Team Providers Care Transportation Driver Name Role Phone Adama Faustin MD Primary Care Provide r Arminda Quispe OT Unavailable [phone] Encounter Details Date Type Department Care Team (Late st Contact Info) Description 03/29/2022 Telephone [facility] Radiology [address] [place] [address] Teodoro Gallo MD Formerly [facility] [phone] Social History Tobacco Use Types Packs/Day Years Used Date Smoking Tobacco: Every Day Cigarettes Smokeless Tobacco: Former Comments:pt started smoking 40 years ago. Alcohol Use Standard Drinks/Week Comments Yes 0 (1 standard drink = 0.6 oz pur e alcohol) AUDIT-C Answer Date Recorded Q1: How often do you have a drink containing alcohol? 4 or more times a week 03/30/2022 Q2: How many drinks containi ng alcohol do you have on a typical day when you are drinking? 1 or 2 Q3: How often do you have si x or more drinks on one occasion? 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 4 or more times a week 03/30/2022 10:19 AM Carline Campbell RN Q2: How many drinks containing alcohol do you have on a typical day when you are drinking? 1 or 2 03/30/2022 10:19 AM Carline Campbell RN Q3: How often do you have six or more drinks on one occasion? Never 03/30/2022 10:19 AM Carline Campbell RN documented as of this encounter Plan of Treatment Not on file documented as of this encounter Visit Diagnoses Not on filedocumented in this encounter Care Teams Transportation Driver Relationship Specialty Start Date End Date Adama Faustin MD [address] [place] [address] PCP - General Family Medicine 06/24/21 Arminda Quispe OT [address] [place] [address] Occupational Therapist Occupational Therapy 11/30/21 documented as of this encounter
--- OUTSIDE RECORDS SUMMARY | 2025-02-18 09:17 | XMS_ITS | Clinical Summary ---
Author Organization [facility] Address [facility] [place] [address] Care Team Providers Care Head Of Loss Prevention Name Role Phone Unavailable Primary Care Provider Unavailabl e Social History Tobacco Use Types Packs/Day Years Used Date Smoking Tobacco: Never Assessed Sex and Gender Information Value Date Recorded Sex Assigned at Not on file Legal Sex Male 10:29 PM SHAPING MACHINE TENDER Gender Identity Not on file Sexual Orientation Not on file Plan of Treatment Health Maintenance Due Date Last Done Comments Colorectal Cancer Screening Colonoscopy (10 Years) 1957 Hepatitis C 1975 DTaP, Tdap and Td Vaccines ( 1 - Tdap) 1976 Zoster Vaccines (1 of 2) 2007 Pneumococcal Vaccine: 50+ Ye ars (1 of 1 - PCV) 2022 COVID-19 Vaccine (1 - 2023-2 5 season) 2024 RSV Immunization or 60+ Years (1 - 1-dose 75+ series) 2032 Meningococcal B Vaccine Aged Out No l onger eligible based on patient's age to complete this topic Meningococcal Vaccine Aged Out No rosario valentina eligible based on patient's age to complete this topic RSV Immunizations Under 20 Months Aged Out No longer eligible based on patient's age to complete this topic
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
--- OUTSIDE RECORDS SUMMARY | 2025-02-18 09:17 | XMS_ITS | Encounter Summary ---
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
--- OUTSIDE RECORDS SUMMARY | 2025-02-18 10:05 | XMS_ITS | Encounter Summary ---
Author Organization [facility] Healthcare Address [address] [place] [address] Care Team Providers Care Cable Tester Name Role Phone Adama Faustin MD Primary Care Provide r Arminda Quispe OT Unavailable [phone] Encounter Details Date Type Department Care Team (Late st Contact Info) Description 03/29/2022 Telephone [facility] Radiology [address] [place] [address] Teodoro Gallo MD [facility] [phone] Social History Tobacco Use Types Packs/Day Years [...] on file Legal Sex Male 11:50 PM INTERNATIONAL COORDINATOR Gender Identity Male 10/07/2021 8:20 AM INTERNATIONAL COORDINATOR Sexual Orientation Straight 10/07/2021 8: 20 AM INTERNATIONAL COORDINATOR Occupation Industry Job Start Date Job End Date On Disability Not on file Not on file 

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
--- OUTSIDE RECORDS SUMMARY | 2025-02-18 10:05 | XMS_ITS | CONTINUITY OF CARE DOCUMENT ---
Author Name isabel, franciscoser Address Unknown Organization [facility] Address [address] [address] [facility] [address] [place] [address] Phone [phone] Care Team Providers Care Telephone Order Supervisor Name Role Phone Wai Diamond MD Unavailable JENNIFER DIAZ MD RETIRED Unavailable JENNIFER DIAZ MD RETIREMarshall Unavailable [phone] PROBLEMS Condition Status Date Provider Notes Dizziness [...] Payer name Policy type / Coverage type Latonia red democrat ID [facility] [employer] Other [id number] TREATMENT PLAN Date Name Performer Cardiology Wai [...] significant stenosis. Wai Diamond MD printed to markesan 05/13/15: O rders: S TR - Nuclear (16039) C arotid Duplex Bilateral (CPT-86022) Wai Diamond MD printed to markesan 05/13/15: O rders: S TR - Nuclear (51029) C arotid Duplex Bilateral (CPT-68352) Wai Diamond MD printed to markesan 05/13/15: O rders: S TR - Nuclear (48806) C arotid Duplex Bilateral (CPT-87521) Wai Diamond MD printed to markesan 05/13/15: H is updated medication list for this problem includes: Alprazolam 0.5 Mg Tabs (Alprazolam) ..... One tablet daily Aspirin 81 Mg Tabs (Aspirin) ..... One tab. daily Orders: S TR - Nuclear (87815) C arotid Duplex Bilateral (CPT-49969) Wai Diamond MD printed to markesan 05/13/15: H is updated medication list for this problem includes: Alprazolam 0.5 Mg Tabs (Alprazolam) ..... One tablet daily Aspirin 81 Mg Tabs (Aspirin) ..... One tab. daily Wai Diamond MD printed to markesan 05/13/15: H is updated medication list for this problem includes: Aspirin 81 Mg Tabs (Aspirin) ..... One tab. daily Orders: S TR - Nuclear (78629) C arotid Duplex Bilateral (CPT-20806) Wai Diamond MD printed to markesan 05/13/15: O rders: S TR - Adenosine (71574) Wai Diamond MD printed to markesan 05/13/15: O rders: S TR - Adenosine (92546) S TR - Adenosine (32646) Wai Diamond MD printed to markesan 05/13/15: O rders: S TR - Adenosine (06862) S TR - Adenosine (12132) Wai Diamond MD printed to markesan 05/13/15: H is updated medication list for this problem includes: Alprazolam 0.5 Mg Tabs (Alprazolam) ..... One tablet daily Aspirin 81 Mg Tabs (Aspirin) ..... One tab. daily Orders: S TR - Adenosine (69364) S TR - Adenosine (66805) Wai Diamond MD printed to markesan 05/13/15: H is updated medication list for this problem includes: Alprazolam 0.5 Mg Tabs (Alprazolam) ..... One tablet daily Aspirin 81 Mg Tabs (Aspirin) ..... One tab. daily Orders: S TR - Adenosine (80625) Wai Diamond MD printed to markesan 05/13/15: H is updated medication list for this problem includes: Aspirin 81 Mg Tabs (Aspirin) ..... One tab. daily Orders: S TR - Adenosine (60549) S TR - Adenosine (12276) Wai Diamond MD faxed 04/06/15 1101: O rders: M obile Cardiac Tele (CPT-04123) Wai Diamond MD faxed 04/06/15 1101: H is updated medication list for this problem includes: Naproxen Sodium 220 Mg Oral Caps (Naproxen sodium) ..... Once daily Aspirin 81 Mg Tabs (Aspirin) ..... One tab. daily Orders: obile Cardiac Tele (CPT-84609) Wai Diamond MD faxed 04/06/15 1101: O rders: obile Cardiac Tele (CPT-40981) Wai Diamond MD faxed 04/06/15 1101: H is updated medication list for this problem includes: Alprazolam 0.5 Mg Tabs (Alprazolam) ..... One tablet daily Aspirin 81 Mg Tabs (Aspirin) ..... One tab. daily O rders: S TR - [facility] (31848) [facility]138[facility] Wai Diamond MD faxed 04/06/15 1101: H is updated medication list for this problem includes: Aspirin 81 Mg Tabs (Aspirin) ..... One tab. daily Orders: S TR - Adenosine (11963) obile Cardiac Tele (CPT-98862) Wai Diamond MD faxed 04/06/15 1101: H is updated medication list for this problem includes: Alprazolam 0.5 Mg Tabs (Alprazolam) ..... One tablet daily Aspirin 81 Mg Tabs (Aspirin) ..... One tab. daily O rders: S TR - Adenosine (10398) [facility] Cardiac Tele (CPT-68018) Wai Diamond MD Date Name Sleep Study Home Carotid Duplex Bilat eral STR - Nuclear Mobile Cardiac Tele STR - Adenosine
--- OUTSIDE RECORDS SUMMARY | 2025-02-18 10:05 | XMS_ITS | Clinical Summary ---
Author Organization 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
--- OUTSIDE RECORDS SUMMARY | 2025-02-18 10:05 | XMS_ITS ---
Author Organization [facility] Address [address] [place], [place] [id number] Care Team Providers Care Eight Section Blower Name Role Phone Clifford Faustinan Unavailable Unavailable ANGIE DUVAL Unavailable [phone] REASON FOR VISIT *General care Encounters Encounter Location Date Provider Diagnosis [address] [id number] 12/12/2024 ANGIE DUVAL Plan Of Treatment Next Appt Details Provider Name:CHARLES RAMOS, 03/06/2025 08:30:00 AM, [address] [place] [address], [id number], Progress Notes * America WADEhDOB: (69 yo M)Acc No.[id number]:12/12/2024 Patient: Rishi RICH Provider: Emma Duval DPM :1955 A ge:69 Y S ex:Male Date:12/12/2024 Address:[address] [place], [place] [id number] Subjective: * Chief Complaints: * 1 . *General care. * Medical History: Objective: * Vitals: Assessment: Plan: * Treatment: * Billing Information: * Visit Code: * Procedure Codes: * Electronic signature of ANGIE DUVAL DPM on 02/18/2025 at 10:05 AM CDT Sign off status: Pending * Provider: Emma Duval DPM Date: 12/12/2024 Generated for Haily graf/Franco/eTransmitting on: 0 02/18/2025 10:05 AM RACHELLE
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
--- OUTSIDE RECORDS SUMMARY | 2025-02-18 10:05 | XMS_ITS | Encounter Summary ---
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
== END 2025-02-18 09:36 | disposition home or self-care (01) ==
LOC: CHSED 09:32
PROVIDERS: Emergency Provider Family Medicine; PCP Family Medicine
DX: S61.215A Laceration without foreign body of left ring finger without damage to nail, initial encounter (principal); W27.0XXA Contact with workbench tool, initial encounter; F17.210 Nicotine dependence, cigarettes, uncomplicated
CPT/HCPCS: 12001; 90853; 99283

== ENCOUNTER 2025-03-26 10:20 | Outpatient (RCR) | payer MEDICARE, OTHER, SELFPAY ==
--- NOTE | 2025-03-26 11:17 | OPREHPOC ---
Outpatient Therapy Plan of Care This is a Multidisciplinary Plan of Care that may contain components documented by all disciplines (PT, OT, and ST.) PT Problem 1 PT Problem #1 Knowledge Deficit PT Goal 1 Goal / Goal Update The patient will demonstrate independence in a home exercise program. Target Visit 4 PT Problem 2 PT Problem #2 Impaired Balance PT Goal 1 Goal / Goal Update The patient will improve Tinetti Balance Scale score to 25 indicating a low fall risk. The patient will improve 5x sit to stand time to 15 seconds or less indicating a low fall risk. The patient will report no falls within a 2 week period. Target Visit 10 PT Problem 3 PT Problem #3 Impaired Strength PT Goal 1 Goal / Goal Update The patient will demonstrate the ability to perform sit to stand without UE support and attain a fully erect posture and full knee extension bilaterally for 5 repetitions. The patient will demonstrate 5/5 strength in bilateral knee and hip muscles. Target Visit 10
--- NOTE | 2025-03-26 11:17 | PTOPEVAL1 ---
Assessment and note entered by Krystina Poole, PT Evaluation Information Assessment Status Evaluation Diagnosis Imbalance ICD-10 Condition Codes (PT) Repeated falls R29.6,Weakness R53.1 Other ICD-10 Condition Codes ( R26.89 PT) Subjective Information Rishi John reports he has been having falls and has had dizziness and both knees giving out. He has been having dizziness since having a deep brain stimulator placed 2 years ago but the dizziness worsened about a month ago. He called his neurologist and was referred to PT. He reports his knees started giving out about 2 weeks ago. He reports he fell once in the last week when he tried to shut his truck door and he fell into the truck. He has also had falls due to one knee or the other giving out while walking or going up stairs. He has not fallen due to dizziness but does get off balance. Reported Pain Level Pain Score 0: Self Report Assessment PT Clinical Summary Rishi John presents with decreased balance, worsening weakness in the LE, and increased dizziness. He has a history of a deep brain stimulator placed approximately 2 years ago and has experienced occasional dizziness since then but it has worsened in the last month. He has also experienced his knees giving out when walking and going up stairs in the last 2 weeks. He has had several falls but no injuries. He objectively demonstrates decreased bilateral hip and knee strength, decreased balance, and altered gait. He is currently a high fall risk. He will benefit from skilled PT to address these limitations. Plan of Care Interventions Gait Training,Neuro Re-education,Patient/Caregiver Education,Therapeutic Activities,Therapeutic Exercise PT Services Indicated Yes Treatment Frequency and 2 times a week for 10 visits Duration These treatments will address the objective and functional deficits as defined above. The patient will be advanced safely and appropriately in order for the patient to progress towards his/her prior level of function. Additional exercises will be introduced and as well as a comprehensive home exercise program upon discharge, if needed, ?to ensure carryover of functional gains achieved in the clinic. This treatment plan has been reviewed and agreement upon by the patient.
--- NOTE | 2025-04-30 09:21 | OPREHPOC ---
Outpatient Therapy Plan of Care This is a Multidisciplinary Plan of Care that may contain components documented by all disciplines (PT, OT, and ST.) PT Problem 1 PT Problem #1 Knowledge Deficit PT Goal 1 Goal / Goal Update The patient will demonstrate independence in a home exercise program. Target Visit 4 Progress Met PT Problem 2 PT Problem #2 Impaired Balance PT Goal 1 Goal / Goal Update The patient will improve Tinetti Balance Scale score to 25 indicating a low fall risk. -not met The patient will improve 5x sit to stand time to 15 seconds or less indicating a low fall risk. - not met The patient will report no falls within a 2 week period. -met Target Visit 10 Progress Partially Met PT Problem 3 PT Problem #3 Impaired Strength PT Goal 1 Goal / Goal Update The patient will demonstrate the ability to perform sit to stand without UE support and attain a fully erect posture and full knee extension bilaterally for 5 repetitions. The patient will demonstrate 5/5 strength in bilateral knee and hip muscles. Target Visit 10 Progress Not Met
--- NOTE | 2025-04-30 09:21 | PTOPPROG ---
Assessment and note entered by Silke Florentino, PT Evaluation Information Assessment Status Progress Diagnosis Imbalance ICD-10 Condition Codes (PT) Repeated falls R29.6,Weakness R53.1 Other ICD-10 Condition Codes ( R26.89 PT) Subjective Information Pt reports his low back continues to hurt and he doesn't feel like his balance is any better than when he started PT. He does report that he hasn't had any falls since starting PT but continues to feel lightheaded and unsteady on his feet. Assessment PT Clinical Summary Mr. John has attended 9 skilled PT visits addressing balance and strengthening to reduce fall risk. Since beginning PT his status is relatively unchanged. His Tinetti score is the same as it was during initial eval and he demonstrates unsafe technique when performing sit to stands for 5xSTS test. Pt performs well with static and dynamic balance activities but continues to struggle with getting out of a chair due to weakness, unsteadiness and lightheadedness. He will benefit from continued skilled PT to continue progressing toward goals. Plan of Care Interventions Gait Training,Neuro Re-education,Patient/Caregiver Education,Therapeutic Activities,Therapeutic Exercise PT Services Indicated Yes Treatment Frequency and 2x/week for 6 additional visits Duration These treatments will address the objective and functional deficits as defined above. The patient will be advanced safely and appropriately in order for the patient to progress towards his/her prior level of function. Additional exercises will be introduced and as well as a comprehensive home exercise program upon discharge, if needed, ?to ensure carryover of functional gains achieved in the clinic. This treatment plan has been reviewed and agreement upon by the patient.
--- NOTE | 2025-05-23 10:11 | OPREHPOC ---
Outpatient Therapy Plan of Care This is a Multidisciplinary Plan of Care that may contain components documented by all disciplines (PT, OT, and ST.) PT Problem 1 PT Problem #1 Knowledge Deficit PT Goal 1 Goal / Goal Update The patient will demonstrate independence in a home exercise program. requires reminders from . Target Visit 4 Progress Partially Met PT Problem 2 PT Problem #2 Impaired Balance PT Goal 1 Goal / Goal Update The patient will improve Tinetti Balance Scale score to 25 indicating a low fall risk. -not met The patient will improve 5x sit to stand time to 15 seconds or less indicating a low fall risk. met for time, but patient unsafely falls quickly back into the chair on last bout The patient will report no falls within a 2 week period. -met Target Visit 10 Progress Partially Met PT Problem 3 PT Problem #3 Impaired Strength PT Goal 1 Goal / Goal Update The patient will demonstrate the ability to perform sit to stand without UE support and attain a fully erect posture and full knee extension bilaterally for 5 repetitions. able to attain posture 5 times, but unsafe on last sitting bout The patient will demonstrate 5/5 strength in bilateral knee and hip muscles. partially met Target Visit 10 Progress Not Met PT Goal 2 Goal / Goal Update patient to maintain strength in hips and kness. patient to maintain ability to achieve erect posture for 5x sit to stand test, but do it safely patient to maintain tinetti balance score patient to maintain TUG score patient to maintain no falls while a patient of skilled PT here. Target Visit 19
--- NOTE | 2025-05-23 10:11 | PTOPREEVAL ---
Assessment and note entered by JT File, PT Evaluation Information Assessment Status Re-evaluation Diagnosis Imbalance ICD-10 Condition Codes (PT) Repeated falls R29.6,Weakness R53.1 Other ICD-10 Condition Codes ( R26.89 PT) Subjective Information patient reports he continues to have lower back pain all the time. he reports he has no falls since being a patient of skilled PT this round. he is doing his HEP at home with the assistance of his for reminders. Reported Pain Level Pain Score 8: Self Report Assessment PT Clinical Summary mr. mcdaniels presents to skilled PT for his 15th skilled therapy visit for weakness and falls. he displays improvements in time and balance today, but continues to be unsafe with certain activities like sitting down to a chair at time. he has had no falls since being in skilled PT this bout. he has been a patient here several times, and has a routine of falling off his HEP after DC from skilled PT. given his likelihood to do this again, we will try something new this time, and continue this patient coming to skilled PT under a maintenance program at 1x a week for 4 more visits . Plan of Care Interventions Gait Training,Neuro Re-education,Patient/Caregiver Education,Therapeutic Activities,Therapeutic Exercise PT Services Indicated Yes Treatment Frequency and continue skilled PT in maintenance program 1x Duration weekly for 4 visits. These treatments will address the objective and functional deficits as defined above. The patient will be advanced safely and appropriately in order for the patient to progress towards his/her prior level of function. Additional exercises will be introduced and as well as a comprehensive home exercise program upon discharge, if needed, ?to ensure carryover of functional gains achieved in the clinic. This treatment plan has been reviewed and agreement upon by the patient.
--- NOTE | 2025-06-18 10:42 | OPREHPOC ---
Outpatient Therapy Plan of Care This is a Multidisciplinary Plan of Care that may contain components documented by all disciplines (PT, OT, and ST.) PT Problem 1 PT Problem #1 Knowledge Deficit PT Goal 1 Goal / Goal Update The patient will demonstrate independence in a home exercise program. requires reminders from . Target Visit 4 Progress Not Met PT Problem 2 PT Problem #2 Impaired Balance PT Goal 1 Goal / Goal Update The patient will improve Tinetti Balance Scale score to 25 indicating a low fall risk. -met The patient will improve 5x sit to stand time to 15 seconds or less indicating a low fall risk. - not met on 06/18/25 The patient will report no falls within a 2 week period. -met Target Visit 10 Progress Partially Met PT Problem 3 PT Problem #3 Impaired Strength PT Goal 1 Goal / Goal Update The patient will demonstrate the ability to perform sit to stand without UE support and attain a fully erect posture and full knee extension bilaterally for 5 repetitions. able to attain posture 5 times, but unsafe on last sitting bout - not met The patient will demonstrate 5/5 strength in bilateral knee and hip muscles. -maintained Target Visit 10 Progress Not Met PT Goal 2 Goal / Goal Update patient to maintain strength in hips and kness. - met, continue patient to maintain ability to achieve erect posture for 5x sit to stand test, but do it safely -not met patient to maintain tinetti balance score patient to maintain TUG score -not met patient to maintain no falls while a patient of skilled PT here. -met Target Visit 19
--- NOTE | 2025-06-18 10:42 | PTOPPROG ---
Assessment and note entered by Silke Florentino, PT Evaluation Information Assessment Status Progress Diagnosis Imbalance ICD-10 Condition Codes (PT) Repeated falls R29.6,Weakness R53.1 Other ICD-10 Condition Codes ( R26.89 PT) Onset 03/19/2025 Subjective Information aNhum reports feeling like his balance has improved to a certain extent. He feels like he can walk on level surfaces well and without difficulty, but walking on even surfaces like in his front yard and when making quick turns makes him feel unsteady. He notes his biggest concern still lies with getting out of a chair. He denies any falls from standing but states he did accidentally fall out of bed last week while he was sleeping. He reports he has not been doing his exercises. Assessment PT Clinical Summary Mr. John presents for his th skilled PT visit today. He has made improvements in his overall balance as seen by Tinetti score improvement however he still has difficulty with getting out of chairs safely due to imbalance and impaired force production. He also continues to demonstrate deficits in hip strength and functional balance as evidenced by 5xSTS and TUG. He will continue to benefit from skilled PT intervention to maintain and make further progress toward goals. Plan of Care Interventions Gait Training,Neuro Re-education,Patient/Caregiver Education,Therapeutic Activities,Therapeutic Exercise PT Services Indicated Yes Treatment Frequency and 1x/week for 4 additional visits Duration These treatments will address the objective and functional deficits as defined above. The patient will be advanced safely and appropriately in order for the patient to progress towards his/her prior level of function. Additional exercises will be introduced and as well as a comprehensive home exercise program upon discharge, if needed, ?to ensure carryover of functional gains achieved in the clinic. This treatment plan has been reviewed and agreement upon by the patient.
== END 2025-06-25 20:00 | disposition still patient (30) ==
LOC: CHSPT 10:20
DX: R26.89 Other abnormalities of gait and mobility (principal); R53.1 Weakness; R29.6 Repeated falls
CPT/HCPCS: 97110; 97112; 97161; 97530; 97750

== ENCOUNTER 2025-04-08 10:00 | Outpatient (RCR) | payer MEDICARE, OTHER, SELFPAY ==
[2025-01-09 00:02] VITALS: BP 130/73; PULSE 93; RESP 20; TEMP 37.1; O2SAT 96
--- NOTE | 2025-01-09 10:00 | PC.NURSE ---
No nursing group due to MD visit.
[2025-01-09 11:25] VITALS: BP 126/76; PULSE 98; RESP 18; TEMP 36.4; O2SAT 95
[2025-01-14 12:50] VITALS: BP 100/77; PULSE 102; RESP 20; TEMP 36.2; O2SAT 94
--- NOTE | 2025-01-14 14:49 | PC.NURSE ---
No nursing group due to nurse meeting.
[2025-01-16 09:38] VITALS: BP 111/78; PULSE 94; RESP 18; TEMP 36.6; O2SAT 96
--- NOTE | 2025-01-16 09:39 | PC.NURSE ---
No nursing group due to MD visit.
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
--- NOTE | 2025-01-16 12:18 | PC.NURSE ---
This nurse called [facility] in [place] to order the patient Aricept 5mg PO every evening X 30 days.
[2025-01-21 09:38] VITALS: BP 112/72; PULSE 91; RESP 20; TEMP 36.2; O2SAT 96
[2025-01-23 09:46] VITALS: BP 124/77; PULSE 86; RESP 20; TEMP 36.6; O2SAT 97
--- NOTE | 2025-01-23 10:50 | PC.NURSE ---
No nursing group due to MD visit.
--- NOTE | 2025-01-23 11:02 | WPDSLSPROGRE ---
Progress HPI Progress HPI Visit Attended By patient and staff History Obtained From patient Chief Complaint pretty good HPI this is a follow-up for depression and anxiety. He was just seen 1 week ago but today he was due for his treatment plan review. Last week we started him on Aricept 5 mg q.h.s.. It is obviously too soon to tell how this is working, but he denies any side effects. He does state that his stool is green, but it has been green for quite some time. He says things are pretty good, in that he and his are getting along better, especially since he is trying to keep his chores up and take his medicine. they are also doing family therapy. Patient and his her even going to [place] to visit family. Tremors relatively unchanged, and he is eager to see his neurologist in [place] next month he may make some adjustments. Is also on Cymbalta 90 mg q.day, BuSpar 15 mg b.i.d., bupropion 200 mg b.i.d., Abilify 5 mg q.a.m.. Average Number of Hours of Sleep 7 Sleep Quality frequent awakening Change in PMFSH Releveant to Presenting Illness Yes Describe Changes in PMFSH Improvement in relationship with Review of Systems Review of Systems Constitutional Reports fatigue Eyes Reports other ( Glaucoma) ENT Reports WNL Respiratory Reports WNL Cardiovascular Reports other ( cerebral hemorrhage, arteriosclerosis) Gastrointestinal Reports other ( history of diverticulitis) Musculoskeletal Reports abnormal gait, Reports diminished strength and Reports muscle stiffness Neurologic Reports other ( bilateral DBS, cerebral hemorrhage, balance issues) Skin Reports WNL ADL's Reports WNL Exam Physical Exam Review of Lab Studies n/a Hygiene good General Behavior/Attitude Toward Examiner pleasant and cooperative Pain Yes Pain Location neck Pain Characteristics chronic and aching Psychiatric Exam Level of Consciousness alert Orientation person, place, time and situation Speech normal rate/tone/volume/prosody and coherent Language able to comprehend questions Mood pretty good Affect blunted, appropriate and congruent Thought Processes/Form logical, linear and goal directed Thought Content diminished depressive and anxiety symptoms Delusions none Homicidal/Assaultive Ideation none Suicidal Ideation none Hallucinations none Attention/Concentration focused Attention/Concentration Testing Methods observation/interview Short Term Memory Impairment mild STM Testing Methods clinical interview (assessment/observation) [facility] Memory Impairment mild LTM Testing Methods recall of biographical information Intellectual Functioning roughly average Intellectual Functioning Assessed By current events Insight fair Insight Assessed By ability to recognize & acknowledge mental illness, ability to understand the implications of mental illness, understanding of treatment options and ability to comply with treatment Judgement fair and improving Judgement Assessed By exploring recent decision-making MMSE n/a Patient Assets willing to accept treatment, able to perform ADLs Patient Liabilities relationship problems, memory issues, multiple physical issues Assessment and Plan Clinical Impression/Diag Clinical Impression/Diagnosis F 33.2, progressing well Progress Overview Reason for Continued Services in an Intensive Outpatient Program continued impaired mood and.or depression, patient would decompenste at a lower level of care, not at baseline level of functioning and high risk for relapse Treatment To Be Provided medication management, group/individual/rec therapy and family session as indicated Discharge Disposition/Level of Care PCP Anticipated Discharge 6 weeks Certification Statement Certification Statement I believe this patient requires the services of the Intensive Outpatient Program and that there is reasonable expectation that the patient will make timely and significant practical improvement in the presenting acute symptoms as a result of this Intensive Outpatient Program. I do not believe this patient will benefit from a lesser level of care or could be adequately and appropriately treated in a less restrictive environment. My decision is based on the preceding clinical information.
[2025-01-28 09:40] VITALS: BP 111/72; PULSE 94; RESP 20; TEMP 36.3
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
[2025-02-04 10:54] VITALS: BP 100/72; PULSE 88; RESP 20; TEMP 36.1; O2SAT 98
[2025-02-06 10:19] VITALS: BP 112/63; PULSE 91; RESP 20; TEMP 36.6; O2SAT 97
--- NOTE | 2025-02-06 11:03 | PC.NURSE ---
No nursing group due to MD visit.
[2025-02-10 10:18] VITALS: BP 110/72; PULSE 93; RESP 20; TEMP 36.7; O2SAT 98
[2025-02-13 10:09] VITALS: BP 120/70; PULSE 90; RESP 20; TEMP 36.9; O2SAT 98
--- NOTE | 2025-02-13 11:08 | PC.NURSE ---
No nursing group due to MD visit.
--- NOTE | 2025-02-13 11:59 | P.PN_ITS ---
Progress HPI Progress HPI Visit Attended By patient and staff History Obtained From patient Patient Stated Chief Complaint Make me feel better HPI this is a follow-up for depression anxiety. Patient is somewhat mad at my because she is getting a tattoo. We took some time to process this and suggested to him that because she was going with a friend who was visiting from out of state, that he may feel somewhat left out. He made it clear, that he does not want a tattoo. They are still doing couples therapy. Is on Aricept 5 mg q.h.s., and thinks that this may be helping somewhat, Although it is causing him to have strange dreams. Also continue Cymbalta 90 mg q.day, BuSpar 15 mg b.i.d., bupropion 200 mg b.i.d., Abilify 5 mg q.a.m.. Enjoys program participates well. seeing neurologist next month. Average Number of Hours of Sleep 7 Sleep Quality frequent awakening and vivid dreams Change in [facility] Releveant to Presenting Illness Yes Describe Changes in PMFSH Marital issues as above Review of Systems Review of Systems Constitutional Reports fatigue Eyes Reports other ( Glaucoma) ENT Reports WNL Respiratory Reports WNL Cardiovascular Reports other ( cerebral hemorrhage, arterial sclerosis) Gastrointestinal Reports other ( history of diverticulitis) Musculoskeletal Reports abnormal gait, Reports diminished strength and Reports muscle stiffness Neurologic Reports other ( bilateral DBS, cerebral hemorrhage, balance issues) Skin Reports WNL ADL's Reports WNL Exam Physical Exam Review of Lab Studies n/a Hygiene good General Behavior/Attitude Toward Examiner pleasant and cooperative Pain Yes Pain Location neck Pain Characteristics chronic and aching Psychiatric Exam Level of Consciousness alert Orientation person, place, time and situation Speech normal rate/tone/volume/prosody and coherent Language able to comprehend questions Mood irritable Affect blunted, appropriate and congruent Thought Processes/Form logical, linear and goal directed Thought Content depressive symptoms Delusions none Homicidal/Assaultive Ideation none Suicidal Ideation none Hallucinations none Attention/Concentration focused Attention/Concentration Testing Methods observation/interview Short Term Memory Impairment mild STM Testing Methods clinical interview (assessment/observation) [employer] Of [employer] Memory Impairment none LTM Testing Methods recall of biographical information Intellectual Functioning roughly average Intellectual Functioning Assessed By fund of knowledge Insight fair Insight Assessed By ability to recognize & acknowledge mental illness, ability to understand the implications of mental illness, understanding of treatment options and ability to comply with treatment Judgement fair Judgement Assessed By exploring recent decision-making MMSE n/a Patient Assets willing to accept treatment, able to perform ADLs Patient Liabilities marital difficulties, memory issues, neurologic symptoms Assessment and Plan Clinical Impression/Diag Clinical Impression/Diagnosis F 33.2, marital issues. Continue IOP. Monitor meds Progress Overview Reason for Continued Services in an Intensive Outpatient Program continued impaired mood and.or depression, patient would decompenste at a lower level of care, not at baseline level of functioning and high risk for relapse Treatment To Be Provided medication management and group/individual/rec therapy Discharge Disposition/Level of Care PCP Anticipated Discharge 4-6 weeks
[2025-02-18 10:45] VITALS: BP 139/78; PULSE 93; RESP 20; TEMP 37.1; O2SAT 97
[2025-02-20 10:16] VITALS: BP 122/73; PULSE 90; RESP 20; TEMP 36.8; O2SAT 96
[2025-02-25 10:08] VITALS: BP 113/68; PULSE 96; RESP 20; TEMP 36.9; O2SAT 96
--- NOTE | 2025-02-27 10:26 | PC.NURSE ---
No nursing group due to MD visit.
[2025-02-27 10:32] VITALS: BP 114/72; PULSE 84; RESP 20; TEMP 37.2; O2SAT 96
[2025-03-04 10:11] VITALS: BP 108/60; PULSE 90; RESP 20; TEMP 37.2; O2SAT 97
--- NOTE | 2025-03-05 16:17 | WPDSLSPROGRE ---
Progress HPI Progress HPI Visit Attended By patient and staff History Obtained From patient Patient Stated Chief Complaint tired HPI this is a follow-up for depression anxiety. Patient enjoys the program participates well. He is going to see neurology and neurosurgery the of next month. As it turns out his got her tattoo, and he is not her happy about this. He says she continues to chastise him about not doing things around the house, not being respectful, etc.. We are doing family sessions. He injured his left ring finger with a pair scissors and the tip had to be cauterized. Continues Cymbalta 90 mg q.day, Aricept 5 mg q.h.s., BuSpar 15 mg b.i.d., bupropion 200 mg b.i.d., Abilify 5 mg q.a.m.. Average Number of Hours of Sleep 7 Sleep Quality frequent awakening and vivid dreams Change in PMFSH Releveant to Presenting Illness No Review of Systems Review of Systems Constitutional Reports fatigue and other ( Type 2 diabetes) Eyes Reports other ( glaucoma) ENT Reports WNL Respiratory Reports WNL Cardiovascular Reports other ( cerebral hemorrhage, arterial sclerosis) Gastrointestinal Reports other ( history of diverticulitis) Musculoskeletal Reports abnormal gait, Reports diminished strength and Reports muscle stiffness Neurologic Reports other ( bilateral DBS, cerebral hemorrhage, balance issues) Skin Reports WNL ADL's Reports WNL Exam Physical Exam Review of Lab Studies n/a Hygiene good General Behavior/Attitude Toward Examiner pleasant and cooperative Pain Yes Pain Characteristics chronic and aching Psychiatric Exam Level of Consciousness alert Orientation person, place, time and situation Speech normal rate/tone/volume/prosody and coherent Language able to follow instructions or commands Mood irritable Affect blunted Thought Processes/Form logical, linear and goal directed Thought Content depressive and anxiety symptoms Delusions none Homicidal/Assaultive Ideation none Suicidal Ideation none Hallucinations none Attention/Concentration focused Attention/Concentration Testing Methods observation/interview Short Term Memory Impairment mild STM Testing Methods clinical interview (assessment/observation) Desizing Machine Back Tender Memory Impairment none LTM Testing Methods recall of biographical information Intellectual Functioning roughly average Intellectual Functioning Assessed By current events Insight fair Insight Assessed By ability to recognize & acknowledge mental illness, ability to understand the implications of mental illness, understanding of treatment options and ability to comply with treatment Judgement fair Judgement Assessed By exploring recent decision-making MMSE n/a Patient Assets able to perform ADLs, willing to accept treatment Patient Liabilities marital difficulties, memory issues, neurologic symptoms Assessment and Plan Clinical Impression/Diag Clinical Impression/Diagnosis F 33.2, depressive symptoms, marital stressors Progress Overview Reason for Continued Services in an Intensive Outpatient Program continued impaired mood and.or depression, patient would decompenste at a lower level of care, not at baseline level of functioning and high risk for relapse Treatment To Be Provided medication management and group/individual/rec therapy Discharge Disposition/Level of Care PCP Anticipated Discharge 4-6 weeks
[2025-03-06 10:10] VITALS: BP 118/70; PULSE 91; RESP 20; TEMP 36.7; O2SAT 97
[2025-03-11 10:14] VITALS: BP 122/72; PULSE 90; RESP 20; TEMP 37.1; O2SAT 96
--- NOTE | 2025-03-13 09:28 | PC.NURSE ---
No nursing group due to MD visit.
[2025-03-13 10:17] VITALS: BP 107/76; PULSE 91; RESP 18; TEMP 36.6; O2SAT 98
[2025-03-18 10:11] VITALS: BP 118/70; PULSE 92; RESP 18; TEMP 36.8; O2SAT 96
--- NOTE | 2025-03-18 13:59 | PC.NURSE ---
No nursing group due to nurse meeting.
[2025-03-20 10:04] VITALS: BP 106/69; PULSE 92; RESP 18; TEMP 37; O2SAT 96
[2025-03-25 10:01] VITALS: BP 104/69; PULSE 90; RESP 18; TEMP 36.5; O2SAT 96
[2025-03-27 10:20] VITALS: BP 112/73; PULSE 84; RESP 20; TEMP 36.8; O2SAT 98
--- NOTE | 2025-03-27 11:00 | P.PN_ITS ---
Progress HPI Progress HPI Visit Attended By patient and staff History Obtained From patient Patient Stated Chief Complaint Okay HPI this is a routine follow-up for depression anxiety. Patient actually feels okay this week, denies suicidal thoughts. He feels that part of the improvement in his mood is that he is going to get to come off some of his medication. He saw his neurologist at [facility] last week, who wants to taper him off his primidone. It sounds like that the neurologist feels that primidone could be worsening his mood, and is going to continue to try to manage his Parkinson's with DBS. According to the neurologist's note, it sounds like that he feels patient needs physical therapy for balance, but overall is doing fairly well. The doctor also wants to adjust his DBS programming to help with swallowing, along with balance. The neurologist also says that he wanted to consider getting patient off Abilify but he also says in his note though if it is saving his life we may need ( sic) tolerate it. from this office patient continues on Cymbalta 90 mg q.day, Aricept 5 mg q.h.s., BuSpar 15 mg b.i.d., bupropion 200 mg b.i.d., Abilify 5 mg q.a.m.. Average Number of Hours of Sleep 8 Sleep Quality frequent awakening ( Nocturia) Change in PMFSH Releveant to Presenting Illness Yes Describe Changes in PMFSH some improvement in mood as above Review of Systems Review of Systems Constitutional Reports fatigue and other ( type 2 diabetes) Eyes Reports other ( glaucoma) ENT Reports WNL Respiratory Reports WNL Cardiovascular Reports other ( cerebral hemorrhage, arteriosclerosis) Gastrointestinal Reports other ( history of diverticulitis) Musculoskeletal Reports abnormal gait, Reports diminished strength and Reports muscle stiffness Neurologic Reports tremor ( tremor improved, no rigidity on exam) and other ( bilateral DBS, cerebral hemorrhage, balance issues) Skin Reports WNL ADL's Reports WNL Exam Physical Exam Hygiene good General Behavior/Attitude Toward Examiner pleasant and cooperative Pain Yes Pain Location generalized Pain Characteristics chronic and aching Psychiatric Exam Level of Consciousness alert Orientation person, place, time and situation Speech normal rate/tone/volume/prosody and coherent Language able to follow instructions or commands Mood okay Affect blunted, appropriate and congruent Thought Processes/Form logical, linear and goal directed Thought Content depressive symptoms Delusions none Homicidal/Assaultive Ideation none Suicidal Ideation none Hallucinations none Attention/Concentration focused Attention/Concentration Testing Methods observation/interview Short Term Memory Impairment mild STM Testing Methods clinical interview (assessment/observation) Assembler Deck And Hull Memory Impairment none LTM Testing Methods recall of biographical information Intellectual Functioning roughly average Intellectual Functioning Assessed By current events Insight fair Insight Assessed By ability to recognize & acknowledge mental illness, ability to understand the implications of mental illness, understanding of treatment options and ability to comply with treatment Judgement fair Judgement Assessed By exploring recent decision-making MMSE n/a Patient Assets willing to accept treatment, able to perform ADLs Patient Liabilities marital difficulties, memory issues, neurologic symptoms Assessment and Plan Clinical Impression/Diag Clinical Impression/Diagnosis F 33.2, progressing well. Recommend no change in medication at this point. Continue IOP, monitor medications Progress Overview Reason for Continued Services in an Intensive Outpatient Program continued impaired mood and.or depression, patient would decompenste at a lower level of care, not at baseline level of functioning and high risk for relapse Treatment To Be Provided medication management and group/individual/rec therapy Discharge Disposition/Level of Care PCP Anticipated Discharge 4-6 weeks
[2025-04-01 10:01] VITALS: BP 113/86; PULSE 86; RESP 18; TEMP 36.4; O2SAT 96
[2025-04-03 09:56] VITALS: BP 110/67; PULSE 90; RESP 20; TEMP 36.8; O2SAT 96
--- NOTE | 2025-04-03 10:42 | PC.NURSE ---
No nursing group due to MD visit.
[2025-04-07 09:49] VITALS: BP 100/72; PULSE 94; RESP 18; TEMP 36.8; O2SAT 97
[2025-04-08 09:54] VITALS: BP 104/72; PULSE 92; RESP 20; TEMP 36.8; O2SAT 94
== END 2025-04-09 23:59 | disposition home or self-care (01) ==
LOC: CHSSENLIFE 10:00
PROVIDERS: PCP Family Medicine; Visit Provider Psychiatry & Neurology Psychiatry
DX: F33.2 Major depressive disorder, recurrent severe without psychotic features (principal)
CPT/HCPCS: 90847; 90853; 99213; 99214; G0463

== ENCOUNTER 2025-05-14 14:14 | Outpatient (CLI) | payer MEDICARE, OTHER, SELFPAY ==
--- NOTE | ~2025-05-14 | CT_ITS ---
CT Scan of the Chest without Contrast: Clinical Indication: Lung cancer screening, nicotine dependence Technique: Contiguous sections were acquired throughout the chest without intravenous contrast. Dose reduction technique was used on this scan by utilizing automated exposure control and iterative recon struction technique. The dose-length product (DLP) was 168.18 mGy-cm. Findings: There is no evidence of any significant mediastinal, hilar or axillary lymphadenopathy. Ascending aor ta measures 4.3 cm in diameter. There is no evidence of pleural or pericardial effusion. Calcified granuloma present in the anteromedial right upper lobe. Subcentimeter nodules present along the right major fissure. Images through the upper abdomen reveal probable diffuse hepatic steatosis. Impression: Lung RADS 2: Benign appearance. 12 month follow-up screening CT advised. 4.3 cm ascending aortic aneurysm. Reviewed, dictated and finalized at [facility]. Impression: Lung RADS 2: Benign appearance. 12 month follow-up screening CT advised. 4.3 cm ascending aortic aneurysm.
--- OUTSIDE RECORDS SUMMARY | 2025-05-14 14:26 | XMS_ITS | Encounter Summary ---
Author Organization [facility] Address [address] [place] [phone] Phone Care Team Providers Care Evs Attendant Name Role Phone Unavailable Primary Care Provider Unavailabl e Reason for Visit * Reason Comments Medication Refill Encounter Details Date Type Department Care Team (Late st Contact Info) Description 04/02/2025 Refill [facility] [address], [place] [phone] Phillip Dejesus MD [address], [place] [id number] Medication Refill Social History Tobacco Use Types Packs/Day Years Used Date Smoking Tobacco: Never Assessed Sex and Gender Information Value Date Recorded Sex Assigned at Not on file Legal Sex Male 12:14 AM CDT Gender Identity Not on file Sexual Orientation Not on file documented as of this encounter Plan of Treatment Not on file documented as of this encounter Visit Diagnoses Not on filedocumented in this encounter
--- OUTSIDE RECORDS SUMMARY | 2025-05-14 14:26 | XMS_ITS | Clinical Summary ---
Author Organization [facility] Care Team Providers Care Irrigator Valve Pipe Name Role Phone Unavailable Primary Care Provider Unavailabl e Encounters Date Type Department Care Team Description 05/06/2025 Refill [facility] [address] [place] [phone] Phillip Dejesus MD Medication Refill 04/18/2025 Refill [facility] [address] [place] [phone] Phillip Dejesus MD Medication Refill [facility] [address] [place] [phone] Phillip Dejesus MD Medication Refill from Last 3 Months Social History Tobacco Use Types Packs/Day Years Used Date Smoking Tobacco: Never Assessed Sex and Gender Information Value Date Recorded Sex Assigned at Not on file Legal Sex Male 12:14 AM CDT Gender Identity Not on file Sexual Orientation Not on file Plan of Treatment Not on file
--- OUTSIDE RECORDS SUMMARY | 2025-05-14 14:26 | XMS_ITS | Encounter Summary ---
Author Organization [facility] Address [address] [place] [phone] Phone Care Team Providers Care Audit Senior Associate Name Role Phone Unavailable Primary Care Provider Unavailabl e Reason for Visit * Reason Comments Medication Refill Encounter Details Date Type Department Care Team (Late st Contact Info) Description 04/18/2025 Refill [facility] [address] [phone] Phillip Dejesus MD [address], [place] [address] Medication Refill Social History Tobacco Use Types [...]
--- OUTSIDE RECORDS SUMMARY | 2025-05-14 14:26 | XMS_ITS ---
Author Organization [facility] Address [address] [place], [place] [id number] Care Team Providers Care Pet Crematory Worker Name Role Phone CHARLES LEONARD Unavailable [phone] Adama Faustin Unavailable Unavailable Allergies Allergen (clinical drug ingredient) Drug/Non Drug Allergy documented on EMR Reaction Allergy Type Onset Date Status Penicillin Unknown Drug Allergy Active REASON FOR VISIT *General care Medications Medication SIG (Take, Route, Frequency, Duration) Notes Start Date End Date Status Fluticasone Propionate Active Clotrimazole 1 % 1 application Wildlife Management Professor ally Once a day; Duration: 30 days 05/08/2025 11/03/2025 Active Montelukast Sodium A ctive metFORMIN HCl Active Clindamycin HCl Acti ve busPIRone HCl Active Famotidine Active Escitalopram Oxalate Active buPROPion HCl Active MiraLax Active Vital Signs Height 70 in 05/08/2025 Weight 225 lbs 05/08/2025 BMI 32.28 kg/m2 05/08/2025 Height-cm 177.8 cm 05/08/2025 Weight-kg 102.06 kg 05/08/2025 Encounters Encounter Location Date Provider Diagnosis [facility] [address] [place], [place] [id number] 05/08/2025 CHARLES LEONARD Tinea unguium B35.1 ; Pain in right toe(s) M79.674 ; Pain in left toe(s) M79.675 ; Atherosclerosis of [place] arteries of extremities with intermittent claudication, bilateral [...] toe(s) (ICD-10 - M79.675) 05/08/2025 Atherosclerosis of hoopa arteries of extremities with intermittent claudication, bilateral [...] Date Stop Date Notes Clotrimazole 1 % 1 application Wildlife Management Professor ally Once a day; Duration: 30 days 05/08/2025 [...] sooner if problems develop. Provider Name:CHARLES RAMOS, 07/10/2025 01:50:00 PM, [address] [place] [address], [id number], Progress Notes * America WADEhDOB: 7 (69 yo M)Acc No.[id number]:05/08/2025 Patient: Rishi RICH Provider: Marshall LEONARD :1955 A ge:69 Y S ex:Male Date:05/08/2025 Address:[address] [place], [place] [phone] Subjective: * Chief Complaints: * 1 . *General care. * HPI: H PI: General care P cheryl presents to the office for diabetic foot [...] izziness, gait abnormality, headache. * Medical History: D iabetic. * Medications: T aking MiraLax , Taking Escitalopram Oxalate , Taking buPROPion HCl , Taking busPIRone HCl , Taking Famotidine , Taking Montelukast Sodium , Taking metFORMIN HCl , Taking Fluticasone Propionate , Taking Clindamycin HCl , Medication List reviewed and reconciled with the patient * Allergies: P enicillin. Objective: * Vitals: S hoe Size: 9.5, [...] - M79.675 4 . A therosclerosis of [place] arteries of extremities with intermittent claudication, bilateral [...] well as the Amputation Prevention Guide. * Follow Up: 1 0 - 12 weeks (Reason: At-Risk Foot care, sooner if problems develop.) * Billing Information: * Visit Code: * Procedure Codes: * Electronic signature of FARRUKH LEONARD DPM on 05/14/2025 at 02:26 PM CDT Sign off status: Pending * Provider: Marshall LEONARD Date: 0 05/08/2025 Generated for Haily graf/Franco/Remberto on: 0 05/14/2025 02:26 PM CDT History and Physical Notes * HPI [...]
--- OUTSIDE RECORDS SUMMARY | 2025-05-14 14:26 | XMS_ITS | Encounter Summary ---
Author Organization [facility] Address [address] [place] [phone] Phone Care Team Providers Care Fleet Administrator Name Role Phone Unavailable Primary Care Provider Unavailabl e Reason for Visit * Reason Comments Medication Refill Encounter Details Date Type Department Care Team (Late st Contact Info) Description 05/06/2025 Refill [facility] [address], [place] [phone] Phillip Dejesus MD [address], [place] [id number] Medication Refill Social History Tobacco Use Types [...]
--- OUTSIDE RECORDS SUMMARY | 2025-05-14 14:27 | XMS_ITS | Encounter Summary ---
Author Organization [facility] Address [facility] [place] [address] Care Team Providers Care Flight Security Specialist Name Role Phone Unavailable Primary Care Provider Unavailabl e Encounter Details Date Type Department Care Team (Late st Contact Info) Description 04/13/2019 Abstract SFL CONVERSION [address] [place] [address] , Generic Conversion, Social History Tobacco Use Types Packs/Day Years Used Date Smoking Tobacco: Never Assessed Sex and Gender Information Value Date Recorded Sex Assigned at Not on file Legal Sex Male 10:29 PM SALES SPECIAL AGENT Gender Identity Not on file Sexual Orientation Not on file documented as of this encounter Plan of Treatment Not on file documented as of this encounter Visit Diagnoses Not on filedocumented in this encounter
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
--- OUTSIDE RECORDS SUMMARY | 2025-05-14 14:27 | XMS_ITS | Clinical Summary ---
Author Organization [facility] Address [facility] [place] [address] Care Team Providers Care Flap Presser Name Role Phone Unavailable Primary Care Provider Unavailabl e Social History Tobacco Use Types Packs/Day Years Used Date Smoking Tobacco: Never Assessed Sex and Gender Information Value Date Recorded Sex Assigned at Not on file Legal Sex Male 10:29 PM DIRECTOR OF RETAIL ANALYTICS Gender Identity Not on file Sexual Orientation Not on file Plan of Treatment Health Maintenance Due Date Last Done Comments Colorectal Cancer Screening Colonoscopy (10 Years) 1957 Hepatitis C 1975 DTaP, Tdap and Td Vaccines ( 1 - Tdap) 1976 Pneumococcal Vaccine: 50+ Ye ars (1 of 1 - PCV) 2007 Zoster Vaccines (1 of 2) 2007 COVID-19 Vaccine ( - 2023-2 5 season) 2024 RSV Immunization [...]
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
--- OUTSIDE RECORDS SUMMARY | 2025-05-14 14:27 | XMS_ITS | Encounter Summary ---
Author Organization [facility] Address [address] [place] [address] Care Team Providers Care Community Chest Officer Name Role Phone Adama Faustin MD Primary Care Provide r Arminda Quispe OT Unavailable [phone] Encounter Details Date Type Department Care Team (Late st Contact Info) Description 03/29/[address] 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
--- OUTSIDE RECORDS SUMMARY | 2025-05-14 14:27 | XMS_ITS | Patient Health Record ---
Author Organization [facility] Address [address] [place], [place] [address] Care Team Providers Care Explosives Mixer Operator Name Role Phone HORACIO CHARLES Unavailable [phone] Adama Faustin Unavailable Unavailable ANGIE DUVAL Unavailable [phone] BONITA LEWIS Unavailable [phone] Allergies Allergen (clinical drug ingredient) Drug/Non Drug Allergy documented on EMR Reaction Allergy Type Onset Date Status Penicillin Unknown Drug Allergy Active Reason For Referral No Information Medications Medication SIG (Take, Route, Frequency, Duration) Notes Start Date End Date Status Fluticasone Propionate Active Clotrimazole 1 % 1 application Ui Software Engineer ally Once a day; Duration: 30 days 05/08/2025 11/03/2025 Active Montelukast Sodium A ctive metFORMIN HCl Active busPIRone HCl Active Famotidine Active Escitalopram Oxalate Active buPROPion HCl Active MiraLax Active Clindamycin HCl Acti ve Immunizations Vaccine Route Administration Date Status Comme nts Pneumococcal polysaccharide PPV23 Unknown 10/14/2020 Ad ministered Tdap Unknown 07/24/2018 Administered Vital Signs Height-cm 177.8 cm 05/08/2025 Weight-kg 102.06 kg 05/08/2025 Height 70 in 05/08/2025 Weight 225 lbs 05/08/2025 BMI 32.28 kg/m2 05/08/2025 Encounters Encounter Location Date Provider Diagnosis [facility] [address] [place], [place] [id number] 05/08/2025 CHARLES LEONARD Tinea unguium B35.1 ; Pain in right toe(s) M79.674 ; Pain in left toe(s) M79.675 ; 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, bilateral legs I70.213 and Type 2 diabetes mellitus with other circulatory complications E11.[address] [id number] 05/30/2024 BONITA LEWIS Other hammer toe(s) (acquired), right foot M20.41 ; Tinea unguium B35.1 ; Other hammer toe(s) (acquired), left foot M20.42 ; Pain in right toe(s) M79.674 ; Pain in left toe(s) M79.675 ; Unspecified atherosclerosis of stony river arteries of extremities, bilateral legs I70.203 and Type 2 diabetes mellitus with diabetic peripheral angiopathy without gangrene E11.[address] [id number] 08/01/2024 BONITA LEWIS Other hammer toe(s) (acquired), right foot M20.41 ; Tinea unguium B35.1 ; Other hammer toe(s) (acquired), left foot M20.42 ; Pain in right toe(s) M79.674 ; Pain in left toe(s) M79.675 ; Unspecified atherosclerosis of stony river arteries of extremities, bilateral legs I70.203 and Type 2 diabetes mellitus with diabetic peripheral angiopathy without gangrene E11.[address] [id number] 10/10/2024 BONITA LEWIS Other hammer toe(s) (acquired), right foot M20.41 ; Tinea unguium B35.1 ; Other hammer toe(s) (acquired), left foot M20.42 ; Pain in right toe(s) M79.674 ; Pain in left toe(s) M79.675 ; Unspecified atherosclerosis of stony river arteries of extremities, bilateral legs I70.203 and Type 2 diabetes mellitus with diabetic peripheral angiopathy without gangrene E11.[address] [id number] 12/12/2024 ANGIE DUVAL Tinea unguium B35.1 ; Pain in right toe(s) M79.674 ; Pain in left toe(s) M79.675 ; 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, bilateral legs I70.213 and Type 2 diabetes mellitus with other circulatory complications E11.[address] [id number] 03/06/2025 ANGIE DUVAL Tinea unguium B35.1 ; Pain in right toe(s) M79.674 ; Pain in left toe(s) M79.675 ; 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, bilateral legs I70.213 and Type 2 diabetes mellitus with other circulatory complications E11.59 Assessments Encounter Date Diagnosis (ICD Code) Assessment Notes Treatment Notes Treatment Clinical Notes Section Notes 05/30/2024 Tinea unguium (ICD-10 - B35.1) Aseptic [...] any subungual debris and necrotic tissue removed 03/06/2025 Tinea unguium (ICD-10 - B35.1) NAIL DEBRIDEMENT: Nails 1-5 Bilateral were debrided extensively with nail nippers and emery board, reducing length and girth to pink healthy tissue with any subungual debris and necrotic tissue removed 05/08/2025 Tinea unguium (ICD-10 - B35.1) NAIL DEBRIDEMENT: Nails 1-5 Bilateral were debrided extensively with nail nippers and emery board, reducing length and girth to pink healthy tissue with any subungual debris and necrotic tissue removed 03/06/2025 Pain in right toe(s) (ICD-10 - M79.674) 12/12/2024 Pain in right toe(s) (ICD-10 - M79.674) 05/08/2025 Pain in right toe(s) (ICD-10 - M79.674) 10/10/2024 Other hammer toe(s) (acquired), left foot (ICD-10 - M20.42) 08/01/2024 Other hammer toe(s) (acquired), left foot (ICD-10 - M20.42) 05/30/2024 Other hammer toe(s) (acquired), left foot (ICD-10 - M20.42) 05/30/2024 Pain in right toe(s) (ICD-10 - M79.674) 08/01/2024 Pain in right toe(s) (ICD-10 - M79.674) 10/10/2024 Pain in right toe(s) (ICD-10 - M79.674) 05/08/2025 Pain in left toe(s) (ICD-10 - M79.675) 12/12/2024 Pain in left toe(s) (ICD-10 - M79.675) 03/06/2025 Pain in left toe(s) (ICD-10 - M79.675) 03/06/2025 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, bilateral legs (ICD-10 - I70.213) 05/08/2025 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, bilateral legs (ICD-10 - I70.213) 12/12/2024 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, bilateral legs (ICD-10 - I70.213) 10/10/2024 Pain in left toe(s) (ICD-10 - M79.675) 08/01/2024 Pain in left toe(s) (ICD-10 - M79.675) 05/30/2024 Pain in left toe(s) (ICD-10 - M79.675) 05/30/2024 Unspecified atherosclerosis of stony river arteries of extremities, bilateral legs (ICD-10 - I70.203) Patient educated on risks and aggravating factors of PVD, including conservative treatment options such as a diet and exercise regimen to aid in slowing progression of vascular disease 08/01/2024 Unspecified atherosclerosis of stony river arteries of extremities, bilateral legs (ICD-10 - I70.203) Patient educated on risks and aggravating factors of PVD, including conservative treatment options such as a diet and exercise regimen to aid in slowing progression of vascular disease 10/10/2024 Unspecified atherosclerosis of stony river arteries of extremities, bilateral legs (ICD-10 - [...] as well as the Amputation Prevention Guide. 05/08/2025 Type 2 diabetes mellitus with other circulatory complications (ICD-10 - E11.59) Diabetic Foot Care: The patient was educated on diabetes and the lower extremity. The patient was instructed to check his feet daily to report any problems or signs of infection immediately. The patient was provided written information on Diabetic Foot Care as well as the Amputation Prevention Guide. 03/06/2025 Type 2 diabetes mellitus with other circulatory [...] Treatment Next Appt Details Provider Name:CHARLES RAMOS, 07/10/2025 01:50:00 PM, [address] [place], [place], [id number], Insurance Providers Payer Name Payer Address Payer Phone Subscriber Number Group Number Insured Name Patient Relationship to Insured Coverage Start Date Coverage End Date Medicare Part B [facility] [address] [place] [phone] [id number] Rishi John Self - patient is the insured [employer] of [employer] [address] [place] [id number] Rishi John Self - patient is the insured Medical (General) History Medical History History ICD Code Diabetic
== END 2025-05-14 14:15 | disposition home or self-care (01) ==
PROVIDERS: PCP Family Medicine; Visit Provider Family Medicine
DX: Z12.2 Encounter for screening for malignant neoplasm of respiratory organs (principal); Z87.891 Personal history of nicotine dependence; I71.40 Abdominal aortic aneurysm, without rupture, unspecified
CPT/HCPCS: 71271

== ENCOUNTER 2025-05-15 13:55 | Outpatient (CLI) | payer MEDICARE, OTHER, SELFPAY ==
--- OUTSIDE RECORDS SUMMARY | 2025-05-15 13:58 | XMS_ITS | Encounter Summary ---
Author Organization [facility] Address [address] [place] [phone] Phone Care Team Providers Care Retail Shift Manager Name Role Phone Unavailable Primary Care Provider Unavailabl e Reason for Visit * Reason Comments Medication Refill Encounter Details Date Type Department Care Team (Late st Contact Info) Description 05/06/2025 Refill [facility] [address] [place] [phone] Phillip Dejesus MD [address] [place], [place] [address] Medication Refill Social History Tobacco Use Types [...]
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
--- OUTSIDE RECORDS SUMMARY | 2025-05-15 13:58 | XMS_ITS | Encounter Summary ---
Author Organization [facility] Healthcare Address [address] [place] [address] Care Team Providers Care Combatant Swimmer Name Role Phone Adama Faustin MD Primary Care Provide r Arminda Quispe OT Unavailable [phone] Encounter Details Date Type Department Care Team (Late st Contact Info) Description 03/29/2022 Telephone [facility] Radiology [address] [place] [address] Teodoro Gallo MD [facility] [address] [phone] Social History Tobacco Use Types Packs/Day Years [...] on file Legal Sex Male 11:50 PM PRESS OPERATOR MEAT Gender Identity Male 10/07/2021 8:20 AM PRESS OPERATOR MEAT Sexual Orientation Straight 10/07/2021 8: 20 AM PRESS OPERATOR MEAT Occupation Industry Job Start Date Job End Date On Disability Not on file Not on file 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
--- OUTSIDE RECORDS SUMMARY | 2025-05-15 13:58 | XMS_ITS | Clinical Summary ---
Author Organization [facility] Care Team Providers Care Nursery Teacher Name Role Phone Unavailable Primary Care Provider Unavailabl e Encounters Date Type Department Care Team Description 05/06/2025 Refill [facility] [address] [place] [phone] Phillip Dejesus MD Medication Refill 04/18/2025 Refill [facility] [address] [place] [phone] Phillip Dejesus MD Medication [facility]ill [facility] [address] [place] [phone] Phillip Dejesus MD Medication Refill from Last [...]
--- OUTSIDE RECORDS SUMMARY | 2025-05-15 13:58 | XMS_ITS ---
Author Organization [facility] Address [address] [place], [place] [id number] Care Team Providers Care Equipment Washer Name Role Phone CHARLES LEONARD Unavailable [phone] Adama Faustin Unavailable Unavailable Allergies Allergen (clinical drug ingredient) Drug/Non Drug Allergy documented on EMR Reaction Allergy Type Onset Date Status Penicillin Unknown Drug Allergy Active REASON FOR VISIT *General care Medications Medication SIG (Take, Route, Frequency, Duration) Notes Start Date End Date Status Fluticasone Propionate Active Clotrimazole 1 % 1 application Pharmacy Services Director ally Once a day; Duration: 30 days 05/08/2025 11/03/2025 Active Montelukast Sodium A ctive metFORMIN HCl Active Clindamycin HCl Acti ve busPIRone HCl Active Famotidine Active Escitalopram Oxalate Active buPROPion HCl Active MiraLax Active Vital Signs Height 70 in 05/08/2025 Weight 225 lbs 05/08/2025 BMI 32.28 kg/m2 05/08/2025 Height-cm 177.8 cm 05/08/2025 Weight-kg 102.06 kg 05/08/2025 Encounters Encounter Location Date Provider Diagnosis [facility] [address], [place] [id number] 05/08/2025 CHARLES LEONARD Tinea unguium B35.1 ; Pain in right toe(s) M79.674 ; Pain in left toe(s) M79.675 ; Atherosclerosis of [place] arteries of extremities with intermittent claudication, bilateral [...] toe(s) (ICD-10 - M79.675) 05/08/2025 Atherosclerosis of [place] arteries of extremities with intermittent claudication, bilateral [...] Date Notes Clotrimazole 1 % 1 application Pharmacy Services Director ally Once a day; Duration: 30 days [...] develop. Provider Name:CHARLES RAMOS, 07/10/2025 01:50:00 PM, [address] [place] [address], [phone], Progress Notes * America WADEhDOB: 7 (69 yo M)Acc No.[id number]:05/08/2025 Patient: Rishi RICH Provider: Marshall LEONARD :1955 A ge:69 Y S ex:Male Date:05/08/2025 Address:[address] [place], [place] [id number] Subjective: * Chief Complaints: * 1 . [...] Patient denies c hest pain, history of AR, irregular heartbeat. M usculoskeletal: Patient complains of [...] - M79.675 4 . A therosclerosis of [place] arteries of extremities with intermittent claudication, bilateral [...] Information: * Visit Code: * Procedure Codes: 10315 DEBRIDE NAIL, 6 OR MORE. Modifiers: Q8 * Electronic signature of FARRUKH LEONARD DPM on 05/15/2025 at 01:58 PM CDT Sign off status: Pending * Provider: Marshall LEONARD Date: 0 05/08/2025 Generated for Haily graf/Franco/Remberto on: 0 05/15/2025 01:58 PM CDT History and Physical Notes * HPI (History of Present Illness) Category Sub-Category Detail Notes Category Not es HPI General care Patient presents to the office for diabetic foot care. Patient states that their nails are thickened, elongated and painful. Patient states that it is aggravated by shoe gear. Onset is gradual. Patient denies taking blood thinners. Date last seen by Dr. Roxie was 05/07/25. Initials sea Examination Category Sub-Category [...]
--- OUTSIDE RECORDS SUMMARY | 2025-05-15 13:58 | XMS_ITS | Encounter Summary ---
Author Organization [facility] Address [address] [place] [phone] Phone Care Team Providers Care Inspector Aluminum Boat Name Role Phone Unavailable Primary Care Provider Unavailabl e Reason for Visit * Reason Comments Medication Refill Encounter Details Date Type Department Care Team (Late st Contact Info) Description 04/02/2025 Refill [facility] [address] [phone] Phillip Dejesus MD [address] [place], [place] [id number] Medication Refill Social History Tobacco Use Types [...]
--- OUTSIDE RECORDS SUMMARY | 2025-05-15 13:58 | XMS_ITS | Encounter Summary ---
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
--- OUTSIDE RECORDS SUMMARY | 2025-05-15 13:58 | XMS_ITS | Clinical Summary ---
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
--- OUTSIDE RECORDS SUMMARY | 2025-05-15 13:58 | XMS_ITS | Encounter Summary ---
Author Organization [facility] Address [address] [place] [phone] Phone Care Team Providers Care Industrial Production Manager Name Role Phone Unavailable Primary Care Provider Unavailabl e Reason for Visit * Reason Comments Medication Refill Encounter Details Date Type Department Care Team (Late st Contact Info) Description 04/18/2025 Refill [facility] [address], [place] [phone] Phillip Dejesus MD [address], [place] [phone] Medication Refill Social History Tobacco Use Types [...]
--- NOTE | 2025-05-15 14:13 | ECG_ITS ---
Test Date: 2025-05-15 14:08:13 Measurements Intervals Em[place] Rate: 88 P: 68 SD: 150 QRS: 59 QRSD: 146 T: 40 QT: 366 QTc: 444 Interpretive Statements SINUS RHYTHM INTRAVENTRICULAR CONDUCTION DELAY [130+ ms QRS DURATION] No previous ECG available for comparison Electronically Signed On 05-16-2025 07:15:13 CDT by Christian Armstrong M.D.
== END 2025-05-15 13:56 | disposition home or self-care (01) ==
PROVIDERS: PCP Family Medicine; Visit Provider Psychiatry & Neurology Psychiatry
DX: Z79.899 Other long term (current) drug therapy (principal)
CPT/HCPCS: 93005

== ENCOUNTER 2025-07-02 10:08 | Outpatient (RCR) | payer MEDICARE, OTHER, SELFPAY ==
--- NOTE | 2025-07-09 10:53 | OPREHPOC ---
Outpatient Therapy Plan of Care This is a Multidisciplinary Plan of Care that may contain components documented by all disciplines (PT, OT, and ST.) PT Problem 1 PT Problem #1 Knowledge Deficit PT Goal 1 Goal / Goal Update The patient will demonstrate independence in a home exercise program. requires reminders from . Target Visit 4 Progress Not Met PT Problem 2 PT Problem #2 Impaired Balance PT Goal 1 Goal / Goal Update The patient will improve Tinetti Balance Scale score to 25 indicating a low fall risk. -met The patient will improve 5x sit to stand time to 15 seconds or less indicating a low fall risk. - not met on 07/09/25 The patient will report no falls within a 2 week period. -met Target Visit 10 Progress Partially Met PT Problem 3 PT Problem #3 Impaired Strength PT Goal 1 Goal / Goal Update The patient will demonstrate the ability to perform sit to stand without UE support and attain a fully erect posture and full knee extension bilaterally for 5 repetitions. patient continues to be unsafe with attempts without UE support. The patient will demonstrate 5/5 strength in bilateral knee and hip muscles. -maintained Target Visit 10 Progress Not Met PT Goal 2 Goal / Goal Update patient to maintain strength in hips and kness. - not met patient to maintain ability to achieve erect posture for 5x sit to stand test, but do it safely -not met patient to maintain tinetti balance score - not met patient to maintain TUG score -not met patient to maintain no falls while a patient of skilled PT here. -met Target Visit 19 Progress Partially Met
--- NOTE | 2025-07-09 10:54 | PTOPDC ---
Assessment and note entered by JT File, PT Evaluation Information Assessment Status Discharge Diagnosis Imbalance ICD-10 Condition Codes (PT) Repeated falls R29.6,Weakness R53.1 Other ICD-10 Condition Codes ( R26.89 PT) Onset 03/19/2025 Subjective Information patient reports he is not doing his exercises at home. when asked why, he reports they are boring. he reports he has had no falls recently, but reports he continues to have giddiness. Reported Pain Level Pain Score 0: Self Report Assessment PT Clinical Summary mr. mcdaniels presents to skilled PT for re- evaluation of his performance in his most recent maintenance plan. he mostly displays unchanged performance in his tests and measures, but reports he is no longer compliant with his HEP. as of this date, we will DC the maintenance and any treatment plan on mr mcdaniels. he was advised to get back to doing his HEP, and follow up with PT if any issues or change in status occurs. Plan of Care PT Services Indicated Yes
== END 2025-07-09 20:00 | disposition home or self-care (01) ==
LOC: CHSPT 10:08
DX: R26.89 Other abnormalities of gait and mobility (principal); R53.1 Weakness; R29.6 Repeated falls
CPT/HCPCS: 97110; 97112; 97530

== ENCOUNTER 2025-07-11 11:00 | Outpatient (RCR) | payer MEDICARE, OTHER, SELFPAY ==
[2025-04-10 00:02] VITALS: BP 104/72; PULSE 92; RESP 20; TEMP 36.8; O2SAT 94
[2025-04-15 10:26] VITALS: BP 113/72; PULSE 92; RESP 18; TEMP 37.2; O2SAT 94
[2025-04-17 10:14] VITALS: BP 113/72; PULSE 85; RESP 18; TEMP 37; O2SAT 94
--- NOTE | 2025-04-17 11:24 | PC.NURSE ---
No nursing group due to MD visit.
--- NOTE | 2025-04-17 12:09 | WPDSLSPROGRE ---
Progress HPI Progress HPI Visit Attended By patient and staff History Obtained From patient Patient Stated Chief Complaint fair to caitie' HPI This is a routine follow-up for depression and anxiety. Patient is now off primidone, and he says his tremor is worse. He is now saying that the the neurologist wanted him off of primidone because it was making him tired, and perhaps that was making his mood worse. His continues to give us frequent updates as to patient's condition, mainly his behavior. He seems to feel that his is too controlling, while she feels that it is very difficult to get him to do things that he needs to do. Part of this may be depression on patient's part, but it sounds like there is likely some passive aggressive behavior on his part as well. They are continuing couples therapy. The neurologist also was wondering if I would consider tapering or stopping Abilify, but I hesitate to do this because this could definitely make things worse in terms of his mood. This month his doctor is going to adjust his DBS programming to help with swallowing, along with balance. He is doing physical therapy. Continues on Cymbalta 90 mg q.day, Aricept 5 mg q.h.s., BuSpar 15 mg b.i.d., bupropion 200 mg b.i.d., Abilify 5 mg q.a.m.. He is again asking if there was something that will help boost his mood. He says that he was on Ritalin prior to switching from his previous doctor to doctor Roxie, who stopped it because he felt that it was not doing much. Average Number of Hours of Sleep 8 Sleep Quality frequent awakening Change in PMFSH Releveant to Presenting Illness Yes Describe Changes in PMFSH Worsening tremor Review of Systems Review of Systems Constitutional Reports fatigue and other ( type 2 diabetes) Eyes Reports other ( glaucoma) ENT Reports WNL Respiratory Reports WNL Cardiovascular Reports other ( cerebral hemorrhage, arteriosclerosis) Gastrointestinal Reports other ( history of diverticulitis) Musculoskeletal Reports diminished strength and Reports muscle stiffness Neurologic Reports tremor and other ( bilateral DBS, cerebral hemorrhage, balance issues) Skin Reports WNL ADL's Reports WNL Exam Physical Exam Review of Lab Studies n/a Hygiene good General Behavior/Attitude Toward Examiner pleasant and cooperative Pain Yes Pain Location generalized Pain Characteristics chronic and aching Psychiatric Exam Level of Consciousness alert Orientation person, place, time and situation Speech normal rate/tone/volume/prosody and coherent Language able to follow instructions or commands Mood fair Affect blunted Thought Processes/Form logical, linear and goal directed Thought Content depressive and anxiety symptoms Delusions none Homicidal/Assaultive Ideation none Suicidal Ideation none Hallucinations none Attention/Concentration focused Attention/Concentration Testing Methods observation/interview Short Term Memory Impairment mild STM Testing Methods clinical interview (assessment/observation) Residential Memory Impairment none LTM Testing Methods recall of biographical information Intellectual Functioning roughly average Intellectual Functioning Assessed By fund of knowledge Insight fair Insight Assessed By ability to recognize & acknowledge mental illness, ability to understand the implications of mental illness, understanding of treatment options and ability to comply with treatment Judgement fair Judgement Assessed By exploring recent decision-making MMSE n/a Patient Assets able to perform ADLs, willing to accept treatment Patient Liabilities marital difficulties, memory issues, neurologic symptoms Assessment and Plan Clinical Impression/Diag Clinical Impression/Diagnosis F 33.2. Persistent depression. Is on multiple medications, but perhaps low-dose Ritalin may help with mood and energy. Will clear with his neurologist and PCP but would start at 5 mg b.i.d. would make sure he has a recent EKG. Progress Overview Reason for Continued Services in an Intensive Outpatient Program continued impaired mood and.or depression, patient would decompenste at a lower level of care, not at baseline level of functioning and high risk for relapse Treatment To Be Provided medication management and group/individual/rec therapy Discharge Disposition/Level of Care PCP Anticipated Discharge 4-6 weeks
[2025-04-22 10:17] VITALS: BP 108/72; PULSE 102; RESP 18; TEMP 36.9; O2SAT 95
--- NOTE | 2025-04-24 09:43 | PC.NURSE ---
No nursing group due to MD visit.
[2025-04-24 10:31] VITALS: BP 110/80; PULSE 93; RESP 18; TEMP 37.1; O2SAT 95
[2025-04-28 10:25] VITALS: BP 102/76; PULSE 90; RESP 20; TEMP 36.8; O2SAT 100
--- NOTE | 2025-05-01 09:29 | PC.NURSE ---
No nursing group due to MD visit.
[2025-05-01 10:41] VITALS: BP 127/72; PULSE 92; RESP 18; TEMP 37; O2SAT 95
[2025-05-06 10:24] VITALS: BP 121/84; PULSE 72; RESP 20; TEMP 36.8; O2SAT 96
[2025-05-08 09:58] VITALS: BP 110/84; PULSE 92; RESP 20; TEMP 36.8; O2SAT 95
--- NOTE | 2025-05-08 10:30 | PC.NURSE ---
No nursing group due to MD visit.
--- NOTE | 2025-05-08 12:35 | P.PN_ITS ---
Progress HPI Progress HPI Visit Attended By patient and staff History Obtained From patient Patient Stated Chief Complaint depressed HPI patient is being seen for depression anxiety. At our last visit we started Ritalin 5 mg b.i.d. for antidepressant augmentation as patient continued to experience low energy and low motivation. He reports no benefit. He also says that he has been having hit cups, which I told them could be a side effect of Abilify, although he has been on the Abilify for quite some time. Also continues on Cymbalta 90 mg q.day, Aricept 5 mg q.h.s., BuSpar 15 mg b.i.d., bupropion 200 mg b.i.d., Abilify 5 mg q.a.m.. He also reports that he has had reflux, and his PCP changed his famotidine to Prilosec. Of note is that he does not follow a proper diet, does not do his exercises ways supposed to, stating that he wants to do it when he wants to do it. This frustrates his , who was in the session today and was somewhat tearful. He is going to be getting a CT scan of the abdomen for his history of smoking, which I told him is a good idea as there could be some more ominous causes of hiccups. patient asked about going inpatient, but is not suicidal, and I told them they would likely have to wait hours to even days if they showed up in the ER. Average Number of Hours of Sleep 8 Sleep Quality frequent awakening Change in PMFSH Releveant to Presenting Illness Yes Describe Changes in PMFSH hiccups, reflux as above Review of Systems Review of Systems Constitutional Reports fatigue and other ( type 2 diabetes) Eyes Reports other ( glaucoma) ENT Reports WNL Respiratory Reports WNL Cardiovascular Reports other ( cerebral hemorrhage, arterial sclerosis) Gastrointestinal Reports other ( reflux) Musculoskeletal Reports diminished strength and Reports muscle stiffness Neurologic Reports tremor and other ( bilateral DBS, cerebral hemorrhage, balance issues) Skin Reports WNL ADL's Reports WNL Exam Physical Exam Review of Lab Studies n/a Hygiene good General Behavior/Attitude Toward Examiner pleasant, cooperative and apathetic Pain Yes Pain Location generalized Pain Characteristics chronic and aching Psychiatric Exam Level of Consciousness alert Orientation person, place, time and situation Speech normal rate/tone/volume/prosody and coherent Language able to comprehend questions Mood depressed Affect blunted, appropriate and congruent Thought Processes/Form logical, linear and goal directed Thought Content depressive symptoms Delusions none Homicidal/Assaultive Ideation none Suicidal Ideation none Hallucinations none Attention/Concentration focused Attention/Concentration Testing Methods observation/interview Short Term Memory Impairment mild STM Testing Methods clinical interview (assessment/observation) Account Service Representative Memory Impairment none LTM Testing Methods recall of biographical information Intellectual Functioning roughly average Intellectual Functioning Assessed By fund of knowledge Insight poor Insight Assessed By ability to recognize & acknowledge mental illness, ability to understand the implications of mental illness, understanding of treatment options and ability to comply with treatment Judgement poor Judgement Assessed By exploring recent decision-making MMSE n/a Patient Assets able to perform ADLs, willing to accept treatment Patient Liabilities noncompliance with treatment, marital difficulties, memory issues Assessment and Plan Clinical Impression/Diag Clinical Impression/Diagnosis F 33.2. Persistent depressive symptoms, noncompliance. Will increase Ritalin to 10 mg b.i.d. but obtain an EKG 1st. is also being followed by his PCP and other specialists. I offered them a referral to another psychiatrist but I told him that they would likely have to wait several months before the get in to see someone. Discussed other treatments such as spravato Progress Overview Reason for Continued Services in an Intensive Outpatient Program continued impaired mood and.or depression, patient would decompenste at a lower level of care, not at baseline level of functioning and high risk for relapse Treatment To Be Provided medication management and group/individual/rec therapy Discharge Disposition/Level of Care PCP
[2025-05-12 10:25] VITALS: BP 115/65; PULSE 88; RESP 18; TEMP 37; O2SAT 96
[2025-05-15 10:16] VITALS: BP 109/72; PULSE 95; RESP 18; TEMP 36.9; O2SAT 97
--- NOTE | 2025-05-15 10:33 | PC.NURSE ---
No nursing group due to MD visit.
[2025-05-20 10:22] VITALS: BP 108/75; PULSE 92; RESP 18; TEMP 36.8; O2SAT 97
[2025-05-22 10:14] VITALS: BP 117/73; PULSE 94; RESP 18; TEMP 37.1; O2SAT 96
--- NOTE | 2025-05-26 09:28 | PC.NURSE ---
This nurse called [facility] in [place] to refill Aricept 5mg daily.
[2025-05-27 10:23] VITALS: BP 114/82; PULSE 90; RESP 20; TEMP 36.9; O2SAT 96
--- NOTE | 2025-05-29 10:14 | PC.NURSE ---
No nursing group due to MD visit.
--- NOTE | 2025-05-29 10:16 | PC.NURSE ---
Called [facility] and refilled the patient's Abilify.
[2025-05-29 10:35] VITALS: BP 104/66; PULSE 88; RESP 20; TEMP 36.6
--- NOTE | 2025-05-29 12:16 | P.PN_ITS ---
Progress HPI Progress HPI Visit Attended By patient and staff History Obtained From patient Patient Stated Chief Complaint my regular visit HPI Saw neuro via telehealth since last visit. They told him to do his exercises as he hadn't done them for a month. Most of this is passive- aggressiveness in response to his . Comes to IOP 2x/week, PT 1x/week. Family therapy q 2 weeks. Cymbalta 90 mg qd, Aricept 5 mg q.h.s., BuSpar 15 mg b.i.d., bupropion 200 mg b.i.d., Abilify 5 mg q.a.m.. He is also on Ritalin 5 mg b.i.d. and we increased it at his last visit, but due to EMR issues we were not able to get it sent until today. his mood seems to be better today, they recently went on a trip to visit family in [place] and had a good time. Also he says that his is not arguing with him as much Average Number of Hours of Sleep 8 Sleep Quality frequent awakening Change in PMFSH Releveant to Presenting Illness Yes Describe Changes in PMFSH Noncompliance with therapy Review of Systems Review of Systems Constitutional Reports fatigue and other ( type 2 diabetes) Eyes Reports other ( glaucoma) ENT Reports WNL Respiratory Reports WNL Cardiovascular Reports other ( cerebral hemorrhage, arteriosclerosis) Gastrointestinal Reports other ( GERD) Musculoskeletal Reports diminished strength and Reports muscle stiffness Neurologic Reports tremor and other ( bilateral DBS, balance issues) Skin Reports WNL ADL's Reports WNL and Reports independent Exam Physical Exam Review of Lab Studies n/a Hygiene good General Behavior/Attitude Toward Examiner pleasant and cooperative Pain Yes Pain Location generalized Pain Characteristics chronic and aching Psychiatric Exam Level of Consciousness alert Orientation person, place, time and situation Speech normal rate/tone/volume/prosody and coherent Language able to comprehend questions Mood less depressed Affect blunted, appropriate and congruent Thought Processes/Form logical, linear and goal directed Thought Content depressive symptoms Delusions none Homicidal/Assaultive Ideation none Suicidal Ideation none Hallucinations none Attention/Concentration focused Attention/Concentration Testing Methods observation/interview Short Term Memory Impairment mild STM Testing Methods clinical interview (assessment/observation) Children'S Tutor Memory Impairment none LTM Testing Methods recall of biographical information Intellectual Functioning roughly average Intellectual Functioning Assessed By fund of knowledge Insight fair Insight Assessed By ability to recognize & acknowledge mental illness, ability to understand the implications of mental illness, understanding of treatment options and ability to comply with treatment Judgement fair Judgement Assessed By exploring recent decision-making MMSE n/a Patient Assets able to perform ADLs, willing to accept treatment Patient Liabilities noncompliance with treatment, marital issues, balance and mobility issues Assessment and Plan Clinical Impression/Diag Clinical Impression/Diagnosis F 33.2, noncompliance with treatment, marital issues. Will increase Ritalin to 10 mg b.i.d.. Will continue to work on relationship issues and compliance Progress Overview Reason for Continued Services in an Intensive Outpatient Program continued impaired mood and.or depression, patient would decompenste at a lower level of care, not at baseline level of functioning and high risk for relapse Treatment To Be Provided medication management and group/individual/rec therapy Discharge Disposition/Level of Care PCP Anticipated Discharge 4-6 weeks
[2025-06-03 10:28] VITALS: BP 120/80; PULSE 86; RESP 20; TEMP 37.1; O2SAT 97
--- NOTE | 2025-06-05 09:22 | PC.NURSE ---
No nursing group due to MD visit.
[2025-06-05 10:29] VITALS: BP 112/64; PULSE 90; RESP 18; TEMP 36.9; O2SAT 97
[2025-06-10 10:05] VITALS: BP 136/77; PULSE 62; RESP 18; TEMP 36.8; O2SAT 97
--- NOTE | 2025-06-12 09:17 | PC.NURSE ---
No nursing group due to MD visit.
[2025-06-12 10:34] VITALS: BP 128/80; PULSE 92; RESP 20; TEMP 36.8; O2SAT 98
[2025-06-17 10:25] VITALS: BP 110/68; PULSE 100; RESP 20; TEMP 37.1; O2SAT 95
[2025-06-19 10:05] VITALS: BP 108/73; PULSE 100; RESP 20; TEMP 36.8; O2SAT 95
--- NOTE | 2025-06-19 10:08 | PC.NURSE ---
No nursing group due to MD visit.
--- NOTE | 2025-06-19 11:46 | WPDSLSPROGRE ---
Progress HPI Progress HPI Visit Attended By patient and staff History Obtained From patient Patient Stated Chief Complaint About the same HPI this is a routine visit/ medication check. Patient is being seen for depression anxiety. At our last visit we increased his Ritalin to 10 mg b.i.d. and he thinks it is help with his energy. He says now it is also easier for him to get up and do something if it needs to be done. Mood is still variable. Comes to IOP 2 times a week. Attends PT once a week, although he has stopped doing his exercises. Apparently Neurology is not aware of this. Again much of his behavior is secondary to passive aggressiveness towards his . Continues on Cymbalta 90 mg q.day, Aricept 5 mg q.h.s., BuSpar 15 mg b.i.d., bupropion 10 mg b.i.d., Abilify 5 mg q.a.m.. Fell out of bed recently but no serious injury. Apparently plans to meet with dietary. Average Number of Hours of Sleep 8 Sleep Quality frequent awakening Change in PMFSH Releveant to Presenting Illness Yes Describe Changes in PMFSH slight improvement in energy Review of Systems Review of Systems Constitutional Reports fatigue and other ( type 2 diabetes) Eyes Reports other ( glaucoma) ENT Reports WNL Respiratory Reports WNL Cardiovascular Reports other ( cerebral hemorrhage, arteriosclerosis) Gastrointestinal Reports other ( GERD) Musculoskeletal Reports abnormal gait, Reports diminished strength, Reports muscle stiffness and Reports other Neurologic Reports tremor and other ( bilateral DBS, balance issues) Skin Reports WNL ADL's Reports WNL and Reports independent Exam Physical Exam Review of Lab Studies n/a Hygiene good General Behavior/Attitude Toward Examiner pleasant and cooperative Pain Yes Pain Location generalized Pain Characteristics chronic and aching Psychiatric Exam Level of Consciousness alert Orientation person, place, time and situation Speech normal rate/tone/volume/prosody and coherent Language able to comprehend questions Mood the same Affect full range, appropriate and congruent Thought Processes/Form logical, linear and goal directed Thought Content depressive symptoms Delusions none Homicidal/Assaultive Ideation none Suicidal Ideation none Hallucinations none Attention/Concentration focused Attention/Concentration Testing Methods observation/interview Short Term Memory Impairment mild STM Testing Methods clinical interview (assessment/observation) 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 Memory Impairment none LTM Testing Methods recall of biographical information Intellectual Functioning roughly average Intellectual Functioning Assessed By current events Insight fair Insight Assessed By ability to recognize & acknowledge mental illness, ability to understand the implications of mental illness, understanding of treatment options and ability to comply with treatment Judgement fair Judgement Assessed By exploring recent decision-making MMSE n/a Patient Assets able to perform ADLs, willing to accept treatment Patient Liabilities noncompliance of treatment, marital issues, balance and mobility issues Assessment and Plan Clinical Impression/Diag Clinical Impression/Diagnosis F 33.2, noncompliance with treatment, marital issues. Will work on relationship issues, encourage compliance Progress Overview Reason for Continued Services in an Intensive Outpatient Program continued impaired mood and.or depression, patient would decompenste at a lower level of care, not at baseline level of functioning and high risk for relapse Treatment To Be Provided medication management and group/individual/rec therapy Discharge Disposition/Level of Care PCP Anticipated Discharge 4-6 weeks
[2025-06-24 10:31] VITALS: BP 110/88; PULSE 90; RESP 20; TEMP 36.7; O2SAT 95
--- NOTE | 2025-06-26 10:05 | PC.NURSE ---
No nursing group due to MD visit.
[2025-06-26 10:18] VITALS: BP 116/74; PULSE 90; RESP 20; TEMP 36.9; O2SAT 97
[2025-07-01 10:27] VITALS: BP 109/73; PULSE 90; RESP 20; TEMP 36.7; O2SAT 95
--- NOTE | 2025-07-03 09:42 | PC.NURSE ---
No nursing group due to MD visit.
[2025-07-03 10:23] VITALS: BP 104/68; PULSE 90; RESP 20; TEMP 36.8; O2SAT 97
[2025-07-08 10:17] VITALS: BP 109/68; PULSE 90; RESP 20; TEMP 36.8; O2SAT 96
--- NOTE | 2025-07-10 09:23 | PC.NURSE ---
No nursing group due to MD visit.
[2025-07-10 10:13] VITALS: BP 118/69; PULSE 92; RESP 20; TEMP 36.9; O2SAT 96
--- NOTE | 2025-07-10 12:24 | WPDSLSPROGRE ---
Progress HPI Progress HPI Visit Attended By patient and staff History Obtained From patient Patient Stated Chief Complaint it's about my manhood HPI this is a routine follow-up for depression and anxiety. His main complaint today is about his manhood specifically, he says that his penis does not get very large with sexual stimulation, and this disturbs him as well as contributes to his depression. He says he was told was a blood flow issue and did I have any recommendations. I told him I was not an expert in male sexual medicine and asked him if he tried Viagra. He said that he has it did not work. He also has been to his PCP and a couple of urologists, who do not seem to have any other suggestions. He did see a doctor some months ago with some surgical options but it sounds like that patient and his were unable to afford this. He is thinking about going to some type of doctor in [place] who takes barnett only. Seems to be quite preoccupied with sex of late, and it sounds like that recently his caught him chatting inappropriately with women online. Also complains of dizziness, is being followed by Neurology, who thinks it may be due to his implants. Continues Cymbalta 90 mg q.day, Aricept 5 mg q.h.s., BuSpar 15 mg b.i.d., bupropion 100 mg b.i.d., Abilify 5 mg q.a.m., Ritalin 10 mg b.i.d.. It looks as though his mood improved somewhat on Ritalin. Average Number of Hours of Sleep 8 Sleep Quality frequent awakening Change in ON [facility] Releveant to Presenting Illness Yes Describe Changes in ON [facility] sexual dysfunction as above Review of Systems Review of Systems Constitutional Reports fatigue and other ( type 2 diabetes) Eyes Reports other ( glaucoma) ENT Reports WNL Respiratory Reports WNL Cardiovascular Reports orthostasis ( cerebral hemorrhage, arteriosclerosis) Gastrointestinal Reports other ( GERD) Musculoskeletal Reports abnormal gait and Reports diminished strength Skin Reports other ( bilateral DBS, balance issues) ADL's Reports WNL Exam Physical Exam Review of Lab Studies n/a Hygiene good General Behavior/Attitude Toward Examiner pleasant and cooperative Pain Yes Pain Location generalized Pain Characteristics chronic and aching Psychiatric Exam Level of Consciousness alert Orientation person, place, time and situation Speech normal rate/tone/volume/prosody and coherent Language able to comprehend questions Mood depressed Affect blunted, appropriate and congruent Thought Processes/Form logical, linear and goal directed Thought Content depressive symptoms Delusions none Homicidal/Assaultive Ideation none Suicidal Ideation none Hallucinations none Attention/Concentration focused Attention/Concentration Testing Methods observation/interview Short Term Memory Impairment mild STM Testing Methods clinical interview (assessment/observation) [facility] Memory Impairment mild LTM Testing Methods recall of biographical information Intellectual Functioning roughly average Intellectual Functioning Assessed By fund of knowledge Insight fair Insight Assessed By ability to recognize & acknowledge mental illness, ability to understand the implications of mental illness, understanding of treatment options and ability to comply with treatment Judgement fair Judgement Assessed By exploring recent decision-making MMSE n/a Patient Assets willing to accept treatment, able to perform ADLs Patient Liabilities relationship difficulties, sexual dysfunction, balance and mobility issues Assessment and Plan Clinical Impression/Diag Clinical Impression/Diagnosis F 33.2, depressive symptoms, sexual dysfunction. Suggested he continue to look for any specialists in male sexual medicine, continue family sessions Progress Overview Reason for Continued Services in an Intensive Outpatient Program continued impaired mood and.or depression, patient would decompenste at a lower level of care, not at baseline level of functioning and high risk for relapse Treatment To Be Provided medication management and group/individual/rec therapy Discharge Disposition/Level of Care PCP Anticipated Discharge 4-6 weeks
== END 2025-07-14 23:59 | disposition home or self-care (01) ==
LOC: CHSSENLIFE 11:00
PROVIDERS: PCP Family Medicine; Visit Provider Psychiatry & Neurology Psychiatry
DX: F33.2 Major depressive disorder, recurrent severe without psychotic features (principal)
CPT/HCPCS: 90846; 90847; 90853; 93005; 99213; 99214; G0463

== ENCOUNTER 2025-09-02 08:00 | Outpatient (CLI) | payer MEDICARE, OTHER, SELFPAY ==
--- OUTSIDE RECORDS SUMMARY | 2024-05-16 11:10 | XMS_ITS ---
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 Name Role Phone CHARLES LEONARD Unavailable [phone] Adama Faustin Unavailable Unavailable BONITA LEWIS Unavailable [phone] REASON FOR VISIT *General care Encounters Encounter Location Date Provider Diagnosis [place] [address] [place], [place] [id number] 05/16/2024 BONITA LEWIS Plan Of Treatment Next Appt Details Provider Name:CHARLES RAMOS, 09/11/2025 02:30:00 PM, [address] [place] [address], [phone], Progress Notes * America WADEEugenieOB: (69 yo M)Acc No.[id number]:05/16/2024 Patient: Rishi Grover Provider: Mynor LEWIS :1955 A ge:68 Y S ex:Male Date:05/16/2024 Address:[address] [place], [id number] Subjective: * Chief Complaints: * * General care Billing Information: * Procedure Codes: * Electronic signature of MEDHAT LEWIS DPM on 09/02/2025 at 08:13 AM CDT Sign off status: Pending * Provider: Mynor LEWIS Date: 0 05/16/2024 Generated for Ceceliai ng/Fajoseg/eTransmitting on: 1 08:13 AM CDT
--- OUTSIDE RECORDS SUMMARY | 2025-05-08 03:50 | XMS_ITS ---
Author Organization [facility] Address [address] [place], [place] [address] Care Team Providers Care Business Management Specialist Name Role Phone CHARLES LEONARD Unavailable [phone] Adama Faustin Unavailable Unavailable Allergies Allergen (clinical drug ingredient) Drug/Non Drug Allergy documented on EMR Reaction Allergy Type Onset Date Status Penicillin Unknown Drug Allergy Active REASON FOR VISIT *General care Medications Medication SIG (Take, Route, Frequency, Duration) Notes Start Date End Date Status Fluticasone Propionate Active Clotrimazole 1 % Cream 1 application Ext ernally Once a day; Duration: 30 days 05/08/2025 11/03/2025 Active Montelukast Sodium A ctive metFORMIN HCl Active Clindamycin HCl Acti ve busPIRone HCl Active Famotidine Active Escitalopram Oxalate Active buPROPion HCl Active MiraLax Active Vital Signs Height 70 in 05/08/2025 Weight 225 lbs 05/08/2025 BMI 32.28 kg/m2 05/08/2025 Height-cm 177.8 cm 05/08/2025 Weight-kg 102.06 kg 05/08/2025 Encounters Encounter Location Date Provider Diagnosis [address] [id number] 05/08/2025 CHARLES LEONARD Tinea unguium B35.1 ; Pain in right toe(s) M79.674 ; Pain in left toe(s) M79.675 ; Atherosclerosis of [place] arteries of extremities with intermittent claudication, bilateral legs I70.213 and Type 2 diabetes mellitus with other circulatory complications E11.59 Assessments Encounter Date Diagnosis (ICD Code) Assessment Notes Treatment Notes Treatment Clinical Notes Section Notes 05/08/2025 Tinea unguium (ICD-10 - B35.1) NAIL DEBRIDEMENT: Nails 1-5 Bilateral were debrided extensively with nail nippers and emery board, reducing length and girth to pink healthy tissue with any subungual debris and necrotic tissue removed 05/08/2025 Pain in right toe(s) (ICD-10 - M79.674) 05/08/2025 Pain in left toe(s) (ICD-10 - M79.675) 05/08/2025 Atherosclerosis of [place] arteries of extremities with intermittent claudication, bilateral legs (ICD-10 - I70.213) 05/08/2025 Type 2 diabetes mellitus with other circulatory complications (ICD-10 - E11.59) Diabetic Foot Care: The patient was educated on diabetes and the lower extremity. The patient was instructed to check his feet daily to report any problems or signs of infection immediately. The patient was provided written information on Diabetic Foot Care as well as the Amputation Prevention Guide. Plan Of Treatment Medication Medication Name Sig Start Date Stop Date Notes Clotrimazole 1 % Cream 1 application Ext ernally Once a day; Duration: 30 days 05/08/2025 11/03/2025 Treatment Notes Assessment Notes Tinea unguium NAIL [...] sooner if problems develop. Provider Name:CHARLES RAMOS, 09/11/2025 02:30:00 PM, [address] [place] [address], [id number], History and Physical Notes * HPI (History of Present Illness) Category Sub-Category Detail Notes Category Not es HPI General care Patient presents to the office for diabetic foot care. Patient states that their nails are thickened, elongated and painful. Patient states that it is aggravated by shoe gear. Onset is gradual. Patient denies taking blood thinners. Date last seen by Dr. Faustin was 05/07/25. Initials sea Examination Category Sub-Category Detail Notes Category Not [...] inversion, and eversion in bilateral lower extremities Progress Notes * America WADEhDOB: 7 (69 yo M)Acc No.[id number]:05/08/2025 Patient: Rishi Grover Provider: Marshall LEONARD :1955 A ge:69 Y S ex:Male Date:05/08/2025 Address:[address] [place], [place] [id number] Subjective: * Chief Complaints: * * General care * HPI: H PI: General care P atient presents to the office for diabetic foot care. Patient states that their nails are thickened, elongated and painful. Patient states that it is aggravated by shoe gear. Onset is gradual. Patient denies taking blood thinners. Date last seen by Dr. Faustin was 05/07/25. Initials sea. * ROS: G eneral / Constitutional: Patient denies w eakness. R espiratory: Patient denies c hronic cough, shortness of breath, sputum production. C ardiovascular: Patient denies c hest pain, history of [place], irregular heartbeat. M usculoskeletal: Patient complains of j oint pain, hammertoes. ? P eripheral Vascular: Patient denies b lanching of skin, cold extremities, decreased sensation in extremities. S kin: Patient complains of n ail changes, fungal nails. ? N eurologic: Patient denies d izziness, gait abnormality, headache. * Medical History: Diabetic Medical History Verified * Medications: T akingMiraLax Escitalopram Oxalate buPROPion HCl busPIRone HCl Famotidine Montelukast Sodium metFORMIN HCl Fluticasone Propionate Clindamycin HCl Medication List reviewed and reconciled with the patientTaking MiraLax Taking Escitalopram Oxalate Taking buPROPion HCl Taking busPIRone HCl Taking Famotidine Taking Montelukast Sodium Taking metFORMIN HCl Taking Fluticasone Propionate Taking Clindamycin HCl Medication List reviewed and reconciled with the patient * Allergies: P enicillinyesAllergies Verified. Objective: * Vitals: S hoe Size: 9.5, Wt:225lbs, Wt-k.06 kg, Ht: 70 in, Ht-cm: 177.8 cm, BMI:32.28Index, Body Surface Area: 2.24. * Examination: P hysical Examination: General appearance: [...] - M79.675 4 . A therosclerosis of [place] arteries of extremities with intermittent claudication, bilateral [...] At-Risk Foot care, sooner if problems develop.) Billing Information: * Procedure Codes: 90000 DEBRIDE NAIL, 6 OR MORE. Modifiers: Q8 * Electronic signature of FARRUKH LEONARD DPM on 09/02/2025 at 08:12 AM CDT Sign off status: Pending * Provider: Marshall LEONARD Date: 0 05/08/2025 Generated for Haily Vargas/Remberto on: 1 08:12 AM CDT
--- OUTSIDE RECORDS SUMMARY | 2025-07-10 08:50 | XMS_ITS ---
Author Organization [facility] Address [address] [place], [place] [id number] Care Team Providers Care Weather Clerk Name Role Phone CHARLES LEONARD Unavailable [phone] Adama Faustin Unavailable Unavailable Allergies Allergen (clinical drug ingredient) Drug/Non Drug Allergy documented on EMR Reaction Allergy Type Onset Date Status Penicillin Unknown Drug Allergy Active REASON FOR VISIT *General care Medications Medication SIG (Take, Route, Fr equency, Duration) Notes Start Date End Date Status metFORMIN HCl Active Fluticasone Propionate Active Clindamycin HCl Acti ve Clotrimazole 1 % Cream 1 application Ext ernally Once a day; Duration: 30 days Active MiraLax Active Famotidine Active Montelukast Sodium A ctive Escitalopram Oxalate Active buPROPion HCl Active busPIRone HCl Active Vital Signs Height 70 in 07/10/2025 Weight 225 lbs 07/10/2025 BMI 32.28 kg/m2 07/10/2025 Height-cm 177.8 cm 07/10/2025 Weight-kg 102.06 kg 07/10/2025 Encounters Encounter Location Date Provider Diagnosis [address] [id number] 07/10/2025 CHARLES LEONARD Tinea unguium B35.1 ; Pain in right toe(s) M79.674 ; Pain in left toe(s) M79.675 ; Atherosclerosis of pala arteries of extremities with intermittent claudication, bilateral legs I70.213 and Type 2 diabetes mellitus with other circulatory complications E11.59 Assessments Encounter Date Diagnosis (ICD Code) Assessment Notes Treatment Notes Treatment Clinical Notes Section Notes 07/10/2025 Tinea unguium (ICD-10 - B35.1) NAIL DEBRIDEMENT: Nails 1-5 Bilateral were debrided extensively with nail nippers and emery board, reducing length and girth to pink healthy tissue with any subungual debris and necrotic tissue removed 07/10/2025 Pain in right toe(s) (ICD-10 - M79.674) 07/10/2025 Pain in left toe(s) (ICD-10 - M79.675) 07/10/2025 Atherosclerosis of pala arteries of extremities with intermittent claudication, bilateral legs (ICD-10 - I70.213) 07/10/2025 Type 2 diabetes mellitus with other circulatory [...] ernally Once a day; Duration: 30 days Treatment Notes Assessment Notes Tinea unguium NAIL [...] develop. Provider Name:CHARLES RAMOS, 09/11/2025 02:30:00 PM, [address] [place] [address], [phone], History and Physical Notes * HPI (History of Present Illness) Category Sub-Category Detail Notes Category Not es HPI General care Patient presents to the office for diabetic foot care. Patient states that their nails are thickened, elongated and painful. Patient states that it is aggravated by shoe gear. Onset is gradual., Patient denies taking blood thinners., Date last seen by Dr. Faustin was 05/2025., Initials nd Examination Category Sub-Category Detail Notes Category Not [...] lower extremities Progress Notes * America WADEhDOB: (69 yo M)Acc No.[id number]:07/10/2025 Patient: Rishi Grover Provider: Marshall LEONARD :1955 A ge:69 Y S ex:Male Date:07/10/2025 Address:[address] [place], [place] [id number] Subjective: * Chief Complaints: * * General care * HPI: H PI: General care P atient presents to the office for diabetic foot care. Patient states that their nails are thickened, elongated and painful. Patient states that it is aggravated by shoe gear. Onset is gradual., Patient denies taking blood thinners., Date last seen by Dr. Faustin was 05/2025., Initials nd. * ROS: G eneral / Constitutional: Patient denies w eakness. R espiratory: Patient denies c hronic cough, shortness of breath, sputum production. C ardiovascular: Patient denies c hest pain, history of [place], irregular heartbeat. M usculoskeletal: Patient complains of j oint pain, hammertoes. ? P eripheral Vascular: Patient denies b lanching of skin, cold extremities, decreased sensation in extremities. S kin: Patient complains of n ail changes, fungal nails. ? N eurologic: Patient denies d izziness, gait abnormality, headache. * Medical History: Diabetic Medical History Verified * Surgical History: Denies Past Surgical History. Surgical History verified. * Hospitalization/Major Diagno stic Procedure: Denies Past Hospitalization. Hospitalization Verified. * Family History: N o Family History documented.. F amily History Verified.. * Social History: Social History Verified. No Social History documented. * Medications: T akingMiraLax Escitalopram Oxalate buPROPion HCl busPIRone HCl Famotidine Montelukast Sodium metFORMIN HCl Fluticasone Propionate Clindamycin HCl Clotrimazole 1 % Cream 1 application Externally Once a day , stop date 11/03/2025Medication List reviewed and reconciled with the patientTaking MiraLax Taking Escitalopram Oxalate Taking buPROPion HCl Taking busPIRone HCl Taking Famotidine Taking Montelukast Sodium Taking metFORMIN HCl Taking Fluticasone Propionate Taking Clindamycin HCl Taking Clotrimazole 1 % Cream 1 application Externally Once a day , stop date 11/03/2025Medication List reviewed and reconciled with the patient [...] - M79.675 4 . A therosclerosis of pala arteries of extremities with intermittent claudication, bilateral [...] problems develop.) Billing Information: * Procedure Codes: 12126 DEBRIDE NAIL, 6 OR MORE. Modifiers: Q8 * Electronic signature of FARRUKH LEONARD DPM on 09/02/2025 at 08:13 AM CDT Sign off status: Pending * Provider: Marshall LEONARD Date: 0 07/10/2025 Generated for Haily graf/Franco/Remberto on: 1 08:13 AM CDT
[2025-09-02 08:11] LABS: Hematocrit 42.7 % (37.0-46.0); Hemoglobin 13.9 g/dL (12.4-15.3); Mean Corpuscular HGB Conc 32.6 g/dL (32-36); Mean Corpuscular Hemoglobin 31.0 pg (27.0-31.0); Mean Corpuscular Volume 95.1 fL (78.0-102.0); Platelet Count Result 237 K/mm3 (150-420); Red Blood Count 4.49 M/mm3 (4.70-6.10); White Blood Count 7.0 K/mm3 (4.8-10.8)
--- OUTSIDE RECORDS SUMMARY | 2025-09-02 08:13 | XMS_ITS | Clinical Summary ---
Author Organization [facility] Care Team Providers Care Career Services Coordinator Name Role Phone Unavailable Primary Care Provider Unavailabl e Encounters Date Type Department Care Team Description 08/28/2025 Refill [facility] [address] [place] [phone] Phillip Dejesus MD Medication Refill 06/28/2025 Refill [facility] [address] [place] [phone] Phillip Dejesus MD Medication Refill from Last [...]
--- OUTSIDE RECORDS SUMMARY | 2025-09-02 08:13 | XMS_ITS | Encounter Summary ---
Author Organization [facility] Address [address] [place] [phone] Phone Care Team Providers Care Telegraph Operator Name Role Phone Unavailable Primary Care Provider Unavailabl e Reason for Visit * Reason Comments Medication Refill Encounter Details Date Type Department Care Team (Late st Contact Info) Description 06/28/2025 Refill [facility] [address] [phone] Phillip Dejesus MD [address], [place] [id number] Medication Refill Social History Tobacco Use Types [...]
--- OUTSIDE RECORDS SUMMARY | 2025-09-02 08:13 | XMS_ITS | Encounter Summary ---
Author Organization [facility] Address [address] [place] [phone] Phone Care Team Providers Care R D Intern Name Role Phone Unavailable Primary Care Provider Unavailabl e Reason for Visit * Reason Comments Medication Refill Encounter Details Date Type Department Care Team (Late st Contact Info) Description 08/28/2025 Refill [facility] [address] [phone] Phillip Dejesus MD [address], [place] [id number] Medication Refill Social History Tobacco Use Types [...]
--- OUTSIDE RECORDS SUMMARY | 2025-09-02 08:13 | XMS_ITS | Patient Health Record ---
Author Organization [facility] Address [address] [place], [place] [address] Care Team Providers Care Security Solutions Engineer Name Role Phone HORACIO CHARLES Unavailable [phone] Adama Faustin Unavailable Unavailable ANGIE DUVAL Unavailable [phone] BONITA LEWIS Unavailable [phone] Allergies Allergen (clinical drug ingredient) Drug/Non Drug Allergy documented on EMR Reaction Allergy Type Onset Date Status Penicillin Unknown Drug Allergy Active Reason For Referral No Information Medications Medication SIG (Take, Route, Fr equency, Duration) Notes Start Date End Date Status Famotidine Active Montelukast Sodium A ctive metFORMIN HCl Active Fluticasone Propionate Active Escitalopram Oxalate Active buPROPion HCl Active busPIRone HCl Active Clindamycin HCl Acti ve Clotrimazole 1 % Cream 1 application Ext ernally Once a day; Duration: 30 days Active MiraLax Active Immunizations Vaccine Route Administration Date Status Comme nts Pneumococcal polysaccharide PPV23 Unknown 10/14/2020 Ad ministered Tdap Unknown 07/24/2018 Administered Vital Signs Height-cm 177.8 cm 07/10/2025 Weight-kg 102.06 kg 07/10/2025 Height 70 in 07/10/2025 Weight 225 lbs 07/10/2025 BMI 32.28 kg/m2 07/10/2025 Encounters Encounter Location Date Provider Diagnosis [facility] [address] [place], [place] [id number] 05/08/2025 CHARLES LEONARD Tinea unguium B35.1 ; Pain in right toe(s) M79.674 ; Pain in left toe(s) M79.675 ; Atherosclerosis of qagan [place]ag[place] arteries of extremities with intermittent claudication, bilateral legs I70.213 and Type 2 diabetes mellitus with other circulatory complications E11.[address] [id number] 07/10/2025 CHARLES LEONARD Tinea unguium B35.1 ; Pain in right toe(s) M79.674 ; Pain in left toe(s) M79.675 ; Atherosclerosis of qagan [place] arteries of extremities with intermittent claudication, bilateral legs I70.213 and Type 2 diabetes mellitus with other circulatory complications E11.[address] [id number] 10/10/2024 BONITA LEWIS Other hammer toe(s) (acquired), right foot M20.41 ; Tinea unguium B35.1 ; Other hammer toe(s) (acquired), left foot M20.42 ; Pain in right toe(s) M79.674 ; Pain in left toe(s) M79.675 ; Unspecified atherosclerosis of qagan tayagung[place] arteries of extremities, bilateral legs I70.203 and Type 2 diabetes mellitus with diabetic peripheral angiopathy without gangrene E11.[address] [id number] 12/12/2024 ANGIE SNOOK Tinea unguium B35.1 ; Pain in right toe(s) M79.674 ; Pain in left toe(s) M79.675 ; Atherosclerosis of qagan [place]ag[place] arteries of extremities with intermittent claudication, bilateral legs I70.213 and Type 2 diabetes mellitus with other circulatory complications E11.[address] [id number] 03/06/2025 ANGIE SNOOK Tinea unguium B35.1 ; Pain in right toe(s) M79.674 ; Pain in left toe(s) M79.675 ; Atherosclerosis of qagan [place]agung[place] arteries of extremities with intermittent claudication, bilateral [...] subungual debris and necrotic tissue removed 07/10/2025 Tinea unguium (ICD-10 - B35.1) NAIL DEBRIDEMENT: Nails 1-5 Bilateral were debrided extensively with nail nippers and emery board, reducing length and girth to pink healthy tissue with any subungual debris and necrotic tissue removed 05/08/2025 Pain in right toe(s) (ICD-10 - M79.674) 07/10/2025 Pain in right toe(s) (ICD-10 - M79.674) 03/06/2025 Pain in right toe(s) (ICD-10 - M79.674) 12/12/2024 Pain in right toe(s) (ICD-10 - M79.674) 10/10/2024 Other hammer toe(s) (acquired), left foot (ICD-10 - M20.42) 10/10/2024 Pain in right toe(s) (ICD-10 - M79.674) 12/12/2024 Pain in left toe(s) (ICD-10 - M79.675) 03/06/2025 Pain in left toe(s) (ICD-10 - M79.675) 07/10/2025 Pain in left toe(s) (ICD-10 - M79.675) 05/08/2025 Pain in left toe(s) (ICD-10 - M79.675) 07/10/2025 Atherosclerosis of qagan tayagung[place] arteries of extremities with intermittent claudication, bilateral legs (ICD-10 - I70.213) 03/06/2025 Atherosclerosis of qagan [place]ag[place] arteries of extremities with intermittent claudication, bilateral legs (ICD-10 - I70.213) 05/08/2025 Atherosclerosis of qagan tayag[place] arteries of extremities with intermittent claudication, bilateral legs (ICD-10 - I70.213) 12/12/2024 Atherosclerosis of qagan [place]agung[place] arteries of extremities with intermittent claudication, bilateral legs (ICD-10 - I70.213) 10/10/2024 Pain in left toe(s) (ICD-10 - M79.675) 10/10/2024 Unspecified atherosclerosis of qagan tayagungin arteries of extremities, bilateral legs (ICD-10 - [...] as well as the Amputation Prevention Guide. 07/10/2025 Type 2 diabetes mellitus with other [...] Details Provider Name:CHARLES RAMOS, 09/11/2025 02:30:00 PM, [address] [place] [address], [id number], Insurance Providers Payer Name Payer Address Payer Phone Subscriber Number Group Number Insured Name Patient Relationship to Insured Coverage Start Date Coverage End Date Medicare Part B [facility] [address] [place] [phone] [id number] Rishi John Self - patient is the insured [id number] [facility] [place] [id number] Rishi John Self - patient is the insured Medical (General) History Medical History History ICD Code Diabetic
--- OUTSIDE RECORDS SUMMARY | 2025-09-02 08:13 | XMS_ITS | Encounter Summary ---
Author Organization [facility] Address [facility] [place] [address] Care Team Providers Care Sizing Sprayer Name Role Phone Unavailable Primary Care Provider Unavailabl e Encounter Details Date Type Department Care Team (Late st Contact Info) Description 04/13/2019 Abstract [facility] CONVERSION [address] [place] [address] , Generic Conversion, Social History Tobacco Use Types Packs/Day Years Used Date Smoking Tobacco: Never Assessed Sex and Gender Information Value Date Recorded Sex Assigned at Not on file Legal Sex Male 10:29 PM DOCUMENT CONTROL SPECIALIST Gender Identity Not on file Sexual Orientation Not on file documented as of this encounter Plan of Treatment Not on file documented as of this encounter Visit Diagnoses Not on filedocumented in this encounter
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
--- OUTSIDE RECORDS SUMMARY | 2025-09-02 08:13 | XMS_ITS | Encounter Summary ---
Author Organization [facility] Address [address] [place] [phone] Phone Care Team Providers Care Applications Support Specialist Name Role Phone Unavailable Primary Care Provider Unavailabl e Reason for Visit * Reason Comments Medication Refill Encounter Details Date Type Department Care Team (Late st Contact Info) Description 04/18/2025 Refill [facility] [address], [place] [phone] Phillip Dejesus MD [address], [place] [address] Medication Refill Social History Tobacco Use Types [...]
--- OUTSIDE RECORDS SUMMARY | 2025-09-02 08:13 | XMS_ITS | Encounter Summary ---
Author Organization [facility] Address [address] [place] [phone] Phone Care Team Providers Care Molecular Biology Scientist Name Role Phone Unavailable Primary Care Provider Unavailabl e Reason for Visit * Reason Comments Medication Refill Encounter Details Date Type Department Care Team (Late st Contact Info) Description 05/06/2025 Refill [facility] [address], [place] [phone] Phillip Dejesus MD [address], [place] [address] Medication Refill Social History Tobacco Use Types [...]
--- OUTSIDE RECORDS SUMMARY | 2025-09-02 08:13 | XMS_ITS | Encounter Summary ---
Author Organization [facility] Healthcare Address [address] [facility] [place] [address] Care Team Providers Care Materials Technician Name Role Phone Adama Faustin MD Primary Care Provide r Arminda Quispe OT Unavailable [phone] Encounter Details Date Type Department Care Team (Late st Contact Info) Description 03/29/2022 Telephone [facility] Radiology [address] [place] [address] Teodoro Gallo MD [address] [place] [address] Social History Tobacco Use Types Packs/Day Years [...] on file Legal Sex Male 11:50 PM R D INTERNSHIP Gender Identity Male 10/07/2021 8:20 AM R D INTERNSHIP Sexual Orientation Straight 10/07/2021 8: 20 AM R D INTERNSHIP Occupation Industry Job Start Date Job End Date On Disability Not on file Not on file 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
--- OUTSIDE RECORDS SUMMARY | 2025-09-02 08:13 | XMS_ITS | Encounter Summary ---
Author Organization [facility] Address [address] [place] [phone] Phone Care Team Providers Care Precision Farming Specialist Name Role Phone Unavailable Primary Care Provider Unavailabl e Reason for Visit * Reason Comments Medication Refill Encounter Details Date Type Department Care Team (Late st Contact Info) Description 04/02/2025 Refill [facility] [address], [place] [phone] Phillip Dejesus MD [address], [place] [address] Medication Refill Social History Tobacco Use Types [...]
--- OUTSIDE RECORDS SUMMARY | 2025-09-02 08:13 | XMS_ITS | Clinical Summary ---
Author Organization [facility] Address [facility] [place] [address] Care Team Providers Care Tree Cutter Name Role Phone Unavailable Primary Care Provider Unavailabl e Social History Tobacco Use Types Packs/Day Years Used Date Smoking Tobacco: Never Assessed Sex and Gender Information Value Date Recorded Sex Assigned at Not on file Legal Sex Male 10:29 PM MANAGER FINANCIAL REPORTING Gender Identity Not on file Sexual Orientation Not on file Plan of Treatment Health Maintenance Due Date Last Done Comments Colorectal Cancer Screening Colonoscopy (10 Years) 1957 Hepatitis C 1975 DTaP, Tdap and Td Vaccines ( 1 - Tdap) 1976 Pneumococcal Vaccine: 50+ Ye ars (1 of 1 - PCV) 2007 Zoster Vaccines (1 of 2) 2007 COVID-19 Vaccine (1 - 2024-2 6 season) 2025 Influenza Adult (#1) 2025 RSV Immunization or 60+ Years (1 - 1-dose 75+ series) 2032 Hepatitis A Vaccines Aged Out No long er eligible based on patient's age to complete this topic Meningococcal B Vaccine Aged Out No l onger eligible based on patient's age to complete this topic Meningococcal Vaccine Aged Out No rosario valentina eligible based on patient's age to complete this topic RSV Immunizations Under 20 Months Aged Out No longer eligible based on patient's age to complete this topic
[2025-09-02 08:36] LABS: Hemoglobin A1C 6.6 % (<5.7)
[2025-09-02 08:52] LABS: Alanine Aminotransferase 27 U/L (6-50); Albumin Level 4.5 g/dL (3.5-5.1); Alkaline Phosphatase 55 U/L (38-126); Anion Gap 9 mmol/L (4-12); Aspartate Amino Transferase 26 U/L (17-59); Bilirubin,Total 0.6 mg/dL (0.2-1.3); Blood Urea Nitrogen 22 mg/dL (9-20); Calcium 9.9 mg/dL (8.4-10.2); Carbon Dioxide 30 mmol/L (22-30); Chloride 103 mmol/L (98-107); Cholesterol 214 mg/dL (0-200); Estimated Glomerular Filt Rate 51; Glucose 138 mg/dL (65-110); HDL Direct 74 mg/dL; Osmolality Calculated 299 mOsm/kg (285-295); Potassium 4.8 mmol/L (3.4-5.0); Sodium 142 mmol/L (137-145); Total Protein 7.9 g/dL (6.3-8.2); Triglycerides 168 mg/dL (<150)
[2025-09-02 09:21] LABS: Prostate Specific Antigen 0.2 ng/mL (< OR = 4.0)
== END 2025-09-02 08:01 | disposition home or self-care (01) ==
PROVIDERS: PCP Family Medicine; Visit Provider Family Medicine
DX: E11.9 Type 2 diabetes mellitus without complications (principal); E78.2 Mixed hyperlipidemia; Z12.5 Encounter for screening for malignant neoplasm of prostate; E55.9 Vitamin D deficiency, unspecified
CPT/HCPCS: 36415; 80053; 80061; 82306; 83036; 84153; 85027; G0103

== ENCOUNTER 2025-10-13 10:00 | Outpatient (RCR) | payer MEDICARE, OTHER, SELFPAY ==
[2025-07-15 00:02] VITALS: BP 118/69; PULSE 92; RESP 20; TEMP 36.9; O2SAT 96
[2025-07-15 10:16] VITALS: BP 118/75; PULSE 90; RESP 20; TEMP 36.7; O2SAT 98
--- NOTE | 2025-07-17 10:25 | PC.NURSE ---
No nursing group due to MD visit.
[2025-07-17 10:40] VITALS: BP 114/76; PULSE 92; RESP 20; TEMP 36.9; O2SAT 96
[2025-07-22 10:42] VITALS: BP 125/74; PULSE 90; RESP 20; TEMP 37; O2SAT 96
--- NOTE | 2025-07-24 09:16 | PC.NURSE ---
No nursing group due to MD visit.
--- NOTE | 2025-07-24 09:16 | PC.NURSE ---
This nurse called [facility] in [place] to refill the patient's Abilify 5mg PO daily and Duloxetine 90mg PO daily.
[2025-07-24 10:30] VITALS: BP 110/67; PULSE 90; RESP 20; TEMP 37; O2SAT 97
[2025-07-29 10:30] VITALS: BP 107/69; PULSE 90; RESP 20; TEMP 36.8; O2SAT 98
--- NOTE | 2025-07-31 09:37 | PC.NURSE ---
No nursing group due to MD visit.
[2025-07-31 10:17] VITALS: BP 110/69; PULSE 90; RESP 20; TEMP 36.5; O2SAT 97
--- NOTE | 2025-07-31 11:32 | P.PN_ITS ---
Progress HPI Progress HPI Visit Attended By patient and staff History Obtained From patient Patient Stated Chief Complaint The ladan told me I had to see you HPI I'm doing alright. Having vivid dreams about family. Told him that this could be medication related. On Ritalin 10 mg at 8 AM and 2 PM, Cymbalta 90 mg qd, Aricept 5 mg q hs, Buspar 15 mg BID, Bupropion 100 mg BID. Worried about his brother who needs heart surgery. Working on motivation, communication, among other topics. Wants something for energy - told him I have him on Ritalin, which should help, along with exercise, which he has been told to do. I also told him that much of his fatigue is likely due to mis medical conditions.BP 110/69, pulse 90. it does seem like he is getting along a bit better with his these days. Average Number of Hours of Sleep 8 Sleep Quality frequent awakening and vivid dreams Change in PMFSH Releveant to Presenting Illness No Review of Systems Review of Systems Constitutional Reports fatigue and other (NIDDM.) Eyes Reports other (glaucoma) ENT Reports WNL Respiratory Reports WNL Gastrointestinal Reports other (Arteriosclerosis) Musculoskeletal Reports diminished strength, Reports muscle stiffness and Reports other ( chronic pain) Neurologic Reports other ( cerebral hemorrhage, bilateral DBS, balance issues) Skin Reports WNL ADL's Reports independent Exam Physical Exam Review of Lab Studies n/a Hygiene good General Behavior/Attitude Toward Examiner pleasant and cooperative Pain Yes Pain Location generalized Pain Characteristics chronic and aching Psychiatric Exam Level of Consciousness alert Orientation person, place, time and situation Speech normal rate/tone/volume/prosody and coherent Language able to follow instructions or commands Mood all right Affect blunted, appropriate and congruent Thought Processes/Form logical, linear and goal directed Thought Content diminished depressive symptoms Delusions none Homicidal/Assaultive Ideation none Suicidal Ideation none Hallucinations none Attention/Concentration focused Attention/Concentration Testing Methods observation/interview Short Term Memory Impairment mild STM Testing Methods clinical interview (assessment/observation) Intermediate Memory Impairment none LTM Testing Methods recall of biographical information Intellectual Functioning roughly average Intellectual Functioning Assessed By fund of knowledge Insight fair Insight Assessed By ability to recognize & acknowledge mental illness, ability to understand the implications of mental illness, understanding of treatment options and ability to comply with treatment Judgement fair Judgement Assessed By exploring recent decision-making MMSE n/a Patient Assets willing to accept treatment, able to perform ADLs Patient Liabilities history of noncompliance, medical issues, balance, mobility issues Assessment and Plan 2 Clinical Impression/Diag Clinical Impression/Diagnosis F 33.2. Continuing to work on motivation, communication Progress Overview Reason for Continued Services in an Outpatient Program continued impaired mood and.or depression, patient would decompenste at a lower level of care, not at baseline level of functioning and high risk for relapse Treatment To Be Provided medication management and group/individual/rec therapy Discharge Disposition/Level of Care PCP Anticipated Discharge 4-6 weeks
[2025-08-05 10:32] VITALS: BP 114/75; PULSE 92; RESP 20; TEMP 36.8; O2SAT 97
--- NOTE | 2025-08-05 14:07 | PC.NURSE ---
No nursing group due to nurse meeting.
--- NOTE | 2025-08-07 10:19 | PC.NURSE ---
No nursing group due to MD visit.
[2025-08-07 10:31] VITALS: BP 113/67; PULSE 83; RESP 18; TEMP 36.9; O2SAT 97
[2025-08-12 10:05] VITALS: BP 133/72; PULSE 94; RESP 20; TEMP 36.6; O2SAT 98
--- NOTE | 2025-08-14 09:18 | PC.NURSE ---
No nursing group due to nurse meeting.
[2025-08-14 10:10] VITALS: BP 123/74; PULSE 90; RESP 20; TEMP 36.9; O2SAT 97
[2025-08-19 10:23] VITALS: BP 110/72; PULSE 90; RESP 20; TEMP 36.5; O2SAT 96
--- NOTE | 2025-08-21 09:36 | PC.NURSE ---
No nursing group due to MD visit.
[2025-08-21 10:33] VITALS: BP 105/68; PULSE 92; RESP 20; TEMP 36.8; O2SAT 98
--- NOTE | 2025-08-21 12:31 | WPDSLSPROGRE ---
Progress HPI Progress HPI Visit Attended By patient and staff History Obtained From patient Patient Stated Chief Complaint all right HPI this is a routine follow-up. Patient is being seen for depression anxiety. He says he is doing all right, and for Nahum, this is actually fairly well. He is on Ritalin 10 mg a.m. and 2:00 p.m., Cymbalta 90 mg q.day, Aricept 5 mg q.h.s., BuSpar 15 mg b.i.d., bupropion 100 mg b.i.d.. Sleeps about 8-9 hours a night, wakes up to go to the bathroom and after having vivid dreams. He says he is tired during the day, And this is his main complaint. He does not exercise, and is not always watch his diet. I told him that although did depression can present with fatigue, I suspect that for him this might be due to a combination of lifestyle choices and medications, as well as his medical conditions. He does say that he and his are getting along as he basically does what she tells him to do. Average Number of Hours of Sleep 8 Sleep Quality frequent awakening Change in PMFSH Releveant to Presenting Illness No Review of Systems Review of Systems Constitutional Reports fatigue and other ( NIDDM) Eyes Reports other ( glaucoma) ENT Reports WNL Respiratory Reports WNL Cardiovascular Reports other ( arterial sclerosis) Gastrointestinal Reports WNL Musculoskeletal Reports diminished strength, Reports muscle stiffness and Reports other ( chronic pain) Neurologic Reports other ( cerebral hemorrhage, bilateral DBS, sotero) Skin Reports WNL ADL's Reports independent Exam Physical Exam Review of Lab Studies n/a Hygiene good General Behavior/Attitude Toward Examiner pleasant and cooperative Pain Yes Pain Location generalized Pain Characteristics chronic and aching Psychiatric Exam Level of Consciousness alert Orientation person, place, time and situation Speech normal rate/tone/volume/prosody and coherent Language able to comprehend questions Mood all right Affect blunted, appropriate and congruent Thought Processes/Form logical, linear and goal directed Thought Content diminished depressive symptoms Delusions none Homicidal/Assaultive Ideation none Suicidal Ideation none Hallucinations none Attention/Concentration focused Attention/Concentration Testing Methods observation/interview Short Term Memory Impairment mild STM Testing Methods clinical interview (assessment/observation) Patient Resource Specialist Memory Impairment none LTM Testing Methods recall of biographical information Intellectual Functioning roughly average Intellectual Functioning Assessed By abstract reasoning Insight fair and improving Insight Assessed By ability to recognize & acknowledge mental illness, ability to understand the implications of mental illness, understanding of treatment options and ability to comply with treatment Judgement fair and improving Judgement Assessed By exploring recent decision-making MMSE n/a Patient Assets able to perform ADLs, willing to accept treatment Patient Liabilities history of noncompliance, medical issues, balance and mobility issues Assessment and Plan Clinical Impression/Diag Clinical Impression/Diagnosis F 33.2, continue to work on motivation, communication Progress Overview Reason for Continued Services in an Outpatient Program continued impaired mood and.or depression, patient would decompenste at a lower level of care, not at baseline level of functioning and high risk for relapse Treatment To Be Provided medication management and group/individual/rec therapy Discharge Disposition/Level of Care PCP Anticipated Discharge 4-6 weeks
[2025-08-26 10:25] VITALS: BP 120/72; PULSE 92; RESP 20; TEMP 36.8; O2SAT 98
[2025-08-28 09:37] VITALS: BP 129/84; PULSE 97; RESP 20; TEMP 36.1; O2SAT 96
--- NOTE | 2025-08-28 10:29 | PC.NURSE ---
No nursing group due to MD visit.
[2025-09-02 10:45] VITALS: BP 107/72; PULSE 92; RESP 20; TEMP 36.6; O2SAT 96
--- NOTE | 2025-09-04 09:15 | PC.NURSE ---
No nursing group due to MD visit.
[2025-09-04 10:22] VITALS: BP 102/72; PULSE 88; RESP 20; TEMP 36.8; O2SAT 96
[2025-09-09 10:20] VITALS: BP 106/65; PULSE 93; RESP 20; TEMP 36.7; O2SAT 97
--- NOTE | 2025-09-11 09:40 | PC.NURSE ---
No nursing group due to MD visit.
[2025-09-11 10:26] VITALS: BP 120/69; PULSE 90; RESP 20; TEMP 36.8; O2SAT 98
--- NOTE | 2025-09-11 11:26 | WPDSLSPROGRE ---
Progress HPI Progress HPI Visit Attended By patient and staff History Obtained From patient Patient Stated Chief Complaint my attitude HPI This is a routine follow-up for depression anxiety. Although staff feels that patient has been doing very well over the past to you. , today patient says things are going well in that they had a rare argument last night and now he wants something for my attitude and behavior. It does not sound like his is driving this, in that he says she tells him that there are probably few medication options at this point. We told him that, unfortunately, therapy is probably the only thing to concentrate on at this point and that it is always hard work. On Ritalin 10 mg at 8:00 a.m. and 2:00 p.m., Cymbalta 90 mg q.day, Aricept 5 mg q.h.s., BuSpar 15 mg b.i.d., bupropion 100 mg b.i.d.. Working on motivation, communication, among other topics. Complains of low energy. Average Number of Hours of Sleep 8 Sleep Quality sleep throughout the night Change in PMFSH Releveant to Presenting Illness No Review of Systems Review of Systems Constitutional Reports fatigue and other ( In IDDM) Eyes Reports other ( glaucoma) ENT Reports WNL Respiratory Reports WNL Cardiovascular Reports other ( arteriosclerosis) Gastrointestinal Reports WNL Musculoskeletal Reports diminished strength, Reports muscle stiffness and Reports other ( chronic pain) Neurologic Reports WNL and other ( balance issues, cerebral hemorrhage, bilateral DBS) Skin Reports WNL ADL's Reports WNL and Reports independent Exam Physical Exam Review of Lab Studies n/a Hygiene good General Behavior/Attitude Toward Examiner pleasant and cooperative Pain Yes Pain Location generalized Pain Characteristics chronic and aching Psychiatric Exam Level of Consciousness alert Orientation person, place, time and situation Speech normal rate/tone/volume/prosody and coherent Language able to comprehend questions Mood my attitude Affect blunted, appropriate and congruent Thought Processes/Form logical, linear and goal directed Thought Content depressive symptoms Delusions none Homicidal/Assaultive Ideation none Suicidal Ideation none Hallucinations none Attention/Concentration focused Attention/Concentration Testing Methods observation/interview Short Term Memory Impairment mild STM Testing Methods clinical interview (assessment/observation) Rn Case Manager Memory Impairment none Intellectual Functioning roughly average Intellectual Functioning Assessed By fund of knowledge Insight fair Insight Assessed By ability to recognize & acknowledge mental illness, ability to understand the implications of mental illness, understanding of treatment options and ability to comply with treatment Judgement fair Judgement Assessed By exploring recent decision-making MMSE n/a Patient Assets able to perform ADLs, willing to accept treatment Patient Liabilities history of noncompliance, medical issues, balance, mobility issues Assessment and Plan Clinical Impression/Diag Clinical Impression/Diagnosis F 33.2, improvement per staff, continue to encourage family therapy Progress Overview Reason for Continued Services in an Outpatient Program continued impaired mood and.or depression, patient would decompenste at a lower level of care, not at baseline level of functioning and high risk for relapse Treatment To Be Provided medication management and group/individual/rec therapy Discharge Disposition/Level of Care PCP Anticipated Discharge 4-6 weeks
[2025-09-16 10:10] VITALS: BP 112/72; PULSE 90; RESP 20; TEMP 36.8; O2SAT 97
--- NOTE | 2025-09-18 09:30 | PC.NURSE ---
No nursing group due to MD visit.
[2025-09-18 10:09] VITALS: BP 115/64; PULSE 94; RESP 20; TEMP 36.7; O2SAT 100
[2025-09-23 10:27] VITALS: BP 126/77; PULSE 92; RESP 20; TEMP 36.8; O2SAT 93
--- NOTE | 2025-09-25 09:20 | PC.NURSE ---
No nursing group due to MD visit.
[2025-09-25 10:27] VITALS: BP 112/75; PULSE 92; RESP 20; TEMP 36.9; O2SAT 96
--- NOTE | 2025-09-29 08:37 | SLSTHERAPY ---
Sravan canceled group attendance for the week of 09/29/2025 due to out of state trip for the holiday; Sravan is scheduled to return to group 10/07/2025.
--- NOTE | 2025-10-07 08:44 | SLSTHERAPY ---
Group canceled due to snow; Sravan is scheduled to return to group 10/09/2025.
[2025-10-08 09:53] VITALS: BP 110/73; PULSE 94; RESP 20; TEMP 37.1; O2SAT 98
--- NOTE | 2025-10-09 10:09 | PC.NURSE ---
No nursing group due to MD visit.
[2025-10-09 10:23] VITALS: BP 112/70; PULSE 94; RESP 20; TEMP 36.9; O2SAT 99
--- NOTE | 2025-10-09 13:08 | WPDSLSPROGRE ---
Progress HPI Progress HPI Visit Attended By patient and staff History Obtained From patient Patient Stated Chief Complaint getting along with my HPI Is a routine follow-up for depression and anxiety. Patient says that his mood is improved as he is getting along better with his , trying to be helpful, etc.. His tremor is somewhat worse in his right arm, any plans to see Neurology next month. Enjoys program and participates well, coming 2 times a week. Working on topics such as motivation, self-esteem. On Ritalin 10 mg at 8:00 a.m. and 2:00 p.m., Cymbalta 90 mg q.day, Aricept 5 mg q.h.s., BuSpar 15 mg b.i.d., bupropion 100 mg b.i.d.. He is complaining about fatigue and I told this may be likely to a lot of medication he is on, as well as medical issues, but he also admits he does not exercise much, and I encouraged this. Average Number of Hours of Sleep 8 Sleep Quality sleep throughout the night Change in PMFSH Releveant to Presenting Illness Yes Describe Changes in PMFSH Low energy Review of Systems Review of Systems Constitutional Reports fatigue and other ( IDDM) Eyes Reports other ( glaucoma) ENT Reports WNL Respiratory Reports WNL Cardiovascular Reports other ( arteriosclerosis) Gastrointestinal Reports WNL Musculoskeletal Reports diminished strength, Reports muscle stiffness and Reports other ( chronic pain) Neurologic Reports other ( balance issues, cerebral hemorrhage, bilateral DBS) Skin Reports WNL ADL's Reports independent Exam Physical Exam Review of Lab Studies n/a Hygiene good General Behavior/Attitude Toward Examiner pleasant and cooperative Pain Yes Pain Location generalized Pain Characteristics chronic and aching Psychiatric Exam Level of Consciousness alert Orientation person, place, time and situation Speech normal rate/tone/volume/prosody and coherent Language able to follow instructions or commands Mood less depressed Affect full range, appropriate and congruent Thought Processes/Form logical, linear and goal directed Thought Content diminished depressive symptoms Delusions none Homicidal/Assaultive Ideation none Suicidal Ideation none Hallucinations none Attention/Concentration focused Attention/Concentration Testing Methods observation/interview Short Term Memory Impairment mild STM Testing Methods clinical interview (assessment/observation) Skilled Nursing Memory Impairment none LTM Testing Methods recall of biographical information Intellectual Functioning roughly average Intellectual Functioning Assessed By current events Insight fair and improving Insight Assessed By ability to recognize & acknowledge mental illness, ability to understand the implications of mental illness, understanding of treatment options and ability to comply with treatment Judgement fair and improving Judgement Assessed By exploring recent decision-making MMSE n/a Patient Assets able to perform ADLs, willing to accept treatment Patient Liabilities history of noncompliance, medical issues, balance, mobility issues Assessment and Plan Clinical Impression/Diag Clinical Impression/Diagnosis F 33.2, improving Progress Overview Reason for Continued Services in an Outpatient Program continued impaired mood and.or depression, patient would decompenste at a lower level of care, not at baseline level of functioning and high risk for relapse Treatment To Be Provided medication management and group/individual/rec therapy Discharge Disposition/Level of Care PCP Anticipated Discharge 4-6 weeks
[2025-10-13 10:13] VITALS: BP 110/68; PULSE 92; RESP 20; TEMP 37; O2SAT 98
== END 2025-10-13 23:59 | disposition home or self-care (01) ==
LOC: CHSSENLIFE 10:00
PROVIDERS: PCP Family Medicine; Visit Provider Psychiatry & Neurology Psychiatry
DX: F33.2 Major depressive disorder, recurrent severe without psychotic features (principal)
CPT/HCPCS: 36415; 80053; 80061; 82306; 83036; 84153; 85027; 90846; 90847; 90853; 99213; G0103; G0463